=== PATIENT | male | born 1965 | race Caucasian/White ===

== ENCOUNTER → 2018-09-15 12:49 | Outpatient (CLI) | payer BC, SELFPAY ==
[2018-09-15 11:21] VITALS: BMI 34.4
--- NOTE | 2018-09-15 12:54 | RAD_ITS ---
STUDY: X-RAY - LEFT SHOULDER REASON FOR EXAM: Male, 53 years old. Chronic pain. TECHNIQUE: view(s) of the shoulder. COMPARISON: None. FINDINGS: Normal glenohumeral articulation. Normal acromioclavicular joint. Normal acromion. Normal humeral head and visualized proximal humerus. The soft tissue structures are unremarkable. Normal visualized pulmonary apex. RAD/Shoulder min 2 Views IMPRESSION: Normal x-ray examination of the shoulder. Electronically Signed: Gordon Pressley MD at 8:38 EST Tel , Service support ,
--- NOTE | 2018-09-15 12:54 | RAD_ITS ---
STUDY: X-RAY - LEFT WRIST REASON FOR EXAM: Male, 53 years old. Chronic pain. TECHNIQUE: 3 view(s) of the wrist were obtained. COMPARISON: None. FINDINGS: Normal visualized distal radius and ulna. Normal radiocarpal articulation. Normal distal radioulnar articulation. Normal carpal bones. There is a small tiny calcific density on the dorsal aspect of the wrist which could be due to remote injury to the triquetrum or may represent small soft tissue calcification. The significance of which is undetermined. Normal carpal articulations. Normal carpometacarpal articulation of the thumb. Normal second through fifth carpometacarpal articulations. Normal visualized metacarpal bones. The soft tissue structures are unremarkable. RAD/Wrist min 3 Views IMPRESSION: No demonstrated acute osseous changes as described above. Electronically Signed: Gordon Pressley MD at 8:44 EST Tel , Service support ,
== END ==
PROVIDERS: Referring Provider Orthopaedic Surgery; Visit Provider Orthopaedic Surgery
DX: M25.512 Pain in left shoulder (principal); M25.532 Pain in left wrist
CPT/HCPCS: 73030; 73110

== ENCOUNTER → 2018-11-07 09:42 | Outpatient (CLI) | payer BC, SELFPAY ==
[2018-09-15 11:21] VITALS: BMI 34.4
--- NOTE | 2018-11-07 09:53 | RAD_ITS ---
STUDY: X-RAY - PELVIS REASON FOR EXAM: Male, 53 years old. Chronic pain TECHNIQUE: One view of the pelvis was obtained. COMPARISON: None. FINDINGS: Degenerative change of the lower lumbosacral spine. The sacroiliac and hip joints are normal. No fracture. No calcific tendinitis or bursitis . Electronically Signed: Nabil Lua MD at 0:02 EDT Tel , Service support , RAD/Pelvis 1 or 2 Views
[2018-11-07 12:38] LABS: Erythrocyte Sedimentation Rate 10 mm/hr (0-20)
[2018-11-07 12:40] LABS: Absolute Lymphocyte Count 1.98 X10^3/ul (0.83-4.51); Absolute Neutrophil Count 3.3 X10^3/uL (2.0-7.7); Basophil# 0.04 X10^3/uL; Basophil% 0.6 % (0-1); Eosinophil# 0.27 X10^3/uL; Eosinophils% 4.3 % (0-5); Hematocrit 39.6 % (40-54); Hemoglobin 13.4 g/dl (13.0-16.5); Lymphocyte # 1.98 X10^3/ul (4.0); Lymphocyte % 31.8 % (19-41); Mean Corp Hgb Conc 33.8 g/gl (32-36); Mean Corpuscular Hgb 29.2 pg (27.0-32.0); Mean Corpuscular Volume 86.3 fL (80-94); Monocyte% 9.6 % (0-10); Neutrophil # 3.31 X10^3/uL (2.7-7.7); Neutrophil % 53.4 % (47-70); Platelet Count 234 K/mm3 (150-450); RBC Distribution Width CV 13.4 % (11.6-14.6); RBC Distribution Width SD 42.2 fl (35.1-43.9); Red Blood Count 4.59 M/mm3 (4.6-6.2); White Blood Count 6.2 K/mm3 (4.4-11.0)
[2018-11-07 12:41] LABS: POSITIVE COUNT NO; POSITIVE DIFFERENTIAL NO; POSITIVE MORPHOLOGY NO
[2018-11-07 13:15] LABS: ALB/GLOB Ratio 1.2 RATIO (0.9-2.4); AST(SGOT) 27 U/L (15-37); Alanine Aminotransfer ALT/SGPT 38 U/L (16-61); Albumin, Serum 4.2 g/dL (3.2-5.0); Alkaline Phosphatase 74 U/L (45-117); Anion Gap 6 (5-15); BUN 18 mg/dL (7-18); BUN/Creat Ratio 15.4 RATIO (10-20); Calcium,Total 8.9 mg/dL (8.5-10.1); Chloride 106 mmol/L (98-107); Creatinine, Serum 1.17 mg/dL (0.70-1.30); EST Glomerular Filtration Rate 69 mL/min (>60); Est Glom Filt Rate - Afr Amer 84 mL/min (>60); Globulin 3.6 g/dL (2.2-4.2); Glucose 91 mg/dL (74-106); Potassium 4.1 mmol/L (3.5-5.1); Protein, Total 7.8 g/dL (6.4-8.2); Rheumatoid Factor < 10.0 IU/mL (<15); Sodium Level 139 mmol/L (136-145)
[2018-11-11 13:13] LABS: ANTINUCLEAR ANTIBODIES DIRECT Negative (Negative)
[2018-11-12 13:27] LABS: CCP IgG Antibodies 5 units (0-19); HEPATITIS B SURFACE AG Negative (Negative); HLA B27 Negative (.); Hep B Surface Antibodies Non Reactive (.); Hep C Antibodies <0.1 s/co ratio (0.0-0.9)
== END ==
PROVIDERS: Family Provider Nurse Practitioner; PCP Nurse Practitioner; Referring Provider Internal Medicine Rheumatology; Visit Provider Internal Medicine Rheumatology
DX: M06.4 Inflammatory polyarthropathy (principal); L30.9 Dermatitis, unspecified
CPT/HCPCS: 36415; 72170; 80053; 81374; 85025; 85652; 86038; 86140; 86200; 86431; 86706; 86803; 87340

== ENCOUNTER → 2019-10-27 14:05 | Outpatient (CLI) | payer BC, SELFPAY ==
[2018-09-15 11:21] VITALS: BMI 34.4
--- NOTE | 2019-10-27 14:08 | RAD_ITS ---
STUDY: X-RAY - LUMBAR SPINE REASON FOR EXAM: Male, 54 years old. twisted spine last night, felt a pop and now has left LBP TECHNIQUE: 5 view(s) of the lumbar spine were obtained. COMPARISON: None FINDINGS: Normal lumbar lordosis. Mild scoliosis of the lumbar spine, convexity to the left. There is a normal alignment of the vertebrae. There is multilevel endplate spondylosis of the lumbar vertebrae. There is multi-level degenerative disc disease with multi-level disc space narrowing. There is no demonstrated fracture. There is no demonstrated spondylolysis of the pars interarticulares. The soft tissue structures are unremarkable. RAD/L/S Spine Min 4 Views IMPRESSION: Multilevel spondylosis/degenerative disease with no acute fracture, spondylolisthesis or pars defect. Electronically Signed: Lisset Johnston MD at 0:42 EDT , Service support ,
== END ==
PROVIDERS: PCP Nurse Practitioner; Referring Provider Nurse Practitioner; Visit Provider Nurse Practitioner
DX: M54.32 Sciatica, left side (principal)
CPT/HCPCS: 72110

== ENCOUNTER 2019-10-30 14:30 | Outpatient (RCR) | payer BC, SELFPAY ==
[2018-09-15 11:21] VITALS: BMI 34.4
--- NOTE | 2019-10-27 15:23 | HP.PTEVAL_ITS ---
Patient's Visit Information MARIELLA MANZANO is a 54 year old M referred to Physical Therapy by LIA Coates with a diagnosis of Back Pain. Date of Evaluation: 10/27/19 Physical Therapist: Susan Cooley DPT - Visit Plan Frequency: 3x /Week Duration: 4 Weeks Plan: Focus on centralization- core strength/stabilization- shift- modalities of US, e-stim - Subjective Subjective: Patient reports that 8:00 last night he started to have back pain- Last night he twisted around and bent forwards felt and heard a pop and went down on his knees. Pain is located along the left belt line- Pain radiates down below the knee- MD had x-rays and she gave him a Torodol injection. Descibes the back as sharp/shooting pains- electrical shock down the leg that comes and goes. Agg: moving wrong- sitting and putting weight on his hip. Best: leaning on the right hip- laying on his back with his knees bent. Heating pad last night and MD told him to ice. worst: 10/10 best: 6/10. Never had back pain before. 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 No N/T-no buckling of the knee- no loss or change in bowel or bladder. Sleep: belly sleeper- last night was on his back- uncomfortable. PMHx:pre-DM Meds: Metformin, Prevastatin, Prozac, adderol, Synthroid - has him starting Medrol Dose Pack - Objective Posture: FH, RS- leaning to the right- no weight on the left hip in sitting. Gait: antalgic- decreased stance on the left LE- shifted. HR/TR: able. SLS: Left: 5 sec Right: 30 sec. Sensation/Reflex: WNL. ROM: Lumbar flexion: hands to knees, extn/sb/rot: all WNL pain with SB to the right. Strength: core: fair, Hip: 4+/5, Ankle: 5/5, Knee: 5/5 bilaterally. Flex:HS moderate, Gastroc: moderate. Special Test: SLR: positive, Slump on left: positive, Dural Signs: positive. Palpation: tender along paraspinals on the left lumbar and into the gluts on the left - Goals Goal 1:: Patient will be I with HEP and progression Goal Time Frame: 4-6 Weeks Goal 2:: Patient will ambulate >300 feet with a normalized gait pattern Goal Time Frame: 4-6 Weeks Goal 3:: Patient will maintain proper sitting and standing posture without shifting Goal Time Frame: 4-6 Weeks - Rehabilitation Potential Physical Therapy Diagnosis: Patient presents with hypmobility- he has decreased painfree ROM, strength, flex and muscualar endurance leading to increased pain with ADL's Rehabilitation Potential: Good - Anticipated Interventions Patient/Client Instruction: Educate patient on: Benefits of Fitness Program Therapeutic Exercise to Include: Strength training, Endurance training, Balance training, Agility training, Body mechanics, Postural training, Flexibilty training, Gait and locomotor training, Neuromotor development, Passive ROM, Active ROM, Dynamic Lumbar Stabilization, Scapular Strength/Stabilization For the Purpose of:: To improve muscle performance and motor function TENS: Yes Cryotherapy (ice pack, ice massage): Yes Thermo therapy (hot pack): Yes Ultrasound (thermal/non thermal): Yes Thank you for the opportunity to evaluate your patient. For Medicare and Medicare HMO plans, please review the plan of care and approve it. It will need to be FAXED BACK to us at [phone] for Medicare purposes. For Medicare only, by signing this I certify the plan of care. Please let me know if there are questions or concerns regarding this plan of care. Physician Signature: Date:
--- NOTE | 2019-12-22 11:26 | HP.PT.NRP ---
MARIELLA MANZANO was seen in my office for initial evaluation on 10/27/19. The following Plan of Care was established for this patient: Initial Frequency: 3x /Week Initial Duration: 4 Weeks Patient/Client Instruction: Educate patient on: Benefits of Fitness Program Therapeutic Exercise to Include: Strength training, Endurance training, Balance training, Agility training, Body mechanics, Postural training, Flexibilty training, Gait and locomotor training, Neuromotor development, Passive ROM, Active ROM, Dynamic Lumbar Stabilization, Scapular Strength/Stabilization For the Purpose of:: To improve muscle performance and motor function TENS: Yes Cryotherapy (ice pack, ice massage): Yes Thermo therapy (hot pack): Yes Ultrasound (thermal/non thermal): Yes This patient was last seen in our office . Pertinent comments regarding their Physical therapy will appear below: Patient has not attended physical therapy in over 8 weeks- appropriate for d/c and return to MD as appropriate. At this point I will be discontinuing this patient from physical therapy. I would be happy to see this patient again in the future if found appropriate by the physician. Thank you! DEMARCUS McnamaraT
== END 2019-10-30 19:00 | disposition home or self-care (01) ==
LOC: PT 14:30
PROVIDERS: PCP Nurse Practitioner; Referring Provider Nurse Practitioner; Visit Provider Nurse Practitioner
DX: M54.40 Lumbago with sciatica, unspecified side (principal)
CPT/HCPCS: 97014; 97110; 97162; G0283

== ENCOUNTER → 2020-01-21 | Outpatient (CLI) | payer BC, SELFPAY ==
[2018-09-15 11:21] VITALS: BMI 34.4
[2020-01-21 17:42] LABS: RBC /Synovial Fluid 0.444 10^6/uL (0); Synovial Fld Mononuclear WBC % 40.2 %; Synovial Fld Polynuclear WBC # 2.199 10^3/uL; Synovial Fld Polynuclear WBC % 59.8 %
[2020-01-21 18:11] LABS: AUTO B FLUID DILUENT BKGD CT WBC <0.1 RBC <0.01 (W<.1,R<.01)
[2020-01-21 18:12] LABS: Appearance /Synovial Fluid Cloudy (CLEAR); Color / Synovial Fluid RED (Pale Yellow); Source / Synovial Fluid LEFT ELBOW
[2020-01-21 18:47] LABS: Neutrophil 74 % (0-25)
[2020-01-21 18:48] LABS: Body Fluid QC Type(s) BF4Q; Lymph 7 %; Monocyte /Synovial Fluid 17 %; Other Cell /Synovial Fluid 2 %
[2020-01-22 12:25] LABS: Pathologist Comment Reviewed
== END | disposition home or self-care (01) ==
PROVIDERS: PCP Nurse Practitioner; Referring Provider Physician Assistant; Visit Provider Physician Assistant
DX: M70.22 Olecranon bursitis, left elbow (principal)
CPT/HCPCS: 87015; 87070; 87075; 87077; 87101; 87116; 87186; 87205; 87206; 89050; 89051

== ENCOUNTER 2020-02-29 10:02 | Day surgery (SDC) | payer BC, SELFPAY ==
[2018-09-15 11:21] VITALS: BMI 34.4
--- NOTE | 2020-02-11 08:24 | EKG12_ITS ---
Test Reason : PREOP Blood Pressure : / mmHG Vent. Rate : 060 BPM Atrial Rate : 060 BPM P-R Int : 136 ms QRS Dur : 082 ms QT Int : 396 ms P-R-T Axes : 041 004 037 degrees QTc Int : 396 ms Normal sinus rhythm Normal ECG Confirmed by JOEY SIERRA, CALE ([id number]), department editor MARITO STALLWORTH ([id number]) on 02/11/2020 1:24:55 PM Referred By: Colin Byrne Confirmed By:CALE COOK MD
[2020-02-11 08:49] LABS: Mean Corp Hgb Conc 32.5 g/dL (32-36); Mean Corpuscular Hgb 29.7 pg (27.0-32.0); Mean Corpuscular Volume 91.5 fL (80-94); Mean Platelet Vol. 8.9 fl (6.2-12.0); Platelet Count 242 K/mm3 (150-450); RBC Distribution Width CV 12.8 % (11.6-14.6); RBC Distribution Width SD 42.1 fl (35.1-43.9); Red Blood Count 4.37 M/mm3 (4.6-6.2); White Blood Count 4.8 K/mm3 (4.4-11.0)
[2020-02-11 09:30] LABS: Anion Gap 4 (5-15); BUN 21 mg/dL (7-18); BUN/Creat Ratio 21.1 RATIO (10-20); Chloride 109 mmol/L (98-107); EST Glomerular Filtration Rate 83 mL/min (>60); Est Glom Filt Rate - Afr Amer 101 mL/min (>60); Glucose 101 mg/dL (74-106); Potassium 4.2 mmol/L (3.5-5.1); Sodium Level 141 mmol/L (136-145); Thyroid Stim Hormone (TSH) 1.33 uIU/mL (0.358-3.74)
[2020-02-11 11:28] LABS: Hemoglobin A1c 5.6 % (3.8-5.6)
[2020-02-29 10:26] LABS: Bedside Glucose 115 mg/dL (70-110)
[2020-02-29 10:29] VITALS: BP 137/76; PULSE 52; RESP 16; TEMP 36.6; O2SAT 98; BMI 32.1
[2020-02-29] MEDS: Lactated Ringers 1,000 ML 100 ML IV (10:40)
[2020-02-29] MEDS: Cefazolin 2 GM in 0.9% Normal Saline 100 ML IV (11:30)
[2020-02-29] MEDS: Bupiv/Epi 0.5% Mpf 30 ML Vial (11:57)
[2020-02-29] MEDS: Epinephrine (1 mg/ml) 1 MG/ML VIAL (12:07)
--- NOTE | 2020-02-29 13:03 | OP.PCM_ITS ---
Report of Operation Date of Procedure: 02/29/20 Pre-Operative Diagnosis: SAIS, AC arthropathy, RC tear, biceps tendinosus left Post-Operative Diagnosis: same Surgery/Procedure Performed:: ASD, Robert procedure, biceps tenotomy and RCR television antenna installer: Kurt Rivera Type of Anesthesia:: General/Regional Anesthesiologist: Myles Morejon - Admit VTE Documentation VTE Present on Admission: No VTE Mechan Device Prophylaxis: SCD's VTE Pharm Prophylaxis ordered?: No Reason prophylaxis not ordered:: Treatment Not Indicated
[2020-02-29 13:21] VITALS: BP 123/70; BP 137/76; PULSE 58; RESP 16; TEMP 35.9; O2SAT 94
[2020-02-29 13:30] VITALS: BP 119/64; BP 137/76; PULSE 59; RESP 16; O2SAT 93
[2020-02-29 13:45] VITALS: BP 133/93; BP 137/76; PULSE 65; RESP 16; O2SAT 96
[2020-02-29 13:58] VITALS: BP 116/61; BP 137/76; PULSE 67; RESP 16; TEMP 35.9; O2SAT 99
[2020-02-29 14:01] LABS: Bedside Glucose 126 mg/dL (70-110)
[2020-02-29 14:50] VITALS: BP 115/62; BP 137/76; PULSE 58; RESP 16; TEMP 36.1; O2SAT 95
== END 2020-02-29 15:01 | disposition home or self-care (01) ==
LOC: SDC 10:04 → AC 10:05
PROVIDERS: Anesthesiology; PCP Nurse Practitioner; Referring Provider Orthopaedic Surgery; Visit Provider Orthopaedic Surgery
PROC: (CPT 29827; principal; 2020-02-29 11:30)
DX: M75.42 Impingement syndrome of left shoulder (principal); M19.012 Primary osteoarthritis, left shoulder; M75.102 Unspecified rotator cuff tear or rupture of left shoulder, not specified as traumatic; M75.22 Bicipital tendinitis, left shoulder; E78.00 Pure hypercholesterolemia, unspecified; E11.9 Type 2 diabetes mellitus without complications; F41.9 Anxiety disorder, unspecified; E06.9 Thyroiditis, unspecified; Z79.84 Long term (current) use of oral hypoglycemic drugs; Z79.899 Other long term (current) drug therapy; Z11.59 Encounter for screening for other viral diseases
CPT/HCPCS: 01630; 29824; 29826; 29827; 36415; 80048; 82962; 83036; 84443; 85027; 87635; 93005; G2023; J7120; J2405; U0003

== ENCOUNTER 2020-10-03 19:55 | Emergency (ER) | payer BC, SELFPAY ==
[2020-10-03 19:56] VITALS: BP 148/92; PULSE 88; RESP 16; TEMP 36; O2SAT 96; BMI 31.0
--- NOTE | 2020-10-03 21:20 | RAD_ITS ---
HISTORY: PT STATES HE IS COVID POSITIVE. YESTERDAY MORNING HE COUGHED AND HAD BLOOD TINGED MUCOUS. HAS NOT HAD IT AGAIN. JUST ONE EPISODE EXAM: XR Chest 1 View: COMPARISON: None FINDINGS: # of images incl. paperwork: 1 Elevation of the right hemidiaphragm Lungs are clear. Heart is not enlarged. No acute osseous pathology perceived. Pulmonary vascularity is distinct. No effusions. RAD/Chest 1 View (Portable) IMPRESSION: Normal. at 2206 Reported and signed by: Nestor Steele MD Electronically Signed: Nestor Steele MD at 22:05 EST Tel , Service support ,
[2020-10-03 21:41] LABS: Basophil# 0.02 X10^3/uL; Basophil% 0.3 % (0-1); Eosinophil# 0.06 X10^3/uL; Eosinophils% 0.9 % (0-5); Hematocrit 42.6 % (40-54); Hemoglobin 13.9 g/dL (13.0-16.5); Lymphocyte % 24.8 % (19-41); Mean Corp Hgb Conc 32.6 g/dL (32-36); Mean Corpuscular Hgb 28.9 pg (27.0-32.0); Mean Corpuscular Volume 88.6 fL (80-94); Mean Platelet Vol. 8.8 fl (6.2-12.0); Monocyte# 0.69 X10^3/uL; Monocyte% 10.7 % (0-10); NRBC Flagged by Analyzer 0 % (0-5); Neutrophil # 4.04 X10^3/uL (2.7-7.7); Neutrophil % 62.8 % (47-70); Platelet Count 248 K/mm3 (150-450); RBC Distribution Width CV 12.6 % (11.6-14.6); RBC Distribution Width SD 41.1 fl (35.1-43.9); Red Blood Count 4.81 M/mm3 (4.6-6.2); White Blood Count 6.4 K/mm3 (4.4-11.0)
[2020-10-03 21:49] LABS: Prothrombin Time (Protime)PT. 12.2 SECONDS (11.7-14.9)
[2020-10-03 21:50] LABS: D-Dimer Quantitative (DVT/PE) 0.48 FEU/ug/m (0.27-0.49)
[2020-10-03 21:58] LABS: Anion Gap 5 (5-15); BUN 24 mg/dL (7-18); BUN/Creat Ratio 22.2 RATIO (10-20); Calcium,Total 9.3 mg/dL (8.5-10.1); Chloride 105 mmol/L (98-107); Creatinine, Serum 1.08 mg/dL (0.70-1.30); EST Glomerular Filtration Rate 76 mL/min (>60); Est Glom Filt Rate - Afr Amer 92 mL/min (>60); Estimated Creatinine Clearance 78.19 ml/min; Glucose 103 mg/dL (74-106); Potassium 4.9 mmol/L (3.5-5.1); Sodium Level 139 mmol/L (136-145)
--- NOTE | 2020-10-03 23:01 | ED.VIS.GEN ---
History of Present Illness Chief Complaint: Cough Informant: Patient Onset: Today Context: Sudden Onset Narrative: Patient evaluated for 1 episode of hemoptysis. Patient was diagnosed with Covid 1 week ago. He contracted it from his . Patient states he has had mild headache and myalgias but otherwise been feeling well. He denies any shortness of breath or difficulty breathing. Patient states he coughed up blood clot about the size of a half dollar yesterday. He spoke with his primary care provider, Kimberly Irby, who recommend he come to the emergency room to make sure he does not have a blood clot. Patient denies any chest pain, shortness of breath or difficulty breathing. He is not on any anticoagulants. No other complaints at this time. Past Medical History - Allergies and Home Meds Allergies/Adverse Reactions: Allergies No Known Allergies Allergy (Verified 02/29/20 10:27) Primary Care Physician: Dada Baeza DO [STAFF PHYSICIAN] - Past Medical History: - - Hypothyroid, diabetes mellitus, depression/anxiety Surgical History: noncontributory Lives: Spouse/ Significant Other Smoking Status: Former smoker Review of Systems General: Reports: Malaise. Denies: Chills, Fever, Sweats Eyes: Denies: Visual changes - bilaterally, Diplopia ENT: Denies: Rhinorrhea, Sore throat Cardiovascular: Denies: Chest pain, Palpitations Respiratory: Reports: Cough, - - Hemoptysis. Denies: Dyspnea, Dyspnea on exertion Gastrointestinal: Denies: Abdominal pain, Nausea, Vomiting, Diarrhea, Melena, Hematochezia Genitourinary: Denies: Dysuria, Hematuria, Frequency Musculoskeletal: Reports: Myalgias. Denies: Back pain, Extremity Pain Skin: Denies: Rash, Wounds Neurological: Denies: Headache, Weakness, Numbness Physical Exam Vital Signs/Narrative: Vital Signs Temp Pulse Resp BP Pulse Ox 10/03/20 19:56 96.8 F L 88 16 148/92 H 96 Inital Vital Signs reviewed: Yes General: Well nourished, Well developed, No Acute Distress Head: Normocephalic, Atraumatic Eyes: Perrl, EOMI. Negative for: Pale conjunctiva ENT: Moist mucous membranes, No rhinorrhea Neck: Supple, Nontender, No JVD Cardiovascular: Regular rate, Regular rhythm, No murmurs Respiratory: No distress, CTA bilaterally, Chest nontender. Negative for: Wheezing, Diminished Abdomen: Soft, Nontender, Nondistended, Normal bowel sounds Back: Nontender, Normal Inspection Extremities: Nontender, No edema Skin: Normal color, No rash. Negative for: Pallor Neurological: Alert, Oriented x3, Cranial nerves II-XII grossly intact, Normal Strength, Normal Sensation Psychological: Normal affect, Normal Mood Diagnostic/Tx/Re-eval Chest X-Ray - ED: 1 View, Read by ED Physician, Read by Radiologist, No Acute Disease Clinical Impression(s) from Imaging Studies Chest X-Ray 10/03/20 21:20 IMPRESSION: Normal. at 2206 Reported and signed by: Nestor Steele MD Electronically Signed: Nestor Steele MD at 22:05 EST Tel , Service support , Laboratory Data 10/03/20 10/03/20 10/03/20 21:15 21:15 21:15 WBC 6.4 RBC 4.81 Hgb 13.9 Hct 42.6 MCV 88.6 MCH 28.9 MCHC 32.6 RDW Std Deviation 41.1 RDW Coeff of Mounika 12.6 Plt Count 248 MPV 8.8 Immature Gran % (Auto) 0.500 Neut % (Auto) 62.8 Lymph % (Auto) 24.8 [place] % (Auto) 10.7 H Eos % (Auto) 0.9 Baso % (Auto) 0.3 Absolute Neuts (auto) 4.0 Absolute Lymphs (auto) 1.60 Nucleated RBC % 0 PT 12.2 INR 1.0 D-Dimer Quant (PE/DVT) 0.48 Sodium 139 Potassium 4.9 Chloride 105 Carbon Dioxide 29.0 Anion Gap 5 BUN 24 H Creatinine 1.08 Estim Creat Clear Calc 78.19 Est GFR (MDRD) Af Amer 92 Est GFR (MDRD) Non-Af 76 BUN/Creatinine Ratio 22.2 H Glucose 103 Calcium 9.3 Troponin I < 0.015 B-Natriuretic Peptide 10/03/20 21:15 WBC RBC Hgb Hct MCV MCH MCHC RDW Std Deviation RDW Coeff of Mounika Plt Count MPV Immature Gran % (Auto) Neut % (Auto) Lymph % (Auto) [place] % (Auto) Eos % (Auto) Baso % (Auto) Absolute Neuts (auto) Absolute Lymphs (auto) Nucleated RBC % PT INR D-Dimer Quant (PE/DVT) Sodium Potassium Chloride Carbon Dioxide Anion Gap BUN Creatinine Estim Creat Clear Calc Est GFR (MDRD) Af Amer Est GFR (MDRD) Non-Af BUN/Creatinine Ratio Glucose Calcium Troponin I B-Natriuretic Peptide 3.0 - Medical Decision Making Patient evaluated after an episode of hemoptysis yesterday. Patient was diagnosed with COVID-19 infection 6 days ago. He has had a relatively benign course so far. He does not complain of any shortness of breath or difficulty breathing. He is not on any anticoagulation. Patient is low risk factor for PE so D-dimer is obtained. This is negative and I do not think CT is indicated. Do not suspect PE. X-ray does not show any acute process. Patient does not have any coagulopathy on blood work. His hemoglobin is normal. Patient be discharged home to follow-up with his primary care provider. Patient is counseled on signs and symptoms requiring return to the emergency room. Patient verbalizes agreement and understand this plan. Patient discharged home in stable and improved condition. ED Disposition - Plan for ED Patient: Disposition: Home or Assisted Living Diagnosis: Hemoptysis Instructions: ED Hemoptysis Referrals: Dada Baeza DO [STAFF PHYSICIAN] -
[2020-10-03 23:11] VITALS: BP 140/78; PULSE 68; RESP 16; O2SAT 98
== END 2020-10-03 23:12 | disposition home or self-care (01) ==
PROVIDERS: Emergency Provider Emergency Medicine; PCP Nurse Practitioner
DX: U07.1 COVID-19 (principal); R04.2 Hemoptysis; E03.9 Hypothyroidism, unspecified; E11.9 Type 2 diabetes mellitus without complications; Z79.84 Long term (current) use of oral hypoglycemic drugs; Z79.899 Other long term (current) drug therapy; Z87.891 Personal history of nicotine dependence
CPT/HCPCS: 71045; 80048; 83880; 84484; 85025; 85379; 85610; 99283; A4216

== ENCOUNTER 2021-11-10 10:55 | Outpatient (CLI) | payer BC, SELFPAY ==
--- NOTE | 2021-11-10 11:02 | US_ITS ---
STUDY: THYROID ULTRASOUND REASON FOR EXAM: Male, 56 years old. ANTI TPO ANTIBODIES PRESENT TECHNIQUE: Ultrasound evaluation of the thyroid was performed with real-time and static evans-scale imaging. COMPARISON: None. FINDINGS: RIGHT LOBE: The right lobe of the thyroid gland is enlarged and measures 5.5 cm x 1.4 cm x 1.4 cm. There is a heterogeneous echotexture. Multiple tiny cystic changes are seen. LEFT LOBE: The left lobe of the thyroid gland is enlarged and measures 5 cm x 1.5 cm x 1.1 cm. There is a heterogeneous echotexture. Multiple tiny cystic changes are seen. ISTHMUS: The isthmus measures 4 mm. The regional lymph nodes are normal. US/Thyroid IMPRESSION: Enlarged thyroid gland with heterogeneous echotexture. Multiple tiny cystic changes are seen in both lobes. Electronically Signed: Harris Buitrago MD at 14:39 EDT ,
== END 2021-11-10 23:59 | disposition home or self-care (01) ==
PROVIDERS: PCP Nurse Practitioner; Referring Provider Nurse Practitioner; Visit Provider Nurse Practitioner
DX: R76.8 Other specified abnormal immunological findings in serum (principal)
CPT/HCPCS: 76536

== ENCOUNTER → 2022-04-26 | Outpatient (CLI) | payer BC, SELFPAY | END | disposition home or self-care (01) | PROVIDERS: PCP Nurse Practitioner Family; Referring Provider Nurse Practitioner Family; Visit Provider Nurse Practitioner Family | DX: R00.1 Bradycardia, unspecified (principal) | CPT/HCPCS: 93225; 93226 ==

== ENCOUNTER → 2022-05-18 | Outpatient (CLI) | payer BC, SELFPAY ==
--- NOTE | 2022-05-18 07:58 | CDU_ITS ---
Reason For Study: DIZZINESS Rt. Velocities/BP Lt. Velocities/BP Prox CCA 104.7/20.1 cm/sec. Prox CCA 110.7/21.2 cm/sec. Mid CCA 117.9/23.4 cm/sec. Mid CCA 103.4/19.4 cm/sec. Dist CCA 88.3/21.2 cm/sec. Dist CCA 99.7/21.2 cm/sec. Prox ICA 50.1/12.7 cm/sec. Prox ICA 66.8/15.7 cm/sec. Mid ICA 56.7/21.5 cm/sec. Mid ICA 70.5/24.8 cm/sec. Dist ICA 67.7/21.5 cm/sec. Dist ICA 63.4/20.7 cm/sec. Rt. ICA/CCA = 0.6. Lt. ICA/CCA = 0.7. Prox ECA 84.2/11.7 cm/sec. Prox ECA 72.3/6.6 cm/sec. Rt. Vert. 46.8/16.0 cm/sec. Lt. Vert. 43.1/13.2 cm/sec. Right Extracranial There is intimal thickening but no significant atherosclerotic plaque noted in the right common carotid artery. There is heterogeneous, irregular atherosclerotic plaque noted in the right internal carotid artery. There is homogeneous, irregular atherosclerotic plaque noted in the right external carotid artery. Antegrade flow is noted in the right vertebral artery. Left Extracranial There is intimal thickening but no significant atherosclerotic plaque noted in the left common carotid artery. There is heterogeneous, irregular atherosclerotic plaque noted in the left internal carotid artery. There is intimal thickening but no significant atherosclerotic plaque noted in the left external carotid artery. Antegrade flow is noted in the left vertebral artery. Procedure Carotid Duplex [id number]. This is a Carotid Duplex examination using B-mode, color flow and specral Doppler. The exam was diagnostic. Exam performed in department. VL/Carotid Duplex Ultrasound Interpretation Summary Mild (<50%) stenosis right extracranial internal carotid. Mild (<50%) stenosis left extracranial internal carotid. Flow within the vertebral arteries is antegrade bilaterally. Ordering Physician: Karlee Dominguez Referring Physician: Karlee Dominguez Performed By: Colin Magdaleno RVT
== END | disposition home or self-care (01) ==
PROVIDERS: PCP Nurse Practitioner Family; Referring Provider Nurse Practitioner Family; Visit Provider Nurse Practitioner Family
DX: I65.23 Occlusion and stenosis of bilateral carotid arteries (principal)
CPT/HCPCS: 93880

== ENCOUNTER → 2022-06-26 | Outpatient (CLI) | payer BC, SELFPAY ==
--- NOTE | 2022-06-26 12:36 | ECHOD_ITS ---
Reason For Study: Syncope Procedure This was a 2D Doppler, Color Flow transthoracic echocardiogram. Exam performed in department. Left Ventricle Normal LV size. Left ventricular systolic function is normal. The estimated ejection fraction is 60 %. No evidence for diastolic dysfunction. No regional wall motion abnormalities noted. Right Ventricle Normal RV size. Normal systolic function. Atria Normal left atrium. Normal right atrium. No doppler evidence for ASD. Mitral Valve There is no mitral annular calcification. Mild diffuse mitral valve thickening. Trivial mitral valve insufficiency. Tricuspid Valve Normal tricuspid valve. Trivial tricuspid valve insufficiency. Unable to estimate RV systolic pressure due to insufficient tricuspid regurgitant envelope. Aortic Valve Trisinus/trileaflet aortic valve. Mild diffuse aortic valve thickening. Moderate focal aortic valve calcification. Pulmonic Valve The pulmonic valve is not well visualized. Mild (1+) pulmonic valve insufficiency. Great Vessels Normal sized aortic root. Pericardium/Pleural No pericardial effusion. MMode/2D Measurements & Calculations LVIDd: 5.4 cm IVSd: 1.1 cm LVOT diam: 2.3 cm LVIDs: 3.2 cm LVPWd: 1.3 cm LVOT area: 4.0 cm2 RVDd: 3.1 cm FS: 40.2 % Ao root diam: 3.4 cm LAV(MOD-bp): 41.0 ml LA A4 area: 16.6 cm2 LA dimension: 3.8 cm LAV(MOD-bp) Indexed: 19.2 ml/m2 LAV(MOD-sp2): 35.9 ml LAV(MOD-sp4): 48.1 ml Time Measurements MV dec time: 0.22 sec Doppler Measurements & Calculations MV E max aly: 46.6 cm/sec Lat Peak E' Aly: 4.0 cm/sec Med Peak E' Aly: 5.6 cm/sec MV A max aly: 47.6 cm/sec E/E' lat: 11.5 E/E' med: 8.4 MV E/A: 0.98 MV V2 max: 61.2 cm/sec MV P1/2t max aly: 52.0 cm/sec Ao V2 max: 128.4 cm/sec MV max P.5 mmHg MV P1/2t: 61.9 msec Ao max P.6 mmHg MV V2 mean: 31.7 cm/sec MV dec slope: 246.0 cm/sec2 Ao V2 mean: 90.3 cm/sec MV mean P.47 mmHg MVA(P1/2t): 3.6 cm2 Ao mean P.7 mmHg MV V2 VTI: 17.9 cm Ao V2 VTI: 21.4 cm MVA(VTI): 4.1 cm2 KALLI(I,D): 3.4 cm2 KALLI(V,D): 2.7 cm2 LV V1 max: 85.9 cm/sec SV(LVOT): 73.3 ml PA V2 max: 125.4 cm/sec LV V1 max P.0 mmHg LV V1 mean P.6 mmHg LV V1 mean: 58.6 cm/sec LV V1 VTI: 18.4 cm ECHO/Echo Complete Interpretation Summary Left ventricular systolic function is normal. The estimated ejection fraction is 60 %. Mild diffuse mitral valve thickening. Trivial mitral valve insufficiency. Trivial tricuspid valve insufficiency. Mild diffuse aortic valve thickening. Moderate focal aortic valve calcification. Mild (1+) pulmonic valve insufficiency. Unable to estimate RV systolic pressure due to insufficient tricuspid regurgita nt envelope. No evidence for diastolic dysfunction. Ordering Physician: Karlee Dominguez Performed By: Ton Vera RCS
--- NOTE | 2022-06-26 17:52 | STRESSREP ---
Stress Test Report Exercise stress test. 57-year-old man with a history of syncope. Stress protocol: Rest EKG demonstrates sinus bradycardia with a rate of 49 bpm normal intervals are noted resting blood pressure is 132/78 mmHg. The patient exercised according to regular Kain protocol for total duration of 9 minutes and 30 seconds. Patient completed 30 seconds into stage IV of the Kain protocol. The maximum heart rate attained was 160 bpm which was 97% of maximum predicted heart rate the maximum workload was 11.7 metabolic equivalents. At rest there were no ST or T wave changes noted to suggest ischemia and at peak exercise upsloping ST changes were noted we did not meet the criteria for ischemia. No clinical angina was noted the test was terminated due to dyspnea and the target heart rate being achieved. No arrhythmias were noted. The rate-pressure product was 30,200. Conclusion: Exercise stress test with no EKG criteria for ischemia at a high workload. Excellent functional capacity.
== END | disposition home or self-care (01) ==
PROVIDERS: PCP Nurse Practitioner Family; Visit Provider Nurse Practitioner Family
DX: R55 Syncope and collapse (principal); R00.1 Bradycardia, unspecified
CPT/HCPCS: 93017; 93306

== ENCOUNTER → 2023-04-29 | Outpatient (CLI) | payer BC, SELFPAY ==
[2023-04-29 17:36] LABS: Absolute Lymphocyte Count 3.01 X10^3/uL (0.83-4.51); Absolute Neutrophil Count 4.1 X10^3/uL (2.0-7.7); Basophil# 0.08 X10^3/uL; Basophil% 0.9 % (0-1); Eosinophil# 0.37 X10^3/uL; Eosinophils% 4.4 % (0-5); Hemoglobin 14.3 g/dL (13.0-16.5); Lymphocyte # 3.01 X10^3/ul (0.83-4.51); Lymphocyte % 35.4 % (19-41); Mean Corp Hgb Conc 32.5 g/dL (32-36); Mean Corpuscular Hgb 29.3 pg (27.0-32.0); Mean Corpuscular Volume 90.2 fL (80-94); Mean Platelet Vol. 9.3 fl (6.2-12.0); Monocyte# 0.88 X10^3/uL; Monocyte% 10.4 % (0-10); NRBC Flagged by Analyzer 0 % (0-5); Neutrophil # 4.11 X10^3/uL (2.7-7.7); Neutrophil % 48.3 % (47-70); Platelet Count 252 K/mm3 (150-450); RBC Distribution Width CV 12.4 % (11.6-14.6); RBC Distribution Width SD 40.9 fl (35.1-43.9); Red Blood Count 4.88 M/mm3 (4.6-6.2); White Blood Count 8.5 K/mm3 (4.4-11.0)
[2023-04-29 17:52] LABS: Erythrocyte Sedimentation Rate 5 mm/hr (0-20)
[2023-04-29 18:16] LABS: AST(SGOT) 53 U/L (15-37); Alanine Aminotransfer ALT/SGPT 97 U/L (16-61); Alkaline Phosphatase 89 U/L (45-117); Anion Gap 5 (5-15); BUN 18 mg/dL (7-18); BUN/Creat Ratio 16.2 RATIO (10-20); CRP 5.87 mg/L (0.0-3.0); Calcium,Total 9.3 mg/dL (8.5-10.1); Chloride 108 mmol/L (98-107); Creatinine, Serum 1.11 mg/dL (0.70-1.30); EST Glomerular Filtration Rate 73 mL/min (>60); Est Glom Filt Rate - Afr Amer 88 mL/min (>60); Globulin 3.9 g/dL (2.2-4.2); Glucose 93 mg/dL (74-106); Potassium 4.8 mmol/L (3.5-5.1); Protein, Total 7.9 g/dL (6.4-8.2); Rheumatoid Factor < 10.0 IU/mL (<15); Sodium Level 143 mmol/L (136-145); Thyroid Stim Hormone (TSH) 0.49 uIU/mL (0.358-3.74); Vitamin B12 523 pg/mL (211-911)
== END | disposition home or self-care (01) ==
LOC: MTLAB 16:46
PROVIDERS: PCP Internal Medicine; Referring Provider Internal Medicine; Visit Provider Internal Medicine
DX: E55.9 Vitamin D deficiency, unspecified (principal); R53.83 Other fatigue
CPT/HCPCS: 36415; 80053; 82306; 82607; 84443; 85025; 85652; 86140; 86431

== ENCOUNTER → 2023-10-01 | Outpatient (CLI) | payer BC, SELFPAY ==
[2023-10-01 12:29] LABS: Vitamin B12 506 pg/mL (211-911); Vitamin D,25 Hydroxy 33.5 ng/mL
[2023-10-01 12:33] LABS: ALB/GLOB Ratio 1.2 RATIO (0.9-2.4); AST(SGOT) 39 U/L (15-37); Alanine Aminotransfer ALT/SGPT 65 U/L (16-61); Albumin, Serum 4.2 g/dL (3.2-5.0); Alkaline Phosphatase 81 U/L (45-117); Anion Gap 6 (5-15); BUN 20 mg/dL (7-18); BUN/Creat Ratio 16.4 RATIO (10-20); Calcium,Total 9.3 mg/dL (8.5-10.1); Chloride 108 mmol/L (98-107); Creatinine, Serum 1.22 mg/dL (0.70-1.30); EST Glomerular Filtration Rate 65 mL/min (>60); Est Glom Filt Rate - Afr Amer 79 mL/min (>60); Follicle Stimulating Hormone 10.7 mIU/mL; Globulin 3.5 g/dL (2.2-4.2); Glucose 110 mg/dL (74-106); PSA,Total- Diagnostic 0.41 ng/mL (0.0-4.0); Potassium 4.7 mmol/L (3.5-5.1); Prolactin 3.4 ng/mL; Protein, Total 7.7 g/dL (6.4-8.2); Rheumatoid Factor < 10.0 IU/mL (<15); Sodium Level 141 mmol/L (136-145); Thyroid Stim Hormone (TSH) 1.53 uIU/mL (0.358-3.74)
[2023-10-01 12:34] LABS: Erythrocyte Sedimentation Rate 9 mm/hr (0-20)
[2023-10-01 12:36] LABS: Hemoglobin A1c 5.8 % (3.8-5.6)
[2023-10-01 12:44] LABS: Hematocrit 41.4 % (40-54); Hemoglobin 13.5 g/dL (13.0-16.5); Mean Corp Hgb Conc 32.6 g/dL (32-36); Mean Corpuscular Hgb 29.1 pg (27.0-32.0); Mean Corpuscular Volume 89.2 fL (80-94); Mean Platelet Vol. 9.6 fl (6.2-12.0); Platelet Count 252 K/mm3 (150-450); RBC Distribution Width CV 12.8 % (11.6-14.6); RBC Distribution Width SD 41.7 fl (35.1-43.9); Red Blood Count 4.64 M/mm3 (4.6-6.2); White Blood Count 6.3 K/mm3 (4.4-11.0)
[2023-10-08 10:09] LABS: Insulin Like Growth Factor 90 ng/mL (68-247); Testosterone, % Free 2.51 % (1.50-4.20); Testosterone, Free 7.96 ng/dL (5.00-21.00); Testosterone, Total 317 ng/dL (264-916)
== END | disposition home or self-care (01) ==
LOC: MTLAB 09:52
PROVIDERS: PCP Internal Medicine; Referring Provider Internal Medicine Endocrinology, Diabetes & Metabolism; Visit Provider Internal Medicine Endocrinology, Diabetes & Metabolism
DX: E55.9 Vitamin D deficiency, unspecified (principal); E06.3 Autoimmune thyroiditis; R53.83 Other fatigue; R73.03 Prediabetes; R79.89 Other specified abnormal findings of blood chemistry
CPT/HCPCS: 36415; 80053; 82306; 82607; 83001; 83002; 83036; 84146; 84153; 84305; 84402; 84403; 84443; 85027; 85652; 86140; 86431

== ENCOUNTER → 2024-03-16 | Outpatient (CLI) | payer BC, SELFPAY ==
[2024-03-16 18:04] LABS: Troponin-I HS 9 pg/mL (3.0-78.0)
[2024-03-16 18:58] LABS: D-Dimer Quantitative (DVT/PE) 0.51 FEU/ug/m (0.27-0.49)
== END | disposition home or self-care (01) ==
LOC: MTLAB 16:40
PROVIDERS: PCP Internal Medicine; Referring Provider Internal Medicine; Visit Provider Internal Medicine
DX: R06.02 Shortness of breath (principal)
CPT/HCPCS: 36415; 84484; 85379

== ENCOUNTER → 2024-03-17 | Outpatient (CLI) | payer BC, SELFPAY ==
--- NOTE | 2024-03-17 09:57 | CT_ITS ---
STUDY: CTA CHEST REASON FOR EXAM: Male, 58 years old. Elevated D-dimer -- STAT. Shortness of breath and dizziness. RADIATION DOSAGE (If Supplied By Facility): CTDIvol = ( 13.85 ) mGy, DLP = ( 588.14 ) mGycm TECHNIQUE: The examination was performed with the intravenous administration of IV 100mL Isovue-370. Post-processing of the angiographic images was performed, with multiplanar reformation and 3D reconstruction. Individualized dose optimization techniques were used for this CT. COMPARISON: None. FINDINGS: Normal enhancement of the main pulmonary artery and right and left pulmonary arteries. Normal enhancement of the bilateral peripheral pulmonary arteries. There is no demonstrated pulmonary embolism. Normal thoracic aorta and visualized great vessels. There is no demonstrated aortic dissection. Normal heart and pericardium. Small mediastinal lymph nodes. There are calcified right hilar lymph nodes. Normal visualized trachea and bronchi. The lungs are well expanded. There is a calcified granuloma in the anterior aspect of the right lower lobe. There is a 4.9 mm noncalcified nodule in the peripheral lateral aspect of the right upper lobe as seen on axial image #190 and sagittal image #90. There is also evidence of a 2 mm noncalcified nodule in the peripheral lateral aspect of the right middle lobe as seen on axial image #154. Normal pleura. Normal chest wall structures. There are degenerative changes of thoracic spine. Small hiatal hernia. Diffuse fatty infiltration of the liver. CT/CTA Chest W/WO Contrast IMPRESSION: No evidence of bone embolism. 4.9 mm noncalcified nodule in the peripheral lateral aspect of the right upper lobe as seen on axial image #190. 2 mm noncalcified nodule in the peripheral lateral aspect of the right middle lobe. 12 month follow-up examination is recommended for further evaluation. Electronically Signed: Harris Buitrago MD at 10:29 EDT ,
== END | disposition home or self-care (01) ==
LOC: CT 09:54
PROVIDERS: PCP Internal Medicine; Referring Provider Internal Medicine; Visit Provider Internal Medicine
DX: R79.89 Other specified abnormal findings of blood chemistry (principal)
CPT/HCPCS: 71275; Q9967

== ENCOUNTER → 2024-04-06 | Outpatient (CLI) | payer BC, SELFPAY ==
--- NOTE | 2024-04-06 06:12 | ECHOD_ITS ---
Reason For Study: SHORTNESS OF BREATH Procedure This was a 2D Doppler, Color Flow transthoracic echocardiogram. Exam performed in department. Left Ventricle Normal LV size. Mild concentric left ventricular hypertrophy. The left ventricular ejection fraction is 65 %. No evidence for diastolic dysfunction. Right Ventricle Normal right ventricle. Atria The left atrium is moderately enlarged. Normal right atrium. Mitral Valve Trivial mitral valve insufficiency. Tricuspid Valve Trivial tricuspid valve insufficiency. Unable to estimate RV systolic pressure due to insufficient tricuspid regurgitant envelope. Aortic Valve Trisinus/trileaflet aortic valve. Mildly thickened noncoronary cusp of the aortic valve. No aortic valve stenosis or regurgitation. Pulmonic Valve The pulmonic valve is not well visualized. Great Vessels Normal sized aortic root. MMode/2D Measurements & Calculations LVIDd: 5.0 cm IVSd: 1.5 cm LVOT diam: 2.2 cm LVIDs: 3.2 cm LVPWd: 1.1 cm LVOT area: 3.9 cm2 RVDd: 3.8 cm FS: 35.8 % Ao root diam: 3.4 cm LAV(MOD-bp): 54.1 ml LVAd ap4: 26.3 cm2 LAV(MOD-bp) Indexed: 25.1 ml/m2 LVLd ap4: 7.8 cm LAV(MOD-sp2): 56.4 ml EDV(MOD-sp4): 73.9 ml LAV(MOD-sp4): 49.1 ml EDV(sp4-el): 75.2 ml LVAs ap4: 13.8 cm2 LVLs ap4: 6.2 cm ESV(MOD-sp4): 25.6 ml ESV(sp4-el): 26.3 ml EF(MOD-sp4): 65.4 % EF(sp4-el): 65.0 % SV(MOD-sp4): 48.3 ml SV(MOD-sp2): 40.2 ml LVAd ap2: 25.3 cm2 LVLd ap2: 7.8 cm EDV(MOD-sp2): 69.0 ml EDV(sp2-el): 70.2 ml LVAs ap2: 14.6 cm2 LVLs ap2: 6.2 cm ESV(MOD-sp2): 28.8 ml ESV(sp2-el): 29.3 ml EF(MOD-sp2): 58.2 % SV(sp4-el): 48.9 ml LA A4 area: 18.9 cm2 LA dimension(2D): 4.5 cm TAPSE: 1.9 cm RA A4 area: 8.3 cm2 Time Measurements MV dec time: 0.17 sec Doppler Measurements & Calculations MV E max aly: 67.4 cm/sec Lat Peak E' Aly: 7.8 cm/sec Med Peak E' Aly: 6.4 cm/sec MV A max aly: 58.5 cm/sec E/E' lat: 8.6 E/E' med: 10.5 MV E/A: 1.2 MV dec slope: 389.9 cm/sec2 Ao V2 max: 159.7 cm/sec LV V1 max: 104.3 cm/sec Ao max P.2 mmHg LV V1 max P.4 mmHg Ao V2 mean: 117.4 cm/sec LV V1 mean P.1 mmHg Ao mean P.0 mmHg LV V1 mean: 66.4 cm/sec Ao V2 VTI: 32.5 cm LV V1 VTI: 21.4 cm AV (velocity ratio): 0.66 KALLI(I,D): 2.6 cm2 KALLI(V,D): 2.6 cm2 SV(LVOT): 84.0 ml PA V2 max: 98.4 cm/sec PA max PG (full): 2.1 mmHg ECHO/Echo Complete Interpretation Summary Mild concentric left ventricular hypertrophy. The left ventricular ejection fraction is 65 %. The left atrium is moderately enlarged. Mildly thickened noncoronary cusp of the aortic valve. Ordering Physician: Nancy Benton Referring Physician: Nancy Benton Performed By: Eryn Montague RDCS and Student
--- NOTE | 2024-04-06 12:17 | STRESSREP_ITS ---
Stress Test Report Date: 04/06/2024 Procedure: Exercise tolerance test/imaging study Indications: Dyspnea on exertion Consent: Per the patient Procedure: The patient exercised on a Kain protocol for 9 minutes and 31 seconds achieving a peak heart rate of 144 bpm (88% predicted maximal heart rate) with a peak blood pressure 182/84 mmHg and a peak MET capacity of 11.7 METs. The baseline ECG demonstrated sinus rhythm. The peak exercise ECG demonstrated no ischemic changes. No significant cardiac dysrhythmias noted. The functional capacity was considered excellent. There was no complaint of chest discomfort during exercise or recovery. The examination was discontinued secondary to target heart rate being achieved. The patient was injected with 14.2 mCi of technetium 99m Cardiolite and subsequently rest SPECT Cardiolite nuclear imaging was obtained in the horizontal long, vertical long, and short axis views. Post-exercise, the patient was injected with 44.5 mCi of technetium 99m Cardiolite and subsequently stress SPECT Cardiolite nuclear imaging was obtained in the horizontal long, vertical long, and short axis views. A gated Cardiolite study at peak stress was obtained. Rest and stress SPECT Cardiolite nuclear imaging status post realignment, normalization, and attenuation correction, demonstrates the appearance of re lative uniform tracer uptake and myocardial perfusion appearing within normal limits. There is end systolic thickening and brightening. The gated Cardiolite study demonstrates myocardial thickening and inward wall motion. The reported LVEF is 60%. Impression: 1. Technically adequate (percent predicted maximal heart rate greater than 85%) exercise tolerance test 2. Peak exercise ECG with no diagnostic ischemic changes 3. There were no cardiac dysrhythmias pretest, during exercise, or recovery 4. Rest and stress SPECT Cardiolite nuclear imaging demonstrate relative uniform tracer uptake and myocardial perfusion appearing within normal limits. 5. The gated Cardiolite study reports an LVEF of 60%. This note was generated with [employer] software. It may contain incorrect words, spelling, and punctuation that were not noted in checking the note before signing.
== END | disposition home or self-care (01) ==
PROVIDERS: PCP Internal Medicine; Referring Provider Internal Medicine; Visit Provider Internal Medicine
DX: R06.02 Shortness of breath (principal); R53.83 Other fatigue
CPT/HCPCS: 78452; 93017; 93306; A9500; A4216

== ENCOUNTER → 2024-06-08 | Outpatient (CLI) | payer SELFPAY ==
--- NOTE | 2024-06-08 06:37 | CT_ITS ---
STUDY: CT CHEST WITHOUT CONTRAST REASON FOR EXAM: Male, 59 years old. Hypertensive left ventricular hypertrophy, without heart failure -- limited chest over read only RADIATION DOSAGE (If Supplied By Facility): CTDIvol = ( 12.19 ) mGy, DLP = ( 170.66 ) mGycm TECHNIQUE: Transaxial imaging was performed without the administration of intravenous contrast material. Individualized dose optimization techniques were used for this CT. COMPARISON: Comparison is made with prior examination March 17, 2024. FINDINGS: CHEST Stable 4.9 mm partially calcified nodule in the peripheral lateral aspect of the right upper lobe as seen on axial image #7. Stable 2 mm noncalcified nodule in the peripheral lateral aspect of the right middle lobe. There is no demonstrated pleural abnormality. There are calcifications of the coronary arteries. Calcified hilar and mediastinal lymph nodes. Normal unenhanced pulmonary arteries. Normal aorta arch and descending thoracic aorta. Normal osseous structures. Diffuse fatty infiltration of the liver. Small hiatal hernia. CT/Limited Chest CT Cardiac Only IMPRESSION: Coronary artery calcification. Electronically Signed: Harris Buitrago MD at 12:58 EDT ,
--- OUTSIDE RECORDS SUMMARY | 2024-06-08 06:46 | XMS RPT_ITS | CCD ---
Author Organization [facility] Care Team Providers Care Local City Driver Name Role Phone Kimberly Phelan Unavailable Jorge Stallworth Unavailable Akash Navarro Unavailable Mikey Mcgowan Unavailable Unavailable Gabrielle Rollins Unavailable Unavailable Slarb, Maribell Unavailable Unavailable Unavailable Unavailable Kimberly Phelan Unavailable Jorge Stallworth Unavailable Akash Navarro Unavailable Mikey Mcgowan Unavailable Unavailable Min Dumont Unavailable Cedric Mercado Unavailable Unavailable Slarb, Maribell Unavailable Unavailable Gabrielle Rollins Unavailable Unavailable Unavailable Unavailable Emily Santiago Unavailable Unavailable Elena Zavala Unavailable Kimberly Phelan Attending Unavailable Kimberly Phelan Referring Unavailable Kimberly Phelan Consulting Unavailable Min Dumont Unavailable Ashley Mckeon Unavailable Unavailable LUZMA Hernandez Unavailable Unavailable LUZMA Hernandez Unavailable Unavailable Gravius, Suha Unavailable Unavailable Cedric Mercado Unavailable Unavailable Index) 35.44 kg/m2 LUZMA Hernandez LPN [facility] Work Phone: 05-21-2014 08:31-0400 Body Temperature 97.6 [degF] LUZMA Hernandez LPN [facility] Work Phone: Comment on above: Method: Oral 05-21-2014 08:31-0400 Body weight 108.86 kg LUZMA Hernandez LPN [facility] Work Phone: 05-21-2014 08:31-0400 BP Diastolic 76 mm[Hg] LUZMA Hernandez GEOVANY [facility] Work Phone: Comment on above: Patient Position: Sitting; Cuff Location : Left Arm; Cuff Size: Large 05-21-2014 08:31-0400 BP Systolic 124 mm[Hg] LUZMA Hernandez GEOVANY [facility] Work Phone: Comment on above: Patient Position: Sitting; Cuff Location : Left Arm; Cuff Size: Large 05-21-2014 08:31-0400 BSA (Body Surface Area) 2.23 m2 LUZMA Hernandez GEOVANY [facility] Work Phone: 05-21-2014 08:31-0400 Height 175.26 cm LUZMA Hernandez GEOVANY [facility] Work Phone: 05-21-2014 08:31-0400 Pulse (Heart Rate) 64 /min LUZMA Hernandez GEOVANY [facility] Work Phone: Comment on above: Pattern: Regular 05-21-2014 08:31-0400 Respiratory Rate 20 /min LUZMA Hernandez GEOVANY [facility] Work Phone: Comment on above: Pattern: Unlabored 05-21-2014 08:31-0400 Weight 108.86 kg Kimberly Phelan [facility] Work Phone: 05-10-2014 10:04-0400 BMI (Body Mass Index) 34.57 kg/m2 Clara Adhikari RN [facility] Work Phone: 05-10-2014 10:04-0400 Body Temperature 97.4 [degF] Clara Adhikari RN [facility] Work Phone: Comment on above: Method: Oral 05-10-2014 10:04-0400 Body weight 106.2 kg Clara Adhikari RN [facility] Work Phone: 05-10-2014 10:04-0400 BP Diastolic 82 mm[Hg] Clara Adhikari RN [facility] Work Phone: Comment on above: Patient Position: Sitting; Cuff Location : Left Arm; Cuff Size: Large 05-10-2014 10:04-0400 BP Systolic 118 mm[Hg] Clara Adhikari RN [facility] Work Phone: Comment on above: Patient Position: Sitting; Cuff Location : Left Arm; Cuff Size: Large 05-10-2014 10:[id number] BSA (Body Surface Area) 2.21 m2 Clara Adhikari RN [facility] Work Phone: 05-10-2014 10:04-0400 Height 175.26 cm Clara Adhikari RN [facility] Work Phone: 05-10-2014 10:04-0400 Pulse (Heart Rate) 49 /min Clara Adhikari RN [facility] Work Phone: Comment on above: Pattern: Regular 05-10-2014 10:04-0400 Pulse Oximetry 98 % Kimberly Melchorromeo [facility] Work Phone: Comment on above: Room air 05-10-2014 10:04-0400 Respiratory Rate 18 /min Clara Adhikari RN [facility] Work Phone: Comment on above: Pattern: Unlabored 05-10-2014 10:04-0400 SaO2% (BldA) [Mass fraction] 98 % Clara Adhikari RN [facility] Work Phone: Comment on above: Room air 05-10-2014 10:04-0400 Weight 106.2 kg Kimberly Phelan [facility] Work Phone: 01-28-2014 13:07-0400 BMI (Body Mass Index) 35.15 kg/m2 Emily Santiago RN [facility] Work Phone: 01-28-2014 13:07-0400 Body Temperature 98.3 [degF] Emily Santiago RN [facility] Work Phone: Comment on above: Method: Temporal 01-28-2014 13:07-0400 Body weight 107.96 kg Emily Santiago RN [facility] Work Phone: 01-28-2014 13:07-0400 BP Diastolic 74 mm[Hg] Emily Santiago RN [facility] Work Phone: Comment on above: Patient Position: Sitting; Cuff Location : Left Arm; Cuff Size: Standard 01-28-2014 13:07-0400 BP Systolic 122 mm[Hg] Emily Santiago RN [facility] Work Phone: Comment on above: Patient Position: Sitting; Cuff Location : Left Arm; Cuff Size: Standard 01-28-2014 13:07-0400 BSA (Body Surface Area) 2.22 m2 Emily Santiago RN [facility] Work Phone: 01-28-2014 13:07-0400 Height 175.26 cm Emily Santiago RN [facility] Work Phone: 01-28-2014 13:07-0400 Pulse (Heart Rate) 64 /min Emily Santiago RN [facility] Work Phone: Comment on above: Pattern: Regular 01-28-2014 13:07-0400 Pulse Oximetry 97 % Kimberly Phelan [facility] Work Phone: Comment on above: Room air 01-28-2014 13:07-0400 Respiratory Rate 16 /min Emily Santiago RN [facility] Work Phone: Comment on above: Pattern: Unlabored 01-28-2014 13:07-0400 SaO2% (BldA) [Mass fraction] 97 % Emily Santiago RN [facility] Work Phone: Comment on above: Room air 01-28-2014 13:07-0400 Weight 107.96 kg Kimberly Melchorromeo [facility] Work Phone: 11-23-2013 11:03-0400 BMI (Body Mass Index) 35.44 kg/m2 LUZMA Hernandez LPN [facility] Work Phone: 11-23-2013 11:03-0400 Body Temperature 97.6 [degF] LUZMA Hernandez LPN [facility] Work Phone: Comment on above: Method: Oral 11-23-2013 11:03-0400 Body weight 108.86 kg LUZMA Hernandez LPN [facility] Work Phone: 11-23-2013 11:03-0400 BP Diastolic 80 mm[Hg] LUZMA Hernandez LPN [facility] Work Phone: Comment on above: Patient Position: Sitting; Cuff Location : Left Arm; Cuff Size: Large 11-23-2013 11:03-0400 BP Systolic 120 mm[Hg] LUZMA Hernandez GEOVANY [facility] Work Phone: Comment on above: Patient Position: Sitting; Cuff Location : Left Arm; Cuff Size: Large 11-23-2013 11:03-0400 BSA (Body Surface Area) 2.23 m2 LUZMA Hernandez LPN [facility] Work Phone: 11-23-2013 11:03-0400 Height 175.26 cm LUZMA Hernandez LPN [facility] Work Phone: 11-23-2013 11:03-0400 Pulse (Heart Rate) 60 /min LUZMAXIN Hernandez GEOVANY [facility] Work Phone: Comment on above: Pattern: Regular 11-23-2013 11:03-0400 Respiratory Rate 20 /min LUZMA David GEOVANY [facility] Work Phone: Comment on above: Pattern: Unlabored 11-23-2013 11:03-0400 Weight 108.86 kg Kimberly Phelan [facility] Work Phone: Encounters Encounter Date Encounter Type Care Provider Facility Start: 06-13-2023 End: 06-13-2023 Nancy Benton DO Work Phone: [facility] Start: 05-20-2023 End: 05-20-2023 Office outpatient visit 15 minutes Nancy Walkeron DO Work Phone: [facility] Start: 04-29-2023 Nancy Courtney n DO Work Phone: [facility] Start: 04-29-2023 End: 04-29-2023 Office outpatient visit 25 minutes Nancy Benton DO Work Phone: [facility] Start: 01-11-2023 End: 01-11-2023 ambulatory KIMBERLY CANDI MELCHORRomeo [facility] Start: 10-26-2022 End: 10-26-2022 Karlee Dominguez CNP Work Phone: [facility] Start: 06-13-2022 Karlee Dominguez CNP Work Phone: [facility] Start: 06-13-2022 End: 06-13-2022 Office outpatient visit 15 minutes Karlee Dominguez CNP Work Phone: [facility] Start: 05-07-2022 End: 05-07-2022 Karlee Dominguez [employer] Work Phone: [facility] Start: 05-04-2022 End: 05-04-2022 Karlee Dominguez [employer] Work Phone: [facility] Start: 04-24-2022 End: 04-24-2022 Karleedoretha Dominguez [employer] Work Phone: [facility] Start: 04-13-2022 End: 04-23-2022 Office outpatient visit 25 minutes Karlee Dominguez [employer] Work Phone: [facility] Start: 02-19-2022 Review Kimberly Melchora Work Phone: [facility] Start: 01-12-2022 End: 01-14-2022 Office outpatient visit 15 minutes Kimberly Melchora Work Phone: [facility] Start: 01-12-2022 Review Kimberly Melchora Work Phone: [facility] Start: 12-08-2021 End: 12-10-2021 Office outpatient visit 25 minutes Kimberly Melchora Work Phone: [facility] Start: 11-10-2021 End: 11-10-2021 Office outpatient visit 15 minutes Kimberly Melchora Work Phone: [facility] Start: 11-06-2021 End: 11-06-2021 Annotation/Addendum Kimberly Houesa Work Phone: [facility] Start: 11-06-2021 End: 11-06-2021 Karleedoretha Dominguez [employer] Work Phone: [facility] Start: 11-05-2021 End: 11-05-2021 Annotation/Addendum Kimberly Houesa Work Phone: [facility] Start: 11-05-2021 End: 11-05-2021 Karlee Dominguez [employer] Work Phone: [facility] Start: 11-03-2021 End: 11-03-2021 Office outpatient visit 25 minutes Kimberly Phelan Work Phone: [facility] Start: 09-12-2021 Review Kimberly Phelan [employer] Work Phone: [facility] Start: 09-12-2021 End: 09-12-2021 Annotation/Addendum Kimberly Phelan [employer] Work Phone: [facility] Start: 09-12-2021 End: 09-12-2021 Karlee Dominguez [employer] Work Phone: [facility] Start: 05-05-2021 End: 05-05-2021 Office outpatient visit 15 minutes Kimberly Phelan [employer] Work Phone: [facility] Start: 04-28-2021 End: 04-28-2021 Office outpatient visit 25 minutes Kimberly Phelan [employer] Work Phone: [facility] Start: 04-27-2021 End: 04-28-2021 Erroneous Entry Kimberly Phelan [employer] Work Phone: [facility] Start: 04-27-2021 End: 04-28-2021 Karlee Dominguez [employer] Work Phone: [facility] Start: 03-14-2021 End: 03-14-2021 Office outpatient visit 15 minutes Kimberly Phelan [employer] Work Phone: [facility] Start: 10-28-2020 End: 10-28-2020 Office outpatient visit 15 minutes Kimberly Phelan [facility] Start: 10-23-2020 End: 10-23-2020 Annotation/Addendum Kimberly Phelan [facility] Start: 10-23-2020 End: 10-23-2020 Karlee Dominguez [employer] Work Phone: [facility] Start: 10-21-2020 End: 10-21-2020 Office outpatient visit 15 minutes Kimberly Phelan [facility] Start: 10-21-2020 Review Kimberly Phelan [facility] Start: 04-29-2020 End: 04-29-2020 Office outpatient visit 25 minutes Kimberly Phelan [facility] Start: 04-20-2020 End: 04-20-2020 Office outpatient visit 25 minutes Kimberly Phelan [facility] Start: 04-04-2020 Review [facility]ly Maradiaga [facility] Start: 01-15-2020 End: 01-15-2020 Annotation/Addendum Kimberly Phelan [facility] Start: 01-15-2020 End: 01-15-2020 Karlee Dominguez CNP Work Phone: [facility] Start: 01-05-2020 End: 01-05-2020 Annotation/Addendum Kimberly Phelan [facility] Start: 01-05-2020 End: 01-05-2020 Karlee Dominguez CNP Work Phone: [facility] Start: 01-01-2020 End: 01-01-2020 Office outpatient visit 15 minutes Kimberly Phelan [facility] Start: 10-27-2019 End: 10-27-2019 Office outpatient visit 15 minutes Kimberly Phelan [facility] Start: 10-06-2019 End: 10-06-2019 Patient encounter procedure Kimberly Phelan [facility] Start: 10-06-2019 End: 10-06-2019 Karlee Dominguez CNP Work Phone: [facility] Start: 10-05-2019 End: 10-05-2019 Office outpatient visit 25 minutes Kimberly Phelan [facility] Start: 09-29-2019 End: 09-29-2019 Annotation/Addendum Kimberly Phelan [facility] Start: 09-29-2019 End: 09-29-2019 Karlee Dominguez CNP Work Phone: [facility] Start: 08-27-2019 End: 09-01-2019 Office outpatient visit 15 minutes Kimberly Melchora [facility] Start: 07-21-2019 End: 07-21-2019 Phone Encounter Kimberly Phelan [facility] Start: 07-21-2019 End: 07-21-2019 Karlee Dominguez CNP Work Phone: [facility] Start: 07-03-2019 End: 07-03-2019 Annotation/Addendum Kimberly Phelan [facility] Start: 07-03-2019 End: 07-03-2019 Karlee Dominguez [employer] Work Phone: [facility] Start: 07-03-2019 End: 07-03-2019 Office outpatient visit 40 minutes Kimberly Houtracyromeo [facility] Start: 06-17-2019 End: 06-17-2019 Annotation/Addendum Kimberly Zhane [facility] Start: 06-17-2019 End: 06-17-2019 Karlee Dominguez [employer] Work Phone: [facility] Start: 06-12-2019 End: 06-19-2019 Office outpatient visit 15 minutes Kimberly Phelan [facility] Start: 06-12-2019 Review Kimberly Maradiaga [facility] Start: 04-09-2019 End: 04-09-2019 Office outpatient visit 15 minutes Kimberly Phelan [facility] Start: 03-20-2019 End: 03-20-2019 Office outpatient visit 25 minutes Kimberly Phelan [facility] Start: 12-12-2018 Patient encounter procedure Kimberly Phelan [facility] Start: 12-12-2018 End: 12-12-2018 Office outpatient visit 25 minutes Kimberly Phelan [facility] Start: 11-21-2018 End: 11-21-2018 Office outpatient visit 5 minutes Kimberly Phelan [facility] Start: 09-05-2018 Review Kimberly Zhane [facility]ren [facility] Start: 09-05-2018 End: 09-05-2018 Office outpatient visit 25 minutes Kimberly Phelan [facility] Start: 06-02-2018 End: 06-02-2018 Office outpatient visit 25 minutes Kimberly Phelan [facility] Start: 05-30-2018 End: 05-30-2018 Annotation/Addendum Kimberly Jilla [facility] Start: 05-30-2018 End: 05-30-2018 Karlee Dominguez [employer] Work Phone: [facility] Start: 05-30-2018 End: 05-30-2018 Office outpatient visit 10 minutes Kimberly Phelan [facility] Start: 04-28-2018 End: 04-28-2018 Office outpatient visit 15 minutes Kimberly Phelan [facility] Start: 02-21-2018 End: 02-21-2018 Office outpatient visit 10 minutes Kimberly Ciesa [facility] Start: 02-04-2018 End: 02-04-2018 Annotation/Addendum Kimberly Phelan [facility] Start: 02-04-2018 End: 02-04-2018 Karlee Dominguez CNP Work Phone: [facility] Start: 01-28-2018 End: 01-28-2018 Annotation/Addendum Kimberly Phelan [facility] Start: 01-28-2018 End: 01-28-2018 Karlee Dominguez CNP Work Phone: [facility] Start: 01-27-2018 End: 01-27-2018 Office outpatient visit 25 minutes Kimberly Phelan [facility] Start: 10-25-2017 End: 10-25-2017 Periodic preventive med est patient 40-64yrs Kimberly Phelan [facility] Start: 09-15-2017 End: 09-15-2017 Annotation/Addendum Kimberly Phelan [facility] Start: 09-15-2017 End: 09-15-2017 Karlee Dominguez CNP Work Phone: [facility] Start: 09-13-2017 End: 09-13-2017 Office outpatient visit 25 minutes Kimberly Phelan [facility] Start: 08-16-2017 End: 08-16-2017 Office outpatient visit 10 minutes Kimberly Phelan [facility] Start: 07-26-2017 End: 07-26-2017 Annotation/Addendum Kimberly Phelan [facility] Start: 07-26-2017 End: 07-26-2017 Karlee Dominguez CNP Work Phone: [facility] Start: 07-26-2017 End: 07-26-2017 Periodic preventive med est patient 40-64yrs Kimberly Phelan [facility] Start: 05-17-2017 End: 05-17-2017 Lab Order Kimberly Phelan [facility] Start: 05-17-2017 End: 05-17-2017 Karlee Dominguez CNP Work Phone: [facility] Start: 05-10-2017 End: 05-10-2017 Office outpatient visit 25 minutes Kimberly Phelan [facility] Start: 03-08-2017 End: 03-08-2017 Annotation/Addendum Kimberly Phelan [facility] Start: 03-08-2017 End: 03-08-2017 Karlee Dominguez CNP Work Phone: [facility] Start: 01-18-2017 End: 01-18-2017 Periodic preventive med est patient 18-39 yrs Kimberly Ciesa [facility] Start: 12-04-2016 End: 12-04-2016 Phone Encounter Kimberly Ciesa [facility] Start: 12-04-2016 End: 12-04-2016 Karlee Dominguez CNP Work Phone: [facility] Start: 12-03-2016 End: 12-03-2016 Office outpatient visit 15 minutes Kimberly Ciesa [facility] Start: 11-09-2016 End: 11-09-2016 Office outpatient visit 25 minutes Kimberly Ciesa [facility] Start: 10-12-2016 End: 10-12-2016 Office outpatient visit 40 minutes Kimberly Ciesa [facility] Start: 10-01-2016 End: 10-01-2016 Office outpatient visit 25 minutes Kimberly Ciesa [facility] Start: 09-21-2016 End: 09-21-2016 Office outpatient visit 25 minutes Kimberly Ciesa [facility] Start: 02-06-2016 End: 02-06-2016 Office outpatient visit 25 minutes Kimberly Ciesa [facility] Start: 02-03-2016 End: 02-03-2016 Phone Encounter Kimberly Houesa [facility] Start: 02-03-2016 End: 02-03-2016 Karlee Dominguez CNP Work Phone: [facility] Start: 12-26-2015 End: 12-26-2015 Office outpatient new 10 minutes Kimberly Ciesa [facility] Start: 12-26-2015 End: 12-26-2015 Physical examination Karlee Dominguez CNP Work Phone: [facility] Start: 06-27-2015 End: 06-27-2015 Office outpatient visit 15 minutes Kimberly Ciesa [facility] Start: 05-09-2015 End: 05-09-2015 Office outpatient visit 15 minutes Kimberly Ciesa [facility] Start: 01-24-2015 End: 01-24-2015 Office outpatient visit 15 minutes Kmiberly Ciesa [facility] Start: 01-24-2015 End: 01-24-2015 Patient encounter status Karlee Dominguez CNP Work Phone: [facility] Start: 09-27-2014 End: 09-27-2014 Office outpatient visit 25 minutes Kimberly Phelan [facility] Start: 09-27-2014 End: 09-27-2014 Patient encounter status Karlee Dominguez CNP Work Phone: [facility] Start: 05-21-2014 End: 05-21-2014 Phone Encounter Kimberly Phelan [facility] Start: 05-21-2014 End: 05-21-2014 Karlee Dominguez CNP Work Phone: [facility] Start: 05-21-2014 End: 05-21-2014 Office outpatient visit 40 minutes Kimberly Phelan [facility] Start: 05-10-2014 End: 05-10-2014 Office outpatient visit 10 minutes Kimberly Phelan [facility] Start: 01-28-2014 End: 01-28-2014 Patient encounter Kimberly Phelan [facility] Start: 01-28-2014 End: 01-28-2014 Karlee Dominguez CNP Work Phone: [facility] Start: 11-23-2013 End: 11-23-2013 Patient encounter Kimberly Phelan [facility] Start: 11-23-2013 End: 11-23-2013 Patient encounter status Karlee Dominguez CNP Work Phone: [facility] Start: 11-23-2013 End: 11-23-2013 Karlee Dominguez [employer] Work Phone: [facility] Physical examination LUZMA Hernandez [facility]; [facility] Work Phone: Comment on above: rectal and psa 6-15 Physical examination Maribell Pratt [facility]; [facility] Work Phone: Comment on above: rectal and psa 6-15 Physical examination Asya Quevedo [facility] Work Phone: Comment on above: rectal and psa 6-15 Physical examination Dayanna Rodriguez [facility] [facility]; [facility] Work Phone: Comment on above: rectal and psa 6-15 Physical examination Cedric Glass [facility]; [facility] Work Phone: Comment on above: rectal and psa 6-15 Physical examination Kapankaj Childers CMA C [facility]; [facility] Work Phone: Physical examination Maribell Pratt [employer] [facility]; [facility] Work Phone: Physical examination LUZMA Hernandez [employer] [facility]; [facility] Work Phone: Physical examination LUZMA Hernandez [employer] [facility]; [facility] Work Phone: Procedures Date Procedure Procedure Detail Performing Clinician Start: 07-27-2022 End: 07-27-2022 Procedure Note: See Note; NOTES: [facility] [address] [place] [address] OFFICE VISIT Date of Service: 07/27/22 MR#: [id number] Acct: [id number] Name: CORNELIO MANZANO Rep #: [id number] : [id number] Provider: Wicho Barker Age/Sex: 57/M [place] [facility] [place]: Signed Intake Vital Signs 10/03/20 19:56 07/27/22 09:55 Height 5 ft 9 in 5 ft 9 in Weight: 231 lb 2 oz BMI 34.1 BP 151/92 H Blood Pressure Location Lt brachial Position Sitting Respiration 18 Pulse 60 Pulse Source Monitor Temp 97.2 F L Temp Source Temporal Pulse Oximetry (%) 95 Oxygen Delivery Method room air Intake Visit Reasons: Low Testosterone Chief Complaint: Low testosterone Core Checker Required: No Accompanied by: Is patient in pain?: Yes (arthritis ) Pain scale (1-10): 3 Allergies No Known Allergies Allergy (Verified 07/27/22 09:55) [facility] Medical History (Updated 07/27/22 @ 11:[address] 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 Regino Richey MD) H/O unilateral orchiectomy History of arthroscopy of left shoulder Hx of arthroscopy of right knee Family History (Updated 07/27/22 @ 10:00 by Nolvia Hurtado) Other Arthritis Cancer Diabetes Heart disease High cholesterol Myocardial infarction Social History (Updated 07/27/22 @ 09:59 by Nolvia Hurtado) Smoking Status: Former smoker alcohol intake: never substance use type: does not use frequency: daily HPI HPI Chief Complaint: Low testosterone Details: CORNELIO MANZANO, is a 57 M who presents to the office today for evaluation and management of low testosterone. The patient is accompanied by his . The patient reports that about 5 years ago he found to have a low testosterone level. I do not have those records. He states the etiology was not investigated. He was given BioT pellets. He last used the pellets about 2 years ago. He went without healthcare for about a year. He is newly established with Karlee Dominguez. Labs: Total T 347 (normal) and 325 Free T 4.9 (low) and 4.7 (low) Prolactin 8.1 TSH 5.01 (he had missed tablets and taking with diet Mountain Dew) LH 4.3 He states he has a single testes (I neglected to get the history on the why of this) He reports that about 6 months ago his energy took a nose dive. He works (80 hours per week) and sleeps, nothing else. He snores and sleeps fitully and can fall asleep while driving. He states he was diagnosed with sleep apnea years ago but didn't like wearing the mask. Libido is decreased along with interest in just about everything. He has difficulty reaching orgasm. He has hypothyroidism. He wasn't following all of the rules on how to take his medication. He has fatty liver and pre-diabetes. He is on metformin. Exam Const General: cooperative, healthy appearing, comfortable, no acute distress, well developed and well groomed Nutritional Appearance: obese Orientation: alert, awake and oriented x3 Other: exam limited due to my personal illness [facility] Head: normal to inspection Ears: hearing grossly normal bilaterally Nose: external nose normal Face and sinus: other (facial puffiness) Eyes General: appearance normal, both eyes and all related structures Neck Neck: normal visual inspection Resp Effort Inspection: normal respiratory effort, able to speak in complete sentences, symmetric chest movement, no audible wheezes and no cough Cardio Rate: bradycardic Rhythm: regular rhythm Musc Other: swollen knuckles, no erythema Neuro General: patient alert, patient awake, patient oriented x3 and CN's II-XI intact bilaterally Cranial Nerves: CN's II-XI intact bilaterally Cognition: normal cognition Speech: speech normal Gait: normal gait Psych Appearance: grossly normal and well kempt Mental Status: mental status grossly normal Mood: congruent mood Affect: normal affect Speech and Movement: speech and movement normal Attitude: cooperative Thought Process: normal Thought Content: normal Judgment: judgment good Coding Level of Care Code Off vis,new,level 5 Diagnoses Low testosterone in male R79.89 Sleep apnea G47.30 Fatty liver K76.0 Prediabetes R73.03 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 This could be from high SHBG related to liver disease. 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 Will check SHBG levels. I explained that he needs to improve all areas of his health and then he most likely will have resolution of his low T level. I especially encouraged him to be reevaluated for sleep apnea. I described the consequences of untreated sleep apnea. I will not consider giving him testosterone until this is addressed. I also reviewed the possible consequences of testosterone therapy including shrinking testes, blood clotting (stroke, NH, DVT, PE) and rapid growth of prostate cancer. (2) Sleep apnea: Status: Acute Plan: See above. He will consult with PCP regarding this issue. (3) Fatty liver: Status: Acute Plan: Improve diet. He is consuming more than 2 L of soda per day and regularly consumes fast food. (4) Prediabetes: Status: Acute Plan: Diabetes education provided. Nutritional counseling provided, avoid flour, sugar, and artificial sweeteners. I suggested reading Bright Line Eating by Hayde Thompson for information regarding food choices with low glycemic index and for weight loss. 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 Then wait 30-60 minutes before consuming any other food or beverage, especially coffee. Separate levothyroxine from vitamins by at least 4 hours. Stop taking any biotin supplement 4 days prior to having labs drawn. He will follow up with me after addressing the above issues. I have spent [] minutes today reviewing labs, records and history. Time includes coordinating care, interpretation of tests, discussion with patient's other health care providers via telephone. This also includes time I spent with the patient for exam, treatment plan and education as well as documenting clinical information. Orders: Orders Sex Hormone-binding Globulin Today R79.89 - Other specified abnormal findings of blood chemistry 07/27/22 1124 <Electronically signed by Regino Richey MD> Date Regino Richey MD Cosigner Signature: Date (if applicable) CC: LOCAL HAZMAT DRIVER-Phani Dominguez [facility] Work Phone: Start: 06-26-2022 End: 06-26-2022 Procedure Note: See Note; NOTES: [facility] Cardiovascular Services [address] [place] [address] MR#: [id number] Acct: [id number] Name: CORNELIO MANZANO Rep #: [id number] : 1965 57 From: Yung Raya MD Primary Care: LIA Newberry Status: REG CLI Referring Dr: Clara: Wicho Jeronimo Stress Test Report Exercise stress test. 57-year-old man with a history of syncope. Stress protocol: Rest EKG demonstrates sinus bradycardia with a rate of 49 bpm normal intervals are noted resting blood pressure is 132/78 mmHg. The patient exercised according to regular Kain protocol for total duration of 9 minutes and 30 seconds. Patient completed 30 seconds into stage IV of the Kain protocol. The maximum heart rate attained was 160 bpm which was 97% of maximum predicted heart rate the maximum workload was 11.7 metabolic equivalents. At rest there were no ST or T wave changes noted to suggest ischemia and at peak exercise upsloping ST changes were noted we did not meet the criteria for ischemia. No clinical angina was noted the test was terminated due to dyspnea and the target heart rate being achieved. No arrhythmias were noted. The rate-pressure product was 30,200. Conclusion: Exercise stress test with no EKG criteria for ischemia at a high workload. Excellent functional capacity. 06/26/221753 <Electronically signed by Yung Raya MD> Date Yung Raya MD CC: LOCAL HAZMAT DRIVER-C Karlee Dominguez Date Dictated: 06/26/221751 Date Transcribed: 06/26/221751 Paint Striping Machine Operator: CO Signed Karlee Dominguez CNP Work Phone: Start: 06-26-2022 End: 06-26-2022 Procedure Note: See Note; NOTES: [facility] Cardiovascular Services [address] [place] [address] Echo Complete 06/26/22 1300 MR#: [id number] Acct: [id number] Name: CORNELIO MANZANO Rep #: [id number] : 1965 57 From: Cristobal Christensen MD Attending Dr: LIA Newberry Status: REG CLI Ordering Dr: Karlee Dominguez Date: 06/26/22 Location: [facility] Sex: M C Admitted: Reason For Study: Syncope Procedure This was a 2D Doppler, Color Flow transthoracic echocardiogram. Exam performed in department. Left Ventricle Normal LV size. Left ventricular systolic function is normal. The estimated ejection fraction is 60 %. No evidence for diastolic dysfunction. No regional wall motion abnormalities noted. Right Ventricle Normal RV size. Normal systolic function. Atria Normal left atrium. Normal right atrium. No doppler evidence for ASD. Mitral Valve There is no mitral annular calcification. Mild diffuse mitral valve thickening. Trivial mitral valve insufficiency. Tricuspid Valve Normal tricuspid valve. Trivial tricuspid valve insufficiency. Unable to estimate RV systolic pressure due to insufficient tricuspid regurgitant envelope. Aortic Valve Trisinus/trileaflet aortic valve. Mild diffuse aortic valve thickening. Moderate focal aortic valve calcification. Pulmonic Valve The pulmonic valve is not well visualized. Mild (1+) pulmonic valve insufficiency. Great Vessels Normal sized aortic root. Pericardium/Pleural No pericardial effusion. MMode/2D Measurements Calculations LVIDd: 5.4 cm IVSd: 1.1 cm LVOT diam: 2.3 cm LVIDs: 3.2 cm LVPWd: 1.3 cm LVOT area: 4.0 cm2 RVDd: 3.1 cm FS: 40.2 % ___ Ao root diam: 3.4 cm LAV(MOD-bp): 41.0 ml LA A4 area: 16.6 cm2 LA dimension: 3.8 cm LAV(MOD-bp) Indexed: 19.2 ml/m2 LAV(MOD-sp2): 35.9 ml LAV(MOD-sp4): 48.1 ml Time Measurements MV dec time: 0.22 sec Doppler Measurements Calculations MV E max gisela: 46.6 cm/sec Lat Peak E' Gisela: 4.0 cm/sec Med Peak E' Gisela: 5.6 cm/sec MV A max gisela: 47.6 cm/sec E/E' lat: 11.5 E/E' med: 8.4 MV E/A: 0.98 ___ MV V2 max: 61.2 cm/sec MV P1/2t max gisela: 52.0 cm/sec Ao V2 max: 128.4 cm/sec MV max P.5 mmHg MV P1/2t: 61.9 msec Ao max P.6 mmHg MV V2 mean: 31.7 cm/sec MV dec slope: 246.0 cm/sec2 Ao V2 mean: 90.3 cm/sec MV mean P.47 mmHg MVA(P1/2t): 3.6 cm2 Ao mean P.7 mmHg MV V2 VTI: 17.9 cm Ao V2 VTI: 21.4 cm MVA(VTI): 4.1 cm2 KALLI(I,D): 3.4 cm2 KALLI(V,D): 2.7 cm2 ___ LV V1 max: 85.9 cm/sec SV(LVOT): 73.3 ml PA V2 max: 125.4 cm/sec LV V1 max P.0 mmHg LV V1 mean P.6 mmHg LV V1 mean: 58.6 cm/sec LV V1 VTI: 18.4 cm ECHO/Echo Complete Interpretation Summary Left ventricular systolic function is normal. The estimated ejection fraction is 60 %. Mild diffuse mitral valve thickening. Trivial mitral valve insufficiency. Trivial tricuspid valve insufficiency. Mild diffuse aortic valve thickening. Moderate focal aortic valve calcification. Mild (1+) pulmonic valve insufficiency. Unable to estimate RV systolic pressure due to insufficient tricuspid regurgitant envelope. No evidence for diastolic dysfunction. Ordering Physician: Karlee Dominguez Performed By: Ton Vera RCS 06/26/221445 Date Cristobal Christensen MD CC: LOCAL HAZMAT DRIVER-C Karlee Dominguez Date Dictated: 06/26/22 1300 Date Transcribed: 06/26/221445 Paint Striping Machine Operator: Signed Karlee Dominguez [facility] Work Phone: Start: 05-18-2022 End: 05-18-2022 Procedure Note: See Note; NOTES: [facility] Cardiovascular Services [address] [place] [address] Carotid Duplex Ultrasound 05/18/22 0802 MR#: [id number] Acct: [id number] Name: CORNELIO MANZANO Rep #: [id number] : 1965 57 From: Ezequiel Teran MD Attending Dr: Karlee Dominguez NP-C Status: REG CLI Ordering Dr: Karlee Dominguez LOCAL HAZMAT DRIVER-C Date: 05/18/22 Location: [facility] Sex: M C Admitted: Reason For Study: DIZZINESS Rt. Velocities/BP Lt. Velocities/BP Prox CCA 104.7/20.1 cm/sec. Prox CCA 110.7/21.2 cm/sec. Mid CCA 117.9/23.4 cm/sec. Mid CCA 103.4/19.4 cm/sec. Dist CCA 88.3/21.2 cm/sec. Dist CCA 99.7/21.2 cm/sec. Prox ICA 50.1/12.7 cm/sec. Prox ICA 66.8/15.7 cm/sec. Mid ICA 56.7/21.5 cm/sec. Mid ICA 70.5/24.8 cm/sec. Dist ICA 67.7/21.5 cm/sec. Dist ICA 63.4/20.7 cm/sec. Rt. ICA/CCA = 0.6. Lt. ICA/CCA = 0.7. Prox ECA 84.2/11.7 cm/sec. Prox ECA 72.3/6.6 cm/sec. Rt. Vert. 46.8/16.0 cm/sec. Lt. Vert. 43.1/13.2 cm/sec. Right Extracranial There is intimal thickening but no significant atherosclerotic plaque noted in the right common carotid artery. There is heterogeneous, irregular atherosclerotic plaque noted in the right internal carotid artery. There is homogeneous, irregular atherosclerotic plaque noted in the right external carotid artery. Antegrade flow is noted in the right vertebral artery. Left Extracranial There is intimal thickening but no significant atherosclerotic plaque noted in the left common carotid artery. There is heterogeneous, irregular atherosclerotic plaque noted in the left internal carotid artery. There is intimal thickening but no significant atherosclerotic plaque noted in the left external carotid artery. Antegrade flow is noted in the left vertebral artery. Procedure Carotid Duplex 83784. This is a Carotid Duplex examination using B-mode, color flow and specral Doppler. The exam was diagnostic. Exam performed in department. VL/Carotid Duplex Ultrasound Interpretation Summary Mild (<50%) stenosis right extracranial internal carotid. Mild (<50%) stenosis left extracranial internal carotid. Flow within the vertebral arteries is antegrade bilaterally. Ordering Physician: Karlee Dominguez Referring Physician: Karlee Dominguez Performed By: Colin Magdaleno, [facility] 05/18/22 1329 Date Ezequiel Teran MD CC: LOCAL HAZMAT DRIVER-C Karlee Dominguez Date Dictated: 05/18/22801 Date Transcribed: 05/18/221328 Paint Striping Machine Operator: Signed Karlee Dominguez [facility] Work Phone: Start: 11-10-2021 End: 11-10-2021 Thyroid Comments: See Note; NOTES: [facility] Imaging Services [address] [place] [address] Thyroid MR#: [id number] Acct: [id number] Name: CORNELIO MANZANO Tony Rep #: [id number] : 1965 M 56 From: Harris vargas MD PCP: LIA Coates Status: REG CLI Study: Thyroid Date of Exam: 11/10/21 Exam# [id number] Ordering Dr: Kimberly Phelan NP, NP-Phani STUDY: THYROID ULTRASOUND REASON FOR EXAM: Male, 56 years old. ANTI TPO ANTIBODIES PRESENT TECHNIQUE: Ultrasound evaluation of the thyroid was performed with real-time and static evans-scale imaging. COMPARISON: None. FINDINGS: RIGHT LOBE: The right lobe of the thyroid gland is enlarged and measures 5.5 cm x 1.4 cm x 1.4 cm. There is a heterogeneous echotexture. Multiple tiny cystic changes are seen. LEFT LOBE: The left lobe of the thyroid gland is enlarged and measures 5 cm x 1.5 cm x 1.1 cm. There is a heterogeneous echotexture. Multiple tiny cystic changes are seen. ISTHMUS: The isthmus measures 4 mm. The regional lymph nodes are normal. US/Thyroid IMPRESSION: Enlarged thyroid gland with heterogeneous echotexture. Multiple tiny cystic changes are seen in both lobes. Electronically Signed: Harris Buitrago MD at 14:39 EDT , CC: LIA Phelan Paint Striping Machine Operator: Signed Kimberly Phelan Work Phone: Start: 10-03-2020 End: 10-04-2020 Emergency Department Summary Comments: See Note; NOTES: [facility] Medical Records Department [address] [place] [address] Emergency Department Summary 10/03/20 MR#: [id number] Acct: [id number] Name: CORNELIO MANZANO Rep #: [id number] : 1965 55 From: Roxie Rios DO PCP: LIA Coates Status:DEP ER History of Present Illness Chief Complaint: Cough Informant: Patient Onset: Today Context: Sudden Onset Narrative: Patient evaluated for 1 episode of hemoptysis. Patient was diagnosed with Covid 1 week ago. He contracted it from his . Patient states he has had mild headache and myalgias but otherwise been feeling well. He denies any shortness of breath or difficulty breathing. Patient states he coughed up blood clot about the size of a half dollar yesterday. He spoke with his primary care provider, Kimberly Irby, who recommend he come to the emergency room to make sure he does not have a blood clot. Patient denies any chest pain, shortness of breath or difficulty breathing. He is not on any anticoagulants. No other complaints at this time. Past Medical History - Allergies and Home Meds Allergies/Adverse Reactions: Allergies No Known Allergies Allergy (Verified 02/29/20 10:27) Primary Care Physician: Dada Baeza DO [STAFF PHYSICIAN] - Past Medical History: - - Hypothyroid, diabetes mellitus, depression/anxiety Surgical History: noncontributory Lives: Spouse/ Significant Other Smoking Status: Former smoker Review of Systems General: Reports: Malaise. Denies: Chills, Fever, Sweats Eyes: Denies: Visual changes - bilaterally, Diplopia ENT: Denies: Rhinorrhea, Sore throat Cardiovascular: Denies: Chest pain, Palpitations Respiratory: Reports: Cough, - - Hemoptysis. Denies: Dyspnea, Dyspnea on exertion Gastrointestinal: Denies: Abdominal pain, Nausea, Vomiting, Diarrhea, Melena, Hematochezia Genitourinary: Denies: Dysuria, Hematuria, Frequency Musculoskeletal: Reports: Myalgias. Denies: Back pain, Extremity Pain Skin: Denies: Rash, Wounds Neurological: Denies: Headache, Weakness, Numbness Physical Exam Vital Signs/Narrative: Vital Signs Temp Pulse Resp BP Pulse Ox 10/03/20 19:56 96.8 F L 88 16 148/92 H 96 Inital Vital Signs reviewed: Yes General: Well nourished, Well developed, No Acute Distress Head: Normocephalic, Atraumatic Eyes: Perrl, EOMI. Negative for: Pale conjunctiva ENT: Moist mucous membranes, No rhinorrhea Neck: Supple, Nontender, No JVD Cardiovascular: Regular rate, Regular rhythm, No murmurs Respiratory: No distress, CTA bilaterally, Chest nontender. Negative for: Wheezing, Diminished Abdomen: Soft, Nontender, Nondistended, Normal bowel sounds Back: Nontender, Normal Inspection Extremities: Nontender, No edema Skin: Normal color, No rash. Negative for: Pallor Neurological: Alert, Oriented x3, Cranial nerves II-XII grossly intact, Normal Strength, Normal Sensation Psychological: Normal affect, Normal Mood Diagnostic/Tx/Re-eval Chest X-Ray - ED: 1 View, Read by ED Physician, Read by Radiologist, No Acute Disease Clinical Impression(s) from Imaging Studies Chest X-Ray 10/03/20 21:20 IMPRESSION: Normal. at 2206 Reported and signed by: Nestor Steele MD Electronically Signed: Nestor Steele MD at 22:05 EST Tel , Service support , Laboratory Data 10/03/20 10/03/20 10/03/20 21:15 21:15 21:15 WBC 6.4 RBC 4.81 Hgb 13.9 Hct 42.6 MCV 88.6 MCH 28.9 MCHC 32.6 RDW Std Deviation 41.1 RDW Coeff of Mounika 12.6 Plt Count 248 MPV 8.8 Immature Gran % (Auto) 0.500 Neut % (Auto) 62.8 Lymph % (Auto) 24.8 Nuckolls % (Auto) 10.7 H Eos % (Auto) 0.9 Baso % (Auto) 0.3 Absolute Neuts (auto) 4.0 Absolute Lymphs (auto) 1.60 Nucleated RBC % 0 PT 12.2 INR 1.0 D-Dimer Quant (PE/DVT) 0.48 Sodium 139 Potassium 4.9 Chloride 105 Carbon Dioxide 29.0 Anion Gap 5 BUN 24 H Creatinine 1.08 Estim Creat Clear Calc 78.19 Est GFR (MDRD) Af Amer 92 Est GFR (MDRD) Non-Af 76 BUN/Creatinine Ratio 22.2 H Glucose 103 Calcium 9.3 Troponin I < 0.015 B-Natriuretic Peptide 10/03/20 21:15 WBC RBC Hgb Hct MCV MCH MCHC RDW Std Deviation RDW Coeff of Mounika Plt Count MPV Immature Gran % (Auto) Neut % (Auto) Lymph % (Auto) Nuckolls % (Auto) Eos % (Auto) Baso % (Auto) Absolute Neuts (auto) Absolute Lymphs (auto) Nucleated RBC % PT INR D-Dimer Quant (PE/DVT) Sodium Potassium Chloride Carbon Dioxide Anion Gap BUN Creatinine Estim Creat Clear Calc Est GFR (MDRD) Af Amer Est GFR (MDRD) Non-Af BUN/Creatinine Ratio Glucose Calcium Troponin I B-Natriuretic Peptide 3.0 - Medical Decision Making Patient evaluated after an episode of hemoptysis yesterday. Patient was diagnosed with COVID-19 infection 6 days ago. He has had a relatively benign course so far. He does not complain of any shortness of breath or difficulty breathing. He is not on any anticoagulation. Patient is low risk factor for PE so D-dimer is obtained. This is negative and I do not think CT is indicated. Do not suspect PE. X-ray does not show any acute process. Patient does not have any coagulopathy on blood work. His hemoglobin is normal. Patient be discharged home to follow-up with his primary care provider. Patient is counseled on signs and symptoms requiring return to the emergency room. Patient verbalizes agreement and understand this plan. Patient discharged home in stable and improved condition. ED Disposition - Plan for ED Patient: Disposition: Home or Assisted Living Diagnosis: Hemoptysis Instructions: ED Hemoptysis Referrals: Dada Baeza DO [STAFF PHYSICIAN] - What to do if you have Problems For any increased pain, shortness of breath, bleeding, nausea or vomiting, chest pain, or any unexpected problems, contact your Primary Care Provider. Call [facility] ([phone]) or report to the closest Emergency Room. Call 911 if necessary. 10/04/20 0045 <Electronically signed by Roxie Rios DO> Date Roxie Rios DO Cosigner Signature (If Indicated): Date CC: LIA Harris Zhane Phelan Start: 10-03-2020 End: 10-03-2020 Chest 1 View (Portable) Comments: See Note; NOTES: [facility] Imaging Services [address] [place] [address] Chest 1 View (Portable) MR#: [id number] Acct: [id number] Name: CORNELIO MANZANO Rep #: [id number] : 1965 M 55 From: Nestor Steele MD PCP: ELSY CoatesC Status: REG ER Study: Chest 1 View (Portable) Date of Exam: 10/03/20 Exam# [id number] Ordering Dr: Roxie Rios DO HISTORY: PT STATES HE IS COVID POSITIVE. YESTERDAY MORNING HE COUGHED AND HAD BLOOD TINGED MUCOUS. HAS NOT HAD IT AGAIN. JUST ONE EPISODE EXAM: XR Chest 1 View: COMPARISON: None FINDINGS: # of images incl. paperwork: 1 Elevation of the right hemidiaphragm Lungs are clear. Heart is not enlarged. No acute osseous pathology perceived. Pulmonary vascularity is distinct. No effusions. RAD/Chest 1 View (Portable) IMPRESSION: Normal. at 2206 Reported and signed by: Nestor Steele MD Electronically Signed: Nestor Steele MD at 22:05 EST Tel , Service support , CC: LIA Phelan; Dr. Roxie Rios DO Paint Striping Machine Operator: Signed Kimberly Melchorromeo Start: 02-29-2020 End: 02-29-2020 Operative Report Comments: See Note; NOTES: [facility] Medical Records Department [address] [place] [address] Operative Report 02/29/20 1303 MR#: [id number] Acct: [id number] Name: CORNELIO MANZANO Rep #: [id number] : 1965 54 From: Colin Byrne DO PCP: LIA Coates Status[place] [facility] [place]: [place] [address]- Report of Operation Date of Procedure: 02/29/20 Pre-Operative Diagnosis: SAIS, AC arthropathy, RC tear, biceps tendinosus left Post-Operative Diagnosis: same Surgery/Procedure Performed:: ASD, Robert procedure, biceps tenotomy and RCR traffic control operator: Kurt Rivera Type of Anesthesia:: General/Regional Anesthesiologist: Myles Morejon - Admit VTE Documentation VTE Present on Admission: No VTE Mechan Device Prophylaxis: SCD's VTE Pharm Prophylaxis ordered?: No Reason prophylaxis not ordered:: Treatment Not Indicated 02/29/20 1306 <Electronically signed by Colin Byrne DO> Date Colin Byrne DO CC: LIA Phelan; Dr. Colin Byrne DO Signed Kimberly Phelan Start: 02-11-2020 End: 02-11-2020 12 Lead EKG Comments: See Note; NOTES: [facility] Cardiovascular Services [address] [place] [address] 12 Lead EKG 02/11/20 0836 MR#: [id number] Acct: [id number] Name: CORNELIO MANZANO Rep #: [id number] : 1965 54 From: Yung Raya MD Attending Dr: Dr. Colin Byrne, Status: UT E SDC Ordering Dr: Myles Morejon MD Date: 02/11/20 [place] [facility] Sex: M C Admitted: Test Reason : PREOP Blood Pressure : / mmHG Vent. Rate : 060 BPM Atrial Rate : 060 BPM P-R Int : 136 ms QRS Dur : 082 ms QT Int : 396 ms P-R-T Axes : 041 004 037 degrees QTc Int : 396 ms Normal sinus rhythm Normal ECG Confirmed by YUNG RAYA MD ([id number]), field map editor MARITO STALLWORTH ([id number]) on 02/11/2020 1:24:55 PM Referred By: Colin Byrne Confirmed By:YUNG RAYA MD 02/11/20 1324 Date Yung Raya MD CC: LIA Phelan; Dr. Myles Morejon MD; Dr. Colin Byrne, DO Signed Kimberly Phelan Start: 12-22-2019 End: 12-22-2019 PT/HP.PTDCNRP Comments: See Note; NOTES: [facility] Physical Therapy [facility] [address] [place] [address]. [address] [place] [address] / REHABILITATION SERVICES DISCHARGE SUMMARY MR#: [id number] Acct: [id number] Name: CORNELIO MANZANO Rep #: [id number] : 1965 54 From: Susan Cooley DPT Referring Dr.: LIA Phelan Status: REG RCR Insurance: [employer]ANCE CORNELIO MANZANO was seen in my office for initial evaluation on 10/27/19. The following Plan of Care was established for this patient: Initial Frequency: 3x /Week Initial Duration: 4 Weeks Patient/Client Instruction: Educate patient on: Benefits of Fitness Program Therapeutic Exercise to Include: Strength training, Endurance training, Balance training, Agility training, Body mechanics, Postural training, Flexibilty training, Gait and locomotor training, Neuromotor development, Passive ROM, Active ROM, Dynamic Lumbar Stabilization, Scapular Strength/Stabilization For the Purpose of:: To improve muscle performance and motor function TENS: Yes Cryotherapy (ice pack, ice massage): Yes Thermo therapy (hot pack): Yes Ultrasound (thermal/non thermal): Yes This patient was last seen in our office . Pertinent comments regarding their Physical therapy will appear below: Patient has not attended physical therapy in over 8 weeks- appropriate for d/c and return to MD as appropriate. At this point I will be discontinuing this patient from physical therapy. I would be happy to see this patient again in the future if found appropriate by the physician. Thank you! Susan oColey, DPT <Electronically signed by Susan Cooley DPT> 12/22/19 1126 CC: LIA Phelan ELR Signed Kimberly Phelan Start: 10-27-2019 End: 10-27-2019 Inital Evaluation (1) - PT Comments: See Note; NOTES: [facility] [address] [place] [address] / REHABILITATION SERVICES INITIAL EVALUATION MR#: [id number] Acct: [id number] Name: CORNELIO MANZANO Rep #: [id number] : 1965 54 From: Susan Cooley DPT Referring Dr.: LIA Phelan Status: REG RCR Insurance: [employer]URANCE Patient's Visit Information CORNELIO MANZANO is a 54 year old M referred to Physical Therapy by LIA Coates with a diagnosis of Back Pain. Date of Evaluation: 10/27/19 Physical Therapist: Susan Cooley DPT - Visit Plan Frequency: 3x /Week Duration: 4 Weeks Plan: Focus on centralization- core strength/stabilization- shift- modalities of US, e-stim - Subjective Subjective: Patient reports that 8:00 last night he started to have back pain- Last night he twisted around and bent forwards felt and heard a pop and went down on his knees. Pain is located along the left belt line- Pain radiates down below the knee- MD had x-rays and she gave him a Torodol injection. Descibes the back as sharp/shooting pains- electrical shock down the leg that comes and goes. Agg: moving wrong- sitting and putting weight on his hip. Best: leaning on the right hip- laying on his back with his knees bent. Heating pad last night and MD told him to ice. worst: 10/10 best: 6/10. Never had back pain before. 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 No N/T-no buckling of the knee- no loss or change in bowel or bladder. Sleep: belly sleeper- last night was on his back- uncomfortable. PMHx:pre-DM Meds: Metformin, Prevastatin, Prozac, adderol, Synthroid - has him starting Medrol Dose Pack - Objective Posture: FH, RS- leaning to the right- no weight on the left hip in sitting. Gait: antalgic- decreased stance on the left LE- shifted. HR/TR: able. SLS: Left: 5 sec Right: 30 sec. Sensation/Reflex: WNL. ROM: Lumbar flexion: hands to knees, extn/sb/rot: all WNL pain with SB to the right. Strength: core: fair, Hip: 4+/5, Ankle: 5/5, Knee: 5/5 bilaterally. Flex:HS moderate, Gastroc: moderate. Special Test: SLR: positive, Slump on left: positive, Dural Signs: positive. Palpation: tender along paraspinals on the left lumbar and into the gluts on the left - Goals Goal 1:: Patient will be I with HEP and progression Goal Time Frame: 4-6 Weeks Goal 2:: Patient will ambulate >300 feet with a normalized gait pattern Goal Time Frame: 4-6 Weeks Goal 3:: Patient will maintain proper sitting and standing posture without shifting Goal Time Frame: 4-6 Weeks - Rehabilitation Potential Physical Therapy Diagnosis: Patient presents with hypmobility- he has decreased painfree ROM, strength, flex and muscualar endurance leading to increased pain with ADL's Rehabilitation Potential: Good - Anticipated Interventions Patient/Client Instruction: Educate patient on: Benefits of Fitness Program Therapeutic Exercise to Include: Strength training, Endurance training, Balance training, Agility training, Body mechanics, Postural training, Flexibilty training, Gait and locomotor training, Neuromotor development, Passive ROM, Active ROM, Dynamic Lumbar Stabilization, Scapular Strength/Stabilization For the Purpose of:: To improve muscle performance and motor function TENS: Yes Cryotherapy (ice pack, ice massage): Yes Thermo therapy (hot pack): Yes Ultrasound (thermal/non thermal): Yes Thank you for the opportunity to evaluate your patient. For Medicare and Medicare HMO plans, please review the plan of care and approve it. It will need to be FAXED BACK to us at [phone] for Medicare purposes. For Medicare only, by signing this I certify the plan of care. Please let me know if there are questions or concerns regarding this plan of care. Physician Signature: Date: <Electronically signed by Susan Cooley DPT> 10/27/19 1523 CC: LIA Phelan ELR Signed Kimberly Phelan Start: 10-27-2019 End: 10-28-2019 L/S Spine Min 4 Views Comments: See Note; NOTES: [facility] Imaging Services [address] [place] [address] L/S Spine Min 4 Views MR#: [id number] Acct: [id number] Name: CORNELIO MANZANO Rep #: [id number] : 1965 M 54 From: Lisset Johnston MD PCP: LIA Coates Status: REG CLI Study: L/S Spine Min 4 Views Date of Exam: 10/27/19 Exam# [id number] Ordering Dr: Kimberly Phelan STUDY: X-RAY - LUMBAR SPINE REASON FOR EXAM: Male, 54 years old. twisted spine last night, felt a pop and now has left LBP TECHNIQUE: 5 view(s) of the lumbar spine were obtained. COMPARISON: None FINDINGS: Normal lumbar lordosis. Mild scoliosis of the lumbar spine, convexity to the left. There is a normal alignment of the vertebrae. There is multilevel endplate spondylosis of the lumbar vertebrae. There is multi-level degenerative disc disease with multi-level disc space narrowing. There is no demonstrated fracture. There is no demonstrated spondylolysis of the pars interarticulares. The soft tissue structures are unremarkable. RAD/L/S Spine Min 4 Views IMPRESSION: Multilevel spondylosis/degenerative disease with no acute fracture, spondylolisthesis or pars defect. Electronically Signed: Lisset Johnston MD at 0:42 EDT , Service support , CC: LIA Phelan Paint Striping Machine Operator: Signed Kimberly Phelan Work Phone: Start: 11-07-2018 End: 11-08-2018 Pelvis 1 or 2 Views Comments: See Note; NOTES: [facility] Imaging Services [address] [place] [address] Pelvis 1 or 2 Views MR#: [id number] Acct: [id number] Name: CORNELIO MANZANO Rep #: [id number] : 1965 M 53 From: Nabil Lua MD PCP: Kimberly Phelan NP Status: REG CLI Study: Pelvis 1 or 2 Views Date of Exam: 11/07/18 Exam# [id number] Ordering Dr: Gretel Blackmon MD STUDY: X-RAY - PELVIS REASON FOR EXAM: Male, 53 years old. Chronic pain TECHNIQUE: One view of the pelvis was obtained. COMPARISON: None. FINDINGS: Degenerative change of the lower lumbosacral spine. The sacroiliac and hip joints are normal. No fracture. No calcific tendinitis or bursitis . Electronically Signed: Nabil Lua MD at 0:02 EDT Tel , Service support , RAD/Pelvis 1 or 2 Views CC: Kimberly Phelan NP; Gretel Blackmon MD Paint Striping Machine Operator: Signed Kimberly Rollins Comment on above: x2 right knee Arthroscopic Cedric Mercado Comment on above: x2 right knee Arthroscopic Emily Santiago Comment on above: x2 right knee Arthroscopic Cedric Mercado Comment on above: x2 right knee Arthroscopic Emily Santiago Comment on above: x2 right knee Arthroscopic LUZMA Hernandez Comment on above: x2 right knee Arthroscopic Dayanna Rodriguez Comment on above: x2 right knee Arthroscopic Asya Quevedo Comment on above: x2 right knee Arthroscopic LUZMA Hernandez Comment on above: x2 right knee Arthroscopic Cedric Glass Comment on above: x2 right knee Arthroscopic LUZMA Hernandez Comment on above: x2 right knee Arthroscopic Maribell Slarb LP N Comment on above: x2 right knee Arthroscopic Dayanna Rodriguez DEPUTY BRAND INSPECTOR Comment on above: x2 right knee Arthroscopic Cedric Quan LP N Comment on above: x2 right knee Decompression of med usha nerve Jajapankaj Childers DEPUTY BRAND INSPECTOR Decompression of med usha nerve Maribell Slarb [employer] Decompression of med usha nerve LUZMA David [employer]PLOYMENT [employer]UCATIONAL [employer] Decompression of med usha nerve LUZMA David [employer]MENT [employer] Operative procedure on shoulder Maribell Slarb [employer]OYMENT [employer] Comment on above: Left, rotator cuff r epair 2020 Operative procedure on shoulder Dayanna Rodriguez DEPUTY BRAND INSPECTOR Comment on above: Left, rotator cuff r epair 2020 Operative procedure on shoulder Cedric Glass [employer]MENT [employer] Comment on above: Left, rotator cuff r epair 2020 Operative procedure on shoulder Hailya Liseth DEPUTY BRAND INSPECTOR Operative procedure on shoulder Maribell Slarb [employer]MENT [employer] Operative procedure on shoulder LUZMA David [employer]OYMENT [employer]UCATIONAL [employer] Operative procedure on shoulder LUZMA David [employer]OYMENT [employer]ATIONAL [employer] Hailya [place] DEPUTY BRAND INSPECTOR Maribell Slarb LP N LUZMA David [employer]MENT [employer]UCATIONAL [employer] LUZMA David [employer] Plan of Treatment Date Care Activity Detail Author Start: 05-20-2023 Procedure Education [facility] Work Phone: Start: 05-20-2023 Provider Instruction s for Treatment [facility]; [facility] Work Phone: Start: 04-29-2023 25 hydroxy includes fractions if performed [facility]; [facility] Work Phone: Start: 04-29-2023 Cyanocobalamin vitam in b-12 [facility]; [facility] Work Phone: Start: 04-29-2023 Assay of thyroid stimulating hormone tsh [facility]; [facility] Work Phone: Start: 04-29-2023 Sedimentation rate r bc non-automated [facility]; [facility] Work Phone: Start: 04-29-2023 Rheumatoid factor quantitative [facility]; [facility] Work Phone: Start: 04-29-2023 Comprehensive metabo lic panel [facility]; [facility] Work Phone: Start: 04-29-2023 C-reactive protein [facility]; [facility] Work Phone: Start: 04-29-2023 Blood count complete automated [facility]; [facility] Work Phone: Start: 04-29-2023 Procedure Education [facility]; [facility] Work Phone: Start: 04-29-2023 Provider Instruction s for Treatment [facility]; [facility] Work Phone: Start: 06-13-2022 Procedure Education [facility]; [facility] Work Phone: Start: 06-13-2022 Provider Instruction s for Treatment [facility]; [facility] Work Phone: Start: 06-13-2022 Cul bact xcpt urine blood/stool aerobic isol [facility]; [facility] Work Phone: Start: 04-24-2022 Assay of free thyroxine [facility]; [facility] Work Phone: Start: 04-24-2022 Assay of thyroid stimulating hormone tsh [facility]; [facility] Work Phone: Start: 04-23-2022 Lipid panel [facility]; [facility] Work Phone: Start: 04-23-2022 Blood count complete auto&auto difrntl wbc [facility]; [facility] Work Phone: Start: 04-13-2022 Procedure Education [facility]; [facility] Work Phone: Start: 04-13-2022 Provider Instruction s for Treatment [facility]; [facility] Work Phone: Start: 01-12-2022 Procedure Education [facility]; [facility] Work Phone: Start: 12-08-2021 Procedure Education [facility]; [facility] Work Phone: Start: 11-10-2021 Procedure Education [facility]; [facility] Work Phone: Start: 11-10-2021 Blood occult fecal h gb deter ia qual feces 1-3 [facility]; [facility] Work Phone: Start: 11-03-2021 Procedure Education [facility]; [facility] Work Phone: Start: 11-03-2021 Provider Instruction s for Treatment [facility]; [facility] Work Phone: Start: 07-17-2021 Blood count complete automated CBC & PLATELETS (AUTO) (84937) [facility]; [facility] Work Phone: Start: 07-17-2021 25 hydroxy includes fractions if performed [facility]; [facility] Work Phone: Start: 07-17-2021 Comprehensive metabo lic panel [facility]; [facility] Work Phone: Start: 07-17-2021 Assay of thyroid stimulating hormone tsh [facility]; [facility] Work Phone: Start: 05-05-2021 Procedure Education [facility]; [facility] Work Phone: Start: 05-05-2021 Provider Instruction s for Treatment [facility]; [facility] Work Phone: Start: 04-27-2021 Procedure Education [facility]; [facility] Work Phone: Start: 04-27-2021 Provider Instruction s for Treatment [facility]; [facility] Work Phone: Start: 03-14-2021 Procedure Education [facility]; [facility] Work Phone: Start: 03-14-2021 Provider Instruction s for Treatment [facility]; [facility] Work Phone: Start: 10-21-2020 Procedure Education [facility]; [facility] Work Phone: Start: 10-21-2020 Provider Instruction s for Treatment [facility]; [facility] Work Phone: Start: 10-21-2020 Assay of prostate specific antigen total PSA (PROSTATE SPECIFIC ANTIGEN) (V76.44) [facility]; [facility] Work Phone: Start: 10-21-2020 25 hydroxy includes fractions if performed CALCIFEDIOL (66430) [facility]; [facility] Work Phone: Start: 10-21-2020 TSH Qn TSH (THYROID STIMULATING HORMONE) (76522) [facility]; [facility] Work Phone: Start: 10-21-2020 Lipid panel LIPID PANEL (86780) [facility]; [facility] Work Phone: Start: 10-21-2020 HbA1c (Bld) [Mass fraction] HgA1C , Office (98572) [facility]; [facility] Work Phone: Start: 10-21-2020 Glucose [Mass/Vol] Blood Gluco se , Office (86611) [facility]; [facility] Work Phone: Start: 04-20-2020 Procedure Education [facility] Work Phone: Start: 04-20-2020 Provider Instruction s for Treatment [facility] Work Phone: Start: 04-20-2020 Lipid panel [facility] Work Phone: Comment on above: 04-21-20 Start: 03-14-2020 Lipid panel [facility] Work Phone: Start: 03-14-2020 25 hydroxy includes fractions if performed [facility] Work Phone: Start: 03-14-2020 Assay of thyroid stimulating hormone tsh [facility] Work Phone: Start: 03-14-2020 TSH Qn TSH (THYROID STIMULATING HORMONE) (70591) [facility] Work Phone: Start: 03-14-2020 Blood count complete automated [facility] Work Phone: Start: 01-01-2020 Procedure Education [facility] Work Phone: Start: 11-16-2019 Assay of thyroid stimulating hormone tsh [facility] Work Phone: Start: 11-16-2019 TSH Qn TSH (THYROID STIMULATING HORMONE) (49387) [facility] Work Phone: Start: 10-27-2019 Procedure Education [facility] Work Phone: Start: 10-05-2019 Procedure Education [facility] Work Phone: Start: 10-05-2019 Provider Instruction s for Treatment [facility] Work Phone: Start: 03-20-2019 Procedure Education [facility] Work Phone: Start: 03-20-2019 Provider Instruction s for Treatment [facility] Work Phone: Start: 03-20-2019 C-reactive protein h igh sensitivity C-REACT PROT HIGH SENS(hsCRP) (15851) [facility] Work Phone: Start: 03-20-2019 Blood count manual c ell count each CBC WITH MANUAL DIFF (55219) [facility] Work Phone: Start: 03-20-2019 Comprehensive metabo lic panel Metabolic Panel, Comprehensive (67147) [facility] Work Phone: Start: 03-20-2019 Alpha-fetoprotein serum ALPHA- FETOPROTEIN-SERU M (37970) [facility] Work Phone: Start: 03-20-2019 25 hydroxy includes fractions if performed CALCIFEDIOL (35764) [facility] Work Phone: Start: 03-20-2019 Lipid panel LIPID PANEL (40091) [facility] Work Phone: Start: 03-20-2019 TSH Qn TSH (THYROID STIMULATING HORMONE) (55801) [facility] Work Phone: Start: 03-12-2019 Thyrotropin Qn TSH (93116) [facility] Work Phone: Start: 03-12-2019 T4 free mass conc T4, FREE (TH YROXINE) (08155) [facility] Work Phone: Start: 03-12-2019 T3 free mass conc T3, FREE (TRIDOTHYRONINE) (22798) [facility] Work Phone: Start: 03-12-2019 Lipid panel Lipid Panel (73804) [facility] Work Phone: Start: 12-12-2018 Procedure Education [facility] Work Phone: Start: 12-12-2018 Provider Instruction s for Treatment [facility] Work Phone: Start: 12-12-2018 Hemoglobin A1c/Hemoglobin.total mass fraction (Bld) HgA1C , Office (01162) [facility] Work Phone: Comment on above: 5.5 Start: 12-12-2018 Hemoglobin glycosyla carlos eduardo a1c [facility] Work Phone: Comment on above: 5.5 Start: 12-12-2018 Comprehensive metabo lic panel Metabolic Panel, Comprehensive (72825) [facility] Work Phone: Start: 11-21-2018 Procedure Education [facility] Work Phone: Start: 10-13-2018 Thyrotropin Qn TSH (96669) [facility] Work Phone: Start: 10-13-2018 T4 free mass conc T4, FREE (TH YROXINE) (91018) [facility] Work Phone: Start: 10-13-2018 T3 free mass conc T3, FREE (TRIDOTHYRONINE) (88497) [facility] Work Phone: Start: 09-05-2018 Procedure Education [facility] Work Phone: Start: 09-05-2018 Provider Instruction s for Treatment [facility] Work Phone: Start: 08-25-2018 25 hydroxy includes fractions if performed CALCIFEDIOL (21611) [facility] Work Phone: Start: 08-25-2018 Protein mass conc PSA (PROSTAT E SPECIFIC ANTIGEN) (V76.44) [facility] Work Phone: Start: 08-25-2018 Alpha-fetoprotein serum ALPHA- FETOPROTEIN-SERU M (19099) [facility] Work Phone: Start: 08-25-2018 Comprehensive metabo lic panel Metabolic Panel, Comprehensive (78109) [facility] Work Phone: Start: 08-25-2018 T4 free mass conc T4, FREE (TH YROXINE) (41924) [facility] Work Phone: Start: 08-25-2018 T3 free mass conc T3, FREE (TRIDOTHYRONINE) (54505) [facility] Work Phone: Start: 08-25-2018 Thyrotropin Qn TSH (THYROID STIMULATING HORMONE) (27433) [facility] Work Phone: Start: 06-02-2018 Procedure Education [facility] Work Phone: Start: 06-02-2018 Provider Instruction s for Treatment [facility] Work Phone: Start: 05-30-2018 Drug screen class list a [facility] Work Phone: Start: 04-28-2018 Procedure Education [facility] Work Phone: Start: 04-28-2018 Provider Instruction s for Treatment [facility] Work Phone: Start: 02-21-2018 Assay of thyroid stimulating hormone tsh [facility] Work Phone: Start: 02-21-2018 Thyrotropin Qn TSH (THYROID STIMULATING HORMONE) (10963) [facility] Work Phone: Start: 01-27-2018 Procedure Education [facility] Work Phone: Start: 01-27-2018 Provider Instruction s for Treatment [facility] Work Phone: Start: 09-13-2017 Procedure Education [facility] Work Phone: Start: 09-13-2017 Provider Instruction s for Treatment [facility] Work Phone: Start: 08-16-2017 Procedure Education [facility] Work Phone: Start: 05-10-2017 Procedure Education [facility] Work Phone: Start: 05-10-2017 Provider Instruction s for Treatment [facility] Work Phone: Start: 12-03-2016 Procedure Education [facility] Work Phone: Start: 12-03-2016 Provider Instruction s for Treatment [facility] Work Phone: Start: 12-03-2016 Comprehensive metabo lic panel [facility] Work Phone: Start: 10-01-2016 Provider Instruction s for Treatment [facility] Work Phone: Start: 10-01-2016 Lipid panel [facility] Work Phone: Comment on above: around first of Apri l fasting Start: 09-21-2016 Procedure Education [facility] Work Phone: Start: 09-21-2016 Provider Instruction s for Treatment [facility] Work Phone: Start: 09-21-2016 Blood occult fecal h gb deter ia qual feces 1-3 [facility] Work Phone: Start: 02-06-2016 Urnls dip stick/tabl et reagent auto microscopy [facility] Work Phone: Start: 02-06-2016 Assay of thyroid stimulating hormone tsh [facility] Work Phone: Start: 02-06-2016 Thyrotropin Qn TSH (THYROID STIMULATING HORMONE) (80199) [facility] Work Phone: Start: 02-06-2016 Urine albumin quantitative [facility] Work Phone: Start: 02-06-2016 Comprehensive metabo lic panel [facility] Work Phone: Start: 02-06-2016 Blood count complete auto&auto difrntl wbc [facility] Work Phone: Start: 02-06-2016 Lipid panel [facility] Work Phone: Start: 02-06-2016 25 hydroxy includes fractions if performed [facility] Work Phone: Start: 02-06-2016 Provider Instruction s for Treatment [facility] Work Phone: Start: 12-26-2015 Procedure Education [facility] Work Phone: Start: 06-27-2015 Procedure Education [facility] Work Phone: Start: 06-27-2015 25 hydroxy includes fractions if performed [facility] Work Phone: Start: 06-27-2015 Comprehensive metabo lic panel [facility] Work Phone: Start: 06-27-2015 Lipid panel [facility] Work Phone: Start: 06-27-2015 Hemoglobin A1c/Hemoglobin.total mass fraction (Bld) Hemoglobin Glyclated (HGB A1C) (39021) [facility] Work Phone: Start: 06-27-2015 Hemoglobin glycosyla carlos eduardo a1c [facility] Work Phone: Start: 09-27-2014 Assay of prostate specific antigen total [facility] Work Phone: Start: 09-27-2014 Protein mass conc PSA (PROSTAT E SPECIFIC ANTIGEN) (V76.44) [facility] Work Phone: Start: 09-27-2014 Urnls dip stick/tabl et reagent auto microscopy [facility] Work Phone: Start: 09-27-2014 Comprehensive metabo lic panel [facility] Work Phone: Start: 09-27-2014 Lipid panel [facility] Work Phone: Start: 09-27-2014 Blood count manual c ell count each [facility] Work Phone: Start: 05-21-2014 Procedure Education [facility] Work Phone: Start: 05-10-2014 Procedure Education [facility] Work Phone: Start: 01-28-2014 Procedure Education [facility] Work Phone: [facility] Work Phone: [facility] Work Phone: [facility] Work Phone: [facility] Work Phone: [facility] Work Phone: [facility] Work Phone: [facility] Work Phone: [facility] Work Phone: [facility] Work Phone: [facility] Work Phone[facility] Work Phone[facility] Work Phone: [facility] Work Phone: [facility] Work Phone: [facility] Work Phone: [facility] Work Phone: [facility] Work Phone: Payers Date Payer Category Payer Unknown [id number] 1965 Unknown [id number] 1965 Unknown [id number] Unknown Social History Date Type Detail Facility Caffeine Use [facility] Work Phone: Comment on above: 3 cans soda qd self employed [employer] used snuff until 200 1 Exercise History: Exercises occasionally. [facility] Work Phone: Living Situation: [facility] Work [facility]: Comment on above: Exercise History: Exercise History: [facility] Work Phone: Living Situation: Living Situation: [facility] Work Phone: Comment on above: Clinical Notes 03-21-2021 Note Date & Type Note Facility 03-21-2021 Note HNO ID: [id number] Author: Josh Larkin MD Service: ? Author Type: Physician Type: Progress Notes Filed: 04/01/2021 12:21 PM Note Text: HISTORY AND PHYSICAL Cornelio Manzano 1965 REFERRING PHYSICIAN: Kimberly Phelan CNP CHIEF COMPLAINT: Consult (check lump inside anus) HPI: The patient is a 55 year old male with a complaint of painful lump in his perianal area. Happened about 2 weeks ago right after he had a bowel movement. Initially was sore but not so much now. Has not been draining there is no blood coming from it. He is still having normal bowel movements. He has never had any events like this in the past.. The patient is being seen by me today at the request of Dr. Phelan for my opinion and advice regarding External hemorrhoid, thrombosed (primary encounter diagnosis). 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 No current facility-administered medications for this visit. ALLERGIES: Patient has no known allergies. PERSONAL HISTORY: Social History Tobacco Use - Smoking status: Never Smoker - Smokeless tobacco: Former User Vaping Use - Vaping Use: Never used Substance Use Topics - Alcohol use: Never - Drug use: Never FAMILY HISTORY: No family history on file. REVIEW OF SYMPTOMS: The review of systems data was entered by the nurse and reviewed by me Nursing Notes: Michelle Hodges RN 03/21/2021 9:12 AM Signed REVIEW OF SYSTEMS: General: The patient NOTES fatigue, denies weight loss, denies weight gain, denies feeling hot, and denies feelings of cold. Eyes: The patient denies glaucoma, denies eye injury/surgery, wears glasses or contacts. Ear/Nose/Throat: The patient denies allergies, NOTES hayfever, denies ear infections, and denies bloody noses. Cardiovascular: The patient denies chest pain, denies heart disease, denies high blood pressure,denies cardiac stent, denies prior heart attack, denies irregular heart beat, NOTES high cholesterol, denies poor circulation, denies heart failure, other cardiac issues, denies claudication, denies cold feet, denies peripheral arterial stent. Respiratory: The patient denies tuberculosis, denies pneumonia, denies frequent cough, denies pulmonary embolism, denies shortness of breath, and denies coughing up blood. Gastrointestinal: The patient denies difficulty swallowing, denies acid reflux, denies ulcers, denies vomiting, denies jaundice/hepatitis, denies gallbladder problems, denies black or tarry stools, denies hemorrhoids, denies bleeding from rectum, denies diverticulitis, denies constipation, denies diarrhea, denies loss of stool control, and denies hernias. Kidney/Bladder: The patient denies kidney stones, denies urine infections, and denies bloody urine. Skin: The patient denies a history of skin cancer, denies bleeding/changing moles, and denies a history of skin rash. Neurologic: The patient denies a history of epilepsy/convulsions, denies headaches, denies head/spinal injuries, and denies stroke/TIA. Psychiatric: The patient denies psychiatric medications, denies depression, and denies voices, denies substance abuse. Endocrine: The patient denies NOTES disorders, NOTES diabetes, and NOTES hormonal problems. Hematologic: The patient denies a history of bruising, denies bleeding, and denies anemia, denies blood clots. Infections: The patient denies a history of measles and mumps, denies rheumatic fever, and denies sexually transmitted diseases. Musculoskeletal: The patient denies back pain/injury, denies back problems, denies sciatica, denies knee/foot trouble, denies arthritis, or denies gout. When was patient's last Mammogram screening? N/A Last Colonoscopy: Unknown Michelle Hodges RN PHYSICAL EXAMINATION: General: The patient is 55 year old male, well nourished, well hydrated in no acute distress. The patient is oriented to time, place, and person. VITALS: Blood pressure 116/72, pulse 60, temperature 36.6 ?C (97.8 ?F), height 175.3 cm (5' 9 ), weight 98.6 kg (217 lb 6.4 oz), SpO2 97 %. Rectal exam: (more content not included)... [facility] Instructions Name Patient Instructions Indication:Adult residual type attention deficit hyperactivity disorder (ADHD) Start:29-Oct-19 Instruction Type:Provider Instructions for Treatment How to Access Health Information Online using Patient Portal and 3rd [employer] Apps Indication:Adult residual type attention deficit hyperactivity disorder (ADHD) Start:29-Oct-19 Instruction Type:Patient Education Patient Instructions Indication:BMI 32.0-32.9,adult Start:22-Oct-19 Instruction Type:Provider Instructions for Treatment How to Access Health Information Online using Patient Portal and [employer] Apps Indication:Nonsmoker Start:22-Oct-19 Instruction Type:Patient Education How to access health information online Indication:Adult residual type attention deficit hyperactivity disorder (ADHD) Start:29-Apr-20 Instruction Type:Patient Education How to access health information online - Detail Indication:Adult residual type attention deficit hyperactivity disorder (ADHD) Start:29-Apr-20 Instruction Type:Patient Education Patient Instructions Indication:Adult residual type attention deficit hyperactivity disorder (ADHD) Start:29-Apr-20 Instruction Type:Provider Instructions for Treatment How to access health information online Indication:Nonsmoker Start: Instruction Type:Patient Education How to access health information online - Detail Indication:Nonsmoker Start: Instruction Type:Patient Education Patient Instructions Indication:Nonsmoker Start: Instruction Type:Provider Instructions for Treatment How to access health information online Indication:Adult residual type attention deficit hyperactivity disorder (ADHD) Start:01-Jan-20 Instruction Type:Patient Education How to access health information online - Detail Indication:Adult residual type attention deficit hyperactivity disorder (ADHD) Start:01-Jan-20 Instruction Type:Patient Education Patient Instructions Indication:Adult residual type attention deficit hyperactivity disorder (ADHD) Start:01-Jan-20 Instruction Type:Provider Instructions for Treatment How to access health information online Indication:Nonsmoker Start:27-Oct-19 Instruction Type:Patient Education How to access health information online - Detail Indication:Nonsmoker Start:27-Oct-19 Instruction Type:Patient Education Patient Instructions Indication:Nonsmoker Start:27-Oct-19 Instruction Type:Provider Instructions for Treatment How to access health information online Indication:Nonsmoker Start:05-Oct-19 Instruction Type:Patient Education How to access health information online - Detail Indication:Nonsmoker Start:05-Oct-19 Instruction Type:Patient Education Patient Instructions Indication:Encounter for screening for malignant neoplasm of prostate (Renamed from Screening for prostate cancer) Start:05-Oct-19 Instruction Type:Provider Instructions for Treatment How to access health information online Indication:Adult residual type attention deficit hyperactivity disorder (ADHD) Start:03-Jul-20 Instruction Type:Patient Education How to access health information online - Detail Indication:Adult residual type attention deficit hyperactivity disorder (ADHD) Start:03-Jul-20 Instruction Type:Patient Education Patient Instructions Indication:Adult residual type attention deficit hyperactivity disorder (ADHD) Start:03-Jul-20 Instruction Type:Provider Instructions for Treatment How to access health information online Indication:Adult residual type attention deficit hyperactivity disorder (ADHD) Start:09-Apr-20 Instruction Type:Patient Education How to access health information online - Detail Indication:Adult residual type attention deficit hyperactivity disorder (ADHD) Start:09-Apr-20 Instruction Type:Patient Education Patient Instructions Indication:Adult residual type attention deficit hyperactivity disorder (ADHD) Start:09-Apr-20 Instruction Type:Provider Instructions for Treatment How to access health information online Indication:Nonsmoker Start: Instruction Type:Patient Education How to access health information online - Detail Indication:Nonsmoker Start: Instruction Type:Patient Education Patient Instructions Indication:Elevated blood-pressure reading, without diagnosis of hypertension (Renamed from Elevated blood-pressure reading without diagnosis of hypertension) Start: Instruction Type:Provider Instructions for Treatment How to access health information online Indication:Nonsmoker Start: Instruction Type:Patient Education How to access health information online - Detail Indication:Nonsmoker Start: Instruction Type:Patient Education Patient Instructions Indication:BMI 34.0-34.9,adult Start: Instruction Type:Provider Instructions for Treatment How to access health information online Indication:Nonsmoker Start:22-Nov-19 Instruction Type:Patient Education How to access health information online - Detail Indication:Nonsmoker Start:22-Nov-19 Instruction Type:Patient Education Patient Instructions Indication:Nonsmoker Start:22-Nov-19 Instruction Type:Provider Instructions for Treatment How to access health information online Indication:Nonsmoker Start:05-Sep-19 Instruction Type:Patient Education How to access health information online - Detail Indication:Nonsmoker Start:05-Sep-19 Instruction Type:Patient Education Patient Instructions Indication:Nonsmoker Start:05-Sep-19 Instruction Type:Provider Instructions for Treatment How to access health information online Indication:Nonsmoker Start:02-Jun-20 Instruction Type:Patient Education How to access health information online - Detail Indication:Nonsmoker Start:02-Jun-20 Instruction Type:Patient Education Patient Instructions Indication:Encounter for screening for malignant neoplasm of prostate (Renamed from Screening for prostate cancer) Start:02-Jun-20 Instruction Type:Provider Instructions for Treatment How to access health information online Indication:Adult residual type attention deficit hyperactivity disorder (ADHD) Start:30-May-20 Instruction Type:Patient Education How to access health information online - Detail Indication:Adult residual type attention deficit hyperactivity disorder (ADHD) Start:30-May-20 Instruction Type:Patient Education Patient Instructions Indication:Adult residual type attention deficit hyperactivity disorder (ADHD) Start:30-May-20 Instruction Type:Provider Instructions for Treatment Patient Instructions Indication:Adult residual type attention deficit hyperactivity disorder (ADHD) Start:30-May-20 Instruction Type:Provider Instructions for Treatment How to access health information online Indication:Cracked lip Start:28-Apr-20 Instruction Type:Patient Education How to access health information online - Detail Indication:Cracked lip Start:28-Apr-20 Instruction Type:Patient Education Patient Instructions Indication:Cracked lip Start:28-Apr-20 Instruction Type:Provider Instructions for Treatment How to access health information online Indication:Adult residual type attention deficit hyperactivity disorder (ADHD) Start:22-Feb-20 Instruction Type:Patient Education How to access health information online - Detail Indication:Adult residual type attention deficit hyperactivity disorder (ADHD) Start:22-Feb-20 Instruction Type:Patient Education Patient Instructions Indication:Adult residual type attention deficit hyperactivity disorder (ADHD) Start:22-Feb-20 Instruction Type:Provider Instructions for Treatment How to access health information online Indication:Nonsmoker Start:28-Jan-20 Instruction Type:Patient Education How to access health information online - Detail Indication:Nonsmoker Start:28-Jan-20 Instruction Type:Patient Education Patient Instructions Indication:Nonsmoker Start:28-Jan-20 Instruction Type:Provider Instructions for Treatment How to access health information online Indication:Adult residual type attention deficit hyperactivity disorder (ADHD) Start:26-Oct-19 Instruction Type:Patient Education How to access health information online - Detail Indication:Adult residual type attention deficit hyperactivity disorder (ADHD) Start:26-Oct-19 Instruction Type:Patient Education Patient Instructions Indication:Adult residual type attention deficit hyperactivity disorder (ADHD) Start:26-Oct-19 Instruction Type:Provider Instructions for Treatment How to access health information online Indication:Abnormal glucose tolerance test (Renamed from Abnormal glucose tolerance test (GTT)) Start: Instruction Type:Patient Education How to access health information online - Detail Indication:Abnormal glucose tolerance test (Renamed from Abnormal glucose tolerance test (GTT)) Start: Instruction Type:Patient Education Patient Instructions Indication:BMI 34.0-34.9,adult Start: Instruction Type:Provider Instructions for Treatment How to access health information online Indication:Nonsmoker Start: Instruction Type:Patient Education How to access health information online - Detail Indication:Nonsmoker Start: Instruction Type:Patient Education Patient Instructions Indication:Nonsmoker Start: Instruction Type:Provider Instructions for Treatment How to access health information online Indication:Adult residual type attention deficit hyperactivity disorder (ADHD) Start:26-Jul-20 Instruction Type:Patient Education How to access health information online - Detail Indication:Adult residual type attention deficit hyperactivity disorder (ADHD) Start:26-Jul-20 Instruction Type:Patient Education Patient Instructions Indication:Adult residual type attention deficit hyperactivity disorder (ADHD) Start:26-Jul-20 Instruction Type:Provider Instructions for Treatment How to access health information online Indication:Abnormal glucose tolerance test (Renamed from Abnormal glucose tolerance test (GTT)) Start:10-May-20 Instruction Type:Patient Education How to access health information online - Detail Indication:Abnormal glucose tolerance test (Renamed from Abnormal glucose tolerance test (GTT)) Start:10-May-20 Instruction Type:Patient Education Patient Instructions Indication:Abnormal glucose tolerance test (Renamed from Abnormal glucose tolerance test (GTT)) Start:10-May-20 Instruction Type:Provider Instructions for Treatment Patient Instructions Indication:Skin picking habit Start: Instruction Type:Provider Instructions for Treatment How to access health information online Indication:Hyperlipidemia, unspecified Start:04-Dec-19 Instruction Type:Patient Education How to access health information online - Detail Indication:Hyperlipidemia, unspecified Start:04-Dec-19 Instruction Type:Patient Education Patient Instructions Indication:Hyperlipidemia, unspecified Start:04-Dec-19 Instruction Type:Provider Instructions for Treatment How to access health information online Indication:Adult residual type attention deficit hyperactivity disorder (ADHD) Start: Instruction Type:Patient Education How to access health information online - Detail Indication:Adult residual type attention deficit hyperactivity disorder (ADHD) Start: Instruction Type:Patient Education Patient Instructions Indication:Adult residual type attention deficit hyperactivity disorder (ADHD) Start: Instruction Type:Provider Instructions for Treatment Patient Instructions Indication:Vitamin D deficiency Start:01-Oct-19 Instruction Type:Provider Instructions for Treatment How to access health information online Indication:Nonsmoker Start:01-Oct-19 Instruction Type:Patient Education How to access health information online - Detail Indication:Nonsmoker Start:01-Oct-19 Instruction Type:Patient Education Patient Instructions Indication:Nonsmoker Start:01-Oct-19 Instruction Type:Provider Instructions for Treatment How to access health information online Indication:Abnormal glucose tolerance test (Renamed from Abnormal glucose tolerance test (GTT)) Start:21-Sep-19 Instruction Type:Patient Education How to access health information online - Detail Indication:Abnormal glucose tolerance test (Renamed from Abnormal glucose tolerance test (GTT)) Start:21-Sep-19 Instruction Type:Patient Education Patient Instructions Indication:Abnormal glucose tolerance test (Renamed from Abnormal glucose tolerance test (GTT)) Start:21-Sep-19 Instruction Type:Provider Instructions for Treatment Patient Instructions Indication:Abnormal glucose tolerance test (Renamed from Abnormal glucose tolerance test (GTT)) Start:21-Sep-19 Instruction Type:Provider Instructions for Treatment Patient Instructions Indication:Abnormal glucose tolerance test (Renamed from Abnormal glucose tolerance test (GTT)) Start:06-Feb-20 Instruction Type:Provider Instructions for Treatment How to access health information online Indication:Prediabetes Start:26-Dec-19 Instruction Type:Patient Education How to access health information online - Detail Indication:Prediabetes Start:26-Dec-19 Instruction Type:Patient Education Patient Instructions Indication:Prediabetes Start:26-Dec-19 Instruction Type:Provider Instructions for Treatment How to access health information online Indication:Anxiety Start:27-Jun-20 Instruction Type:Patient Education How to access health information online - Detail Indication:Anxiety Start:27-Jun-20 Instruction Type:Patient Education Patient Instructions Indication:Anxiety Start:27-Jun-20 Instruction Type:Provider Instructions for Treatment Patient Instructions Indication:Anxiety Start:09-May-20 Instruction Type:Provider Instructions for Treatment Patient Instructions Indication:Obesity, unspecified Start:21-May-20 Instruction Type:Provider Instructions for Treatment How to access health information online Indication:Obesity, unspecified Start:21-May-20 Instruction Type:Patient Education How to access health information online - Detail Indication:Obesity, unspecified Start:21-May-20 Instruction Type:Patient Education How to access health information online Indication:Laceration of left leg Start:10-May-20 Instruction Type:Patient Education How to access health information online - Detail Indication:Laceration of left leg Start:10-May-20 Instruction Type:Patient Education Patient Instructions Indication:Laceration of left leg Start:10-May-20 Instruction Type:Provider Instructions for Treatment Patient Instructions Indication:Hyperlipidemia, unspecified Start:29-Jan-20 Instruction Type:Provider Instructions for Treatment [facility] Work Phone: Instructions* Name Dates Details Patient Instructions Indication:Adult residual type attention deficit hyperactivity disorder (ADHD) Start:28-Oct-2020 Instruction Type:Provider Instructions for Treatment How to Access Health Informa tion Online using Patient Portal and 3rd [employer] Apps Indication:Adult residual type attention deficit hyperactivity disorder (ADHD) Start:28-Oct-2020 Instruction Type:Patient Education Patient Instructions Indication:BMI 32.0-32.9,adult Start:21-Oct-2020 Instruction Type:Provider Instructions for Treatment How to Access Health Informa tion Online using Patient Portal and [employer]rd [employer] Apps Indication:Nonsmoker Start:21-Oct-2020 Instruction Type:Patient Education How to access health informa tion online Indication:Adult residual type attention deficit hyperactivity disorder (ADHD) Start:29-Apr-2020 Instruction Type:Patient Education How to access health informa tion online - Detail Indication:Adult residual type attention deficit hyperactivity disorder (ADHD) Start:29-Apr-2020 Instruction Type:Patient Education Patient Instructions Indication:Adult residual type attention deficit hyperactivity disorder (ADHD) Start:29-Apr-2020 Instruction Type:Provider Instructions for Treatment How to access health informa tion online Indication:Nonsmoker Start:20-Apr-2020 Instruction Type:Patient Education How to access health informa tion online - Detail Indication:Nonsmoker Start:20-Apr-2020 Instruction Type:Patient Education Patient Instructions Indication:Nonsmoker Start:20-Apr-2020 Instruction Type:Provider Instructions for Treatment How to access health informa tion online Indication:Adult residual type attention deficit hyperactivity disorder (ADHD) Start:01-Jan-2020 Instruction Type:Patient Education How to access health informa tion online - Detail Indication:Adult residual type attention deficit hyperactivity disorder (ADHD) Start:01-Jan-2020 Instruction Type:Patient Education Patient Instructions Indication:Adult residual type attention deficit hyperactivity disorder (ADHD) Start:01-Jan-2020 Instruction Type:Provider Instructions for Treatment How to access health informa tion online Indication:Nonsmoker Start:27-Oct-2019 Instruction Type:Patient Education How to access health informa tion online - Detail Indication:Nonsmoker Start:27-Oct-2019 Instruction Type:Patient Education Patient Instructions Indication:Nonsmoker Start:27-Oct-2019 Instruction Type:Provider Instructions for Treatment How to access health informa tion online Indication:Nonsmoker Start:05-Oct-2019 Instruction Type:Patient Education How to access health informa tion online - Detail Indication:Nonsmoker Start:05-Oct-2019 Instruction Type:Patient Education Patient Instructions Indication:Encounter for screening for malignant neoplasm of prostate (Renamed from Screening for prostate cancer) Start:05-Oct-2019 Instruction Type:Provider Instructions for Treatment How to access health informa tion online Indication:Adult residual type attention deficit hyperactivity disorder (ADHD) Start:03-Jul-2019 Instruction Type:Patient Education How to access health informa tion online - Detail Indication:Adult residual type attention deficit hyperactivity disorder (ADHD) Start:03-Jul-2019 Instruction Type:Patient Education Patient Instructions Indication:Adult residual type attention deficit hyperactivity disorder (ADHD) Start:03-Jul-2019 Instruction Type:Provider Instructions for Treatment How to access health informa tion online Indication:Adult residual type attention deficit hyperactivity disorder (ADHD) Start:09-Apr-2019 Instruction Type:Patient Education How to access health informa tion online - Detail Indication:Adult residual type attention deficit hyperactivity disorder (ADHD) Start:09-Apr-2019 Instruction Type:Patient Education Patient Instructions Indication:Adult residual type attention deficit hyperactivity disorder (ADHD) Start:09-Apr-2019 Instruction Type:Provider Instructions for Treatment How to access health informa tion online Indication:Nonsmoker Start:20-Mar-2019 Instruction Type:Patient Education How to access health informa tion online - Detail Indication:Nonsmoker Start:20-Mar-2019 Instruction Type:Patient Education Patient Instructions Indication:Elevated blood-pressure reading, without diagnosis of hypertension (Renamed from Elevated blood-pressure reading without diagnosis of hypertension) Start:20-Mar-2019 Instruction Type:Provider Instructions for Treatment How to access health informa tion online Indication:Nonsmoker Start:12-Dec-2018 Instruction Type:Patient Education How to access health informa tion online - Detail Indication:Nonsmoker Start:12-Dec-2018 Instruction Type:Patient Education Patient Instructions Indication:BMI 34.0-34.9,adult Start:12-Dec-2018 Instruction Type:Provider Instructions for Treatment How to access health informa tion online Indication:Nonsmoker Start:21-Nov-2018 Instruction Type:Patient Education How to access health informa tion online - Detail Indication:Nonsmoker Start:21-Nov-2018 Instruction Type:Patient Education Patient Instructions Indication:Nonsmoker Start:21-Nov-2018 Instruction Type:Provider Instructions for Treatment How to access health informa tion online Indication:Nonsmoker Start:05-Sep-2018 Instruction Type:Patient Education How to access health informa tion online - Detail Indication:Nonsmoker Start:05-Sep-2018 Instruction Type:Patient Education Patient Instructions Indication:Nonsmoker Start:05-Sep-2018 Instruction Type:Provider Instructions for Treatment How to access health informa tion online Indication:Nonsmoker Start:02-Jun-2018 Instruction Type:Patient Education How to access health informa tion online - Detail Indication:Nonsmoker Start:02-Jun-2018 Instruction Type:Patient Education Patient Instructions Indication:Encounter for screening for malignant neoplasm of prostate (Renamed from Screening for prostate cancer) Start:02-Jun-2018 Instruction Type:Provider Instructions for Treatment How to access health informa tion online Indication:Adult residual type attention deficit hyperactivity disorder (ADHD) Start:30-May-2018 Instruction Type:Patient Education How to access health informa tion online - Detail Indication:Adult residual type attention deficit hyperactivity disorder (ADHD) Start:30-May-2018 Instruction Type:Patient Education Patient Instructions Indication:Adult residual type attention deficit hyperactivity disorder (ADHD) Start:30-May-2018 Instruction Type:Provider Instructions for Treatment Patient Instructions Indication:Adult residual type attention deficit hyperactivity disorder (ADHD) Start:30-May-2018 Instruction Type:Provider Instructions for Treatment How to access health informa tion online Indication:Cracked lip Start:28-Apr-2018 Instruction Type:Patient Education How to access health informa tion online - Detail Indication:Cracked lip Start:28-Apr-2018 Instruction Type:Patient Education Patient Instructions Indication:Cracked lip Start:28-Apr-2018 Instruction Type:Provider Instructions for Treatment How to access health informa tion online Indication:Adult residual type attention deficit hyperactivity disorder (ADHD) Start:21-Feb-2018 Instruction Type:Patient Education How to access health informa tion online - Detail Indication:Adult residual type attention deficit hyperactivity disorder (ADHD) Start:21-Feb-2018 Instruction Type:Patient Education Patient Instructions Indication:Adult residual type attention deficit hyperactivity disorder (ADHD) Start:21-Feb-2018 Instruction Type:Provider Instructions for Treatment How to access health informa tion online Indication:Nonsmoker Start:27-Jan-2018 Instruction Type:Patient Education How to access health informa tion online - Detail Indication:Nonsmoker Start:27-Jan-2018 Instruction Type:Patient Education Patient Instructions Indication:Nonsmoker Start:27-Jan-2018 Instruction Type:Provider Instructions for Treatment How to access health informa tion online Indication:Adult residual type attention deficit hyperactivity disorder (ADHD) Start:25-Oct-2017 Instruction Type:Patient Education How to access health informa tion online - Detail Indication:Adult residual type attention deficit hyperactivity disorder (ADHD) Start:25-Oct-2017 Instruction Type:Patient Education Patient Instructions Indication:Adult residual type attention deficit hyperactivity disorder (ADHD) Start:25-Oct-2017 Instruction Type:Provider Instructions for Treatment How to access health informa tion online Indication:Abnormal glucose tolerance test (Renamed from Abnormal glucose tolerance test (GTT)) Start:13-Sep-2017 Instruction Type:Patient Education How to access health informa tion online - Detail Indication:Abnormal glucose tolerance test (Renamed from Abnormal glucose tolerance test (GTT)) Start:13-Sep-2017 Instruction Type:Patient Education Patient Instructions Indication:BMI 34.0-34.9,adult Start:13-Sep-2017 Instruction Type:Provider Instructions for Treatment How to access health informa tion online Indication:Nonsmoker Start:16-Aug-2017 Instruction Type:Patient Education How to access health informa tion online - Detail Indication:Nonsmoker Start:16-Aug-2017 Instruction Type:Patient Education Patient Instructions Indication:Nonsmoker Start:16-Aug-2017 Instruction Type:Provider Instructions for Treatment How to access health informa tion online Indication:Adult residual type attention deficit hyperactivity disorder (ADHD) Start:26-Jul-2017 Instruction Type:Patient Education How to access health informa tion online - Detail Indication:Adult residual type attention deficit hyperactivity disorder (ADHD) Start:26-Jul-2017 Instruction Type:Patient Education Patient Instructions Indication:Adult residual type attention deficit hyperactivity disorder (ADHD) Start:26-Jul-2017 Instruction Type:Provider Instructions for Treatment How to access health informa tion online Indication:Abnormal glucose tolerance test (Renamed from Abnormal glucose tolerance test (GTT)) Start:10-May-2017 Instruction Type:Patient Education How to access health informa tion online - Detail Indication:Abnormal glucose tolerance test (Renamed from Abnormal glucose tolerance test (GTT)) Start:10-May-2017 Instruction Type:Patient Education Patient Instructions Indication:Abnormal glucose tolerance test (Renamed from Abnormal glucose tolerance test (GTT)) Start:10-May-2017 Instruction Type:Provider Instructions for Treatment Patient Instructions Indication:Skin picking habit Start:18-Jan-2017 Instruction Type:Provider Instructions for Treatment How to access health informa tion online Indication:Hyperlipidemia, unspecified Start:03-Dec-2016 Instruction Type:Patient Education How to access health informa tion online - Detail Indication:Hyperlipidemia, unspecified Start:03-Dec-2016 Instruction Type:Patient Education Patient Instructions Indication:Hyperlipidemia, unspecified Start:03-Dec-2016 Instruction Type:Provider Instructions for Treatment How to access health informa tion online Indication:Adult residual type attention deficit hyperactivity disorder (ADHD) Start:12-Oct-2016 Instruction Type:Patient Education How to access health informa tion online - Detail Indication:Adult residual type attention deficit hyperactivity disorder (ADHD) Start:12-Oct-2016 Instruction Type:Patient Education Patient Instructions Indication:Adult residual type attention deficit hyperactivity disorder (ADHD) Start:12-Oct-2016 Instruction Type:Provider Instructions for Treatment Patient Instructions Indication:Vitamin D deficiency Start:01-Oct-2016 Instruction Type:Provider Instructions for Treatment How to access health informa tion online Indication:Nonsmoker Start:01-Oct-2016 Instruction Type:Patient Education How to access health informa tion online - Detail Indication:Nonsmoker Start:01-Oct-2016 Instruction Type:Patient Education Patient Instructions Indication:Nonsmoker Start:01-Oct-2016 Instruction Type:Provider Instructions for Treatment How to access health informa tion online Indication:Abnormal glucose tolerance test (Renamed from Abnormal glucose tolerance test (GTT)) Start:21-Sep-2016 Instruction Type:Patient Education How to access health informa tion online - Detail Indication:Abnormal glucose tolerance test (Renamed from Abnormal glucose tolerance test (GTT)) Start:21-Sep-2016 Instruction Type:Patient Education Patient Instructions Indication:Abnormal glucose tolerance test (Renamed from Abnormal glucose tolerance test (GTT)) Start:21-Sep-2016 Instruction Type:Provider Instructions for Treatment Patient Instructions Indication:Abnormal glucose tolerance test (Renamed from Abnormal glucose tolerance test (GTT)) Start:21-Sep-2016 Instruction Type:Provider Instructions for Treatment Patient Instructions Indication:Abnormal glucose tolerance test (Renamed from Abnormal glucose tolerance test (GTT)) Start:06-Feb-2016 Instruction Type:Provider Instructions for Treatment How to access health informa tion online Indication:Prediabetes Start:26-Dec-2015 Instruction Type:Patient Education How to access health informa tion online - Detail Indication:Prediabetes Start:26-Dec-2015 Instruction Type:Patient Education Patient Instructions Indication:Prediabetes Start:26-Dec-2015 Instruction Type:Provider Instructions for Treatment How to access health informa tion online Indication:Anxiety Start:27-Jun-2015 Instruction Type:Patient Education How to access health informa tion online - Detail Indication:Anxiety Start:27-Jun-2015 Instruction Type:Patient Education Patient Instructions Indication:Anxiety Start:27-Jun-2015 Instruction Type:Provider Instructions for Treatment Patient Instructions Indication:Anxiety Start:09-May-2015 Instruction Type:Provider Instructions for Treatment Patient Instructions Indication:Obesity, unspecified Start:21-May-2014 Instruction Type:Provider Instructions for Treatment How to access health informa tion online Indication:Obesity, unspecified Start:21-May-2014 Instruction Type:Patient Education How to access health informa tion online - Detail Indication:Obesity, unspecified Start:21-May-2014 Instruction Type:Patient Education How to access health informa tion online Indication:Laceration of left leg Start:10-May-2014 Instruction Type:Patient Education How to access health informa tion online - Detail Indication:Laceration of left leg Start:10-May-2014 Instruction Type:Patient Education Patient Instructions Indication:Laceration of left leg Start:10-May-2014 Instruction Type:Provider Instructions for Treatment Patient Instructions Indication:Hyperlipidemia, unspecified Start:28-Jan-2014 Instruction Type:Provider Instructions for Treatment [facility]; [facility] Work Phone: Instructions* Name Dates Details Patient Instructions Indication:Nonsmoker Start:05-May-2021 Instruction Type:Provider Instructions for Treatment How to Access Health Informa tion Online using Patient Portal and [employer] Apps Indication:Nonsmoker Start:05-May-2021 Instruction Type:Patient Education How to Access Health Informa tion Online using Patient Portal and [employer] Apps Indication:Abnormal glucose tolerance test (Renamed from Abnormal glucose tolerance test (GTT)) Start:28-Apr-2021 Instruction Type:Patient Education Patient Instructions Indication:Abnormal glucose tolerance test (Renamed from Abnormal glucose tolerance test (GTT)) Start:28-Apr-2021 Instruction Type:Provider Instructions for Treatment Patient Instructions Indication:Adult residual type attention deficit hyperactivity disorder (ADHD) Start:28-Apr-2021 Instruction Type:Provider Instructions for Treatment How to Access Health Informa tion Online using Patient Portal and [employer] Apps Indication:Adult residual type attention deficit hyperactivity disorder (ADHD) Start:28-Apr-2021 Instruction Type:Patient Education Patient Instructions Indication:Nonsmoker Start:14-Mar-2021 Instruction Type:Provider Instructions for Treatment How to Access Health Informa tion Online using Patient Portal and [employer] Apps Indication:Nonsmoker Start:14-Mar-2021 Instruction Type:Patient Education Patient Instructions Indication:Adult residual type attention deficit hyperactivity disorder (ADHD) Start:28-Oct-2020 Instruction Type:Provider Instructions for Treatment How to Access Health Informa tion Online using Patient Portal and [employer] Apps Indication:Adult residual type attention deficit hyperactivity disorder (ADHD) Start:28-Oct-2020 Instruction Type:Patient Education Patient Instructions Indication:BMI 32.0-32.9,adult Start:21-Oct-2020 Instruction Type:Provider Instructions for Treatment How to Access Health Informa tion Online using Patient Portal and [employer] Apps Indication:Nonsmoker Start:21-Oct-2020 Instruction Type:Patient Education How to access health informa tion online Indication:Adult residual type attention deficit hyperactivity disorder (ADHD) Start:29-Apr-2020 Instruction Type:Patient Education How to access health informa tion online - Detail Indication:Adult residual type attention deficit hyperactivity disorder (ADHD) Start:29-Apr-2020 Instruction Type:Patient Education Patient Instructions Indication:Adult residual type attention deficit hyperactivity disorder (ADHD) Start:29-Apr-2020 Instruction Type:Provider Instructions for Treatment How to access health informa tion online Indication:Nonsmoker Start:20-Apr-2020 Instruction Type:Patient Education How to access health informa tion online - Detail Indication:Nonsmoker Start:20-Apr-2020 Instruction Type:Patient Education Patient Instructions Indication:Nonsmoker Start:20-Apr-2020 Instruction Type:Provider Instructions for Treatment How to access health informa tion online Indication:Adult residual type attention deficit hyperactivity disorder (ADHD) Start:01-Jan-2020 Instruction Type:Patient Education How to access health informa tion online - Detail Indication:Adult residual type attention deficit hyperactivity disorder (ADHD) Start:01-Jan-2020 Instruction Type:Patient Education Patient Instructions Indication:Adult residual type attention deficit hyperactivity disorder (ADHD) Start:01-Jan-2020 Instruction Type:Provider Instructions for Treatment How to access health informa tion online Indication:Nonsmoker Start:27-Oct-2019 Instruction Type:Patient Education How to access health informa tion online - Detail Indication:Nonsmoker Start:27-Oct-2019 Instruction Type:Patient Education Patient Instructions Indication:Nonsmoker Start:27-Oct-2019 Instruction Type:Provider Instructions for Treatment How to access health informa tion online Indication:Nonsmoker Start:05-Oct-2019 Instruction Type:Patient Education How to access health informa tion online - Detail Indication:Nonsmoker Start:05-Oct-2019 Instruction Type:Patient Education Patient Instructions Indication:Encounter for screening for malignant neoplasm of prostate (Renamed from Screening for prostate cancer) Start:05-Oct-2019 Instruction Type:Provider Instructions for Treatment How to access health informa tion online Indication:Adult residual type attention deficit hyperactivity disorder (ADHD) Start:03-Jul-2019 Instruction Type:Patient Education How to access health informa tion online - Detail Indication:Adult residual type attention deficit hyperactivity disorder (ADHD) Start:03-Jul-2019 Instruction Type:Patient Education Patient Instructions Indication:Adult residual type attention deficit hyperactivity disorder (ADHD) Start:03-Jul-2019 Instruction Type:Provider Instructions for Treatment How to access health informa tion online Indication:Adult residual type attention deficit hyperactivity disorder (ADHD) Start:09-Apr-2019 Instruction Type:Patient Education How to access health informa tion online - Detail Indication:Adult residual type attention deficit hyperactivity disorder (ADHD) Start:09-Apr-2019 Instruction Type:Patient Education Patient Instructions Indication:Adult residual type attention deficit hyperactivity disorder (ADHD) Start:09-Apr-2019 Instruction Type:Provider Instructions for Treatment How to access health informa tion online Indication:Nonsmoker Start:20-Mar-2019 Instruction Type:Patient Education How to access health informa tion online - Detail Indication:Nonsmoker Start:20-Mar-2019 Instruction Type:Patient Education Patient Instructions Indication:Elevated blood-pressure reading, without diagnosis of hypertension (Renamed from Elevated blood-pressure reading without diagnosis of hypertension) Start:20-Mar-2019 Instruction Type:Provider Instructions for Treatment How to access health informa tion online Indication:Nonsmoker Start:12-Dec-2018 Instruction Type:Patient Education How to access health informa tion online - Detail Indication:Nonsmoker Start:12-Dec-2018 Instruction Type:Patient Education Patient Instructions Indication:BMI 34.0-34.9,adult Start:12-Dec-2018 Instruction Type:Provider Instructions for Treatment How to access health informa tion online Indication:Nonsmoker Start:21-Nov-2018 Instruction Type:Patient Education How to access health informa tion online - Detail Indication:Nonsmoker Start:21-Nov-2018 Instruction Type:Patient Education Patient Instructions Indication:Nonsmoker Start:21-Nov-2018 Instruction Type:Provider Instructions for Treatment How to access health informa tion online Indication:Nonsmoker Start:05-Sep-2018 Instruction Type:Patient Education How to access health informa tion online - Detail Indication:Nonsmoker Start:05-Sep-2018 Instruction Type:Patient Education Patient Instructions Indication:Nonsmoker Start:05-Sep-2018 Instruction Type:Provider Instructions for Treatment How to access health informa tion online Indication:Nonsmoker Start:02-Jun-2018 Instruction Type:Patient Education How to access health informa tion online - Detail Indication:Nonsmoker Start:02-Jun-2018 Instruction Type:Patient Education Patient Instructions Indication:Encounter for screening for malignant neoplasm of prostate (Renamed from Screening for prostate cancer) Start:02-Jun-2018 Instruction Type:Provider Instructions for Treatment How to access health informa tion online Indication:Adult residual type attention deficit hyperactivity disorder (ADHD) Start:30-May-2018 Instruction Type:Patient Education How to access health informa tion online - Detail Indication:Adult residual type attention deficit hyperactivity disorder (ADHD) Start:30-May-2018 Instruction Type:Patient Education Patient Instructions Indication:Adult residual type attention deficit hyperactivity disorder (ADHD) Start:30-May-2018 Instruction Type:Provider Instructions for Treatment Patient Instructions Indication:Adult residual type attention deficit hyperactivity disorder (ADHD) Start:30-May-2018 Instruction Type:Provider Instructions for Treatment How to access health informa tion online Indication:Cracked lip Start:28-Apr-2018 Instruction Type:Patient Education How to access health informa tion online - Detail Indication:Cracked lip Start:28-Apr-2018 Instruction Type:Patient Education Patient Instructions Indication:Cracked lip Start:28-Apr-2018 Instruction Type:Provider Instructions for Treatment How to access health informa tion online Indication:Adult residual type attention deficit hyperactivity disorder (ADHD) Start:21-Feb-2018 Instruction Type:Patient Education How to access health informa tion online - Detail Indication:Adult residual type attention deficit hyperactivity disorder (ADHD) Start:21-Feb-2018 Instruction Type:Patient Education Patient Instructions Indication:Adult residual type attention deficit hyperactivity disorder (ADHD) Start:21-Feb-2018 Instruction Type:Provider Instructions for Treatment How to access health informa tion online Indication:Nonsmoker Start:27-Jan-2018 Instruction Type:Patient Education How to access health informa tion online - Detail Indication:Nonsmoker Start:27-Jan-2018 Instruction Type:Patient Education Patient Instructions Indication:Nonsmoker Start:27-Jan-2018 Instruction Type:Provider Instructions for Treatment How to access health informa tion online Indication:Adult residual type attention deficit hyperactivity disorder (ADHD) Start:25-Oct-2017 Instruction Type:Patient Education How to access health informa tion online - Detail Indication:Adult residual type attention deficit hyperactivity disorder (ADHD) Start:25-Oct-2017 Instruction Type:Patient Education Patient Instructions Indication:Adult residual type attention deficit hyperactivity disorder (ADHD) Start:25-Oct-2017 Instruction Type:Provider Instructions for Treatment How to access health informa tion online Indication:Abnormal glucose tolerance test (Renamed from Abnormal glucose tolerance test (GTT)) Start:13-Sep-2017 Instruction Type:Patient Education How to access health informa tion online - Detail Indication:Abnormal glucose tolerance test (Renamed from Abnormal glucose tolerance test (GTT)) Start:13-Sep-2017 Instruction Type:Patient Education Patient Instructions Indication:BMI 34.0-34.9,adult Start:13-Sep-2017 Instruction Type:Provider Instructions for Treatment How to access health informa tion online Indication:Nonsmoker Start:16-Aug-2017 Instruction Type:Patient Education How to access health informa tion online - Detail Indication:Nonsmoker Start:16-Aug-2017 Instruction Type:Patient Education Patient Instructions Indication:Nonsmoker Start:16-Aug-2017 Instruction Type:Provider Instructions for Treatment How to access health informa tion online Indication:Adult residual type attention deficit hyperactivity disorder (ADHD) Start:26-Jul-2017 Instruction Type:Patient Education How to access health informa tion online - Detail Indication:Adult residual type attention deficit hyperactivity disorder (ADHD) Start:26-Jul-2017 Instruction Type:Patient Education Patient Instructions Indication:Adult residual type attention deficit hyperactivity disorder (ADHD) Start:26-Jul-2017 Instruction Type:Provider Instructions for Treatment How to access health informa tion online Indication:Abnormal glucose tolerance test (Renamed from Abnormal glucose tolerance test (GTT)) Start:10-May-2017 Instruction Type:Patient Education How to access health informa tion online - Detail Indication:Abnormal glucose tolerance test (Renamed from Abnormal glucose tolerance test (GTT)) Start:10-May-2017 Instruction Type:Patient Education Patient Instructions Indication:Abnormal glucose tolerance test (Renamed from Abnormal glucose tolerance test (GTT)) Start:10-May-2017 Instruction Type:Provider Instructions for Treatment Patient Instructions Indication:Skin picking habit Start:18-Jan-2017 Instruction Type:Provider Instructions for Treatment How to access health informa tion online Indication:Hyperlipidemia, unspecified Start:03-Dec-2016 Instruction Type:Patient Education How to access health informa tion online - Detail Indication:Hyperlipidemia, unspecified Start:03-Dec-2016 Instruction Type:Patient Education Patient Instructions Indication:Hyperlipidemia, unspecified Start:03-Dec-2016 Instruction Type:Provider Instructions for Treatment How to access health informa tion online Indication:Adult residual type attention deficit hyperactivity disorder (ADHD) Start:12-Oct-2016 Instruction Type:Patient Education How to access health informa tion online - Detail Indication:Adult residual type attention deficit hyperactivity disorder (ADHD) Start:12-Oct-2016 Instruction Type:Patient Education Patient Instructions Indication:Adult residual type attention deficit hyperactivity disorder (ADHD) Start:12-Oct-2016 Instruction Type:Provider Instructions for Treatment Patient Instructions Indication:Vitamin D deficiency Start:01-Oct-2016 Instruction Type:Provider Instructions for Treatment How to access health informa tion online Indication:Nonsmoker Start:01-Oct-2016 Instruction Type:Patient Education How to access health informa tion online - Detail Indication:Nonsmoker Start:01-Oct-2016 Instruction Type:Patient Education Patient Instructions Indication:Nonsmoker Start:01-Oct-2016 Instruction Type:Provider Instructions for Treatment How to access health informa tion online Indication:Abnormal glucose tolerance test (Renamed from Abnormal glucose tolerance test (GTT)) Start:21-Sep-2016 Instruction Type:Patient Education How to access health informa tion online - Detail Indication:Abnormal glucose tolerance test (Renamed from Abnormal glucose tolerance test (GTT)) Start:21-Sep-2016 Instruction Type:Patient Education Patient Instructions Indication:Abnormal glucose tolerance test (Renamed from Abnormal glucose tolerance test (GTT)) Start:21-Sep-2016 Instruction Type:Provider Instructions for Treatment Patient Instructions Indication:Abnormal glucose tolerance test (Renamed from Abnormal glucose tolerance test (GTT)) Start:21-Sep-2016 Instruction Type:Provider Instructions for Treatment Patient Instructions Indication:Abnormal glucose tolerance test (Renamed from Abnormal glucose tolerance test (GTT)) Start:06-Feb-2016 Instruction Type:Provider Instructions for Treatment How to access health informa tion online Indication:Prediabetes Start:26-Dec-2015 Instruction Type:Patient Education How to access health informa tion online - Detail Indication:Prediabetes Start:26-Dec-2015 Instruction Type:Patient Education Patient Instructions Indication:Prediabetes Start:26-Dec-2015 Instruction Type:Provider Instructions for Treatment How to access health informa tion online Indication:Anxiety Start:27-Jun-2015 Instruction Type:Patient Education How to access health informa tion online - Detail Indication:Anxiety Start:27-Jun-2015 Instruction Type:Patient Education Patient Instructions Indication:Anxiety Start:27-Jun-2015 Instruction Type:Provider Instructions for Treatment Patient Instructions Indication:Anxiety Start:09-May-2015 Instruction Type:Provider Instructions for Treatment Patient Instructions Indication:Obesity, unspecified Start:21-May-2014 Instruction Type:Provider Instructions for Treatment How to access health informa tion online Indication:Obesity, unspecified Start:21-May-2014 Instruction Type:Patient Education How to access health informa tion online - Detail Indication:Obesity, unspecified Start:21-May-2014 Instruction Type:Patient Education How to access health informa tion online Indication:Laceration of left leg Start:10-May-2014 Instruction Type:Patient Education How to access health informa tion online - Detail Indication:Laceration of left leg Start:10-May-2014 Instruction Type:Patient Education Patient Instructions Indication:Laceration of left leg Start:10-May-2014 Instruction Type:Provider Instructions for Treatment Patient Instructions Indication:Hyperlipidemia, unspecified Start:28-Jan-2014 Instruction Type:Provider Instructions for Treatment [facility]; [facility] Work Phone: Instructions* Name Dates Details How to access health informa tion online Indication:Nonsmoker Start:20-Apr-2020 Instruction Type:Patient Education How to access health informa tion online - Detail Indication:Nonsmoker Start:20-Apr-2020 Instruction Type:Patient Education Patient Instructions Indication:Nonsmoker Start:20-Apr-2020 Instruction Type:Provider Instructions for Treatment How to access health informa tion online Indication:Adult residual type attention deficit hyperactivity disorder (ADHD) Start:01-Jan-2020 Instruction Type:Patient Education How to access health informa tion online - Detail Indication:Adult residual type attention deficit hyperactivity disorder (ADHD) Start:01-Jan-2020 Instruction Type:Patient Education Patient Instructions Indication:Adult residual type attention deficit hyperactivity disorder (ADHD) Start:01-Jan-2020 Instruction Type:Provider Instructions for Treatment How to access health informa tion online Indication:Nonsmoker Start:27-Oct-2019 Instruction Type:Patient Education How to access health informa tion online - Detail Indication:Nonsmoker Start:27-Oct-2019 Instruction Type:Patient Education Patient Instructions Indication:Nonsmoker Start:27-Oct-2019 Instruction Type:Provider Instructions for Treatment How to access health informa tion online Indication:Nonsmoker Start:05-Oct-2019 Instruction Type:Patient Education How to access health informa tion online - Detail Indication:Nonsmoker Start:05-Oct-2019 Instruction Type:Patient Education Patient Instructions Indication:Encounter for screening for malignant neoplasm of prostate (Renamed from Screening for prostate cancer) Start:05-Oct-2019 Instruction Type:Provider Instructions for Treatment How to access health informa tion online Indication:Adult residual type attention deficit hyperactivity disorder (ADHD) Start:03-Jul-2019 Instruction Type:Patient Education How to access health informa tion online - Detail Indication:Adult residual type attention deficit hyperactivity disorder (ADHD) Start:03-Jul-2019 Instruction Type:Patient Education Patient Instructions Indication:Adult residual type attention deficit hyperactivity disorder (ADHD) Start:03-Jul-2019 Instruction Type:Provider Instructions for Treatment How to access health informa tion online Indication:Adult residual type attention deficit hyperactivity disorder (ADHD) Start:09-Apr-2019 Instruction Type:Patient Education How to access health informa tion online - Detail Indication:Adult residual type attention deficit hyperactivity disorder (ADHD) Start:09-Apr-2019 Instruction Type:Patient Education Patient Instructions Indication:Adult residual type attention deficit hyperactivity disorder (ADHD) Start:09-Apr-2019 Instruction Type:Provider Instructions for Treatment How to access health informa tion online Indication:Nonsmoker Start:20-Mar-2019 Instruction Type:Patient Education How to access health informa tion online - Detail Indication:Nonsmoker Start:20-Mar-2019 Instruction Type:Patient Education Patient Instructions Indication:Elevated blood-pressure reading, without diagnosis of hypertension (Renamed from Elevated blood-pressure reading without diagnosis of hypertension) Start:20-Mar-2019 Instruction Type:Provider Instructions for Treatment How to access health informa tion online Indication:Nonsmoker Start:12-Dec-2018 Instruction Type:Patient Education How to access health informa tion online - Detail Indication:Nonsmoker Start:12-Dec-2018 Instruction Type:Patient Education Patient Instructions Indication:BMI 34.0-34.9,adult Start:12-Dec-2018 Instruction Type:Provider Instructions for Treatment How to access health informa tion online Indication:Nonsmoker Start:21-Nov-2018 Instruction Type:Patient Education How to access health informa tion online - Detail Indication:Nonsmoker Start:21-Nov-2018 Instruction Type:Patient Education Patient Instructions Indication:Nonsmoker Start:21-Nov-2018 Instruction Type:Provider Instructions for Treatment How to access health informa tion online Indication:Nonsmoker Start:05-Sep-2018 Instruction Type:Patient Education How to access health informa tion online - Detail Indication:Nonsmoker Start:05-Sep-2018 Instruction Type:Patient Education Patient Instructions Indication:Nonsmoker Start:05-Sep-2018 Instruction Type:Provider Instructions for Treatment How to access health informa tion online Indication:Nonsmoker Start:02-Jun-2018 Instruction Type:Patient Education How to access health informa tion online - Detail Indication:Nonsmoker Start:02-Jun-2018 Instruction Type:Patient Education Patient Instructions Indication:Encounter for screening for malignant neoplasm of prostate (Renamed from Screening for prostate cancer) Start:02-Jun-2018 Instruction Type:Provider Instructions for Treatment How to access health informa tion online Indication:Adult residual type attention deficit hyperactivity disorder (ADHD) Start:30-May-2018 Instruction Type:Patient Education How to access health informa tion online - Detail Indication:Adult residual type attention deficit hyperactivity disorder (ADHD) Start:30-May-2018 Instruction Type:Patient Education Patient Instructions Indication:Adult residual type attention deficit hyperactivity disorder (ADHD) Start:30-May-2018 Instruction Type:Provider Instructions for Treatment Patient Instructions Indication:Adult residual type attention deficit hyperactivity disorder (ADHD) Start:30-May-2018 Instruction Type:Provider Instructions for Treatment How to access health informa tion online Indication:Cracked lip Start:28-Apr-2018 Instruction Type:Patient Education How to access health informa tion online - Detail Indication:Cracked lip Start:28-Apr-2018 Instruction Type:Patient Education Patient Instructions Indication:Cracked lip Start:28-Apr-2018 Instruction Type:Provider Instructions for Treatment How to access health informa tion online Indication:Adult residual type attention deficit hyperactivity disorder (ADHD) Start:21-Feb-2018 Instruction Type:Patient Education How to access health informa tion online - Detail Indication:Adult residual type attention deficit hyperactivity disorder (ADHD) Start:21-Feb-2018 Instruction Type:Patient Education Patient Instructions Indication:Adult residual type attention deficit hyperactivity disorder (ADHD) Start:21-Feb-2018 Instruction Type:Provider Instructions for Treatment How to access health informa tion online Indication:Nonsmoker Start:27-Jan-2018 Instruction Type:Patient Education How to access health informa tion online - Detail Indication:Nonsmoker Start:27-Jan-2018 Instruction Type:Patient Education Patient Instructions Indication:Nonsmoker Start:27-Jan-2018 Instruction Type:Provider Instructions for Treatment How to access health informa tion online Indication:Adult residual type attention deficit hyperactivity disorder (ADHD) Start:25-Oct-2017 Instruction Type:Patient Education How to access health informa tion online - Detail Indication:Adult residual type attention deficit hyperactivity disorder (ADHD) Start:25-Oct-2017 Instruction Type:Patient Education Patient Instructions Indication:Adult residual type attention deficit hyperactivity disorder (ADHD) Start:25-Oct-2017 Instruction Type:Provider Instructions for Treatment How to access health informa tion online Indication:Abnormal glucose tolerance test (Renamed from Abnormal glucose tolerance test (GTT)) Start:13-Sep-2017 Instruction Type:Patient Education How to access health informa tion online - Detail Indication:Abnormal glucose tolerance test (Renamed from Abnormal glucose tolerance test (GTT)) Start:13-Sep-2017 Instruction Type:Patient Education Patient Instructions Indication:BMI 34.0-34.9,adult Start:13-Sep-2017 Instruction Type:Provider Instructions for Treatment How to access health informa tion online Indication:Nonsmoker Start:16-Aug-2017 Instruction Type:Patient Education How to access health informa tion online - Detail Indication:Nonsmoker Start:16-Aug-2017 Instruction Type:Patient Education Patient Instructions Indication:Nonsmoker Start:16-Aug-2017 Instruction Type:Provider Instructions for Treatment How to access health informa tion online Indication:Adult residual type attention deficit hyperactivity disorder (ADHD) Start:26-Jul-2017 Instruction Type:Patient Education How to access health informa tion online - Detail Indication:Adult residual type attention deficit hyperactivity disorder (ADHD) Start:26-Jul-2017 Instruction Type:Patient Education Patient Instructions Indication:Adult residual type attention deficit hyperactivity disorder (ADHD) Start:26-Jul-2017 Instruction Type:Provider Instructions for Treatment How to access health informa tion online Indication:Abnormal glucose tolerance test (Renamed from Abnormal glucose tolerance test (GTT)) Start:10-May-2017 Instruction Type:Patient Education How to access health informa tion online - Detail Indication:Abnormal glucose tolerance test (Renamed from Abnormal glucose tolerance test (GTT)) Start:10-May-2017 Instruction Type:Patient Education Patient Instructions Indication:Abnormal glucose tolerance test (Renamed from Abnormal glucose tolerance test (GTT)) Start:10-May-2017 Instruction Type:Provider Instructions for Treatment Patient Instructions Indication:Skin picking habit Start:18-Jan-2017 Instruction Type:Provider Instructions for Treatment How to access health informa tion online Indication:Hyperlipidemia, unspecified Start:03-Dec-2016 Instruction Type:Patient Education How to access health informa tion online - Detail Indication:Hyperlipidemia, unspecified Start:03-Dec-2016 Instruction Type:Patient Education Patient Instructions Indication:Hyperlipidemia, unspecified Start:03-Dec-2016 Instruction Type:Provider Instructions for Treatment How to access health informa tion online Indication:Adult residual type attention deficit hyperactivity disorder (ADHD) Start:12-Oct-2016 Instruction Type:Patient Education How to access health informa tion online - Detail Indication:Adult residual type attention deficit hyperactivity disorder (ADHD) Start:12-Oct-2016 Instruction Type:Patient Education Patient Instructions Indication:Adult residual type attention deficit hyperactivity disorder (ADHD) Start:12-Oct-2016 Instruction Type:Provider Instructions for Treatment Patient Instructions Indication:Vitamin D deficiency Start:01-Oct-2016 Instruction Type:Provider Instructions for Treatment How to access health informa tion online Indication:Nonsmoker Start:01-Oct-2016 Instruction Type:Patient Education How to access health informa tion online - Detail Indication:Nonsmoker Start:01-Oct-2016 Instruction Type:Patient Education Patient Instructions Indication:Nonsmoker Start:01-Oct-2016 Instruction Type:Provider Instructions for Treatment How to access health informa tion online Indication:Abnormal glucose tolerance test (Renamed from Abnormal glucose tolerance test (GTT)) Start:21-Sep-2016 Instruction Type:Patient Education How to access health informa tion online - Detail Indication:Abnormal glucose tolerance test (Renamed from Abnormal glucose tolerance test (GTT)) Start:21-Sep-2016 Instruction Type:Patient Education Patient Instructions Indication:Abnormal glucose tolerance test (Renamed from Abnormal glucose tolerance test (GTT)) Start:21-Sep-2016 Instruction Type:Provider Instructions for Treatment Patient Instructions Indication:Abnormal glucose tolerance test (Renamed from Abnormal glucose tolerance test (GTT)) Start:21-Sep-2016 Instruction Type:Provider Instructions for Treatment Patient Instructions Indication:Abnormal glucose tolerance test (Renamed from Abnormal glucose tolerance test (GTT)) Start:06-Feb-2016 Instruction Type:Provider Instructions for Treatment How to access health informa tion online Indication:Prediabetes Start:26-Dec-2015 Instruction Type:Patient Education How to access health informa tion online - Detail Indication:Prediabetes Start:26-Dec-2015 Instruction Type:Patient Education Patient Instructions Indication:Prediabetes Start:26-Dec-2015 Instruction Type:Provider Instructions for Treatment How to access health informa tion online Indication:Anxiety Start:27-Jun-2015 Instruction Type:Patient Education How to access health informa tion online - Detail Indication:Anxiety Start:27-Jun-2015 Instruction Type:Patient Education Patient Instructions Indication:Anxiety Start:27-Jun-2015 Instruction Type:Provider Instructions for Treatment Patient Instructions Indication:Anxiety Start:09-May-2015 Instruction Type:Provider Instructions for Treatment Patient Instructions Indication:Obesity, unspecified Start:21-May-2014 Instruction Type:Provider Instructions for Treatment How to access health informa tion online Indication:Obesity, unspecified Start:21-May-2014 Instruction Type:Patient Education How to access health informa tion online - Detail Indication:Obesity, unspecified Start:21-May-2014 Instruction Type:Patient Education How to access health informa tion online Indication:Laceration of left leg Start:10-May-2014 Instruction Type:Patient Education How to access health informa tion online - Detail Indication:Laceration of left leg Start:10-May-2014 Instruction Type:Patient Education Patient Instructions Indication:Laceration of left leg Start:10-May-2014 Instruction Type:Provider Instructions for Treatment Patient Instructions Indication:Hyperlipidemia, unspecified Start:28-Jan-2014 Instruction Type:Provider Instructions for Treatment [facility] Work Phone: Instructions* Name Dates Details Patient Instructions Indication:Nonsmoker Start:05-May-2021 Instruction Type:Provider Instructions for Treatment How to Access Health Informa tion Online using Patient Portal and [employer]rd [employer] Apps Indication:Nonsmoker Start:05-May-2021 Instruction Type:Patient Education How to Access Health Informa tion Online using Patient Portal and [employer] Apps Indication:Abnormal glucose tolerance test (Renamed from Abnormal glucose tolerance test (GTT)) Start:28-Apr-2021 Instruction Type:Patient Education Patient Instructions Indication:Abnormal glucose tolerance test (Renamed from Abnormal glucose tolerance test (GTT)) Start:28-Apr-2021 Instruction Type:Provider Instructions for Treatment Patient Instructions Indication:Adult residual type attention deficit hyperactivity disorder (ADHD) Start:28-Apr-2021 Instruction Type:Provider Instructions for Treatment How to Access Health Informa tion Online using Patient Portal and [employer] Apps Indication:Adult residual type attention deficit hyperactivity disorder (ADHD) Start:28-Apr-2021 Instruction Type:Patient Education Patient Instructions Indication:Nonsmoker Start:14-Mar-2021 Instruction Type:Provider Instructions for Treatment How to Access Health Informa tion Online using Patient Portal and [employer] Apps Indication:Nonsmoker Start:14-Mar-2021 Instruction Type:Patient Education Patient Instructions Indication:Adult residual type attention deficit hyperactivity disorder (ADHD) Start:28-Oct-2020 Instruction Type:Provider Instructions for Treatment How to Access Health Informa tion Online using Patient Portal and [employer] Apps Indication:Adult residual type attention deficit hyperactivity disorder (ADHD) Start:28-Oct-2020 Instruction Type:Patient Education Patient Instructions Indication:BMI 32.0-32.9,adult Start:21-Oct-2020 Instruction Type:Provider Instructions for Treatment How to Access Health Informa tion Online using Patient Portal and [employer] Apps Indication:Nonsmoker Start:21-Oct-2020 Instruction Type:Patient Education How to access health informa tion online Indication:Adult residual type attention deficit hyperactivity disorder (ADHD) Start:29-Apr-2020 Instruction Type:Patient Education How to access health informa tion online - Detail Indication:Adult residual type attention deficit hyperactivity disorder (ADHD) Start:29-Apr-2020 Instruction Type:Patient Education Patient Instructions Indication:Adult residual type attention deficit hyperactivity disorder (ADHD) Start:29-Apr-2020 Instruction Type:Provider Instructions for Treatment How to access health informa tion online Indication:Nonsmoker Start:20-Apr-2020 Instruction Type:Patient Education How to access health informa tion online - Detail Indication:Nonsmoker Start:20-Apr-2020 Instruction Type:Patient Education Patient Instructions Indication:Nonsmoker Start:20-Apr-2020 Instruction Type:Provider Instructions for Treatment How to access health informa tion online Indication:Adult residual type attention deficit hyperactivity disorder (ADHD) Start:01-Jan-2020 Instruction Type:Patient Education How to access health informa tion online - Detail Indication:Adult residual type attention deficit hyperactivity disorder (ADHD) Start:01-Jan-2020 Instruction Type:Patient Education Patient Instructions Indication:Adult residual type attention deficit hyperactivity disorder (ADHD) Start:01-Jan-2020 Instruction Type:Provider Instructions for Treatment How to access health informa tion online Indication:Nonsmoker Start:27-Oct-2019 Instruction Type:Patient Education How to access health informa tion online - Detail Indication:Nonsmoker Start:27-Oct-2019 Instruction Type:Patient Education Patient Instructions Indication:Nonsmoker Start:27-Oct-2019 Instruction Type:Provider Instructions for Treatment How to access health informa tion online Indication:Nonsmoker Start:05-Oct-2019 Instruction Type:Patient Education How to access health informa tion online - Detail Indication:Nonsmoker Start:05-Oct-2019 Instruction Type:Patient Education Patient Instructions Indication:Encounter for screening for malignant neoplasm of prostate (Renamed from Screening for prostate cancer) Start:05-Oct-2019 Instruction Type:Provider Instructions for Treatment How to access health informa tion online Indication:Adult residual type attention deficit hyperactivity disorder (ADHD) Start:03-Jul-2019 Instruction Type:Patient Education How to access health informa tion online - Detail Indication:Adult residual type attention deficit hyperactivity disorder (ADHD) Start:03-Jul-2019 Instruction Type:Patient Education Patient Instructions Indication:Adult residual type attention deficit hyperactivity disorder (ADHD) Start:03-Jul-2019 Instruction Type:Provider Instructions for Treatment How to access health informa tion online Indication:Adult residual type attention deficit hyperactivity disorder (ADHD) Start:09-Apr-2019 Instruction Type:Patient Education How to access health informa tion online - Detail Indication:Adult residual type attention deficit hyperactivity disorder (ADHD) Start:09-Apr-2019 Instruction Type:Patient Education Patient Instructions Indication:Adult residual type attention deficit hyperactivity disorder (ADHD) Start:09-Apr-2019 Instruction Type:Provider Instructions for Treatment How to access health informa tion online Indication:Nonsmoker Start:20-Mar-2019 Instruction Type:Patient Education How to access health informa tion online - Detail Indication:Nonsmoker Start:20-Mar-2019 Instruction Type:Patient Education Patient Instructions Indication:Elevated blood-pressure reading, without diagnosis of hypertension (Renamed from Elevated blood-pressure reading without diagnosis of hypertension) Start:20-Mar-2019 Instruction Type:Provider Instructions for Treatment How to access health informa tion online Indication:Nonsmoker Start:12-Dec-2018 Instruction Type:Patient Education How to access health informa tion online - Detail Indication:Nonsmoker Start:12-Dec-2018 Instruction Type:Patient Education Patient Instructions Indication:BMI 34.0-34.9,adult Start:12-Dec-2018 Instruction Type:Provider Instructions for Treatment How to access health informa tion online Indication:Nonsmoker Start:21-Nov-2018 Instruction Type:Patient Education How to access health informa tion online - Detail Indication:Nonsmoker Start:21-Nov-2018 Instruction Type:Patient Education Patient Instructions Indication:Nonsmoker Start:21-Nov-2018 Instruction Type:Provider Instructions for Treatment How to access health informa tion online Indication:Nonsmoker Start:05-Sep-2018 Instruction Type:Patient Education How to access health informa tion online - Detail Indication:Nonsmoker Start:05-Sep-2018 Instruction Type:Patient Education Patient Instructions Indication:Nonsmoker Start:05-Sep-2018 Instruction Type:Provider Instructions for Treatment How to access health informa tion online Indication:Nonsmoker Start:02-Jun-2018 Instruction Type:Patient Education How to access health informa tion online - Detail Indication:Nonsmoker Start:02-Jun-2018 Instruction Type:Patient Education Patient Instructions Indication:Encounter for screening for malignant neoplasm of prostate (Renamed from Screening for prostate cancer) Start:02-Jun-2018 Instruction Type:Provider Instructions for Treatment How to access health informa tion online Indication:Adult residual type attention deficit hyperactivity disorder (ADHD) Start:30-May-2018 Instruction Type:Patient Education How to access health informa tion online - Detail Indication:Adult residual type attention deficit hyperactivity disorder (ADHD) Start:30-May-2018 Instruction Type:Patient Education Patient Instructions Indication:Adult residual type attention deficit hyperactivity disorder (ADHD) Start:30-May-2018 Instruction Type:Provider Instructions for Treatment Patient Instructions Indication:Adult residual type attention deficit hyperactivity disorder (ADHD) Start:30-May-2018 Instruction Type:Provider Instructions for Treatment How to access health informa tion online Indication:Cracked lip Start:28-Apr-2018 Instruction Type:Patient Education How to access health informa tion online - Detail Indication:Cracked lip Start:28-Apr-2018 Instruction Type:Patient Education Patient Instructions Indication:Cracked lip Start:28-Apr-2018 Instruction Type:Provider Instructions for Treatment How to access health informa tion online Indication:Adult residual type attention deficit hyperactivity disorder (ADHD) Start:21-Feb-2018 Instruction Type:Patient Education How to access health informa tion online - Detail Indication:Adult residual type attention deficit hyperactivity disorder (ADHD) Start:21-Feb-2018 Instruction Type:Patient Education Patient Instructions Indication:Adult residual type attention deficit hyperactivity disorder (ADHD) Start:21-Feb-2018 Instruction Type:Provider Instructions for Treatment How to access health informa tion online Indication:Nonsmoker Start:27-Jan-2018 Instruction Type:Patient Education How to access health informa tion online - Detail Indication:Nonsmoker Start:27-Jan-2018 Instruction Type:Patient Education Patient Instructions Indication:Nonsmoker Start:27-Jan-2018 Instruction Type:Provider Instructions for Treatment How to access health informa tion online Indication:Adult residual type attention deficit hyperactivity disorder (ADHD) Start:25-Oct-2017 Instruction Type:Patient Education How to access health informa tion online - Detail Indication:Adult residual type attention deficit hyperactivity disorder (ADHD) Start:25-Oct-2017 Instruction Type:Patient Education Patient Instructions Indication:Adult residual type attention deficit hyperactivity disorder (ADHD) Start:25-Oct-2017 Instruction Type:Provider Instructions for Treatment How to access health informa tion online Indication:Abnormal glucose tolerance test (Renamed from Abnormal glucose tolerance test (GTT)) Start:13-Sep-2017 Instruction Type:Patient Education How to access health informa tion online - Detail Indication:Abnormal glucose tolerance test (Renamed from Abnormal glucose tolerance test (GTT)) Start:13-Sep-2017 Instruction Type:Patient Education Patient Instructions Indication:BMI 34.0-34.9,adult Start:13-Sep-2017 Instruction Type:Provider Instructions for Treatment How to access health informa tion online Indication:Nonsmoker Start:16-Aug-2017 Instruction Type:Patient Education How to access health informa tion online - Detail Indication:Nonsmoker Start:16-Aug-2017 Instruction Type:Patient Education Patient Instructions Indication:Nonsmoker Start:16-Aug-2017 Instruction Type:Provider Instructions for Treatment How to access health informa tion online Indication:Adult residual type attention deficit hyperactivity disorder (ADHD) Start:26-Jul-2017 Instruction Type:Patient Education How to access health informa tion online - Detail Indication:Adult residual type attention deficit hyperactivity disorder (ADHD) Start:26-Jul-2017 Instruction Type:Patient Education Patient Instructions Indication:Adult residual type attention deficit hyperactivity disorder (ADHD) Start:26-Jul-2017 Instruction Type:Provider Instructions for Treatment How to access health informa tion online Indication:Abnormal glucose tolerance test (Renamed from Abnormal glucose tolerance test (GTT)) Start:10-May-2017 Instruction Type:Patient Education How to access health informa tion online - Detail Indication:Abnormal glucose tolerance test (Renamed from Abnormal glucose tolerance test (GTT)) Start:10-May-2017 Instruction Type:Patient Education Patient Instructions Indication:Abnormal glucose tolerance test (Renamed from Abnormal glucose tolerance test (GTT)) Start:10-May-2017 Instruction Type:Provider Instructions for Treatment Patient Instructions Indication:Skin picking habit Start:18-Jan-2017 Instruction Type:Provider Instructions for Treatment How to access health informa tion online Indication:Hyperlipidemia, unspecified Start:03-Dec-2016 Instruction Type:Patient Education How to access health informa tion online - Detail Indication:Hyperlipidemia, unspecified Start:03-Dec-2016 Instruction Type:Patient Education Patient Instructions Indication:Hyperlipidemia, unspecified Start:03-Dec-2016 Instruction Type:Provider Instructions for Treatment How to access health informa tion online Indication:Adult residual type attention deficit hyperactivity disorder (ADHD) Start:12-Oct-2016 Instruction Type:Patient Education How to access health informa tion online - Detail Indication:Adult residual type attention deficit hyperactivity disorder (ADHD) Start:12-Oct-2016 Instruction Type:Patient Education Patient Instructions Indication:Adult residual type attention deficit hyperactivity disorder (ADHD) Start:12-Oct-2016 Instruction Type:Provider Instructions for Treatment Patient Instructions Indication:Vitamin D deficiency Start:01-Oct-2016 Instruction Type:Provider Instructions for Treatment How to access health informa tion online Indication:Nonsmoker Start:01-Oct-2016 Instruction Type:Patient Education How to access health informa tion online - Detail Indication:Nonsmoker Start:01-Oct-2016 Instruction Type:Patient Education Patient Instructions Indication:Nonsmoker Start:01-Oct-2016 Instruction Type:Provider Instructions for Treatment How to access health informa tion online Indication:Abnormal glucose tolerance test (Renamed from Abnormal glucose tolerance test (GTT)) Start:21-Sep-2016 Instruction Type:Patient Education How to access health informa tion online - Detail Indication:Abnormal glucose tolerance test (Renamed from Abnormal glucose tolerance test (GTT)) Start:21-Sep-2016 Instruction Type:Patient Education Patient Instructions Indication:Abnormal glucose tolerance test (Renamed from Abnormal glucose tolerance test (GTT)) Start:21-Sep-2016 Instruction Type:Provider Instructions for Treatment Patient Instructions Indication:Abnormal glucose tolerance test (Renamed from Abnormal glucose tolerance test (GTT)) Start:21-Sep-2016 Instruction Type:Provider Instructions for Treatment Patient Instructions Indication:Abnormal glucose tolerance test (Renamed from Abnormal glucose tolerance test (GTT)) Start:06-Feb-2016 Instruction Type:Provider Instructions for Treatment How to access health informa tion online Indication:Prediabetes Start:26-Dec-2015 Instruction Type:Patient Education How to access health informa tion online - Detail Indication:Prediabetes Start:26-Dec-2015 Instruction Type:Patient Education Patient Instructions Indication:Prediabetes Start:26-Dec-2015 Instruction Type:Provider Instructions for Treatment How to access health informa tion online Indication:Anxiety Start:27-Jun-2015 Instruction Type:Patient Education How to access health informa tion online - Detail Indication:Anxiety Start:27-Jun-2015 Instruction Type:Patient Education Patient Instructions Indication:Anxiety Start:27-Jun-2015 Instruction Type:Provider Instructions for Treatment Patient Instructions Indication:Anxiety Start:09-May-2015 Instruction Type:Provider Instructions for Treatment Patient Instructions Indication:Obesity, unspecified Start:21-May-2014 Instruction Type:Provider Instructions for Treatment How to access health informa tion online Indication:Obesity, unspecified Start:21-May-2014 Instruction Type:Patient Education How to access health informa tion online - Detail Indication:Obesity, unspecified Start:21-May-2014 Instruction Type:Patient Education How to access health informa tion online Indication:Laceration of left leg Start:10-May-2014 Instruction Type:Patient Education How to access health informa tion online - Detail Indication:Laceration of left leg Start:10-May-2014 Instruction Type:Patient Education Patient Instructions Indication:Laceration of left leg Start:10-May-2014 Instruction Type:Provider Instructions for Treatment Patient Instructions Indication:Hyperlipidemia, unspecified Start:28-Jan-2014 Instruction Type:Provider Instructions for Treatment [facility]; [facility] Work Phone: Instructions* Name Dates Details Patient Instructions Indication:Nonsmoker Start:05-May-2021 Instruction Type:Provider Instructions for Treatment How to Access Health Informa tion Online using Patient Portal and [employer] Apps Indication:Nonsmoker Start:05-May-2021 Instruction Type:Patient Education How to Access Health Informa tion Online using Patient Portal and [employer] Apps Indication:Abnormal glucose tolerance test (Renamed from Abnormal glucose tolerance test (GTT)) Start:28-Apr-2021 Instruction Type:Patient Education Patient Instructions Indication:Abnormal glucose tolerance test (Renamed from Abnormal glucose tolerance test (GTT)) Start:28-Apr-2021 Instruction Type:Provider Instructions for Treatment Patient Instructions Indication:Adult residual type attention deficit hyperactivity disorder (ADHD) Start:28-Apr-2021 Instruction Type:Provider Instructions for Treatment How to Access Health Informa tion Online using Patient Portal and [employer] Apps Indication:Adult residual type attention deficit hyperactivity disorder (ADHD) Start:28-Apr-2021 Instruction Type:Patient Education Patient Instructions Indication:Nonsmoker Start:14-Mar-2021 Instruction Type:Provider Instructions for Treatment How to Access Health Informa tion Online using Patient Portal and [employer] Apps Indication:Nonsmoker Start:14-Mar-2021 Instruction Type:Patient Education Patient Instructions Indication:Adult residual type attention deficit hyperactivity disorder (ADHD) Start:28-Oct-2020 Instruction Type:Provider Instructions for Treatment How to Access Health Informa tion Online using Patient Portal and [employer] Apps Indication:Adult residual type attention deficit hyperactivity disorder (ADHD) Start:28-Oct-2020 Instruction Type:Patient Education Patient Instructions Indication:BMI 32.0-32.9,adult Start:21-Oct-2020 Instruction Type:Provider Instructions for Treatment How to Access Health Informa tion Online using Patient Portal and [employer]rd [employer] Apps Indication:Nonsmoker Start:21-Oct-2020 Instruction Type:Patient Education How to access health informa tion online Indication:Adult residual type attention deficit hyperactivity disorder (ADHD) Start:29-Apr-2020 Instruction Type:Patient Education How to access health informa tion online - Detail Indication:Adult residual type attention deficit hyperactivity disorder (ADHD) Start:29-Apr-2020 Instruction Type:Patient Education Patient Instructions Indication:Adult residual type attention deficit hyperactivity disorder (ADHD) Start:29-Apr-2020 Instruction Type:Provider Instructions for Treatment How to access health informa tion online Indication:Nonsmoker Start:20-Apr-2020 Instruction Type:Patient Education How to access health informa tion online - Detail Indication:Nonsmoker Start:20-Apr-2020 Instruction Type:Patient Education Patient Instructions Indication:Nonsmoker Start:20-Apr-2020 Instruction Type:Provider Instructions for Treatment How to access health informa tion online Indication:Adult residual type attention deficit hyperactivity disorder (ADHD) Start:01-Jan-2020 Instruction Type:Patient Education How to access health informa tion online - Detail Indication:Adult residual type attention deficit hyperactivity disorder (ADHD) Start:01-Jan-2020 Instruction Type:Patient Education Patient Instructions Indication:Adult residual type attention deficit hyperactivity disorder (ADHD) Start:01-Jan-2020 Instruction Type:Provider Instructions for Treatment How to access health informa tion online Indication:Nonsmoker Start:27-Oct-2019 Instruction Type:Patient Education How to access health informa tion online - Detail Indication:Nonsmoker Start:27-Oct-2019 Instruction Type:Patient Education Patient Instructions Indication:Nonsmoker Start:27-Oct-2019 Instruction Type:Provider Instructions for Treatment How to access health informa tion online Indication:Nonsmoker Start:05-Oct-2019 Instruction Type:Patient Education How to access health informa tion online - Detail Indication:Nonsmoker Start:05-Oct-2019 Instruction Type:Patient Education Patient Instructions Indication:Encounter for screening for malignant neoplasm of prostate (Renamed from Screening for prostate cancer) Start:05-Oct-2019 Instruction Type:Provider Instructions for Treatment How to access health informa tion online Indication:Adult residual type attention deficit hyperactivity disorder (ADHD) Start:03-Jul-2019 Instruction Type:Patient Education How to access health informa tion online - Detail Indication:Adult residual type attention deficit hyperactivity disorder (ADHD) Start:03-Jul-2019 Instruction Type:Patient Education Patient Instructions Indication:Adult residual type attention deficit hyperactivity disorder (ADHD) Start:03-Jul-2019 Instruction Type:Provider Instructions for Treatment How to access health informa tion online Indication:Adult residual type attention deficit hyperactivity disorder (ADHD) Start:09-Apr-2019 Instruction Type:Patient Education How to access health informa tion online - Detail Indication:Adult residual type attention deficit hyperactivity disorder (ADHD) Start:09-Apr-2019 Instruction Type:Patient Education Patient Instructions Indication:Adult residual type attention deficit hyperactivity disorder (ADHD) Start:09-Apr-2019 Instruction Type:Provider Instructions for Treatment How to access health informa tion online Indication:Nonsmoker Start:20-Mar-2019 Instruction Type:Patient Education How to access health informa tion online - Detail Indication:Nonsmoker Start:20-Mar-2019 Instruction Type:Patient Education Patient Instructions Indication:Elevated blood-pressure reading, without diagnosis of hypertension (Renamed from Elevated blood-pressure reading without diagnosis of hypertension) Start:20-Mar-2019 Instruction Type:Provider Instructions for Treatment How to access health informa tion online Indication:Nonsmoker Start:12-Dec-2018 Instruction Type:Patient Education How to access health informa tion online - Detail Indication:Nonsmoker Start:12-Dec-2018 Instruction Type:Patient Education Patient Instructions Indication:BMI 34.0-34.9,adult Start:12-Dec-2018 Instruction Type:Provider Instructions for Treatment How to access health informa tion online Indication:Nonsmoker Start:21-Nov-2018 Instruction Type:Patient Education How to access health informa tion online - Detail Indication:Nonsmoker Start:21-Nov-2018 Instruction Type:Patient Education Patient Instructions Indication:Nonsmoker Start:21-Nov-2018 Instruction Type:Provider Instructions for Treatment How to access health informa tion online Indication:Nonsmoker Start:05-Sep-2018 Instruction Type:Patient Education How to access health informa tion online - Detail Indication:Nonsmoker Start:05-Sep-2018 Instruction Type:Patient Education Patient Instructions Indication:Nonsmoker Start:05-Sep-2018 Instruction Type:Provider Instructions for Treatment How to access health informa tion online Indication:Nonsmoker Start:02-Jun-2018 Instruction Type:Patient Education How to access health informa tion online - Detail Indication:Nonsmoker Start:02-Jun-2018 Instruction Type:Patient Education Patient Instructions Indication:Encounter for screening for malignant neoplasm of prostate (Renamed from Screening for prostate cancer) Start:02-Jun-2018 Instruction Type:Provider Instructions for Treatment How to access health informa tion online Indication:Adult residual type attention deficit hyperactivity disorder (ADHD) Start:30-May-2018 Instruction Type:Patient Education How to access health informa tion online - Detail Indication:Adult residual type attention deficit hyperactivity disorder (ADHD) Start:30-May-2018 Instruction Type:Patient Education Patient Instructions Indication:Adult residual type attention deficit hyperactivity disorder (ADHD) Start:30-May-2018 Instruction Type:Provider Instructions for Treatment Patient Instructions Indication:Adult residual type attention deficit hyperactivity disorder (ADHD) Start:30-May-2018 Instruction Type:Provider Instructions for Treatment How to access health informa tion online Indication:Cracked lip Start:28-Apr-2018 Instruction Type:Patient Education How to access health informa tion online - Detail Indication:Cracked lip Start:28-Apr-2018 Instruction Type:Patient Education Patient Instructions Indication:Cracked lip Start:28-Apr-2018 Instruction Type:Provider Instructions for Treatment How to access health informa tion online Indication:Adult residual type attention deficit hyperactivity disorder (ADHD) Start:21-Feb-2018 Instruction Type:Patient Education How to access health informa tion online - Detail Indication:Adult residual type attention deficit hyperactivity disorder (ADHD) Start:21-Feb-2018 Instruction Type:Patient Education Patient Instructions Indication:Adult residual type attention deficit hyperactivity disorder (ADHD) Start:21-Feb-2018 Instruction Type:Provider Instructions for Treatment How to access health informa tion online Indication:Nonsmoker Start:27-Jan-2018 Instruction Type:Patient Education How to access health informa tion online - Detail Indication:Nonsmoker Start:27-Jan-2018 Instruction Type:Patient Education Patient Instructions Indication:Nonsmoker Start:27-Jan-2018 Instruction Type:Provider Instructions for Treatment How to access health informa tion online Indication:Adult residual type attention deficit hyperactivity disorder (ADHD) Start:25-Oct-2017 Instruction Type:Patient Education How to access health informa tion online - Detail Indication:Adult residual type attention deficit hyperactivity disorder (ADHD) Start:25-Oct-2017 Instruction Type:Patient Education Patient Instructions Indication:Adult residual type attention deficit hyperactivity disorder (ADHD) Start:25-Oct-2017 Instruction Type:Provider Instructions for Treatment How to access health informa tion online Indication:Abnormal glucose tolerance test (Renamed from Abnormal glucose tolerance test (GTT)) Start:13-Sep-2017 Instruction Type:Patient Education How to access health informa tion online - Detail Indication:Abnormal glucose tolerance test (Renamed from Abnormal glucose tolerance test (GTT)) Start:13-Sep-2017 Instruction Type:Patient Education Patient Instructions Indication:BMI 34.0-34.9,adult Start:13-Sep-2017 Instruction Type:Provider Instructions for Treatment How to access health informa tion online Indication:Nonsmoker Start:16-Aug-2017 Instruction Type:Patient Education How to access health informa tion online - Detail Indication:Nonsmoker Start:16-Aug-2017 Instruction Type:Patient Education Patient Instructions Indication:Nonsmoker Start:16-Aug-2017 Instruction Type:Provider Instructions for Treatment How to access health informa tion online Indication:Adult residual type attention deficit hyperactivity disorder (ADHD) Start:26-Jul-2017 Instruction Type:Patient Education How to access health informa tion online - Detail Indication:Adult residual type attention deficit hyperactivity disorder (ADHD) Start:26-Jul-2017 Instruction Type:Patient Education Patient Instructions Indication:Adult residual type attention deficit hyperactivity disorder (ADHD) Start:26-Jul-2017 Instruction Type:Provider Instructions for Treatment How to access health informa tion online Indication:Abnormal glucose tolerance test (Renamed from Abnormal glucose tolerance test (GTT)) Start:10-May-2017 Instruction Type:Patient Education How to access health informa tion online - Detail Indication:Abnormal glucose tolerance test (Renamed from Abnormal glucose tolerance test (GTT)) Start:10-May-2017 Instruction Type:Patient Education Patient Instructions Indication:Abnormal glucose tolerance test (Renamed from Abnormal glucose tolerance test (GTT)) Start:10-May-2017 Instruction Type:Provider Instructions for Treatment Patient Instructions Indication:Skin picking habit Start:18-Jan-2017 Instruction Type:Provider Instructions for Treatment How to access health informa tion online Indication:Hyperlipidemia, unspecified Start:03-Dec-2016 Instruction Type:Patient Education How to access health informa tion online - Detail Indication:Hyperlipidemia, unspecified Start:03-Dec-2016 Instruction Type:Patient Education Patient Instructions Indication:Hyperlipidemia, unspecified Start:03-Dec-2016 Instruction Type:Provider Instructions for Treatment How to access health informa tion online Indication:Adult residual type attention deficit hyperactivity disorder (ADHD) Start:12-Oct-2016 Instruction Type:Patient Education How to access health informa tion online - Detail Indication:Adult residual type attention deficit hyperactivity disorder (ADHD) Start:12-Oct-2016 Instruction Type:Patient Education Patient Instructions Indication:Adult residual type attention deficit hyperactivity disorder (ADHD) Start:12-Oct-2016 Instruction Type:Provider Instructions for Treatment Patient Instructions Indication:Vitamin D deficiency Start:01-Oct-2016 Instruction Type:Provider Instructions for Treatment How to access health informa tion online Indication:Nonsmoker Start:01-Oct-2016 Instruction Type:Patient Education How to access health informa tion online - Detail Indication:Nonsmoker Start:01-Oct-2016 Instruction Type:Patient Education Patient Instructions Indication:Nonsmoker Start:01-Oct-2016 Instruction Type:Provider Instructions for Treatment How to access health informa tion online Indication:Abnormal glucose tolerance test (Renamed from Abnormal glucose tolerance test (GTT)) Start:21-Sep-2016 Instruction Type:Patient Education How to access health informa tion online - Detail Indication:Abnormal glucose tolerance test (Renamed from Abnormal glucose tolerance test (GTT)) Start:21-Sep-2016 Instruction Type:Patient Education Patient Instructions Indication:Abnormal glucose tolerance test (Renamed from Abnormal glucose tolerance test (GTT)) Start:21-Sep-2016 Instruction Type:Provider Instructions for Treatment Patient Instructions Indication:Abnormal glucose tolerance test (Renamed from Abnormal glucose tolerance test (GTT)) Start:21-Sep-2016 Instruction Type:Provider Instructions for Treatment Patient Instructions Indication:Abnormal glucose tolerance test (Renamed from Abnormal glucose tolerance test (GTT)) Start:06-Feb-2016 Instruction Type:Provider Instructions for Treatment How to access health informa tion online Indication:Prediabetes Start:26-Dec-2015 Instruction Type:Patient Education How to access health informa tion online - Detail Indication:Prediabetes Start:26-Dec-2015 Instruction Type:Patient Education Patient Instructions Indication:Prediabetes Start:26-Dec-2015 Instruction Type:Provider Instructions for Treatment How to access health informa tion online Indication:Anxiety Start:27-Jun-2015 Instruction Type:Patient Education How to access health informa tion online - Detail Indication:Anxiety Start:27-Jun-2015 Instruction Type:Patient Education Patient Instructions Indication:Anxiety Start:27-Jun-2015 Instruction Type:Provider Instructions for Treatment Patient Instructions Indication:Anxiety Start:09-May-2015 Instruction Type:Provider Instructions for Treatment Patient Instructions Indication:Obesity, unspecified Start:21-May-2014 Instruction Type:Provider Instructions for Treatment How to access health informa tion online Indication:Obesity, unspecified Start:21-May-2014 Instruction Type:Patient Education How to access health informa tion online - Detail Indication:Obesity, unspecified Start:21-May-2014 Instruction Type:Patient Education How to access health informa tion online Indication:Laceration of left leg Start:10-May-2014 Instruction Type:Patient Education How to access health informa tion online - Detail Indication:Laceration of left leg Start:10-May-2014 Instruction Type:Patient Education Patient Instructions Indication:Laceration of left leg Start:10-May-2014 Instruction Type:Provider Instructions for Treatment Patient Instructions Indication:Hyperlipidemia, unspecified Start:28-Jan-2014 Instruction Type:Provider Instructions for Treatment [facility] Work Phone: Instructions* Name Dates Details Patient Instructions Indication:Dysthymia Start:08-Dec-2021 Instruction Type:Provider Instructions for Treatment How to Access Health Informa tion Online using Patient Portal and 3rd [employer] Apps Indication:Dysthymia Start:08-Dec-2021 Instruction Type:Patient Education Patient Instructions Indication:BMI 33.0-33.9,adult Start:10-Nov-2021 Instruction Type:Provider Instructions for Treatment How to Access Health Informa tion Online using Patient Portal and 3rd [employer] Apps Indication:BMI 33.0-33.9,adult Start:10-Nov-2021 Instruction Type:Patient Education Patient Instructions Indication:Nonsmoker Start:03-Nov-2021 Instruction Type:Provider Instructions for Treatment How to Access Health Informa tion Online using Patient Portal and 3rd [employer] Apps Indication:Nonsmoker Start:03-Nov-2021 Instruction Type:Patient Education Patient Instructions Indication:Nonsmoker Start:05-May-2021 Instruction Type:Provider Instructions for Treatment How to Access Health Informa tion Online using Patient Portal and [employer]rd [employer] Apps Indication:Nonsmoker Start:05-May-2021 Instruction Type:Patient Education How to Access Health Informa tion Online using Patient Portal and [employer]rd [employer] Apps Indication:Abnormal glucose tolerance test (Renamed from Abnormal glucose tolerance test (GTT)) Start:28-Apr-2021 Instruction Type:Patient Education Patient Instructions Indication:Abnormal glucose tolerance test (Renamed from Abnormal glucose tolerance test (GTT)) Start:28-Apr-2021 Instruction Type:Provider Instructions for Treatment Patient Instructions Indication:Adult residual type attention deficit hyperactivity disorder (ADHD) Start:28-Apr-2021 Instruction Type:Provider Instructions for Treatment How to Access Health Informa tion Online using Patient Portal and [employer] Apps Indication:Adult residual type attention deficit hyperactivity disorder (ADHD) Start:28-Apr-2021 Instruction Type:Patient Education Patient Instructions Indication:Nonsmoker Start:14-Mar-2021 Instruction Type:Provider Instructions for Treatment How to Access Health Informa tion Online using Patient Portal and [employer] Apps Indication:Nonsmoker Start:14-Mar-2021 Instruction Type:Patient Education Patient Instructions Indication:Adult residual type attention deficit hyperactivity disorder (ADHD) Start:28-Oct-2020 Instruction Type:Provider Instructions for Treatment How to Access Health Informa tion Online using Patient Portal and [employer] Apps Indication:Adult residual type attention deficit hyperactivity disorder (ADHD) Start:28-Oct-2020 Instruction Type:Patient Education Patient Instructions Indication:BMI 32.0-32.9,adult Start:21-Oct-2020 Instruction Type:Provider Instructions for Treatment How to Access Health Informa tion Online using Patient Portal and [employer] Apps Indication:Nonsmoker Start:21-Oct-2020 Instruction Type:Patient Education How to access health informa tion online Indication:Adult residual type attention deficit hyperactivity disorder (ADHD) Start:29-Apr-2020 Instruction Type:Patient Education How to access health informa tion online - Detail Indication:Adult residual type attention deficit hyperactivity disorder (ADHD) Start:29-Apr-2020 Instruction Type:Patient Education Patient Instructions Indication:Adult residual type attention deficit hyperactivity disorder (ADHD) Start:29-Apr-2020 Instruction Type:Provider Instructions for Treatment How to access health informa tion online Indication:Nonsmoker Start:20-Apr-2020 Instruction Type:Patient Education How to access health informa tion online - Detail Indication:Nonsmoker Start:20-Apr-2020 Instruction Type:Patient Education Patient Instructions Indication:Nonsmoker Start:20-Apr-2020 Instruction Type:Provider Instructions for Treatment How to access health informa tion online Indication:Adult residual type attention deficit hyperactivity disorder (ADHD) Start:01-Jan-2020 Instruction Type:Patient Education How to access health informa tion online - Detail Indication:Adult residual type attention deficit hyperactivity disorder (ADHD) Start:01-Jan-2020 Instruction Type:Patient Education Patient Instructions Indication:Adult residual type attention deficit hyperactivity disorder (ADHD) Start:01-Jan-2020 Instruction Type:Provider Instructions for Treatment How to access health informa tion online Indication:Nonsmoker Start:27-Oct-2019 Instruction Type:Patient Education How to access health informa tion online - Detail Indication:Nonsmoker Start:27-Oct-2019 Instruction Type:Patient Education Patient Instructions Indication:Nonsmoker Start:27-Oct-2019 Instruction Type:Provider Instructions for Treatment How to access health informa tion online Indication:Nonsmoker Start:05-Oct-2019 Instruction Type:Patient Education How to access health informa tion online - Detail Indication:Nonsmoker Start:05-Oct-2019 Instruction Type:Patient Education Patient Instructions Indication:Encounter for screening for malignant neoplasm of prostate (Renamed from Screening for prostate cancer) Start:05-Oct-2019 Instruction Type:Provider Instructions for Treatment How to access health informa tion online Indication:Adult residual type attention deficit hyperactivity disorder (ADHD) Start:03-Jul-2019 Instruction Type:Patient Education How to access health informa tion online - Detail Indication:Adult residual type attention deficit hyperactivity disorder (ADHD) Start:03-Jul-2019 Instruction Type:Patient Education Patient Instructions Indication:Adult residual type attention deficit hyperactivity disorder (ADHD) Start:03-Jul-2019 Instruction Type:Provider Instructions for Treatment How to access health informa tion online Indication:Adult residual type attention deficit hyperactivity disorder (ADHD) Start:09-Apr-2019 Instruction Type:Patient Education How to access health informa tion online - Detail Indication:Adult residual type attention deficit hyperactivity disorder (ADHD) Start:09-Apr-2019 Instruction Type:Patient Education Patient Instructions Indication:Adult residual type attention deficit hyperactivity disorder (ADHD) Start:09-Apr-2019 Instruction Type:Provider Instructions for Treatment How to access health informa tion online Indication:Nonsmoker Start:20-Mar-2019 Instruction Type:Patient Education How to access health informa tion online - Detail Indication:Nonsmoker Start:20-Mar-2019 Instruction Type:Patient Education Patient Instructions Indication:Elevated blood-pressure reading, without diagnosis of hypertension (Renamed from Elevated blood-pressure reading without diagnosis of hypertension) Start:20-Mar-2019 Instruction Type:Provider Instructions for Treatment How to access health informa tion online Indication:Nonsmoker Start:12-Dec-2018 Instruction Type:Patient Education How to access health informa tion online - Detail Indication:Nonsmoker Start:12-Dec-2018 Instruction Type:Patient Education Patient Instructions Indication:BMI 34.0-34.9,adult Start:12-Dec-2018 Instruction Type:Provider Instructions for Treatment How to access health informa tion online Indication:Nonsmoker Start:21-Nov-2018 Instruction Type:Patient Education How to access health informa tion online - Detail Indication:Nonsmoker Start:21-Nov-2018 Instruction Type:Patient Education Patient Instructions Indication:Nonsmoker Start:21-Nov-2018 Instruction Type:Provider Instructions for Treatment How to access health informa tion online Indication:Nonsmoker Start:05-Sep-2018 Instruction Type:Patient Education How to access health informa tion online - Detail Indication:Nonsmoker Start:05-Sep-2018 Instruction Type:Patient Education Patient Instructions Indication:Nonsmoker Start:05-Sep-2018 Instruction Type:Provider Instructions for Treatment How to access health informa tion online Indication:Nonsmoker Start:02-Jun-2018 Instruction Type:Patient Education How to access health informa tion online - Detail Indication:Nonsmoker Start:02-Jun-2018 Instruction Type:Patient Education Patient Instructions Indication:Encounter for screening for malignant neoplasm of prostate (Renamed from Screening for prostate cancer) Start:02-Jun-2018 Instruction Type:Provider Instructions for Treatment How to access health informa tion online Indication:Adult residual type attention deficit hyperactivity disorder (ADHD) Start:30-May-2018 Instruction Type:Patient Education How to access health informa tion online - Detail Indication:Adult residual type attention deficit hyperactivity disorder (ADHD) Start:30-May-2018 Instruction Type:Patient Education Patient Instructions Indication:Adult residual type attention deficit hyperactivity disorder (ADHD) Start:30-May-2018 Instruction Type:Provider Instructions for Treatment Patient Instructions Indication:Adult residual type attention deficit hyperactivity disorder (ADHD) Start:30-May-2018 Instruction Type:Provider Instructions for Treatment How to access health informa tion online Indication:Cracked lip Start:28-Apr-2018 Instruction Type:Patient Education How to access health informa tion online - Detail Indication:Cracked lip Start:28-Apr-2018 Instruction Type:Patient Education Patient Instructions Indication:Cracked lip Start:28-Apr-2018 Instruction Type:Provider Instructions for Treatment How to access health informa tion online Indication:Adult residual type attention deficit hyperactivity disorder (ADHD) Start:21-Feb-2018 Instruction Type:Patient Education How to access health informa tion online - Detail Indication:Adult residual type attention deficit hyperactivity disorder (ADHD) Start:21-Feb-2018 Instruction Type:Patient Education Patient Instructions Indication:Adult residual type attention deficit hyperactivity disorder (ADHD) Start:21-Feb-2018 Instruction Type:Provider Instructions for Treatment How to access health informa tion online Indication:Nonsmoker Start:27-Jan-2018 Instruction Type:Patient Education How to access health informa tion online - Detail Indication:Nonsmoker Start:27-Jan-2018 Instruction Type:Patient Education Patient Instructions Indication:Nonsmoker Start:27-Jan-2018 Instruction Type:Provider Instructions for Treatment How to access health informa tion online Indication:Adult residual type attention deficit hyperactivity disorder (ADHD) Start:25-Oct-2017 Instruction Type:Patient Education How to access health informa tion online - Detail Indication:Adult residual type attention deficit hyperactivity disorder (ADHD) Start:25-Oct-2017 Instruction Type:Patient Education Patient Instructions Indication:Adult residual type attention deficit hyperactivity disorder (ADHD) Start:25-Oct-2017 Instruction Type:Provider Instructions for Treatment How to access health informa tion online Indication:Abnormal glucose tolerance test (Renamed from Abnormal glucose tolerance test (GTT)) Start:13-Sep-2017 Instruction Type:Patient Education How to access health informa tion online - Detail Indication:Abnormal glucose tolerance test (Renamed from Abnormal glucose tolerance test (GTT)) Start:13-Sep-2017 Instruction Type:Patient Education Patient Instructions Indication:BMI 34.0-34.9,adult Start:13-Sep-2017 Instruction Type:Provider Instructions for Treatment How to access health informa tion online Indication:Nonsmoker Start:16-Aug-2017 Instruction Type:Patient Education How to access health informa tion online - Detail Indication:Nonsmoker Start:16-Aug-2017 Instruction Type:Patient Education Patient Instructions Indication:Nonsmoker Start:16-Aug-2017 Instruction Type:Provider Instructions for Treatment How to access health informa tion online Indication:Adult residual type attention deficit hyperactivity disorder (ADHD) Start:26-Jul-2017 Instruction Type:Patient Education How to access health informa tion online - Detail Indication:Adult residual type attention deficit hyperactivity disorder (ADHD) Start:26-Jul-2017 Instruction Type:Patient Education Patient Instructions Indication:Adult residual type attention deficit hyperactivity disorder (ADHD) Start:26-Jul-2017 Instruction Type:Provider Instructions for Treatment How to access health informa tion online Indication:Abnormal glucose tolerance test (Renamed from Abnormal glucose tolerance test (GTT)) Start:10-May-2017 Instruction Type:Patient Education How to access health informa tion online - Detail Indication:Abnormal glucose tolerance test (Renamed from Abnormal glucose tolerance test (GTT)) Start:10-May-2017 Instruction Type:Patient Education Patient Instructions Indication:Abnormal glucose tolerance test (Renamed from Abnormal glucose tolerance test (GTT)) Start:10-May-2017 Instruction Type:Provider Instructions for Treatment Patient Instructions Indication:Skin picking habit Start:18-Jan-2017 Instruction Type:Provider Instructions for Treatment How to access health informa tion online Indication:Hyperlipidemia, unspecified Start:03-Dec-2016 Instruction Type:Patient Education How to access health informa tion online - Detail Indication:Hyperlipidemia, unspecified Start:03-Dec-2016 Instruction Type:Patient Education Patient Instructions Indication:Hyperlipidemia, unspecified Start:03-Dec-2016 Instruction Type:Provider Instructions for Treatment How to access health informa tion online Indication:Adult residual type attention deficit hyperactivity disorder (ADHD) Start:12-Oct-2016 Instruction Type:Patient Education How to access health informa tion online - Detail Indication:Adult residual type attention deficit hyperactivity disorder (ADHD) Start:12-Oct-2016 Instruction Type:Patient Education Patient Instructions Indication:Adult residual type attention deficit hyperactivity disorder (ADHD) Start:12-Oct-2016 Instruction Type:Provider Instructions for Treatment Patient Instructions Indication:Vitamin D deficiency Start:01-Oct-2016 Instruction Type:Provider Instructions for Treatment How to access health informa tion online Indication:Nonsmoker Start:01-Oct-2016 Instruction Type:Patient Education How to access health informa tion online - Detail Indication:Nonsmoker Start:01-Oct-2016 Instruction Type:Patient Education Patient Instructions Indication:Nonsmoker Start:01-Oct-2016 Instruction Type:Provider Instructions for Treatment How to access health informa tion online Indication:Abnormal glucose tolerance test (Renamed from Abnormal glucose tolerance test (GTT)) Start:21-Sep-2016 Instruction Type:Patient Education How to access health informa tion online - Detail Indication:Abnormal glucose tolerance test (Renamed from Abnormal glucose tolerance test (GTT)) Start:21-Sep-2016 Instruction Type:Patient Education Patient Instructions Indication:Abnormal glucose tolerance test (Renamed from Abnormal glucose tolerance test (GTT)) Start:21-Sep-2016 Instruction Type:Provider Instructions for Treatment Patient Instructions Indication:Abnormal glucose tolerance test (Renamed from Abnormal glucose tolerance test (GTT)) Start:21-Sep-2016 Instruction Type:Provider Instructions for Treatment Patient Instructions Indication:Abnormal glucose tolerance test (Renamed from Abnormal glucose tolerance test (GTT)) Start:06-Feb-2016 Instruction Type:Provider Instructions for Treatment How to access health informa tion online Indication:Prediabetes Start:26-Dec-2015 Instruction Type:Patient Education How to access health informa tion online - Detail Indication:Prediabetes Start:26-Dec-2015 Instruction Type:Patient Education Patient Instructions Indication:Prediabetes Start:26-Dec-2015 Instruction Type:Provider Instructions for Treatment How to access health informa tion online Indication:Anxiety Start:27-Jun-2015 Instruction Type:Patient Education How to access health informa tion online - Detail Indication:Anxiety Start:27-Jun-2015 Instruction Type:Patient Education Patient Instructions Indication:Anxiety Start:27-Jun-2015 Instruction Type:Provider Instructions for Treatment Patient Instructions Indication:Anxiety Start:09-May-2015 Instruction Type:Provider Instructions for Treatment Patient Instructions Indication:Obesity, unspecified Start:21-May-2014 Instruction Type:Provider Instructions for Treatment How to access health informa tion online Indication:Obesity, unspecified Start:21-May-2014 Instruction Type:Patient Education How to access health informa tion online - Detail Indication:Obesity, unspecified Start:21-May-2014 Instruction Type:Patient Education How to access health informa tion online Indication:Laceration of left leg Start:10-May-2014 Instruction Type:Patient Education How to access health informa tion online - Detail Indication:Laceration of left leg Start:10-May-2014 Instruction Type:Patient Education Patient Instructions Indication:Laceration of left leg Start:10-May-2014 Instruction Type:Provider Instructions for Treatment Patient Instructions Indication:Hyperlipidemia, unspecified Start:28-Jan-2014 Instruction Type:Provider Instructions for Treatment [facility]; [facility] Work Phone: Instructions* Name Dates Details Patient Instructions Indication:Dysthymia Start:12-Jan-2022 Instruction Type:Provider Instructions for Treatment How to Access Health Informa tion Online using Patient Portal and [employer]rd [employer] Apps Indication:Dysthymia Start:12-Jan-2022 Instruction Type:Patient Education Patient Instructions Indication:Dysthymia Start:08-Dec-2021 Instruction Type:Provider Instructions for Treatment How to Access Health Informa tion Online using Patient Portal and [employer]rd [employer] Apps Indication:Dysthymia Start:08-Dec-2021 Instruction Type:Patient Education Patient Instructions Indication:BMI 33.0-33.9,adult Start:10-Nov-2021 Instruction Type:Provider Instructions for Treatment How to Access Health Informa tion Online using Patient Portal and [employer]rd [employer] Apps Indication:BMI 33.0-33.9,adult Start:10-Nov-2021 Instruction Type:Patient Education Patient Instructions Indication:Nonsmoker Start:03-Nov-2021 Instruction Type:Provider Instructions for Treatment How to Access Health Informa tion Online using Patient Portal and [employer]rd [employer] Apps Indication:Nonsmoker Start:03-Nov-2021 Instruction Type:Patient Education Patient Instructions Indication:Nonsmoker Start:05-May-2021 Instruction Type:Provider Instructions for Treatment How to Access Health Informa tion Online using Patient Portal and [employer]rd [employer] Apps Indication:Nonsmoker Start:05-May-2021 Instruction Type:Patient Education How to Access Health Informa tion Online using Patient Portal and [employer]rd [employer] Apps Indication:Abnormal glucose tolerance test (Renamed from Abnormal glucose tolerance test (GTT)) Start:28-Apr-2021 Instruction Type:Patient Education Patient Instructions Indication:Abnormal glucose tolerance test (Renamed from Abnormal glucose tolerance test (GTT)) Start:28-Apr-2021 Instruction Type:Provider Instructions for Treatment Patient Instructions Indication:Adult residual type attention deficit hyperactivity disorder (ADHD) Start:28-Apr-2021 Instruction Type:Provider Instructions for Treatment How to Access Health Informa tion Online using Patient Portal and [employer]rd [employer] Apps Indication:Adult residual type attention deficit hyperactivity disorder (ADHD) Start:28-Apr-2021 Instruction Type:Patient Education Patient Instructions Indication:Nonsmoker Start:14-Mar-2021 Instruction Type:Provider Instructions for Treatment How to Access Health Informa tion Online using Patient Portal and [employer]rd [employer] Apps Indication:Nonsmoker Start:14-Mar-2021 Instruction Type:Patient Education Patient Instructions Indication:Adult residual type attention deficit hyperactivity disorder (ADHD) Start:28-Oct-2020 Instruction Type:Provider Instructions for Treatment How to Access Health Informa tion Online using Patient Portal and [employer]rd [employer] Apps Indication:Adult residual type attention deficit hyperactivity disorder (ADHD) Start:28-Oct-2020 Instruction Type:Patient Education Patient Instructions Indication:BMI 32.0-32.9,adult Start:21-Oct-2020 Instruction Type:Provider Instructions for Treatment How to Access Health Informa tion Online using Patient Portal and [employer]rd [employer] Apps Indication:Nonsmoker Start:21-Oct-2020 Instruction Type:Patient Education How to access health informa tion online Indication:Adult residual type attention deficit hyperactivity disorder (ADHD) Start:29-Apr-2020 Instruction Type:Patient Education How to access health informa tion online - Detail Indication:Adult residual type attention deficit hyperactivity disorder (ADHD) Start:29-Apr-2020 Instruction Type:Patient Education Patient Instructions Indication:Adult residual type attention deficit hyperactivity disorder (ADHD) Start:29-Apr-2020 Instruction Type:Provider Instructions for Treatment How to access health informa tion online Indication:Nonsmoker Start:20-Apr-2020 Instruction Type:Patient Education How to access health informa tion online - Detail Indication:Nonsmoker Start:20-Apr-2020 Instruction Type:Patient Education Patient Instructions Indication:Nonsmoker Start:20-Apr-2020 Instruction Type:Provider Instructions for Treatment How to access health informa tion online Indication:Adult residual type attention deficit hyperactivity disorder (ADHD) Start:01-Jan-2020 Instruction Type:Patient Education How to access health informa tion online - Detail Indication:Adult residual type attention deficit hyperactivity disorder (ADHD) Start:01-Jan-2020 Instruction Type:Patient Education Patient Instructions Indication:Adult residual type attention deficit hyperactivity disorder (ADHD) Start:01-Jan-2020 Instruction Type:Provider Instructions for Treatment How to access health informa tion online Indication:Nonsmoker Start:27-Oct-2019 Instruction Type:Patient Education How to access health informa tion online - Detail Indication:Nonsmoker Start:27-Oct-2019 Instruction Type:Patient Education Patient Instructions Indication:Nonsmoker Start:27-Oct-2019 Instruction Type:Provider Instructions for Treatment How to access health informa tion online Indication:Nonsmoker Start:05-Oct-2019 Instruction Type:Patient Education How to access health informa tion online - Detail Indication:Nonsmoker Start:05-Oct-2019 Instruction Type:Patient Education Patient Instructions Indication:Encounter for screening for malignant neoplasm of prostate (Renamed from Screening for prostate cancer) Start:05-Oct-2019 Instruction Type:Provider Instructions for Treatment How to access health informa tion online Indication:Adult residual type attention deficit hyperactivity disorder (ADHD) Start:03-Jul-2019 Instruction Type:Patient Education How to access health informa tion online - Detail Indication:Adult residual type attention deficit hyperactivity disorder (ADHD) Start:03-Jul-2019 Instruction Type:Patient Education Patient Instructions Indication:Adult residual type attention deficit hyperactivity disorder (ADHD) Start:03-Jul-2019 Instruction Type:Provider Instructions for Treatment How to access health informa tion online Indication:Adult residual type attention deficit hyperactivity disorder (ADHD) Start:09-Apr-2019 Instruction Type:Patient Education How to access health informa tion online - Detail Indication:Adult residual type attention deficit hyperactivity disorder (ADHD) Start:09-Apr-2019 Instruction Type:Patient Education Patient Instructions Indication:Adult residual type attention deficit hyperactivity disorder (ADHD) Start:09-Apr-2019 Instruction Type:Provider Instructions for Treatment How to access health informa tion online Indication:Nonsmoker Start:20-Mar-2019 Instruction Type:Patient Education How to access health informa tion online - Detail Indication:Nonsmoker Start:20-Mar-2019 Instruction Type:Patient Education Patient Instructions Indication:Elevated blood-pressure reading, without diagnosis of hypertension (Renamed from Elevated blood-pressure reading without diagnosis of hypertension) Start:20-Mar-2019 Instruction Type:Provider Instructions for Treatment How to access health informa tion online Indication:Nonsmoker Start:12-Dec-2018 Instruction Type:Patient Education How to access health informa tion online - Detail Indication:Nonsmoker Start:12-Dec-2018 Instruction Type:Patient Education Patient Instructions Indication:BMI 34.0-34.9,adult Start:12-Dec-2018 Instruction Type:Provider Instructions for Treatment How to access health informa tion online Indication:Nonsmoker Start:21-Nov-2018 Instruction Type:Patient Education How to access health informa tion online - Detail Indication:Nonsmoker Start:21-Nov-2018 Instruction Type:Patient Education Patient Instructions Indication:Nonsmoker Start:21-Nov-2018 Instruction Type:Provider Instructions for Treatment How to access health informa tion online Indication:Nonsmoker Start:05-Sep-2018 Instruction Type:Patient Education How to access health informa tion online - Detail Indication:Nonsmoker Start:05-Sep-2018 Instruction Type:Patient Education Patient Instructions Indication:Nonsmoker Start:05-Sep-2018 Instruction Type:Provider Instructions for Treatment How to access health informa tion online Indication:Nonsmoker Start:02-Jun-2018 Instruction Type:Patient Education How to access health informa tion online - Detail Indication:Nonsmoker Start:02-Jun-2018 Instruction Type:Patient Education Patient Instructions Indication:Encounter for screening for malignant neoplasm of prostate (Renamed from Screening for prostate cancer) Start:02-Jun-2018 Instruction Type:Provider Instructions for Treatment How to access health informa tion online Indication:Adult residual type attention deficit hyperactivity disorder (ADHD) Start:30-May-2018 Instruction Type:Patient Education How to access health informa tion online - Detail Indication:Adult residual type attention deficit hyperactivity disorder (ADHD) Start:30-May-2018 Instruction Type:Patient Education Patient Instructions Indication:Adult residual type attention deficit hyperactivity disorder (ADHD) Start:30-May-2018 Instruction Type:Provider Instructions for Treatment Patient Instructions Indication:Adult residual type attention deficit hyperactivity disorder (ADHD) Start:30-May-2018 Instruction Type:Provider Instructions for Treatment How to access health informa tion online Indication:Cracked lip Start:28-Apr-2018 Instruction Type:Patient Education How to access health informa tion online - Detail Indication:Cracked lip Start:28-Apr-2018 Instruction Type:Patient Education Patient Instructions Indication:Cracked lip Start:28-Apr-2018 Instruction Type:Provider Instructions for Treatment How to access health informa tion online Indication:Adult residual type attention deficit hyperactivity disorder (ADHD) Start:21-Feb-2018 Instruction Type:Patient Education How to access health informa tion online - Detail Indication:Adult residual type attention deficit hyperactivity disorder (ADHD) Start:21-Feb-2018 Instruction Type:Patient Education Patient Instructions Indication:Adult residual type attention deficit hyperactivity disorder (ADHD) Start:21-Feb-2018 Instruction Type:Provider Instructions for Treatment How to access health informa tion online Indication:Nonsmoker Start:27-Jan-2018 Instruction Type:Patient Education How to access health informa tion online - Detail Indication:Nonsmoker Start:27-Jan-2018 Instruction Type:Patient Education Patient Instructions Indication:Nonsmoker Start:27-Jan-2018 Instruction Type:Provider Instructions for Treatment How to access health informa tion online Indication:Adult residual type attention deficit hyperactivity disorder (ADHD) Start:25-Oct-2017 Instruction Type:Patient Education How to access health informa tion online - Detail Indication:Adult residual type attention deficit hyperactivity disorder (ADHD) Start:25-Oct-2017 Instruction Type:Patient Education Patient Instructions Indication:Adult residual type attention deficit hyperactivity disorder (ADHD) Start:25-Oct-2017 Instruction Type:Provider Instructions for Treatment How to access health informa tion online Indication:Abnormal glucose tolerance test (Renamed from Abnormal glucose tolerance test (GTT)) Start:13-Sep-2017 Instruction Type:Patient Education How to access health informa tion online - Detail Indication:Abnormal glucose tolerance test (Renamed from Abnormal glucose tolerance test (GTT)) Start:13-Sep-2017 Instruction Type:Patient Education Patient Instructions Indication:BMI 34.0-34.9,adult Start:13-Sep-2017 Instruction Type:Provider Instructions for Treatment How to access health informa tion online Indication:Nonsmoker Start:16-Aug-2017 Instruction Type:Patient Education How to access health informa tion online - Detail Indication:Nonsmoker Start:16-Aug-2017 Instruction Type:Patient Education Patient Instructions Indication:Nonsmoker Start:16-Aug-2017 Instruction Type:Provider Instructions for Treatment How to access health informa tion online Indication:Adult residual type attention deficit hyperactivity disorder (ADHD) Start:26-Jul-2017 Instruction Type:Patient Education How to access health informa tion online - Detail Indication:Adult residual type attention deficit hyperactivity disorder (ADHD) Start:26-Jul-2017 Instruction Type:Patient Education Patient Instructions Indication:Adult residual type attention deficit hyperactivity disorder (ADHD) Start:26-Jul-2017 Instruction Type:Provider Instructions for Treatment How to access health informa tion online Indication:Abnormal glucose tolerance test (Renamed from Abnormal glucose tolerance test (GTT)) Start:10-May-2017 Instruction Type:Patient Education How to access health informa tion online - Detail Indication:Abnormal glucose tolerance test (Renamed from Abnormal glucose tolerance test (GTT)) Start:10-May-2017 Instruction Type:Patient Education Patient Instructions Indication:Abnormal glucose tolerance test (Renamed from Abnormal glucose tolerance test (GTT)) Start:10-May-2017 Instruction Type:Provider Instructions for Treatment Patient Instructions Indication:Skin picking habit Start:18-Jan-2017 Instruction Type:Provider Instructions for Treatment How to access health informa tion online Indication:Hyperlipidemia, unspecified Start:03-Dec-2016 Instruction Type:Patient Education How to access health informa tion online - Detail Indication:Hyperlipidemia, unspecified Start:03-Dec-2016 Instruction Type:Patient Education Patient Instructions Indication:Hyperlipidemia, unspecified Start:03-Dec-2016 Instruction Type:Provider Instructions for Treatment How to access health informa tion online Indication:Adult residual type attention deficit hyperactivity disorder (ADHD) Start:12-Oct-2016 Instruction Type:Patient Education How to access health informa tion online - Detail Indication:Adult residual type attention deficit hyperactivity disorder (ADHD) Start:12-Oct-2016 Instruction Type:Patient Education Patient Instructions Indication:Adult residual type attention deficit hyperactivity disorder (ADHD) Start:12-Oct-2016 Instruction Type:Provider Instructions for Treatment Patient Instructions Indication:Vitamin D deficiency Start:01-Oct-2016 Instruction Type:Provider Instructions for Treatment How to access health informa tion online Indication:Nonsmoker Start:01-Oct-2016 Instruction Type:Patient Education How to access health informa tion online - Detail Indication:Nonsmoker Start:01-Oct-2016 Instruction Type:Patient Education Patient Instructions Indication:Nonsmoker Start:01-Oct-2016 Instruction Type:Provider Instructions for Treatment How to access health informa tion online Indication:Abnormal glucose tolerance test (Renamed from Abnormal glucose tolerance test (GTT)) Start:21-Sep-2016 Instruction Type:Patient Education How to access health informa tion online - Detail Indication:Abnormal glucose tolerance test (Renamed from Abnormal glucose tolerance test (GTT)) Start:21-Sep-2016 Instruction Type:Patient Education Patient Instructions Indication:Abnormal glucose tolerance test (Renamed from Abnormal glucose tolerance test (GTT)) Start:21-Sep-2016 Instruction Type:Provider Instructions for Treatment Patient Instructions Indication:Abnormal glucose tolerance test (Renamed from Abnormal glucose tolerance test (GTT)) Start:21-Sep-2016 Instruction Type:Provider Instructions for Treatment Patient Instructions Indication:Abnormal glucose tolerance test (Renamed from Abnormal glucose tolerance test (GTT)) Start:06-Feb-2016 Instruction Type:Provider Instructions for Treatment How to access health informa tion online Indication:Prediabetes Start:26-Dec-2015 Instruction Type:Patient Education How to access health informa tion online - Detail Indication:Prediabetes Start:26-Dec-2015 Instruction Type:Patient Education Patient Instructions Indication:Prediabetes Start:26-Dec-2015 Instruction Type:Provider Instructions for Treatment How to access health informa tion online Indication:Anxiety Start:27-Jun-2015 Instruction Type:Patient Education How to access health informa tion online - Detail Indication:Anxiety Start:27-Jun-2015 Instruction Type:Patient Education Patient Instructions Indication:Anxiety Start:27-Jun-2015 Instruction Type:Provider Instructions for Treatment Patient Instructions Indication:Anxiety Start:09-May-2015 Instruction Type:Provider Instructions for Treatment Patient Instructions Indication:Obesity, unspecified Start:21-May-2014 Instruction Type:Provider Instructions for Treatment How to access health informa tion online Indication:Obesity, unspecified Start:21-May-2014 Instruction Type:Patient Education How to access health informa tion online - Detail Indication:Obesity, unspecified Start:21-May-2014 Instruction Type:Patient Education How to access health informa tion online Indication:Laceration of left leg Start:10-May-2014 Instruction Type:Patient Education How to access health informa tion online - Detail Indication:Laceration of left leg Start:10-May-2014 Instruction Type:Patient Education Patient Instructions Indication:Laceration of left leg Start:10-May-2014 Instruction Type:Provider Instructions for Treatment Patient Instructions Indication:Hyperlipidemia, unspecified Start:28-Jan-2014 Instruction Type:Provider Instructions for Treatment [facility]; [facility] Work Phone: Instructions* Name Dates Details Patient Instructions Indication:Dysthymia Start:12-Jan-2022 Instruction Type:Provider Instructions for Treatment How to Access Health Informa tion Online using Patient Portal and [employer] Apps Indication:Dysthymia Start:12-Jan-2022 Instruction Type:Patient Education Patient Instructions Indication:Dysthymia Start:08-Dec-2021 Instruction Type:Provider Instructions for Treatment How to Access Health Informa tion Online using Patient Portal and [employer] Apps Indication:Dysthymia Start:08-Dec-2021 Instruction Type:Patient Education Patient Instructions Indication:BMI 33.0-33.9,adult Start:10-Nov-2021 Instruction Type:Provider Instructions for Treatment How to Access Health Informa tion Online using Patient Portal and [employer]rd [employer] Apps Indication:BMI 33.0-33.9,adult Start:10-Nov-2021 Instruction Type:Patient Education Patient Instructions Indication:Nonsmoker Start:03-Nov-2021 Instruction Type:Provider Instructions for Treatment How to Access Health Informa tion Online using Patient Portal and [employer]rd [employer] Apps Indication:Nonsmoker Start:03-Nov-2021 Instruction Type:Patient Education Patient Instructions Indication:Nonsmoker Start:05-May-2021 Instruction Type:Provider Instructions for Treatment How to Access Health Informa tion Online using Patient Portal and [employer]rd [employer] Apps Indication:Nonsmoker Start:05-May-2021 Instruction Type:Patient Education How to Access Health Informa tion Online using Patient Portal and [employer] Apps Indication:Abnormal glucose tolerance test (Renamed from Abnormal glucose tolerance test (GTT)) Start:28-Apr-2021 Instruction Type:Patient Education Patient Instructions Indication:Abnormal glucose tolerance test (Renamed from Abnormal glucose tolerance test (GTT)) Start:28-Apr-2021 Instruction Type:Provider Instructions for Treatment Patient Instructions Indication:Adult residual type attention deficit hyperactivity disorder (ADHD) Start:28-Apr-2021 Instruction Type:Provider Instructions for Treatment How to Access Health Informa tion Online using Patient Portal and [employer] Apps Indication:Adult residual type attention deficit hyperactivity disorder (ADHD) Start:28-Apr-2021 Instruction Type:Patient Education Patient Instructions Indication:Nonsmoker Start:14-Mar-2021 Instruction Type:Provider Instructions for Treatment How to Access Health Informa tion Online using Patient Portal and [employer] Apps Indication:Nonsmoker Start:14-Mar-2021 Instruction Type:Patient Education Patient Instructions Indication:Adult residual type attention deficit hyperactivity disorder (ADHD) Start:28-Oct-2020 Instruction Type:Provider Instructions for Treatment How to Access Health Informa tion Online using Patient Portal and [employer]rd [employer] Apps Indication:Adult residual type attention deficit hyperactivity disorder (ADHD) Start:28-Oct-2020 Instruction Type:Patient Education Patient Instructions Indication:BMI 32.0-32.9,adult Start:21-Oct-2020 Instruction Type:Provider Instructions for Treatment How to Access Health Informa tion Online using Patient Portal and [employer]rd [employer] Apps Indication:Nonsmoker Start:21-Oct-2020 Instruction Type:Patient Education How to access health informa tion online Indication:Adult residual type attention deficit hyperactivity disorder (ADHD) Start:29-Apr-2020 Instruction Type:Patient Education How to access health informa tion online - Detail Indication:Adult residual type attention deficit hyperactivity disorder (ADHD) Start:29-Apr-2020 Instruction Type:Patient Education Patient Instructions Indication:Adult residual type attention deficit hyperactivity disorder (ADHD) Start:29-Apr-2020 Instruction Type:Provider Instructions for Treatment How to access health informa tion online Indication:Nonsmoker Start:20-Apr-2020 Instruction Type:Patient Education How to access health informa tion online - Detail Indication:Nonsmoker Start:20-Apr-2020 Instruction Type:Patient Education Patient Instructions Indication:Nonsmoker Start:20-Apr-2020 Instruction Type:Provider Instructions for Treatment How to access health informa tion online Indication:Adult residual type attention deficit hyperactivity disorder (ADHD) Start:01-Jan-2020 Instruction Type:Patient Education How to access health informa tion online - Detail Indication:Adult residual type attention deficit hyperactivity disorder (ADHD) Start:01-Jan-2020 Instruction Type:Patient Education Patient Instructions Indication:Adult residual type attention deficit hyperactivity disorder (ADHD) Start:01-Jan-2020 Instruction Type:Provider Instructions for Treatment How to access health informa tion online Indication:Nonsmoker Start:27-Oct-2019 Instruction Type:Patient Education How to access health informa tion online - Detail Indication:Nonsmoker Start:27-Oct-2019 Instruction Type:Patient Education Patient Instructions Indication:Nonsmoker Start:27-Oct-2019 Instruction Type:Provider Instructions for Treatment How to access health informa tion online Indication:Nonsmoker Start:05-Oct-2019 Instruction Type:Patient Education How to access health informa tion online - Detail Indication:Nonsmoker Start:05-Oct-2019 Instruction Type:Patient Education Patient Instructions Indication:Encounter for screening for malignant neoplasm of prostate (Renamed from Screening for prostate cancer) Start:05-Oct-2019 Instruction Type:Provider Instructions for Treatment How to access health informa tion online Indication:Adult residual type attention deficit hyperactivity disorder (ADHD) Start:03-Jul-2019 Instruction Type:Patient Education How to access health informa tion online - Detail Indication:Adult residual type attention deficit hyperactivity disorder (ADHD) Start:03-Jul-2019 Instruction Type:Patient Education Patient Instructions Indication:Adult residual type attention deficit hyperactivity disorder (ADHD) Start:03-Jul-2019 Instruction Type:Provider Instructions for Treatment How to access health informa tion online Indication:Adult residual type attention deficit hyperactivity disorder (ADHD) Start:09-Apr-2019 Instruction Type:Patient Education How to access health informa tion online - Detail Indication:Adult residual type attention deficit hyperactivity disorder (ADHD) Start:09-Apr-2019 Instruction Type:Patient Education Patient Instructions Indication:Adult residual type attention deficit hyperactivity disorder (ADHD) Start:09-Apr-2019 Instruction Type:Provider Instructions for Treatment How to access health informa tion online Indication:Nonsmoker Start:20-Mar-2019 Instruction Type:Patient Education How to access health informa tion online - Detail Indication:Nonsmoker Start:20-Mar-2019 Instruction Type:Patient Education Patient Instructions Indication:Elevated blood-pressure reading, without diagnosis of hypertension (Renamed from Elevated blood-pressure reading without diagnosis of hypertension) Start:20-Mar-2019 Instruction Type:Provider Instructions for Treatment How to access health informa tion online Indication:Nonsmoker Start:12-Dec-2018 Instruction Type:Patient Education How to access health informa tion online - Detail Indication:Nonsmoker Start:12-Dec-2018 Instruction Type:Patient Education Patient Instructions Indication:BMI 34.0-34.9,adult Start:12-Dec-2018 Instruction Type:Provider Instructions for Treatment How to access health informa tion online Indication:Nonsmoker Start:21-Nov-2018 Instruction Type:Patient Education How to access health informa tion online - Detail Indication:Nonsmoker Start:21-Nov-2018 Instruction Type:Patient Education Patient Instructions Indication:Nonsmoker Start:21-Nov-2018 Instruction Type:Provider Instructions for Treatment How to access health informa tion online Indication:Nonsmoker Start:05-Sep-2018 Instruction Type:Patient Education How to access health informa tion online - Detail Indication:Nonsmoker Start:05-Sep-2018 Instruction Type:Patient Education Patient Instructions Indication:Nonsmoker Start:05-Sep-2018 Instruction Type:Provider Instructions for Treatment How to access health informa tion online Indication:Nonsmoker Start:02-Jun-2018 Instruction Type:Patient Education How to access health informa tion online - Detail Indication:Nonsmoker Start:02-Jun-2018 Instruction Type:Patient Education Patient Instructions Indication:Encounter for screening for malignant neoplasm of prostate (Renamed from Screening for prostate cancer) Start:02-Jun-2018 Instruction Type:Provider Instructions for Treatment How to access health informa tion online Indication:Adult residual type attention deficit hyperactivity disorder (ADHD) Start:30-May-2018 Instruction Type:Patient Education How to access health informa tion online - Detail Indication:Adult residual type attention deficit hyperactivity disorder (ADHD) Start:30-May-2018 Instruction Type:Patient Education Patient Instructions Indication:Adult residual type attention deficit hyperactivity disorder (ADHD) Start:30-May-2018 Instruction Type:Provider Instructions for Treatment Patient Instructions Indication:Adult residual type attention deficit hyperactivity disorder (ADHD) Start:30-May-2018 Instruction Type:Provider Instructions for Treatment How to access health informa tion online Indication:Cracked lip Start:28-Apr-2018 Instruction Type:Patient Education How to access health informa tion online - Detail Indication:Cracked lip Start:28-Apr-2018 Instruction Type:Patient Education Patient Instructions Indication:Cracked lip Start:28-Apr-2018 Instruction Type:Provider Instructions for Treatment How to access health informa tion online Indication:Adult residual type attention deficit hyperactivity disorder (ADHD) Start:21-Feb-2018 Instruction Type:Patient Education How to access health informa tion online - Detail Indication:Adult residual type attention deficit hyperactivity disorder (ADHD) Start:21-Feb-2018 Instruction Type:Patient Education Patient Instructions Indication:Adult residual type attention deficit hyperactivity disorder (ADHD) Start:21-Feb-2018 Instruction Type:Provider Instructions for Treatment How to access health informa tion online Indication:Nonsmoker Start:27-Jan-2018 Instruction Type:Patient Education How to access health informa tion online - Detail Indication:Nonsmoker Start:27-Jan-2018 Instruction Type:Patient Education Patient Instructions Indication:Nonsmoker Start:27-Jan-2018 Instruction Type:Provider Instructions for Treatment How to access health informa tion online Indication:Adult residual type attention deficit hyperactivity disorder (ADHD) Start:25-Oct-2017 Instruction Type:Patient Education How to access health informa tion online - Detail Indication:Adult residual type attention deficit hyperactivity disorder (ADHD) Start:25-Oct-2017 Instruction Type:Patient Education Patient Instructions Indication:Adult residual type attention deficit hyperactivity disorder (ADHD) Start:25-Oct-2017 Instruction Type:Provider Instructions for Treatment How to access health informa tion online Indication:Abnormal glucose tolerance test (Renamed from Abnormal glucose tolerance test (GTT)) Start:13-Sep-2017 Instruction Type:Patient Education How to access health informa tion online - Detail Indication:Abnormal glucose tolerance test (Renamed from Abnormal glucose tolerance test (GTT)) Start:13-Sep-2017 Instruction Type:Patient Education Patient Instructions Indication:BMI 34.0-34.9,adult Start:13-Sep-2017 Instruction Type:Provider Instructions for Treatment How to access health informa tion online Indication:Nonsmoker Start:16-Aug-2017 Instruction Type:Patient Education How to access health informa tion online - Detail Indication:Nonsmoker Start:16-Aug-2017 Instruction Type:Patient Education Patient Instructions Indication:Nonsmoker Start:16-Aug-2017 Instruction Type:Provider Instructions for Treatment How to access health informa tion online Indication:Adult residual type attention deficit hyperactivity disorder (ADHD) Start:26-Jul-2017 Instruction Type:Patient Education How to access health informa tion online - Detail Indication:Adult residual type attention deficit hyperactivity disorder (ADHD) Start:26-Jul-2017 Instruction Type:Patient Education Patient Instructions Indication:Adult residual type attention deficit hyperactivity disorder (ADHD) Start:26-Jul-2017 Instruction Type:Provider Instructions for Treatment How to access health informa tion online Indication:Abnormal glucose tolerance test (Renamed from Abnormal glucose tolerance test (GTT)) Start:10-May-2017 Instruction Type:Patient Education How to access health informa tion online - Detail Indication:Abnormal glucose tolerance test (Renamed from Abnormal glucose tolerance test (GTT)) Start:10-May-2017 Instruction Type:Patient Education Patient Instructions Indication:Abnormal glucose tolerance test (Renamed from Abnormal glucose tolerance test (GTT)) Start:10-May-2017 Instruction Type:Provider Instructions for Treatment Patient Instructions Indication:Skin picking habit Start:18-Jan-2017 Instruction Type:Provider Instructions for Treatment How to access health informa tion online Indication:Hyperlipidemia, unspecified Start:03-Dec-2016 Instruction Type:Patient Education How to access health informa tion online - Detail Indication:Hyperlipidemia, unspecified Start:03-Dec-2016 Instruction Type:Patient Education Patient Instructions Indication:Hyperlipidemia, unspecified Start:03-Dec-2016 Instruction Type:Provider Instructions for Treatment How to access health informa tion online Indication:Adult residual type attention deficit hyperactivity disorder (ADHD) Start:12-Oct-2016 Instruction Type:Patient Education How to access health informa tion online - Detail Indication:Adult residual type attention deficit hyperactivity disorder (ADHD) Start:12-Oct-2016 Instruction Type:Patient Education Patient Instructions Indication:Adult residual type attention deficit hyperactivity disorder (ADHD) Start:12-Oct-2016 Instruction Type:Provider Instructions for Treatment Patient Instructions Indication:Vitamin D deficiency Start:01-Oct-2016 Instruction Type:Provider Instructions for Treatment How to access health informa tion online Indication:Nonsmoker Start:01-Oct-2016 Instruction Type:Patient Education How to access health informa tion online - Detail Indication:Nonsmoker Start:01-Oct-2016 Instruction Type:Patient Education Patient Instructions Indication:Nonsmoker Start:01-Oct-2016 Instruction Type:Provider Instructions for Treatment How to access health informa tion online Indication:Abnormal glucose tolerance test (Renamed from Abnormal glucose tolerance test (GTT)) Start:21-Sep-2016 Instruction Type:Patient Education How to access health informa tion online - Detail Indication:Abnormal glucose tolerance test (Renamed from Abnormal glucose tolerance test (GTT)) Start:21-Sep-2016 Instruction Type:Patient Education Patient Instructions Indication:Abnormal glucose tolerance test (Renamed from Abnormal glucose tolerance test (GTT)) Start:21-Sep-2016 Instruction Type:Provider Instructions for Treatment Patient Instructions Indication:Abnormal glucose tolerance test (Renamed from Abnormal glucose tolerance test (GTT)) Start:21-Sep-2016 Instruction Type:Provider Instructions for Treatment Patient Instructions Indication:Abnormal glucose tolerance test (Renamed from Abnormal glucose tolerance test (GTT)) Start:06-Feb-2016 Instruction Type:Provider Instructions for Treatment How to access health informa tion online Indication:Prediabetes Start:26-Dec-2015 Instruction Type:Patient Education How to access health informa tion online - Detail Indication:Prediabetes Start:26-Dec-2015 Instruction Type:Patient Education Patient Instructions Indication:Prediabetes Start:26-Dec-2015 Instruction Type:Provider Instructions for Treatment How to access health informa tion online Indication:Anxiety Start:27-Jun-2015 Instruction Type:Patient Education How to access health informa tion online - Detail Indication:Anxiety Start:27-Jun-2015 Instruction Type:Patient Education Patient Instructions Indication:Anxiety Start:27-Jun-2015 Instruction Type:Provider Instructions for Treatment Patient Instructions Indication:Anxiety Start:09-May-2015 Instruction Type:Provider Instructions for Treatment Patient Instructions Indication:Obesity, unspecified Start:21-May-2014 Instruction Type:Provider Instructions for Treatment How to access health informa tion online Indication:Obesity, unspecified Start:21-May-2014 Instruction Type:Patient Education How to access health informa tion online - Detail Indication:Obesity, unspecified Start:21-May-2014 Instruction Type:Patient Education How to access health informa tion online Indication:Laceration of left leg Start:10-May-2014 Instruction Type:Patient Education How to access health informa tion online - Detail Indication:Laceration of left leg Start:10-May-2014 Instruction Type:Patient Education Patient Instructions Indication:Laceration of left leg Start:10-May-2014 Instruction Type:Provider Instructions for Treatment Patient Instructions Indication:Hyperlipidemia, unspecified Start:28-Jan-2014 Instruction Type:Provider Instructions for Treatment [facility]; [facility] Work Phone: Instructions* Name Dates Details Patient Instructions Indication:Dysthymia Start:12-Jan-2022 Instruction Type:Provider Instructions for Treatment How to Access Health Informa tion Online using Patient Portal and [employer]rd [employer] Apps Indication:Dysthymia Start:12-Jan-2022 Instruction Type:Patient Education Patient Instructions Indication:Dysthymia Start:08-Dec-2021 Instruction Type:Provider Instructions for Treatment How to Access Health Informa tion Online using Patient Portal and [employer]rd [employer] Apps Indication:Dysthymia Start:08-Dec-2021 Instruction Type:Patient Education Patient Instructions Indication:BMI 33.0-33.9,adult Start:10-Nov-2021 Instruction Type:Provider Instructions for Treatment How to Access Health Informa tion Online using Patient Portal and [employer]rd [employer] Apps Indication:BMI 33.0-33.9,adult Start:10-Nov-2021 Instruction Type:Patient Education Patient Instructions Indication:Nonsmoker Start:03-Nov-2021 Instruction Type:Provider Instructions for Treatment How to Access Health Informa tion Online using Patient Portal and [employer]rd [employer] Apps Indication:Nonsmoker Start:03-Nov-2021 Instruction Type:Patient Education Patient Instructions Indication:Nonsmoker Start:05-May-2021 Instruction Type:Provider Instructions for Treatment How to Access Health Informa tion Online using Patient Portal and [employer]rd [employer] Apps Indication:Nonsmoker Start:05-May-2021 Instruction Type:Patient Education How to Access Health Informa tion Online using Patient Portal and [employer]rd [employer] Apps Indication:Abnormal glucose tolerance test (Renamed from Abnormal glucose tolerance test (GTT)) Start:28-Apr-2021 Instruction Type:Patient Education Patient Instructions Indication:Abnormal glucose tolerance test (Renamed from Abnormal glucose tolerance test (GTT)) Start:28-Apr-2021 Instruction Type:Provider Instructions for Treatment Patient Instructions Indication:Adult residual type attention deficit hyperactivity disorder (ADHD) Start:28-Apr-2021 Instruction Type:Provider Instructions for Treatment How to Access Health Informa tion Online using Patient Portal and [employer]rd [employer] Apps Indication:Adult residual type attention deficit hyperactivity disorder (ADHD) Start:28-Apr-2021 Instruction Type:Patient Education Patient Instructions Indication:Nonsmoker Start:14-Mar-2021 Instruction Type:Provider Instructions for Treatment How to Access Health Informa tion Online using Patient Portal and [employer] Apps Indication:Nonsmoker Start:14-Mar-2021 Instruction Type:Patient Education Patient Instructions Indication:Adult residual type attention deficit hyperactivity disorder (ADHD) Start:28-Oct-2020 Instruction Type:Provider Instructions for Treatment How to Access Health Informa tion Online using Patient Portal and [employer] Apps Indication:Adult residual type attention deficit hyperactivity disorder (ADHD) Start:28-Oct-2020 Instruction Type:Patient Education Patient Instructions Indication:BMI 32.0-32.9,adult Start:21-Oct-2020 Instruction Type:Provider Instructions for Treatment How to Access Health Informa tion Online using Patient Portal and [employer]rd [employer] Apps Indication:Nonsmoker Start:21-Oct-2020 Instruction Type:Patient Education How to access health informa tion online Indication:Adult residual type attention deficit hyperactivity disorder (ADHD) Start:29-Apr-2020 Instruction Type:Patient Education How to access health informa tion online - Detail Indication:Adult residual type attention deficit hyperactivity disorder (ADHD) Start:29-Apr-2020 Instruction Type:Patient Education Patient Instructions Indication:Adult residual type attention deficit hyperactivity disorder (ADHD) Start:29-Apr-2020 Instruction Type:Provider Instructions for Treatment How to access health informa tion online Indication:Nonsmoker Start:20-Apr-2020 Instruction Type:Patient Education How to access health informa tion online - Detail Indication:Nonsmoker Start:20-Apr-2020 Instruction Type:Patient Education Patient Instructions Indication:Nonsmoker Start:20-Apr-2020 Instruction Type:Provider Instructions for Treatment How to access health informa tion online Indication:Adult residual type attention deficit hyperactivity disorder (ADHD) Start:01-Jan-2020 Instruction Type:Patient Education How to access health informa tion online - Detail Indication:Adult residual type attention deficit hyperactivity disorder (ADHD) Start:01-Jan-2020 Instruction Type:Patient Education Patient Instructions Indication:Adult residual type attention deficit hyperactivity disorder (ADHD) Start:01-Jan-2020 Instruction Type:Provider Instructions for Treatment How to access health informa tion online Indication:Nonsmoker Start:27-Oct-2019 Instruction Type:Patient Education How to access health informa tion online - Detail Indication:Nonsmoker Start:27-Oct-2019 Instruction Type:Patient Education Patient Instructions Indication:Nonsmoker Start:27-Oct-2019 Instruction Type:Provider Instructions for Treatment How to access health informa tion online Indication:Nonsmoker Start:05-Oct-2019 Instruction Type:Patient Education How to access health informa tion online - Detail Indication:Nonsmoker Start:05-Oct-2019 Instruction Type:Patient Education Patient Instructions Indication:Encounter for screening for malignant neoplasm of prostate (Renamed from Screening for prostate cancer) Start:05-Oct-2019 Instruction Type:Provider Instructions for Treatment How to access health informa tion online Indication:Adult residual type attention deficit hyperactivity disorder (ADHD) Start:03-Jul-2019 Instruction Type:Patient Education How to access health informa tion online - Detail Indication:Adult residual type attention deficit hyperactivity disorder (ADHD) Start:03-Jul-2019 Instruction Type:Patient Education Patient Instructions Indication:Adult residual type attention deficit hyperactivity disorder (ADHD) Start:03-Jul-2019 Instruction Type:Provider Instructions for Treatment How to access health informa tion online Indication:Adult residual type attention deficit hyperactivity disorder (ADHD) Start:09-Apr-2019 Instruction Type:Patient Education How to access health informa tion online - Detail Indication:Adult residual type attention deficit hyperactivity disorder (ADHD) Start:09-Apr-2019 Instruction Type:Patient Education Patient Instructions Indication:Adult residual type attention deficit hyperactivity disorder (ADHD) Start:09-Apr-2019 Instruction Type:Provider Instructions for Treatment How to access health informa tion online Indication:Nonsmoker Start:20-Mar-2019 Instruction Type:Patient Education How to access health informa tion online - Detail Indication:Nonsmoker Start:20-Mar-2019 Instruction Type:Patient Education Patient Instructions Indication:Elevated blood-pressure reading, without diagnosis of hypertension (Renamed from Elevated blood-pressure reading without diagnosis of hypertension) Start:20-Mar-2019 Instruction Type:Provider Instructions for Treatment How to access health informa tion online Indication:Nonsmoker Start:12-Dec-2018 Instruction Type:Patient Education How to access health informa tion online - Detail Indication:Nonsmoker Start:12-Dec-2018 Instruction Type:Patient Education Patient Instructions Indication:BMI 34.0-34.9,adult Start:12-Dec-2018 Instruction Type:Provider Instructions for Treatment How to access health informa tion online Indication:Nonsmoker Start:21-Nov-2018 Instruction Type:Patient Education How to access health informa tion online - Detail Indication:Nonsmoker Start:21-Nov-2018 Instruction Type:Patient Education Patient Instructions Indication:Nonsmoker Start:21-Nov-2018 Instruction Type:Provider Instructions for Treatment How to access health informa tion online Indication:Nonsmoker Start:05-Sep-2018 Instruction Type:Patient Education How to access health informa tion online - Detail Indication:Nonsmoker Start:05-Sep-2018 Instruction Type:Patient Education Patient Instructions Indication:Nonsmoker Start:05-Sep-2018 Instruction Type:Provider Instructions for Treatment How to access health informa tion online Indication:Nonsmoker Start:02-Jun-2018 Instruction Type:Patient Education How to access health informa tion online - Detail Indication:Nonsmoker Start:02-Jun-2018 Instruction Type:Patient Education Patient Instructions Indication:Encounter for screening for malignant neoplasm of prostate (Renamed from Screening for prostate cancer) Start:02-Jun-2018 Instruction Type:Provider Instructions for Treatment How to access health informa tion online Indication:Adult residual type attention deficit hyperactivity disorder (ADHD) Start:30-May-2018 Instruction Type:Patient Education How to access health informa tion online - Detail Indication:Adult residual type attention deficit hyperactivity disorder (ADHD) Start:30-May-2018 Instruction Type:Patient Education Patient Instructions Indication:Adult residual type attention deficit hyperactivity disorder (ADHD) Start:30-May-2018 Instruction Type:Provider Instructions for Treatment Patient Instructions Indication:Adult residual type attention deficit hyperactivity disorder (ADHD) Start:30-May-2018 Instruction Type:Provider Instructions for Treatment How to access health informa tion online Indication:Cracked lip Start:28-Apr-2018 Instruction Type:Patient Education How to access health informa tion online - Detail Indication:Cracked lip Start:28-Apr-2018 Instruction Type:Patient Education Patient Instructions Indication:Cracked lip Start:28-Apr-2018 Instruction Type:Provider Instructions for Treatment How to access health informa tion online Indication:Adult residual type attention deficit hyperactivity disorder (ADHD) Start:21-Feb-2018 Instruction Type:Patient Education How to access health informa tion online - Detail Indication:Adult residual type attention deficit hyperactivity disorder (ADHD) Start:21-Feb-2018 Instruction Type:Patient Education Patient Instructions Indication:Adult residual type attention deficit hyperactivity disorder (ADHD) Start:21-Feb-2018 Instruction Type:Provider Instructions for Treatment How to access health informa tion online Indication:Nonsmoker Start:27-Jan-2018 Instruction Type:Patient Education How to access health informa tion online - Detail Indication:Nonsmoker Start:27-Jan-2018 Instruction Type:Patient Education Patient Instructions Indication:Nonsmoker Start:27-Jan-2018 Instruction Type:Provider Instructions for Treatment How to access health informa tion online Indication:Adult residual type attention deficit hyperactivity disorder (ADHD) Start:25-Oct-2017 Instruction Type:Patient Education How to access health informa tion online - Detail Indication:Adult residual type attention deficit hyperactivity disorder (ADHD) Start:25-Oct-2017 Instruction Type:Patient Education Patient Instructions Indication:Adult residual type attention deficit hyperactivity disorder (ADHD) Start:25-Oct-2017 Instruction Type:Provider Instructions for Treatment How to access health informa tion online Indication:Abnormal glucose tolerance test (Renamed from Abnormal glucose tolerance test (GTT)) Start:13-Sep-2017 Instruction Type:Patient Education How to access health informa tion online - Detail Indication:Abnormal glucose tolerance test (Renamed from Abnormal glucose tolerance test (GTT)) Start:13-Sep-2017 Instruction Type:Patient Education Patient Instructions Indication:BMI 34.0-34.9,adult Start:13-Sep-2017 Instruction Type:Provider Instructions for Treatment How to access health informa tion online Indication:Nonsmoker Start:16-Aug-2017 Instruction Type:Patient Education How to access health informa tion online - Detail Indication:Nonsmoker Start:16-Aug-2017 Instruction Type:Patient Education Patient Instructions Indication:Nonsmoker Start:16-Aug-2017 Instruction Type:Provider Instructions for Treatment How to access health informa tion online Indication:Adult residual type attention deficit hyperactivity disorder (ADHD) Start:26-Jul-2017 Instruction Type:Patient Education How to access health informa tion online - Detail Indication:Adult residual type attention deficit hyperactivity disorder (ADHD) Start:26-Jul-2017 Instruction Type:Patient Education Patient Instructions Indication:Adult residual type attention deficit hyperactivity disorder (ADHD) Start:26-Jul-2017 Instruction Type:Provider Instructions for Treatment How to access health informa tion online Indication:Abnormal glucose tolerance test (Renamed from Abnormal glucose tolerance test (GTT)) Start:10-May-2017 Instruction Type:Patient Education How to access health informa tion online - Detail Indication:Abnormal glucose tolerance test (Renamed from Abnormal glucose tolerance test (GTT)) Start:10-May-2017 Instruction Type:Patient Education Patient Instructions Indication:Abnormal glucose tolerance test (Renamed from Abnormal glucose tolerance test (GTT)) Start:10-May-2017 Instruction Type:Provider Instructions for Treatment Patient Instructions Indication:Skin picking habit Start:18-Jan-2017 Instruction Type:Provider Instructions for Treatment How to access health informa tion online Indication:Hyperlipidemia, unspecified Start:03-Dec-2016 Instruction Type:Patient Education How to access health informa tion online - Detail Indication:Hyperlipidemia, unspecified Start:03-Dec-2016 Instruction Type:Patient Education Patient Instructions Indication:Hyperlipidemia, unspecified Start:03-Dec-2016 Instruction Type:Provider Instructions for Treatment How to access health informa tion online Indication:Adult residual type attention deficit hyperactivity disorder (ADHD) Start:12-Oct-2016 Instruction Type:Patient Education How to access health informa tion online - Detail Indication:Adult residual type attention deficit hyperactivity disorder (ADHD) Start:12-Oct-2016 Instruction Type:Patient Education Patient Instructions Indication:Adult residual type attention deficit hyperactivity disorder (ADHD) Start:12-Oct-2016 Instruction Type:Provider Instructions for Treatment Patient Instructions Indication:Vitamin D deficiency Start:01-Oct-2016 Instruction Type:Provider Instructions for Treatment How to access health informa tion online Indication:Nonsmoker Start:01-Oct-2016 Instruction Type:Patient Education How to access health informa tion online - Detail Indication:Nonsmoker Start:01-Oct-2016 Instruction Type:Patient Education Patient Instructions Indication:Nonsmoker Start:01-Oct-2016 Instruction Type:Provider Instructions for Treatment How to access health informa tion online Indication:Abnormal glucose tolerance test (Renamed from Abnormal glucose tolerance test (GTT)) Start:21-Sep-2016 Instruction Type:Patient Education How to access health informa tion online - Detail Indication:Abnormal glucose tolerance test (Renamed from Abnormal glucose tolerance test (GTT)) Start:21-Sep-2016 Instruction Type:Patient Education Patient Instructions Indication:Abnormal glucose tolerance test (Renamed from Abnormal glucose tolerance test (GTT)) Start:21-Sep-2016 Instruction Type:Provider Instructions for Treatment Patient Instructions Indication:Abnormal glucose tolerance test (Renamed from Abnormal glucose tolerance test (GTT)) Start:21-Sep-2016 Instruction Type:Provider Instructions for Treatment Patient Instructions Indication:Abnormal glucose tolerance test (Renamed from Abnormal glucose tolerance test (GTT)) Start:06-Feb-2016 Instruction Type:Provider Instructions for Treatment How to access health informa tion online Indication:Prediabetes Start:26-Dec-2015 Instruction Type:Patient Education How to access health informa tion online - Detail Indication:Prediabetes Start:26-Dec-2015 Instruction Type:Patient Education Patient Instructions Indication:Prediabetes Start:26-Dec-2015 Instruction Type:Provider Instructions for Treatment How to access health informa tion online Indication:Anxiety Start:27-Jun-2015 Instruction Type:Patient Education How to access health informa tion online - Detail Indication:Anxiety Start:27-Jun-2015 Instruction Type:Patient Education Patient Instructions Indication:Anxiety Start:27-Jun-2015 Instruction Type:Provider Instructions for Treatment Patient Instructions Indication:Anxiety Start:09-May-2015 Instruction Type:Provider Instructions for Treatment Patient Instructions Indication:Obesity, unspecified Start:21-May-2014 Instruction Type:Provider Instructions for Treatment How to access health informa tion online Indication:Obesity, unspecified Start:21-May-2014 Instruction Type:Patient Education How to access health informa tion online - Detail Indication:Obesity, unspecified Start:21-May-2014 Instruction Type:Patient Education How to access health informa tion online Indication:Laceration of left leg Start:10-May-2014 Instruction Type:Patient Education How to access health informa tion online - Detail Indication:Laceration of left leg Start:10-May-2014 Instruction Type:Patient Education Patient Instructions Indication:Laceration of left leg Start:10-May-2014 Instruction Type:Provider Instructions for Treatment Patient Instructions Indication:Hyperlipidemia, unspecified Start:28-Jan-2014 Instruction Type:Provider Instructions for Treatment [facility]; [facility] Work Phone: Instructions* Name Dates Details Patient Instructions Indication:BMI 33.0-33.9,adult Start:13-Apr-2022 Instruction Type:Provider Instructions for Treatment How to Access Health Informa tion Online using Patient Portal and [employer]rd [employer] Apps Indication:BMI 33.0-33.9,adult Start:13-Apr-2022 Instruction Type:Patient Education Patient Instructions Indication:Dysthymia Start:12-Jan-2022 Instruction Type:Provider Instructions for Treatment How to Access Health Informa tion Online using Patient Portal and [employer]rd [employer] Apps Indication:Dysthymia Start:12-Jan-2022 Instruction Type:Patient Education Patient Instructions Indication:Dysthymia Start:08-Dec-2021 Instruction Type:Provider Instructions for Treatment How to Access Health Informa tion Online using Patient Portal and [employer]rd [employer] Apps Indication:Dysthymia Start:08-Dec-2021 Instruction Type:Patient Education Patient Instructions Indication:BMI 33.0-33.9,adult Start:10-Nov-2021 Instruction Type:Provider Instructions for Treatment How to Access Health Informa tion Online using Patient Portal and [employer]rd [employer] Apps Indication:BMI 33.0-33.9,adult Start:10-Nov-2021 Instruction Type:Patient Education Patient Instructions Indication:Nonsmoker Start:03-Nov-2021 Instruction Type:Provider Instructions for Treatment How to Access Health Informa tion Online using Patient Portal and [employer] Apps Indication:Nonsmoker Start:03-Nov-2021 Instruction Type:Patient Education Patient Instructions Indication:Nonsmoker Start:05-May-2021 Instruction Type:Provider Instructions for Treatment How to Access Health Informa tion Online using Patient Portal and [employer] Apps Indication:Nonsmoker Start:05-May-2021 Instruction Type:Patient Education How to Access Health Informa tion Online using Patient Portal and [employer] Apps Indication:Abnormal glucose tolerance test (Renamed from Abnormal glucose tolerance test (GTT)) Start:28-Apr-2021 Instruction Type:Patient Education Patient Instructions Indication:Abnormal glucose tolerance test (Renamed from Abnormal glucose tolerance test (GTT)) Start:28-Apr-2021 Instruction Type:Provider Instructions for Treatment Patient Instructions Indication:Adult residual type attention deficit hyperactivity disorder (ADHD) Start:28-Apr-2021 Instruction Type:Provider Instructions for Treatment How to Access Health Informa tion Online using Patient Portal and [employer] Apps Indication:Adult residual type attention deficit hyperactivity disorder (ADHD) Start:28-Apr-2021 Instruction Type:Patient Education Patient Instructions Indication:Nonsmoker Start:14-Mar-2021 Instruction Type:Provider Instructions for Treatment How to Access Health Informa tion Online using Patient Portal and [employer]rd [employer] Apps Indication:Nonsmoker Start:14-Mar-2021 Instruction Type:Patient Education Patient Instructions Indication:Adult residual type attention deficit hyperactivity disorder (ADHD) Start:28-Oct-2020 Instruction Type:Provider Instructions for Treatment How to Access Health Informa tion Online using Patient Portal and [employer] Apps Indication:Adult residual type attention deficit hyperactivity disorder (ADHD) Start:28-Oct-2020 Instruction Type:Patient Education Patient Instructions Indication:BMI 32.0-32.9,adult Start:21-Oct-2020 Instruction Type:Provider Instructions for Treatment How to Access Health Informa tion Online using Patient Portal and [employer] Apps Indication:Nonsmoker Start:21-Oct-2020 Instruction Type:Patient Education How to access health informa tion online Indication:Adult residual type attention deficit hyperactivity disorder (ADHD) Start:29-Apr-2020 Instruction Type:Patient Education How to access health informa tion online - Detail Indication:Adult residual type attention deficit hyperactivity disorder (ADHD) Start:29-Apr-2020 Instruction Type:Patient Education Patient Instructions Indication:Adult residual type attention deficit hyperactivity disorder (ADHD) Start:29-Apr-2020 Instruction Type:Provider Instructions for Treatment How to access health informa tion online Indication:Nonsmoker Start:20-Apr-2020 Instruction Type:Patient Education How to access health informa tion online - Detail Indication:Nonsmoker Start:20-Apr-2020 Instruction Type:Patient Education Patient Instructions Indication:Nonsmoker Start:20-Apr-2020 Instruction Type:Provider Instructions for Treatment How to access health informa tion online Indication:Adult residual type attention deficit hyperactivity disorder (ADHD) Start:01-Jan-2020 Instruction Type:Patient Education How to access health informa tion online - Detail Indication:Adult residual type attention deficit hyperactivity disorder (ADHD) Start:01-Jan-2020 Instruction Type:Patient Education Patient Instructions Indication:Adult residual type attention deficit hyperactivity disorder (ADHD) Start:01-Jan-2020 Instruction Type:Provider Instructions for Treatment How to access health informa tion online Indication:Nonsmoker Start:27-Oct-2019 Instruction Type:Patient Education How to access health informa tion online - Detail Indication:Nonsmoker Start:27-Oct-2019 Instruction Type:Patient Education Patient Instructions Indication:Nonsmoker Start:27-Oct-2019 Instruction Type:Provider Instructions for Treatment How to access health informa tion online Indication:Nonsmoker Start:05-Oct-2019 Instruction Type:Patient Education How to access health informa tion online - Detail Indication:Nonsmoker Start:05-Oct-2019 Instruction Type:Patient Education Patient Instructions Indication:Encounter for screening for malignant neoplasm of prostate (Renamed from Screening for prostate cancer) Start:05-Oct-2019 Instruction Type:Provider Instructions for Treatment How to access health informa tion online Indication:Adult residual type attention deficit hyperactivity disorder (ADHD) Start:03-Jul-2019 Instruction Type:Patient Education How to access health informa tion online - Detail Indication:Adult residual type attention deficit hyperactivity disorder (ADHD) Start:03-Jul-2019 Instruction Type:Patient Education Patient Instructions Indication:Adult residual type attention deficit hyperactivity disorder (ADHD) Start:03-Jul-2019 Instruction Type:Provider Instructions for Treatment How to access health informa tion online Indication:Adult residual type attention deficit hyperactivity disorder (ADHD) Start:09-Apr-2019 Instruction Type:Patient Education How to access health informa tion online - Detail Indication:Adult residual type attention deficit hyperactivity disorder (ADHD) Start:09-Apr-2019 Instruction Type:Patient Education Patient Instructions Indication:Adult residual type attention deficit hyperactivity disorder (ADHD) Start:09-Apr-2019 Instruction Type:Provider Instructions for Treatment How to access health informa tion online Indication:Nonsmoker Start:20-Mar-2019 Instruction Type:Patient Education How to access health informa tion online - Detail Indication:Nonsmoker Start:20-Mar-2019 Instruction Type:Patient Education Patient Instructions Indication:Elevated blood-pressure reading, without diagnosis of hypertension (Renamed from Elevated blood-pressure reading without diagnosis of hypertension) Start:20-Mar-2019 Instruction Type:Provider Instructions for Treatment How to access health informa tion online Indication:Nonsmoker Start:12-Dec-2018 Instruction Type:Patient Education How to access health informa tion online - Detail Indication:Nonsmoker Start:12-Dec-2018 Instruction Type:Patient Education Patient Instructions Indication:BMI 34.0-34.9,adult Start:12-Dec-2018 Instruction Type:Provider Instructions for Treatment How to access health informa tion online Indication:Nonsmoker Start:21-Nov-2018 Instruction Type:Patient Education How to access health informa tion online - Detail Indication:Nonsmoker Start:21-Nov-2018 Instruction Type:Patient Education Patient Instructions Indication:Nonsmoker Start:21-Nov-2018 Instruction Type:Provider Instructions for Treatment How to access health informa tion online Indication:Nonsmoker Start:05-Sep-2018 Instruction Type:Patient Education How to access health informa tion online - Detail Indication:Nonsmoker Start:05-Sep-2018 Instruction Type:Patient Education Patient Instructions Indication:Nonsmoker Start:05-Sep-2018 Instruction Type:Provider Instructions for Treatment How to access health informa tion online Indication:Nonsmoker Start:02-Jun-2018 Instruction Type:Patient Education How to access health informa tion online - Detail Indication:Nonsmoker Start:02-Jun-2018 Instruction Type:Patient Education Patient Instructions Indication:Encounter for screening for malignant neoplasm of prostate (Renamed from Screening for prostate cancer) Start:02-Jun-2018 Instruction Type:Provider Instructions for Treatment How to access health informa tion online Indication:Adult residual type attention deficit hyperactivity disorder (ADHD) Start:30-May-2018 Instruction Type:Patient Education How to access health informa tion online - Detail Indication:Adult residual type attention deficit hyperactivity disorder (ADHD) Start:30-May-2018 Instruction Type:Patient Education Patient Instructions Indication:Adult residual type attention deficit hyperactivity disorder (ADHD) Start:30-May-2018 Instruction Type:Provider Instructions for Treatment Patient Instructions Indication:Adult residual type attention deficit hyperactivity disorder (ADHD) Start:30-May-2018 Instruction Type:Provider Instructions for Treatment How to access health informa tion online Indication:Cracked lip Start:28-Apr-2018 Instruction Type:Patient Education How to access health informa tion online - Detail Indication:Cracked lip Start:28-Apr-2018 Instruction Type:Patient Education Patient Instructions Indication:Cracked lip Start:28-Apr-2018 Instruction Type:Provider Instructions for Treatment How to access health informa tion online Indication:Adult residual type attention deficit hyperactivity disorder (ADHD) Start:21-Feb-2018 Instruction Type:Patient Education How to access health informa tion online - Detail Indication:Adult residual type attention deficit hyperactivity disorder (ADHD) Start:21-Feb-2018 Instruction Type:Patient Education Patient Instructions Indication:Adult residual type attention deficit hyperactivity disorder (ADHD) Start:21-Feb-2018 Instruction Type:Provider Instructions for Treatment How to access health informa tion online Indication:Nonsmoker Start:27-Jan-2018 Instruction Type:Patient Education How to access health informa tion online - Detail Indication:Nonsmoker Start:27-Jan-2018 Instruction Type:Patient Education Patient Instructions Indication:Nonsmoker Start:27-Jan-2018 Instruction Type:Provider Instructions for Treatment How to access health informa tion online Indication:Adult residual type attention deficit hyperactivity disorder (ADHD) Start:25-Oct-2017 Instruction Type:Patient Education How to access health informa tion online - Detail Indication:Adult residual type attention deficit hyperactivity disorder (ADHD) Start:25-Oct-2017 Instruction Type:Patient Education Patient Instructions Indication:Adult residual type attention deficit hyperactivity disorder (ADHD) Start:25-Oct-2017 Instruction Type:Provider Instructions for Treatment How to access health informa tion online Indication:Abnormal glucose tolerance test (Renamed from Abnormal glucose tolerance test (GTT)) Start:13-Sep-2017 Instruction Type:Patient Education How to access health informa tion online - Detail Indication:Abnormal glucose tolerance test (Renamed from Abnormal glucose tolerance test (GTT)) Start:13-Sep-2017 Instruction Type:Patient Education Patient Instructions Indication:BMI 34.0-34.9,adult Start:13-Sep-2017 Instruction Type:Provider Instructions for Treatment How to access health informa tion online Indication:Nonsmoker Start:16-Aug-2017 Instruction Type:Patient Education How to access health informa tion online - Detail Indication:Nonsmoker Start:16-Aug-2017 Instruction Type:Patient Education Patient Instructions Indication:Nonsmoker Start:16-Aug-2017 Instruction Type:Provider Instructions for Treatment How to access health informa tion online Indication:Adult residual type attention deficit hyperactivity disorder (ADHD) Start:26-Jul-2017 Instruction Type:Patient Education How to access health informa tion online - Detail Indication:Adult residual type attention deficit hyperactivity disorder (ADHD) Start:26-Jul-2017 Instruction Type:Patient Education Patient Instructions Indication:Adult residual type attention deficit hyperactivity disorder (ADHD) Start:26-Jul-2017 Instruction Type:Provider Instructions for Treatment How to access health informa tion online Indication:Abnormal glucose tolerance test (Renamed from Abnormal glucose tolerance test (GTT)) Start:10-May-2017 Instruction Type:Patient Education How to access health informa tion online - Detail Indication:Abnormal glucose tolerance test (Renamed from Abnormal glucose tolerance test (GTT)) Start:10-May-2017 Instruction Type:Patient Education Patient Instructions Indication:Abnormal glucose tolerance test (Renamed from Abnormal glucose tolerance test (GTT)) Start:10-May-2017 Instruction Type:Provider Instructions for Treatment Patient Instructions Indication:Skin picking habit Start:18-Jan-2017 Instruction Type:Provider Instructions for Treatment How to access health informa tion online Indication:Hyperlipidemia, unspecified Start:03-Dec-2016 Instruction Type:Patient Education How to access health informa tion online - Detail Indication:Hyperlipidemia, unspecified Start:03-Dec-2016 Instruction Type:Patient Education Patient Instructions Indication:Hyperlipidemia, unspecified Start:03-Dec-2016 Instruction Type:Provider Instructions for Treatment How to access health informa tion online Indication:Adult residual type attention deficit hyperactivity disorder (ADHD) Start:12-Oct-2016 Instruction Type:Patient Education How to access health informa tion online - Detail Indication:Adult residual type attention deficit hyperactivity disorder (ADHD) Start:12-Oct-2016 Instruction Type:Patient Education Patient Instructions Indication:Adult residual type attention deficit hyperactivity disorder (ADHD) Start:12-Oct-2016 Instruction Type:Provider Instructions for Treatment Patient Instructions Indication:Vitamin D deficiency Start:01-Oct-2016 Instruction Type:Provider Instructions for Treatment How to access health informa tion online Indication:Nonsmoker Start:01-Oct-2016 Instruction Type:Patient Education How to access health informa tion online - Detail Indication:Nonsmoker Start:01-Oct-2016 Instruction Type:Patient Education Patient Instructions Indication:Nonsmoker Start:01-Oct-2016 Instruction Type:Provider Instructions for Treatment How to access health informa tion online Indication:Abnormal glucose tolerance test (Renamed from Abnormal glucose tolerance test (GTT)) Start:21-Sep-2016 Instruction Type:Patient Education How to access health informa tion online - Detail Indication:Abnormal glucose tolerance test (Renamed from Abnormal glucose tolerance test (GTT)) Start:21-Sep-2016 Instruction Type:Patient Education Patient Instructions Indication:Abnormal glucose tolerance test (Renamed from Abnormal glucose tolerance test (GTT)) Start:21-Sep-2016 Instruction Type:Provider Instructions for Treatment Patient Instructions Indication:Abnormal glucose tolerance test (Renamed from Abnormal glucose tolerance test (GTT)) Start:21-Sep-2016 Instruction Type:Provider Instructions for Treatment Patient Instructions Indication:Abnormal glucose tolerance test (Renamed from Abnormal glucose tolerance test (GTT)) Start:06-Feb-2016 Instruction Type:Provider Instructions for Treatment How to access health informa tion online Indication:Prediabetes Start:26-Dec-2015 Instruction Type:Patient Education How to access health informa tion online - Detail Indication:Prediabetes Start:26-Dec-2015 Instruction Type:Patient Education Patient Instructions Indication:Prediabetes Start:26-Dec-2015 Instruction Type:Provider Instructions for Treatment How to access health informa tion online Indication:Anxiety Start:27-Jun-2015 Instruction Type:Patient Education How to access health informa tion online - Detail Indication:Anxiety Start:27-Jun-2015 Instruction Type:Patient Education Patient Instructions Indication:Anxiety Start:27-Jun-2015 Instruction Type:Provider Instructions for Treatment Patient Instructions Indication:Anxiety Start:09-May-2015 Instruction Type:Provider Instructions for Treatment Patient Instructions Indication:Obesity, unspecified Start:21-May-2014 Instruction Type:Provider Instructions for Treatment How to access health informa tion online Indication:Obesity, unspecified Start:21-May-2014 Instruction Type:Patient Education How to access health informa tion online - Detail Indication:Obesity, unspecified Start:21-May-2014 Instruction Type:Patient Education How to access health informa tion online Indication:Laceration of left leg Start:10-May-2014 Instruction Type:Patient Education How to access health informa tion online - Detail Indication:Laceration of left leg Start:10-May-2014 Instruction Type:Patient Education Patient Instructions Indication:Laceration of left leg Start:10-May-2014 Instruction Type:Provider Instructions for Treatment Patient Instructions Indication:Hyperlipidemia, unspecified Start:28-Jan-2014 Instruction Type:Provider Instructions for Treatment [facility]; [facility] Work Phone: Instructions* Name Dates Details Patient Instructions Indication:BMI 33.0-33.9,adult Start:13-Apr-2022 Instruction Type:Provider Instructions for Treatment How to Access Health Informa tion Online using Patient Portal and [employer]rd [employer] Apps Indication:BMI 33.0-33.9,adult Start:13-Apr-2022 Instruction Type:Patient Education Patient Instructions Indication:Dysthymia Start:12-Jan-2022 Instruction Type:Provider Instructions for Treatment How to Access Health Informa tion Online using Patient Portal and [employer]rd [employer] Apps Indication:Dysthymia Start:12-Jan-2022 Instruction Type:Patient Education Patient Instructions Indication:Dysthymia Start:08-Dec-2021 Instruction Type:Provider Instructions for Treatment How to Access Health Informa tion Online using Patient Portal and [employer]rd [employer] Apps Indication:Dysthymia Start:08-Dec-2021 Instruction Type:Patient Education Patient Instructions Indication:BMI 33.0-33.9,adult Start:10-Nov-2021 Instruction Type:Provider Instructions for Treatment How to Access Health Informa tion Online using Patient Portal and [employer]rd [employer] Apps Indication:BMI 33.0-33.9,adult Start:10-Nov-2021 Instruction Type:Patient Education Patient Instructions Indication:Nonsmoker Start:03-Nov-2021 Instruction Type:Provider Instructions for Treatment How to Access Health Informa tion Online using Patient Portal and [employer]rd [employer] Apps Indication:Nonsmoker Start:03-Nov-2021 Instruction Type:Patient Education Patient Instructions Indication:Nonsmoker Start:05-May-2021 Instruction Type:Provider Instructions for Treatment How to Access Health Informa tion Online using Patient Portal and [employer]rd [employer] Apps Indication:Nonsmoker Start:05-May-2021 Instruction Type:Patient Education How to Access Health Informa tion Online using Patient Portal and [employer]rd [employer] Apps Indication:Abnormal glucose tolerance test (Renamed from Abnormal glucose tolerance test (GTT)) Start:28-Apr-2021 Instruction Type:Patient Education Patient Instructions Indication:Abnormal glucose tolerance test (Renamed from Abnormal glucose tolerance test (GTT)) Start:28-Apr-2021 Instruction Type:Provider Instructions for Treatment Patient Instructions Indication:Adult residual type attention deficit hyperactivity disorder (ADHD) Start:28-Apr-2021 Instruction Type:Provider Instructions for Treatment How to Access Health Informa tion Online using Patient Portal and [employer]rd [employer] Apps Indication:Adult residual type attention deficit hyperactivity disorder (ADHD) Start:28-Apr-2021 Instruction Type:Patient Education Patient Instructions Indication:Nonsmoker Start:14-Mar-2021 Instruction Type:Provider Instructions for Treatment How to Access Health Informa tion Online using Patient Portal and [employer]rd [employer] Apps Indication:Nonsmoker Start:14-Mar-2021 Instruction Type:Patient Education Patient Instructions Indication:Adult residual type attention deficit hyperactivity disorder (ADHD) Start:28-Oct-2020 Instruction Type:Provider Instructions for Treatment How to Access Health Informa tion Online using Patient Portal and [employer]rd [employer] Apps Indication:Adult residual type attention deficit hyperactivity disorder (ADHD) Start:28-Oct-2020 Instruction Type:Patient Education Patient Instructions Indication:BMI 32.0-32.9,adult Start:21-Oct-2020 Instruction Type:Provider Instructions for Treatment How to Access Health Informa tion Online using Patient Portal and [employer]rd [employer] Apps Indication:Nonsmoker Start:21-Oct-2020 Instruction Type:Patient Education How to access health informa tion online Indication:Adult residual type attention deficit hyperactivity disorder (ADHD) Start:29-Apr-2020 Instruction Type:Patient Education How to access health informa tion online - Detail Indication:Adult residual type attention deficit hyperactivity disorder (ADHD) Start:29-Apr-2020 Instruction Type:Patient Education Patient Instructions Indication:Adult residual type attention deficit hyperactivity disorder (ADHD) Start:29-Apr-2020 Instruction Type:Provider Instructions for Treatment How to access health informa tion online Indication:Nonsmoker Start:20-Apr-2020 Instruction Type:Patient Education How to access health informa tion online - Detail Indication:Nonsmoker Start:20-Apr-2020 Instruction Type:Patient Education Patient Instructions Indication:Nonsmoker Start:20-Apr-2020 Instruction Type:Provider Instructions for Treatment How to access health informa tion online Indication:Adult residual type attention deficit hyperactivity disorder (ADHD) Start:01-Jan-2020 Instruction Type:Patient Education How to access health informa tion online - Detail Indication:Adult residual type attention deficit hyperactivity disorder (ADHD) Start:01-Jan-2020 Instruction Type:Patient Education Patient Instructions Indication:Adult residual type attention deficit hyperactivity disorder (ADHD) Start:01-Jan-2020 Instruction Type:Provider Instructions for Treatment How to access health informa tion online Indication:Nonsmoker Start:27-Oct-2019 Instruction Type:Patient Education How to access health informa tion online - Detail Indication:Nonsmoker Start:27-Oct-2019 Instruction Type:Patient Education Patient Instructions Indication:Nonsmoker Start:27-Oct-2019 Instruction Type:Provider Instructions for Treatment How to access health informa tion online Indication:Nonsmoker Start:05-Oct-2019 Instruction Type:Patient Education How to access health informa tion online - Detail Indication:Nonsmoker Start:05-Oct-2019 Instruction Type:Patient Education Patient Instructions Indication:Encounter for screening for malignant neoplasm of prostate (Renamed from Screening for prostate cancer) Start:05-Oct-2019 Instruction Type:Provider Instructions for Treatment How to access health informa tion online Indication:Adult residual type attention deficit hyperactivity disorder (ADHD) Start:03-Jul-2019 Instruction Type:Patient Education How to access health informa tion online - Detail Indication:Adult residual type attention deficit hyperactivity disorder (ADHD) Start:03-Jul-2019 Instruction Type:Patient Education Patient Instructions Indication:Adult residual type attention deficit hyperactivity disorder (ADHD) Start:03-Jul-2019 Instruction Type:Provider Instructions for Treatment How to access health informa tion online Indication:Adult residual type attention deficit hyperactivity disorder (ADHD) Start:09-Apr-2019 Instruction Type:Patient Education How to access health informa tion online - Detail Indication:Adult residual type attention deficit hyperactivity disorder (ADHD) Start:09-Apr-2019 Instruction Type:Patient Education Patient Instructions Indication:Adult residual type attention deficit hyperactivity disorder (ADHD) Start:09-Apr-2019 Instruction Type:Provider Instructions for Treatment How to access health informa tion online Indication:Nonsmoker Start:20-Mar-2019 Instruction Type:Patient Education How to access health informa tion online - Detail Indication:Nonsmoker Start:20-Mar-2019 Instruction Type:Patient Education Patient Instructions Indication:Elevated blood-pressure reading, without diagnosis of hypertension (Renamed from Elevated blood-pressure reading without diagnosis of hypertension) Start:20-Mar-2019 Instruction Type:Provider Instructions for Treatment How to access health informa tion online Indication:Nonsmoker Start:12-Dec-2018 Instruction Type:Patient Education How to access health informa tion online - Detail Indication:Nonsmoker Start:12-Dec-2018 Instruction Type:Patient Education Patient Instructions Indication:BMI 34.0-34.9,adult Start:12-Dec-2018 Instruction Type:Provider Instructions for Treatment How to access health informa tion online Indication:Nonsmoker Start:21-Nov-2018 Instruction Type:Patient Education How to access health informa tion online - Detail Indication:Nonsmoker Start:21-Nov-2018 Instruction Type:Patient Education Patient Instructions Indication:Nonsmoker Start:21-Nov-2018 Instruction Type:Provider Instructions for Treatment How to access health informa tion online Indication:Nonsmoker Start:05-Sep-2018 Instruction Type:Patient Education How to access health informa tion online - Detail Indication:Nonsmoker Start:05-Sep-2018 Instruction Type:Patient Education Patient Instructions Indication:Nonsmoker Start:05-Sep-2018 Instruction Type:Provider Instructions for Treatment How to access health informa tion online Indication:Nonsmoker Start:02-Jun-2018 Instruction Type:Patient Education How to access health informa tion online - Detail Indication:Nonsmoker Start:02-Jun-2018 Instruction Type:Patient Education Patient Instructions Indication:Encounter for screening for malignant neoplasm of prostate (Renamed from Screening for prostate cancer) Start:02-Jun-2018 Instruction Type:Provider Instructions for Treatment How to access health informa tion online Indication:Adult residual type attention deficit hyperactivity disorder (ADHD) Start:30-May-2018 Instruction Type:Patient Education How to access health informa tion online - Detail Indication:Adult residual type attention deficit hyperactivity disorder (ADHD) Start:30-May-2018 Instruction Type:Patient Education Patient Instructions Indication:Adult residual type attention deficit hyperactivity disorder (ADHD) Start:30-May-2018 Instruction Type:Provider Instructions for Treatment Patient Instructions Indication:Adult residual type attention deficit hyperactivity disorder (ADHD) Start:30-May-2018 Instruction Type:Provider Instructions for Treatment How to access health informa tion online Indication:Cracked lip Start:28-Apr-2018 Instruction Type:Patient Education How to access health informa tion online - Detail Indication:Cracked lip Start:28-Apr-2018 Instruction Type:Patient Education Patient Instructions Indication:Cracked lip Start:28-Apr-2018 Instruction Type:Provider Instructions for Treatment How to access health informa tion online Indication:Adult residual type attention deficit hyperactivity disorder (ADHD) Start:21-Feb-2018 Instruction Type:Patient Education How to access health informa tion online - Detail Indication:Adult residual type attention deficit hyperactivity disorder (ADHD) Start:21-Feb-2018 Instruction Type:Patient Education Patient Instructions Indication:Adult residual type attention deficit hyperactivity disorder (ADHD) Start:21-Feb-2018 Instruction Type:Provider Instructions for Treatment How to access health informa tion online Indication:Nonsmoker Start:27-Jan-2018 Instruction Type:Patient Education How to access health informa tion online - Detail Indication:Nonsmoker Start:27-Jan-2018 Instruction Type:Patient Education Patient Instructions Indication:Nonsmoker Start:27-Jan-2018 Instruction Type:Provider Instructions for Treatment How to access health informa tion online Indication:Adult residual type attention deficit hyperactivity disorder (ADHD) Start:25-Oct-2017 Instruction Type:Patient Education How to access health informa tion online - Detail Indication:Adult residual type attention deficit hyperactivity disorder (ADHD) Start:25-Oct-2017 Instruction Type:Patient Education Patient Instructions Indication:Adult residual type attention deficit hyperactivity disorder (ADHD) Start:25-Oct-2017 Instruction Type:Provider Instructions for Treatment How to access health informa tion online Indication:Abnormal glucose tolerance test (Renamed from Abnormal glucose tolerance test (GTT)) Start:13-Sep-2017 Instruction Type:Patient Education How to access health informa tion online - Detail Indication:Abnormal glucose tolerance test (Renamed from Abnormal glucose tolerance test (GTT)) Start:13-Sep-2017 Instruction Type:Patient Education Patient Instructions Indication:BMI 34.0-34.9,adult Start:13-Sep-2017 Instruction Type:Provider Instructions for Treatment How to access health informa tion online Indication:Nonsmoker Start:16-Aug-2017 Instruction Type:Patient Education How to access health informa tion online - Detail Indication:Nonsmoker Start:16-Aug-2017 Instruction Type:Patient Education Patient Instructions Indication:Nonsmoker Start:16-Aug-2017 Instruction Type:Provider Instructions for Treatment How to access health informa tion online Indication:Adult residual type attention deficit hyperactivity disorder (ADHD) Start:26-Jul-2017 Instruction Type:Patient Education How to access health informa tion online - Detail Indication:Adult residual type attention deficit hyperactivity disorder (ADHD) Start:26-Jul-2017 Instruction Type:Patient Education Patient Instructions Indication:Adult residual type attention deficit hyperactivity disorder (ADHD) Start:26-Jul-2017 Instruction Type:Provider Instructions for Treatment How to access health informa tion online Indication:Abnormal glucose tolerance test (Renamed from Abnormal glucose tolerance test (GTT)) Start:10-May-2017 Instruction Type:Patient Education How to access health informa tion online - Detail Indication:Abnormal glucose tolerance test (Renamed from Abnormal glucose tolerance test (GTT)) Start:10-May-2017 Instruction Type:Patient Education Patient Instructions Indication:Abnormal glucose tolerance test (Renamed from Abnormal glucose tolerance test (GTT)) Start:10-May-2017 Instruction Type:Provider Instructions for Treatment Patient Instructions Indication:Skin picking habit Start:18-Jan-2017 Instruction Type:Provider Instructions for Treatment How to access health informa tion online Indication:Hyperlipidemia, unspecified Start:03-Dec-2016 Instruction Type:Patient Education How to access health informa tion online - Detail Indication:Hyperlipidemia, unspecified Start:03-Dec-2016 Instruction Type:Patient Education Patient Instructions Indication:Hyperlipidemia, unspecified Start:03-Dec-2016 Instruction Type:Provider Instructions for Treatment How to access health informa tion online Indication:Adult residual type attention deficit hyperactivity disorder (ADHD) Start:12-Oct-2016 Instruction Type:Patient Education How to access health informa tion online - Detail Indication:Adult residual type attention deficit hyperactivity disorder (ADHD) Start:12-Oct-2016 Instruction Type:Patient Education Patient Instructions Indication:Adult residual type attention deficit hyperactivity disorder (ADHD) Start:12-Oct-2016 Instruction Type:Provider Instructions for Treatment Patient Instructions Indication:Vitamin D deficiency Start:01-Oct-2016 Instruction Type:Provider Instructions for Treatment How to access health informa tion online Indication:Nonsmoker Start:01-Oct-2016 Instruction Type:Patient Education How to access health informa tion online - Detail Indication:Nonsmoker Start:01-Oct-2016 Instruction Type:Patient Education Patient Instructions Indication:Nonsmoker Start:01-Oct-2016 Instruction Type:Provider Instructions for Treatment How to access health informa tion online Indication:Abnormal glucose tolerance test (Renamed from Abnormal glucose tolerance test (GTT)) Start:21-Sep-2016 Instruction Type:Patient Education How to access health informa tion online - Detail Indication:Abnormal glucose tolerance test (Renamed from Abnormal glucose tolerance test (GTT)) Start:21-Sep-2016 Instruction Type:Patient Education Patient Instructions Indication:Abnormal glucose tolerance test (Renamed from Abnormal glucose tolerance test (GTT)) Start:21-Sep-2016 Instruction Type:Provider Instructions for Treatment Patient Instructions Indication:Abnormal glucose tolerance test (Renamed from Abnormal glucose tolerance test (GTT)) Start:21-Sep-2016 Instruction Type:Provider Instructions for Treatment Patient Instructions Indication:Abnormal glucose tolerance test (Renamed from Abnormal glucose tolerance test (GTT)) Start:06-Feb-2016 Instruction Type:Provider Instructions for Treatment How to access health informa tion online Indication:Prediabetes Start:26-Dec-2015 Instruction Type:Patient Education How to access health informa tion online - Detail Indication:Prediabetes Start:26-Dec-2015 Instruction Type:Patient Education Patient Instructions Indication:Prediabetes Start:26-Dec-2015 Instruction Type:Provider Instructions for Treatment How to access health informa tion online Indication:Anxiety Start:27-Jun-2015 Instruction Type:Patient Education How to access health informa tion online - Detail Indication:Anxiety Start:27-Jun-2015 Instruction Type:Patient Education Patient Instructions Indication:Anxiety Start:27-Jun-2015 Instruction Type:Provider Instructions for Treatment Patient Instructions Indication:Anxiety Start:09-May-2015 Instruction Type:Provider Instructions for Treatment Patient Instructions Indication:Obesity, unspecified Start:21-May-2014 Instruction Type:Provider Instructions for Treatment How to access health informa tion online Indication:Obesity, unspecified Start:21-May-2014 Instruction Type:Patient Education How to access health informa tion online - Detail Indication:Obesity, unspecified Start:21-May-2014 Instruction Type:Patient Education How to access health informa tion online Indication:Laceration of left leg Start:10-May-2014 Instruction Type:Patient Education How to access health informa tion online - Detail Indication:Laceration of left leg Start:10-May-2014 Instruction Type:Patient Education Patient Instructions Indication:Laceration of left leg Start:10-May-2014 Instruction Type:Provider Instructions for Treatment Patient Instructions Indication:Hyperlipidemia, unspecified Start:28-Jan-2014 Instruction Type:Provider Instructions for Treatment [facility]; [facility] Work Phone: Instructions* Name Dates Details Patient Instructions Indication:BMI 33.0-33.9,adult Start:13-Apr-2022 Instruction Type:Provider Instructions for Treatment How to Access Health Informa tion Online using Patient Portal and [employer]rd [employer] Apps Indication:BMI 33.0-33.9,adult Start:13-Apr-2022 Instruction Type:Patient Education Patient Instructions Indication:Dysthymia Start:12-Jan-2022 Instruction Type:Provider Instructions for Treatment How to Access Health Informa tion Online using Patient Portal and [employer] Apps Indication:Dysthymia Start:12-Jan-2022 Instruction Type:Patient Education Patient Instructions Indication:Dysthymia Start:08-Dec-2021 Instruction Type:Provider Instructions for Treatment How to Access Health Informa tion Online using Patient Portal and [employer] Apps Indication:Dysthymia Start:08-Dec-2021 Instruction Type:Patient Education Patient Instructions Indication:BMI 33.0-33.9,adult Start:10-Nov-2021 Instruction Type:Provider Instructions for Treatment How to Access Health Informa tion Online using Patient Portal and [employer] Apps Indication:BMI 33.0-33.9,adult Start:10-Nov-2021 Instruction Type:Patient Education Patient Instructions Indication:Nonsmoker Start:03-Nov-2021 Instruction Type:Provider Instructions for Treatment How to Access Health Informa tion Online using Patient Portal and [employer] Apps Indication:Nonsmoker Start:03-Nov-2021 Instruction Type:Patient Education Patient Instructions Indication:Nonsmoker Start:05-May-2021 Instruction Type:Provider Instructions for Treatment How to Access Health Informa tion Online using Patient Portal and [employer] Apps Indication:Nonsmoker Start:05-May-2021 Instruction Type:Patient Education How to Access Health Informa tion Online using Patient Portal and [employer] Apps Indication:Abnormal glucose tolerance test (Renamed from Abnormal glucose tolerance test (GTT)) Start:28-Apr-2021 Instruction Type:Patient Education Patient Instructions Indication:Abnormal glucose tolerance test (Renamed from Abnormal glucose tolerance test (GTT)) Start:28-Apr-2021 Instruction Type:Provider Instructions for Treatment Patient Instructions Indication:Adult residual type attention deficit hyperactivity disorder (ADHD) Start:28-Apr-2021 Instruction Type:Provider Instructions for Treatment How to Access Health Informa tion Online using Patient Portal and [employer] Apps Indication:Adult residual type attention deficit hyperactivity disorder (ADHD) Start:28-Apr-2021 Instruction Type:Patient Education Patient Instructions Indication:Nonsmoker Start:14-Mar-2021 Instruction Type:Provider Instructions for Treatment How to Access Health Informa tion Online using Patient Portal and [employer]rd [employer] Apps Indication:Nonsmoker Start:14-Mar-2021 Instruction Type:Patient Education Patient Instructions Indication:Adult residual type attention deficit hyperactivity disorder (ADHD) Start:28-Oct-2020 Instruction Type:Provider Instructions for Treatment How to Access Health Informa tion Online using Patient Portal and [employer]rd [employer] Apps Indication:Adult residual type attention deficit hyperactivity disorder (ADHD) Start:28-Oct-2020 Instruction Type:Patient Education Patient Instructions Indication:BMI 32.0-32.9,adult Start:21-Oct-2020 Instruction Type:Provider Instructions for Treatment How to Access Health Informa tion Online using Patient Portal and [employer]rd [employer] Apps Indication:Nonsmoker Start:21-Oct-2020 Instruction Type:Patient Education How to access health informa tion online Indication:Adult residual type attention deficit hyperactivity disorder (ADHD) Start:29-Apr-2020 Instruction Type:Patient Education How to access health informa tion online - Detail Indication:Adult residual type attention deficit hyperactivity disorder (ADHD) Start:29-Apr-2020 Instruction Type:Patient Education Patient Instructions Indication:Adult residual type attention deficit hyperactivity disorder (ADHD) Start:29-Apr-2020 Instruction Type:Provider Instructions for Treatment How to access health informa tion online Indication:Nonsmoker Start:20-Apr-2020 Instruction Type:Patient Education How to access health informa tion online - Detail Indication:Nonsmoker Start:20-Apr-2020 Instruction Type:Patient Education Patient Instructions Indication:Nonsmoker Start:20-Apr-2020 Instruction Type:Provider Instructions for Treatment How to access health informa tion online Indication:Adult residual type attention deficit hyperactivity disorder (ADHD) Start:01-Jan-2020 Instruction Type:Patient Education How to access health informa tion online - Detail Indication:Adult residual type attention deficit hyperactivity disorder (ADHD) Start:01-Jan-2020 Instruction Type:Patient Education Patient Instructions Indication:Adult residual type attention deficit hyperactivity disorder (ADHD) Start:01-Jan-2020 Instruction Type:Provider Instructions for Treatment How to access health informa tion online Indication:Nonsmoker Start:27-Oct-2019 Instruction Type:Patient Education How to access health informa tion online - Detail Indication:Nonsmoker Start:27-Oct-2019 Instruction Type:Patient Education Patient Instructions Indication:Nonsmoker Start:27-Oct-2019 Instruction Type:Provider Instructions for Treatment How to access health informa tion online Indication:Nonsmoker Start:05-Oct-2019 Instruction Type:Patient Education How to access health informa tion online - Detail Indication:Nonsmoker Start:05-Oct-2019 Instruction Type:Patient Education Patient Instructions Indication:Encounter for screening for malignant neoplasm of prostate (Renamed from Screening for prostate cancer) Start:05-Oct-2019 Instruction Type:Provider Instructions for Treatment How to access health informa tion online Indication:Adult residual type attention deficit hyperactivity disorder (ADHD) Start:03-Jul-2019 Instruction Type:Patient Education How to access health informa tion online - Detail Indication:Adult residual type attention deficit hyperactivity disorder (ADHD) Start:03-Jul-2019 Instruction Type:Patient Education Patient Instructions Indication:Adult residual type attention deficit hyperactivity disorder (ADHD) Start:03-Jul-2019 Instruction Type:Provider Instructions for Treatment How to access health informa tion online Indication:Adult residual type attention deficit hyperactivity disorder (ADHD) Start:09-Apr-2019 Instruction Type:Patient Education How to access health informa tion online - Detail Indication:Adult residual type attention deficit hyperactivity disorder (ADHD) Start:09-Apr-2019 Instruction Type:Patient Education Patient Instructions Indication:Adult residual type attention deficit hyperactivity disorder (ADHD) Start:09-Apr-2019 Instruction Type:Provider Instructions for Treatment How to access health informa tion online Indication:Nonsmoker Start:20-Mar-2019 Instruction Type:Patient Education How to access health informa tion online - Detail Indication:Nonsmoker Start:20-Mar-2019 Instruction Type:Patient Education Patient Instructions Indication:Elevated blood-pressure reading, without diagnosis of hypertension (Renamed from Elevated blood-pressure reading without diagnosis of hypertension) Start:20-Mar-2019 Instruction Type:Provider Instructions for Treatment How to access health informa tion online Indication:Nonsmoker Start:12-Dec-2018 Instruction Type:Patient Education How to access health informa tion online - Detail Indication:Nonsmoker Start:12-Dec-2018 Instruction Type:Patient Education Patient Instructions Indication:BMI 34.0-34.9,adult Start:12-Dec-2018 Instruction Type:Provider Instructions for Treatment How to access health informa tion online Indication:Nonsmoker Start:21-Nov-2018 Instruction Type:Patient Education How to access health informa tion online - Detail Indication:Nonsmoker Start:21-Nov-2018 Instruction Type:Patient Education Patient Instructions Indication:Nonsmoker Start:21-Nov-2018 Instruction Type:Provider Instructions for Treatment How to access health informa tion online Indication:Nonsmoker Start:05-Sep-2018 Instruction Type:Patient Education How to access health informa tion online - Detail Indication:Nonsmoker Start:05-Sep-2018 Instruction Type:Patient Education Patient Instructions Indication:Nonsmoker Start:05-Sep-2018 Instruction Type:Provider Instructions for Treatment How to access health informa tion online Indication:Nonsmoker Start:02-Jun-2018 Instruction Type:Patient Education How to access health informa tion online - Detail Indication:Nonsmoker Start:02-Jun-2018 Instruction Type:Patient Education Patient Instructions Indication:Encounter for screening for malignant neoplasm of prostate (Renamed from Screening for prostate cancer) Start:02-Jun-2018 Instruction Type:Provider Instructions for Treatment How to access health informa tion online Indication:Adult residual type attention deficit hyperactivity disorder (ADHD) Start:30-May-2018 Instruction Type:Patient Education How to access health informa tion online - Detail Indication:Adult residual type attention deficit hyperactivity disorder (ADHD) Start:30-May-2018 Instruction Type:Patient Education Patient Instructions Indication:Adult residual type attention deficit hyperactivity disorder (ADHD) Start:30-May-2018 Instruction Type:Provider Instructions for Treatment Patient Instructions Indication:Adult residual type attention deficit hyperactivity disorder (ADHD) Start:30-May-2018 Instruction Type:Provider Instructions for Treatment How to access health informa tion online Indication:Cracked lip Start:28-Apr-2018 Instruction Type:Patient Education How to access health informa tion online - Detail Indication:Cracked lip Start:28-Apr-2018 Instruction Type:Patient Education Patient Instructions Indication:Cracked lip Start:28-Apr-2018 Instruction Type:Provider Instructions for Treatment How to access health informa tion online Indication:Adult residual type attention deficit hyperactivity disorder (ADHD) Start:21-Feb-2018 Instruction Type:Patient Education How to access health informa tion online - Detail Indication:Adult residual type attention deficit hyperactivity disorder (ADHD) Start:21-Feb-2018 Instruction Type:Patient Education Patient Instructions Indication:Adult residual type attention deficit hyperactivity disorder (ADHD) Start:21-Feb-2018 Instruction Type:Provider Instructions for Treatment How to access health informa tion online Indication:Nonsmoker Start:27-Jan-2018 Instruction Type:Patient Education How to access health informa tion online - Detail Indication:Nonsmoker Start:27-Jan-2018 Instruction Type:Patient Education Patient Instructions Indication:Nonsmoker Start:27-Jan-2018 Instruction Type:Provider Instructions for Treatment How to access health informa tion online Indication:Adult residual type attention deficit hyperactivity disorder (ADHD) Start:25-Oct-2017 Instruction Type:Patient Education How to access health informa tion online - Detail Indication:Adult residual type attention deficit hyperactivity disorder (ADHD) Start:25-Oct-2017 Instruction Type:Patient Education Patient Instructions Indication:Adult residual type attention deficit hyperactivity disorder (ADHD) Start:25-Oct-2017 Instruction Type:Provider Instructions for Treatment How to access health informa tion online Indication:Abnormal glucose tolerance test (Renamed from Abnormal glucose tolerance test (GTT)) Start:13-Sep-2017 Instruction Type:Patient Education How to access health informa tion online - Detail Indication:Abnormal glucose tolerance test (Renamed from Abnormal glucose tolerance test (GTT)) Start:13-Sep-2017 Instruction Type:Patient Education Patient Instructions Indication:BMI 34.0-34.9,adult Start:13-Sep-2017 Instruction Type:Provider Instructions for Treatment How to access health informa tion online Indication:Nonsmoker Start:16-Aug-2017 Instruction Type:Patient Education How to access health informa tion online - Detail Indication:Nonsmoker Start:16-Aug-2017 Instruction Type:Patient Education Patient Instructions Indication:Nonsmoker Start:16-Aug-2017 Instruction Type:Provider Instructions for Treatment How to access health informa tion online Indication:Adult residual type attention deficit hyperactivity disorder (ADHD) Start:26-Jul-2017 Instruction Type:Patient Education How to access health informa tion online - Detail Indication:Adult residual type attention deficit hyperactivity disorder (ADHD) Start:26-Jul-2017 Instruction Type:Patient Education Patient Instructions Indication:Adult residual type attention deficit hyperactivity disorder (ADHD) Start:26-Jul-2017 Instruction Type:Provider Instructions for Treatment How to access health informa tion online Indication:Abnormal glucose tolerance test (Renamed from Abnormal glucose tolerance test (GTT)) Start:10-May-2017 Instruction Type:Patient Education How to access health informa tion online - Detail Indication:Abnormal glucose tolerance test (Renamed from Abnormal glucose tolerance test (GTT)) Start:10-May-2017 Instruction Type:Patient Education Patient Instructions Indication:Abnormal glucose tolerance test (Renamed from Abnormal glucose tolerance test (GTT)) Start:10-May-2017 Instruction Type:Provider Instructions for Treatment Patient Instructions Indication:Skin picking habit Start:18-Jan-2017 Instruction Type:Provider Instructions for Treatment How to access health informa tion online Indication:Hyperlipidemia, unspecified Start:03-Dec-2016 Instruction Type:Patient Education How to access health informa tion online - Detail Indication:Hyperlipidemia, unspecified Start:03-Dec-2016 Instruction Type:Patient Education Patient Instructions Indication:Hyperlipidemia, unspecified Start:03-Dec-2016 Instruction Type:Provider Instructions for Treatment How to access health informa tion online Indication:Adult residual type attention deficit hyperactivity disorder (ADHD) Start:12-Oct-2016 Instruction Type:Patient Education How to access health informa tion online - Detail Indication:Adult residual type attention deficit hyperactivity disorder (ADHD) Start:12-Oct-2016 Instruction Type:Patient Education Patient Instructions Indication:Adult residual type attention deficit hyperactivity disorder (ADHD) Start:12-Oct-2016 Instruction Type:Provider Instructions for Treatment Patient Instructions Indication:Vitamin D deficiency Start:01-Oct-2016 Instruction Type:Provider Instructions for Treatment How to access health informa tion online Indication:Nonsmoker Start:01-Oct-2016 Instruction Type:Patient Education How to access health informa tion online - Detail Indication:Nonsmoker Start:01-Oct-2016 Instruction Type:Patient Education Patient Instructions Indication:Nonsmoker Start:01-Oct-2016 Instruction Type:Provider Instructions for Treatment How to access health informa tion online Indication:Abnormal glucose tolerance test (Renamed from Abnormal glucose tolerance test (GTT)) Start:21-Sep-2016 Instruction Type:Patient Education How to access health informa tion online - Detail Indication:Abnormal glucose tolerance test (Renamed from Abnormal glucose tolerance test (GTT)) Start:21-Sep-2016 Instruction Type:Patient Education Patient Instructions Indication:Abnormal glucose tolerance test (Renamed from Abnormal glucose tolerance test (GTT)) Start:21-Sep-2016 Instruction Type:Provider Instructions for Treatment Patient Instructions Indication:Abnormal glucose tolerance test (Renamed from Abnormal glucose tolerance test (GTT)) Start:21-Sep-2016 Instruction Type:Provider Instructions for Treatment Patient Instructions Indication:Abnormal glucose tolerance test (Renamed from Abnormal glucose tolerance test (GTT)) Start:06-Feb-2016 Instruction Type:Provider Instructions for Treatment How to access health informa tion online Indication:Prediabetes Start:26-Dec-2015 Instruction Type:Patient Education How to access health informa tion online - Detail Indication:Prediabetes Start:26-Dec-2015 Instruction Type:Patient Education Patient Instructions Indication:Prediabetes Start:26-Dec-2015 Instruction Type:Provider Instructions for Treatment How to access health informa tion online Indication:Anxiety Start:27-Jun-2015 Instruction Type:Patient Education How to access health informa tion online - Detail Indication:Anxiety Start:27-Jun-2015 Instruction Type:Patient Education Patient Instructions Indication:Anxiety Start:27-Jun-2015 Instruction Type:Provider Instructions for Treatment Patient Instructions Indication:Anxiety Start:09-May-2015 Instruction Type:Provider Instructions for Treatment Patient Instructions Indication:Obesity, unspecified Start:21-May-2014 Instruction Type:Provider Instructions for Treatment How to access health informa tion online Indication:Obesity, unspecified Start:21-May-2014 Instruction Type:Patient Education How to access health informa tion online - Detail Indication:Obesity, unspecified Start:21-May-2014 Instruction Type:Patient Education How to access health informa tion online Indication:Laceration of left leg Start:10-May-2014 Instruction Type:Patient Education How to access health informa tion online - Detail Indication:Laceration of left leg Start:10-May-2014 Instruction Type:Patient Education Patient Instructions Indication:Laceration of left leg Start:10-May-2014 Instruction Type:Provider Instructions for Treatment Patient Instructions Indication:Hyperlipidemia, unspecified Start:28-Jan-2014 Instruction Type:Provider Instructions for Treatment [facility]; [facility] Work Phone: Instructions* Name Dates Details Patient Instructions Indication:Nonsmoker Start:13-Jun-2022 Instruction Type:Provider Instructions for Treatment How to Access Health Informa tion Online using Patient Portal and [employer]rd [employer] Apps Indication:Nonsmoker Start:13-Jun-2022 Instruction Type:Patient Education Patient Instructions Indication:BMI 33.0-33.9,adult Start:13-Apr-2022 Instruction Type:Provider Instructions for Treatment How to Access Health Informa tion Online using Patient Portal and [employer]rd [employer] Apps Indication:BMI 33.0-33.9,adult Start:13-Apr-2022 Instruction Type:Patient Education Patient Instructions Indication:Dysthymia Start:12-Jan-2022 Instruction Type:Provider Instructions for Treatment How to Access Health Informa tion Online using Patient Portal and [employer]rd [employer] Apps Indication:Dysthymia Start:12-Jan-2022 Instruction Type:Patient Education Patient Instructions Indication:Dysthymia Start:08-Dec-2021 Instruction Type:Provider Instructions for Treatment How to Access Health Informa tion Online using Patient Portal and [employer] Apps Indication:Dysthymia Start:08-Dec-2021 Instruction Type:Patient Education Patient Instructions Indication:BMI 33.0-33.9,adult Start:10-Nov-2021 Instruction Type:Provider Instructions for Treatment How to Access Health Informa tion Online using Patient Portal and [employer]rd [employer] Apps Indication:BMI 33.0-33.9,adult Start:10-Nov-2021 Instruction Type:Patient Education Patient Instructions Indication:Nonsmoker Start:03-Nov-2021 Instruction Type:Provider Instructions for Treatment How to Access Health Informa tion Online using Patient Portal and [employer] Apps Indication:Nonsmoker Start:03-Nov-2021 Instruction Type:Patient Education Patient Instructions Indication:Nonsmoker Start:05-May-2021 Instruction Type:Provider Instructions for Treatment How to Access Health Informa tion Online using Patient Portal and [employer] Apps Indication:Nonsmoker Start:05-May-2021 Instruction Type:Patient Education How to Access Health Informa tion Online using Patient Portal and [employer] Apps Indication:Abnormal glucose tolerance test (Renamed from Abnormal glucose tolerance test (GTT)) Start:28-Apr-2021 Instruction Type:Patient Education Patient Instructions Indication:Abnormal glucose tolerance test (Renamed from Abnormal glucose tolerance test (GTT)) Start:28-Apr-2021 Instruction Type:Provider Instructions for Treatment Patient Instructions Indication:Adult residual type attention deficit hyperactivity disorder (ADHD) Start:28-Apr-2021 Instruction Type:Provider Instructions for Treatment How to Access Health Informa tion Online using Patient Portal and [employer] Apps Indication:Adult residual type attention deficit hyperactivity disorder (ADHD) Start:28-Apr-2021 Instruction Type:Patient Education Patient Instructions Indication:Nonsmoker Start:14-Mar-2021 Instruction Type:Provider Instructions for Treatment How to Access Health Informa tion Online using Patient Portal and [employer] Apps Indication:Nonsmoker Start:14-Mar-2021 Instruction Type:Patient Education Patient Instructions Indication:Adult residual type attention deficit hyperactivity disorder (ADHD) Start:28-Oct-2020 Instruction Type:Provider Instructions for Treatment How to Access Health Informa tion Online using Patient Portal and [employer] Apps Indication:Adult residual type attention deficit hyperactivity disorder (ADHD) Start:28-Oct-2020 Instruction Type:Patient Education Patient Instructions Indication:BMI 32.0-32.9,adult Start:21-Oct-2020 Instruction Type:Provider Instructions for Treatment How to Access Health Informa tion Online using Patient Portal and [employer] Apps Indication:Nonsmoker Start:21-Oct-2020 Instruction Type:Patient Education How to access health informa tion online Indication:Adult residual type attention deficit hyperactivity disorder (ADHD) Start:29-Apr-2020 Instruction Type:Patient Education How to access health informa tion online - Detail Indication:Adult residual type attention deficit hyperactivity disorder (ADHD) Start:29-Apr-2020 Instruction Type:Patient Education Patient Instructions Indication:Adult residual type attention deficit hyperactivity disorder (ADHD) Start:29-Apr-2020 Instruction Type:Provider Instructions for Treatment How to access health informa tion online Indication:Nonsmoker Start:20-Apr-2020 Instruction Type:Patient Education How to access health informa tion online - Detail Indication:Nonsmoker Start:20-Apr-2020 Instruction Type:Patient Education Patient Instructions Indication:Nonsmoker Start:20-Apr-2020 Instruction Type:Provider Instructions for Treatment How to access health informa tion online Indication:Adult residual type attention deficit hyperactivity disorder (ADHD) Start:01-Jan-2020 Instruction Type:Patient Education How to access health informa tion online - Detail Indication:Adult residual type attention deficit hyperactivity disorder (ADHD) Start:01-Jan-2020 Instruction Type:Patient Education Patient Instructions Indication:Adult residual type attention deficit hyperactivity disorder (ADHD) Start:01-Jan-2020 Instruction Type:Provider Instructions for Treatment How to access health informa tion online Indication:Nonsmoker Start:27-Oct-2019 Instruction Type:Patient Education How to access health informa tion online - Detail Indication:Nonsmoker Start:27-Oct-2019 Instruction Type:Patient Education Patient Instructions Indication:Nonsmoker Start:27-Oct-2019 Instruction Type:Provider Instructions for Treatment How to access health informa tion online Indication:Nonsmoker Start:05-Oct-2019 Instruction Type:Patient Education How to access health informa tion online - Detail Indication:Nonsmoker Start:05-Oct-2019 Instruction Type:Patient Education Patient Instructions Indication:Encounter for screening for malignant neoplasm of prostate (Renamed from Screening for prostate cancer) Start:05-Oct-2019 Instruction Type:Provider Instructions for Treatment How to access health informa tion online Indication:Adult residual type attention deficit hyperactivity disorder (ADHD) Start:03-Jul-2019 Instruction Type:Patient Education How to access health informa tion online - Detail Indication:Adult residual type attention deficit hyperactivity disorder (ADHD) Start:03-Jul-2019 Instruction Type:Patient Education Patient Instructions Indication:Adult residual type attention deficit hyperactivity disorder (ADHD) Start:03-Jul-2019 Instruction Type:Provider Instructions for Treatment How to access health informa tion online Indication:Adult residual type attention deficit hyperactivity disorder (ADHD) Start:09-Apr-2019 Instruction Type:Patient Education How to access health informa tion online - Detail Indication:Adult residual type attention deficit hyperactivity disorder (ADHD) Start:09-Apr-2019 Instruction Type:Patient Education Patient Instructions Indication:Adult residual type attention deficit hyperactivity disorder (ADHD) Start:09-Apr-2019 Instruction Type:Provider Instructions for Treatment How to access health informa tion online Indication:Nonsmoker Start:20-Mar-2019 Instruction Type:Patient Education How to access health informa tion online - Detail Indication:Nonsmoker Start:20-Mar-2019 Instruction Type:Patient Education Patient Instructions Indication:Elevated blood-pressure reading, without diagnosis of hypertension (Renamed from Elevated blood-pressure reading without diagnosis of hypertension) Start:20-Mar-2019 Instruction Type:Provider Instructions for Treatment How to access health informa tion online Indication:Nonsmoker Start:12-Dec-2018 Instruction Type:Patient Education How to access health informa tion online - Detail Indication:Nonsmoker Start:12-Dec-2018 Instruction Type:Patient Education Patient Instructions Indication:BMI 34.0-34.9,adult Start:12-Dec-2018 Instruction Type:Provider Instructions for Treatment How to access health informa tion online Indication:Nonsmoker Start:21-Nov-2018 Instruction Type:Patient Education How to access health informa tion online - Detail Indication:Nonsmoker Start:21-Nov-2018 Instruction Type:Patient Education Patient Instructions Indication:Nonsmoker Start:21-Nov-2018 Instruction Type:Provider Instructions for Treatment How to access health informa tion online Indication:Nonsmoker Start:05-Sep-2018 Instruction Type:Patient Education How to access health informa tion online - Detail Indication:Nonsmoker Start:05-Sep-2018 Instruction Type:Patient Education Patient Instructions Indication:Nonsmoker Start:05-Sep-2018 Instruction Type:Provider Instructions for Treatment How to access health informa tion online Indication:Nonsmoker Start:02-Jun-2018 Instruction Type:Patient Education How to access health informa tion online - Detail Indication:Nonsmoker Start:02-Jun-2018 Instruction Type:Patient Education Patient Instructions Indication:Encounter for screening for malignant neoplasm of prostate (Renamed from Screening for prostate cancer) Start:02-Jun-2018 Instruction Type:Provider Instructions for Treatment How to access health informa tion online Indication:Adult residual type attention deficit hyperactivity disorder (ADHD) Start:30-May-2018 Instruction Type:Patient Education How to access health informa tion online - Detail Indication:Adult residual type attention deficit hyperactivity disorder (ADHD) Start:30-May-2018 Instruction Type:Patient Education Patient Instructions Indication:Adult residual type attention deficit hyperactivity disorder (ADHD) Start:30-May-2018 Instruction Type:Provider Instructions for Treatment Patient Instructions Indication:Adult residual type attention deficit hyperactivity disorder (ADHD) Start:30-May-2018 Instruction Type:Provider Instructions for Treatment How to access health informa tion online Indication:Cracked lip Start:28-Apr-2018 Instruction Type:Patient Education How to access health informa tion online - Detail Indication:Cracked lip Start:28-Apr-2018 Instruction Type:Patient Education Patient Instructions Indication:Cracked lip Start:28-Apr-2018 Instruction Type:Provider Instructions for Treatment How to access health informa tion online Indication:Adult residual type attention deficit hyperactivity disorder (ADHD) Start:21-Feb-2018 Instruction Type:Patient Education How to access health informa tion online - Detail Indication:Adult residual type attention deficit hyperactivity disorder (ADHD) Start:21-Feb-2018 Instruction Type:Patient Education Patient Instructions Indication:Adult residual type attention deficit hyperactivity disorder (ADHD) Start:21-Feb-2018 Instruction Type:Provider Instructions for Treatment How to access health informa tion online Indication:Nonsmoker Start:27-Jan-2018 Instruction Type:Patient Education How to access health informa tion online - Detail Indication:Nonsmoker Start:27-Jan-2018 Instruction Type:Patient Education Patient Instructions Indication:Nonsmoker Start:27-Jan-2018 Instruction Type:Provider Instructions for Treatment How to access health informa tion online Indication:Adult residual type attention deficit hyperactivity disorder (ADHD) Start:25-Oct-2017 Instruction Type:Patient Education How to access health informa tion online - Detail Indication:Adult residual type attention deficit hyperactivity disorder (ADHD) Start:25-Oct-2017 Instruction Type:Patient Education Patient Instructions Indication:Adult residual type attention deficit hyperactivity disorder (ADHD) Start:25-Oct-2017 Instruction Type:Provider Instructions for Treatment How to access health informa tion online Indication:Abnormal glucose tolerance test (Renamed from Abnormal glucose tolerance test (GTT)) Start:13-Sep-2017 Instruction Type:Patient Education How to access health informa tion online - Detail Indication:Abnormal glucose tolerance test (Renamed from Abnormal glucose tolerance test (GTT)) Start:13-Sep-2017 Instruction Type:Patient Education Patient Instructions Indication:BMI 34.0-34.9,adult Start:13-Sep-2017 Instruction Type:Provider Instructions for Treatment How to access health informa tion online Indication:Nonsmoker Start:16-Aug-2017 Instruction Type:Patient Education How to access health informa tion online - Detail Indication:Nonsmoker Start:16-Aug-2017 Instruction Type:Patient Education Patient Instructions Indication:Nonsmoker Start:16-Aug-2017 Instruction Type:Provider Instructions for Treatment How to access health informa tion online Indication:Adult residual type attention deficit hyperactivity disorder (ADHD) Start:26-Jul-2017 Instruction Type:Patient Education How to access health informa tion online - Detail Indication:Adult residual type attention deficit hyperactivity disorder (ADHD) Start:26-Jul-2017 Instruction Type:Patient Education Patient Instructions Indication:Adult residual type attention deficit hyperactivity disorder (ADHD) Start:26-Jul-2017 Instruction Type:Provider Instructions for Treatment How to access health informa tion online Indication:Abnormal glucose tolerance test (Renamed from Abnormal glucose tolerance test (GTT)) Start:10-May-2017 Instruction Type:Patient Education How to access health informa tion online - Detail Indication:Abnormal glucose tolerance test (Renamed from Abnormal glucose tolerance test (GTT)) Start:10-May-2017 Instruction Type:Patient Education Patient Instructions Indication:Abnormal glucose tolerance test (Renamed from Abnormal glucose tolerance test (GTT)) Start:10-May-2017 Instruction Type:Provider Instructions for Treatment Patient Instructions Indication:Skin picking habit Start:18-Jan-2017 Instruction Type:Provider Instructions for Treatment How to access health informa tion online Indication:Hyperlipidemia, unspecified Start:03-Dec-2016 Instruction Type:Patient Education How to access health informa tion online - Detail Indication:Hyperlipidemia, unspecified Start:03-Dec-2016 Instruction Type:Patient Education Patient Instructions Indication:Hyperlipidemia, unspecified Start:03-Dec-2016 Instruction Type:Provider Instructions for Treatment How to access health informa tion online Indication:Adult residual type attention deficit hyperactivity disorder (ADHD) Start:12-Oct-2016 Instruction Type:Patient Education How to access health informa tion online - Detail Indication:Adult residual type attention deficit hyperactivity disorder (ADHD) Start:12-Oct-2016 Instruction Type:Patient Education Patient Instructions Indication:Adult residual type attention deficit hyperactivity disorder (ADHD) Start:12-Oct-2016 Instruction Type:Provider Instructions for Treatment Patient Instructions Indication:Vitamin D deficiency Start:01-Oct-2016 Instruction Type:Provider Instructions for Treatment How to access health informa tion online Indication:Nonsmoker Start:01-Oct-2016 Instruction Type:Patient Education How to access health informa tion online - Detail Indication:Nonsmoker Start:01-Oct-2016 Instruction Type:Patient Education Patient Instructions Indication:Nonsmoker Start:01-Oct-2016 Instruction Type:Provider Instructions for Treatment How to access health informa tion online Indication:Abnormal glucose tolerance test (Renamed from Abnormal glucose tolerance test (GTT)) Start:21-Sep-2016 Instruction Type:Patient Education How to access health informa tion online - Detail Indication:Abnormal glucose tolerance test (Renamed from Abnormal glucose tolerance test (GTT)) Start:21-Sep-2016 Instruction Type:Patient Education Patient Instructions Indication:Abnormal glucose tolerance test (Renamed from Abnormal glucose tolerance test (GTT)) Start:21-Sep-2016 Instruction Type:Provider Instructions for Treatment Patient Instructions Indication:Abnormal glucose tolerance test (Renamed from Abnormal glucose tolerance test (GTT)) Start:21-Sep-2016 Instruction Type:Provider Instructions for Treatment Patient Instructions Indication:Abnormal glucose tolerance test (Renamed from Abnormal glucose tolerance test (GTT)) Start:06-Feb-2016 Instruction Type:Provider Instructions for Treatment How to access health informa tion online Indication:Prediabetes Start:26-Dec-2015 Instruction Type:Patient Education How to access health informa tion online - Detail Indication:Prediabetes Start:26-Dec-2015 Instruction Type:Patient Education Patient Instructions Indication:Prediabetes Start:26-Dec-2015 Instruction Type:Provider Instructions for Treatment How to access health informa tion online Indication:Anxiety Start:27-Jun-2015 Instruction Type:Patient Education How to access health informa tion online - Detail Indication:Anxiety Start:27-Jun-2015 Instruction Type:Patient Education Patient Instructions Indication:Anxiety Start:27-Jun-2015 Instruction Type:Provider Instructions for Treatment Patient Instructions Indication:Anxiety Start:09-May-2015 Instruction Type:Provider Instructions for Treatment Patient Instructions Indication:Obesity, unspecified Start:21-May-2014 Instruction Type:Provider Instructions for Treatment How to access health informa tion online Indication:Obesity, unspecified Start:21-May-2014 Instruction Type:Patient Education How to access health informa tion online - Detail Indication:Obesity, unspecified Start:21-May-2014 Instruction Type:Patient Education How to access health informa tion online Indication:Laceration of left leg Start:10-May-2014 Instruction Type:Patient Education How to access health informa tion online - Detail Indication:Laceration of left leg Start:10-May-2014 Instruction Type:Patient Education Patient Instructions Indication:Laceration of left leg Start:10-May-2014 Instruction Type:Provider Instructions for Treatment Patient Instructions Indication:Hyperlipidemia, unspecified Start:28-Jan-2014 Instruction Type:Provider Instructions for Treatment [facility]; [facility] Work Phone: Instructions* Name Dates Details Patient Instructions Indication:Nonsmoker Start:13-Jun-2022 Instruction Type:Provider Instructions for Treatment How to Access Health Informa tion Online using Patient Portal and [employer]rd [employer] Apps Indication:Nonsmoker Start:13-Jun-2022 Instruction Type:Patient Education Patient Instructions Indication:BMI 33.0-33.9,adult Start:13-Apr-2022 Instruction Type:Provider Instructions for Treatment How to Access Health Informa tion Online using Patient Portal and [employer]rd [employer] Apps Indication:BMI 33.0-33.9,adult Start:13-Apr-2022 Instruction Type:Patient Education Patient Instructions Indication:Dysthymia Start:12-Jan-2022 Instruction Type:Provider Instructions for Treatment How to Access Health Informa tion Online using Patient Portal and [employer]rd [employer] Apps Indication:Dysthymia Start:12-Jan-2022 Instruction Type:Patient Education Patient Instructions Indication:Dysthymia Start:08-Dec-2021 Instruction Type:Provider Instructions for Treatment How to Access Health Informa tion Online using Patient Portal and [employer]rd [employer] Apps Indication:Dysthymia Start:08-Dec-2021 Instruction Type:Patient Education Patient Instructions Indication:BMI 33.0-33.9,adult Start:10-Nov-2021 Instruction Type:Provider Instructions for Treatment How to Access Health Informa tion Online using Patient Portal and [employer]rd [employer] Apps Indication:BMI 33.0-33.9,adult Start:10-Nov-2021 Instruction Type:Patient Education Patient Instructions Indication:Nonsmoker Start:03-Nov-2021 Instruction Type:Provider Instructions for Treatment How to Access Health Informa tion Online using Patient Portal and [employer] Apps Indication:Nonsmoker Start:03-Nov-2021 Instruction Type:Patient Education Patient Instructions Indication:Nonsmoker Start:05-May-2021 Instruction Type:Provider Instructions for Treatment How to Access Health Informa tion Online using Patient Portal and [employer] Apps Indication:Nonsmoker Start:05-May-2021 Instruction Type:Patient Education How to Access Health Informa tion Online using Patient Portal and [employer] Apps Indication:Abnormal glucose tolerance test (Renamed from Abnormal glucose tolerance test (GTT)) Start:28-Apr-2021 Instruction Type:Patient Education Patient Instructions Indication:Abnormal glucose tolerance test (Renamed from Abnormal glucose tolerance test (GTT)) Start:28-Apr-2021 Instruction Type:Provider Instructions for Treatment Patient Instructions Indication:Adult residual type attention deficit hyperactivity disorder (ADHD) Start:28-Apr-2021 Instruction Type:Provider Instructions for Treatment How to Access Health Informa tion Online using Patient Portal and [employer] Apps Indication:Adult residual type attention deficit hyperactivity disorder (ADHD) Start:28-Apr-2021 Instruction Type:Patient Education Patient Instructions Indication:Nonsmoker Start:14-Mar-2021 Instruction Type:Provider Instructions for Treatment How to Access Health Informa tion Online using Patient Portal and [employer] Apps Indication:Nonsmoker Start:14-Mar-2021 Instruction Type:Patient Education Patient Instructions Indication:Adult residual type attention deficit hyperactivity disorder (ADHD) Start:28-Oct-2020 Instruction Type:Provider Instructions for Treatment How to Access Health Informa tion Online using Patient Portal and [employer] Apps Indication:Adult residual type attention deficit hyperactivity disorder (ADHD) Start:28-Oct-2020 Instruction Type:Patient Education Patient Instructions Indication:BMI 32.0-32.9,adult Start:21-Oct-2020 Instruction Type:Provider Instructions for Treatment How to Access Health Informa tion Online using Patient Portal and [employer] Apps Indication:Nonsmoker Start:21-Oct-2020 Instruction Type:Patient Education How to access health informa tion online Indication:Adult residual type attention deficit hyperactivity disorder (ADHD) Start:29-Apr-2020 Instruction Type:Patient Education How to access health informa tion online - Detail Indication:Adult residual type attention deficit hyperactivity disorder (ADHD) Start:29-Apr-2020 Instruction Type:Patient Education Patient Instructions Indication:Adult residual type attention deficit hyperactivity disorder (ADHD) Start:29-Apr-2020 Instruction Type:Provider Instructions for Treatment How to access health informa tion online Indication:Nonsmoker Start:20-Apr-2020 Instruction Type:Patient Education How to access health informa tion online - Detail Indication:Nonsmoker Start:20-Apr-2020 Instruction Type:Patient Education Patient Instructions Indication:Nonsmoker Start:20-Apr-2020 Instruction Type:Provider Instructions for Treatment How to access health informa tion online Indication:Adult residual type attention deficit hyperactivity disorder (ADHD) Start:01-Jan-2020 Instruction Type:Patient Education How to access health informa tion online - Detail Indication:Adult residual type attention deficit hyperactivity disorder (ADHD) Start:01-Jan-2020 Instruction Type:Patient Education Patient Instructions Indication:Adult residual type attention deficit hyperactivity disorder (ADHD) Start:01-Jan-2020 Instruction Type:Provider Instructions for Treatment How to access health informa tion online Indication:Nonsmoker Start:27-Oct-2019 Instruction Type:Patient Education How to access health informa tion online - Detail Indication:Nonsmoker Start:27-Oct-2019 Instruction Type:Patient Education Patient Instructions Indication:Nonsmoker Start:27-Oct-2019 Instruction Type:Provider Instructions for Treatment How to access health informa tion online Indication:Nonsmoker Start:05-Oct-2019 Instruction Type:Patient Education How to access health informa tion online - Detail Indication:Nonsmoker Start:05-Oct-2019 Instruction Type:Patient Education Patient Instructions Indication:Encounter for screening for malignant neoplasm of prostate (Renamed from Screening for prostate cancer) Start:05-Oct-2019 Instruction Type:Provider Instructions for Treatment How to access health informa tion online Indication:Adult residual type attention deficit hyperactivity disorder (ADHD) Start:03-Jul-2019 Instruction Type:Patient Education How to access health informa tion online - Detail Indication:Adult residual type attention deficit hyperactivity disorder (ADHD) Start:03-Jul-2019 Instruction Type:Patient Education Patient Instructions Indication:Adult residual type attention deficit hyperactivity disorder (ADHD) Start:03-Jul-2019 Instruction Type:Provider Instructions for Treatment How to access health informa tion online Indication:Adult residual type attention deficit hyperactivity disorder (ADHD) Start:09-Apr-2019 Instruction Type:Patient Education How to access health informa tion online - Detail Indication:Adult residual type attention deficit hyperactivity disorder (ADHD) Start:09-Apr-2019 Instruction Type:Patient Education Patient Instructions Indication:Adult residual type attention deficit hyperactivity disorder (ADHD) Start:09-Apr-2019 Instruction Type:Provider Instructions for Treatment How to access health informa tion online Indication:Nonsmoker Start:20-Mar-2019 Instruction Type:Patient Education How to access health informa tion online - Detail Indication:Nonsmoker Start:20-Mar-2019 Instruction Type:Patient Education Patient Instructions Indication:Elevated blood-pressure reading, without diagnosis of hypertension (Renamed from Elevated blood-pressure reading without diagnosis of hypertension) Start:20-Mar-2019 Instruction Type:Provider Instructions for Treatment How to access health informa tion online Indication:Nonsmoker Start:12-Dec-2018 Instruction Type:Patient Education How to access health informa tion online - Detail Indication:Nonsmoker Start:12-Dec-2018 Instruction Type:Patient Education Patient Instructions Indication:BMI 34.0-34.9,adult Start:12-Dec-2018 Instruction Type:Provider Instructions for Treatment How to access health informa tion online Indication:Nonsmoker Start:21-Nov-2018 Instruction Type:Patient Education How to access health informa tion online - Detail Indication:Nonsmoker Start:21-Nov-2018 Instruction Type:Patient Education Patient Instructions Indication:Nonsmoker Start:21-Nov-2018 Instruction Type:Provider Instructions for Treatment How to access health informa tion online Indication:Nonsmoker Start:05-Sep-2018 Instruction Type:Patient Education How to access health informa tion online - Detail Indication:Nonsmoker Start:05-Sep-2018 Instruction Type:Patient Education Patient Instructions Indication:Nonsmoker Start:05-Sep-2018 Instruction Type:Provider Instructions for Treatment How to access health informa tion online Indication:Nonsmoker Start:02-Jun-2018 Instruction Type:Patient Education How to access health informa tion online - Detail Indication:Nonsmoker Start:02-Jun-2018 Instruction Type:Patient Education Patient Instructions Indication:Encounter for screening for malignant neoplasm of prostate (Renamed from Screening for prostate cancer) Start:02-Jun-2018 Instruction Type:Provider Instructions for Treatment How to access health informa tion online Indication:Adult residual type attention deficit hyperactivity disorder (ADHD) Start:30-May-2018 Instruction Type:Patient Education How to access health informa tion online - Detail Indication:Adult residual type attention deficit hyperactivity disorder (ADHD) Start:30-May-2018 Instruction Type:Patient Education Patient Instructions Indication:Adult residual type attention deficit hyperactivity disorder (ADHD) Start:30-May-2018 Instruction Type:Provider Instructions for Treatment Patient Instructions Indication:Adult residual type attention deficit hyperactivity disorder (ADHD) Start:30-May-2018 Instruction Type:Provider Instructions for Treatment How to access health informa tion online Indication:Cracked lip Start:28-Apr-2018 Instruction Type:Patient Education How to access health informa tion online - Detail Indication:Cracked lip Start:28-Apr-2018 Instruction Type:Patient Education Patient Instructions Indication:Cracked lip Start:28-Apr-2018 Instruction Type:Provider Instructions for Treatment How to access health informa tion online Indication:Adult residual type attention deficit hyperactivity disorder (ADHD) Start:21-Feb-2018 Instruction Type:Patient Education How to access health informa tion online - Detail Indication:Adult residual type attention deficit hyperactivity disorder (ADHD) Start:21-Feb-2018 Instruction Type:Patient Education Patient Instructions Indication:Adult residual type attention deficit hyperactivity disorder (ADHD) Start:21-Feb-2018 Instruction Type:Provider Instructions for Treatment How to access health informa tion online Indication:Nonsmoker Start:27-Jan-2018 Instruction Type:Patient Education How to access health informa tion online - Detail Indication:Nonsmoker Start:27-Jan-2018 Instruction Type:Patient Education Patient Instructions Indication:Nonsmoker Start:27-Jan-2018 Instruction Type:Provider Instructions for Treatment How to access health informa tion online Indication:Adult residual type attention deficit hyperactivity disorder (ADHD) Start:25-Oct-2017 Instruction Type:Patient Education How to access health informa tion online - Detail Indication:Adult residual type attention deficit hyperactivity disorder (ADHD) Start:25-Oct-2017 Instruction Type:Patient Education Patient Instructions Indication:Adult residual type attention deficit hyperactivity disorder (ADHD) Start:25-Oct-2017 Instruction Type:Provider Instructions for Treatment How to access health informa tion online Indication:Abnormal glucose tolerance test (Renamed from Abnormal glucose tolerance test (GTT)) Start:13-Sep-2017 Instruction Type:Patient Education How to access health informa tion online - Detail Indication:Abnormal glucose tolerance test (Renamed from Abnormal glucose tolerance test (GTT)) Start:13-Sep-2017 Instruction Type:Patient Education Patient Instructions Indication:BMI 34.0-34.9,adult Start:13-Sep-2017 Instruction Type:Provider Instructions for Treatment How to access health informa tion online Indication:Nonsmoker Start:16-Aug-2017 Instruction Type:Patient Education How to access health informa tion online - Detail Indication:Nonsmoker Start:16-Aug-2017 Instruction Type:Patient Education Patient Instructions Indication:Nonsmoker Start:16-Aug-2017 Instruction Type:Provider Instructions for Treatment How to access health informa tion online Indication:Adult residual type attention deficit hyperactivity disorder (ADHD) Start:26-Jul-2017 Instruction Type:Patient Education How to access health informa tion online - Detail Indication:Adult residual type attention deficit hyperactivity disorder (ADHD) Start:26-Jul-2017 Instruction Type:Patient Education Patient Instructions Indication:Adult residual type attention deficit hyperactivity disorder (ADHD) Start:26-Jul-2017 Instruction Type:Provider Instructions for Treatment How to access health informa tion online Indication:Abnormal glucose tolerance test (Renamed from Abnormal glucose tolerance test (GTT)) Start:10-May-2017 Instruction Type:Patient Education How to access health informa tion online - Detail Indication:Abnormal glucose tolerance test (Renamed from Abnormal glucose tolerance test (GTT)) Start:10-May-2017 Instruction Type:Patient Education Patient Instructions Indication:Abnormal glucose tolerance test (Renamed from Abnormal glucose tolerance test (GTT)) Start:10-May-2017 Instruction Type:Provider Instructions for Treatment Patient Instructions Indication:Skin picking habit Start:18-Jan-2017 Instruction Type:Provider Instructions for Treatment How to access health informa tion online Indication:Hyperlipidemia, unspecified Start:03-Dec-2016 Instruction Type:Patient Education How to access health informa tion online - Detail Indication:Hyperlipidemia, unspecified Start:03-Dec-2016 Instruction Type:Patient Education Patient Instructions Indication:Hyperlipidemia, unspecified Start:03-Dec-2016 Instruction Type:Provider Instructions for Treatment How to access health informa tion online Indication:Adult residual type attention deficit hyperactivity disorder (ADHD) Start:12-Oct-2016 Instruction Type:Patient Education How to access health informa tion online - Detail Indication:Adult residual type attention deficit hyperactivity disorder (ADHD) Start:12-Oct-2016 Instruction Type:Patient Education Patient Instructions Indication:Adult residual type attention deficit hyperactivity disorder (ADHD) Start:12-Oct-2016 Instruction Type:Provider Instructions for Treatment Patient Instructions Indication:Vitamin D deficiency Start:01-Oct-2016 Instruction Type:Provider Instructions for Treatment How to access health informa tion online Indication:Nonsmoker Start:01-Oct-2016 Instruction Type:Patient Education How to access health informa tion online - Detail Indication:Nonsmoker Start:01-Oct-2016 Instruction Type:Patient Education Patient Instructions Indication:Nonsmoker Start:01-Oct-2016 Instruction Type:Provider Instructions for Treatment How to access health informa tion online Indication:Abnormal glucose tolerance test (Renamed from Abnormal glucose tolerance test (GTT)) Start:21-Sep-2016 Instruction Type:Patient Education How to access health informa tion online - Detail Indication:Abnormal glucose tolerance test (Renamed from Abnormal glucose tolerance test (GTT)) Start:21-Sep-2016 Instruction Type:Patient Education Patient Instructions Indication:Abnormal glucose tolerance test (Renamed from Abnormal glucose tolerance test (GTT)) Start:21-Sep-2016 Instruction Type:Provider Instructions for Treatment Patient Instructions Indication:Abnormal glucose tolerance test (Renamed from Abnormal glucose tolerance test (GTT)) Start:21-Sep-2016 Instruction Type:Provider Instructions for Treatment Patient Instructions Indication:Abnormal glucose tolerance test (Renamed from Abnormal glucose tolerance test (GTT)) Start:06-Feb-2016 Instruction Type:Provider Instructions for Treatment How to access health informa tion online Indication:Prediabetes Start:26-Dec-2015 Instruction Type:Patient Education How to access health informa tion online - Detail Indication:Prediabetes Start:26-Dec-2015 Instruction Type:Patient Education Patient Instructions Indication:Prediabetes Start:26-Dec-2015 Instruction Type:Provider Instructions for Treatment How to access health informa tion online Indication:Anxiety Start:27-Jun-2015 Instruction Type:Patient Education How to access health informa tion online - Detail Indication:Anxiety Start:27-Jun-2015 Instruction Type:Patient Education Patient Instructions Indication:Anxiety Start:27-Jun-2015 Instruction Type:Provider Instructions for Treatment Patient Instructions Indication:Anxiety Start:09-May-2015 Instruction Type:Provider Instructions for Treatment Patient Instructions Indication:Obesity, unspecified Start:21-May-2014 Instruction Type:Provider Instructions for Treatment How to access health informa tion online Indication:Obesity, unspecified Start:21-May-2014 Instruction Type:Patient Education How to access health informa tion online - Detail Indication:Obesity, unspecified Start:21-May-2014 Instruction Type:Patient Education How to access health informa tion online Indication:Laceration of left leg Start:10-May-2014 Instruction Type:Patient Education How to access health informa tion online - Detail Indication:Laceration of left leg Start:10-May-2014 Instruction Type:Patient Education Patient Instructions Indication:Laceration of left leg Start:10-May-2014 Instruction Type:Provider Instructions for Treatment Patient Instructions Indication:Hyperlipidemia, unspecified Start:28-Jan-2014 Instruction Type:Provider Instructions for Treatment [facility]; [facility] Work Phone: Instructions* Name Dates Details Patient Instructions Indication:Nonsmoker Start:13-Jun-2022 Instruction Type:Provider Instructions for Treatment How to Access Health Informa tion Online using Patient Portal and [employer]rd [employer] Apps Indication:Nonsmoker Start:13-Jun-2022 Instruction Type:Patient Education Patient Instructions Indication:BMI 33.0-33.9,adult Start:13-Apr-2022 Instruction Type:Provider Instructions for Treatment How to Access Health Informa tion Online using Patient Portal and [employer]rd [employer] Apps Indication:BMI 33.0-33.9,adult Start:13-Apr-2022 Instruction Type:Patient Education Patient Instructions Indication:Dysthymia Start:12-Jan-2022 Instruction Type:Provider Instructions for Treatment How to Access Health Informa tion Online using Patient Portal and [employer]rd [employer] Apps Indication:Dysthymia Start:12-Jan-2022 Instruction Type:Patient Education Patient Instructions Indication:Dysthymia Start:08-Dec-2021 Instruction Type:Provider Instructions for Treatment How to Access Health Informa tion Online using Patient Portal and [employer] Apps Indication:Dysthymia Start:08-Dec-2021 Instruction Type:Patient Education Patient Instructions Indication:BMI 33.0-33.9,adult Start:10-Nov-2021 Instruction Type:Provider Instructions for Treatment How to Access Health Informa tion Online using Patient Portal and [employer] Apps Indication:BMI 33.0-33.9,adult Start:10-Nov-2021 Instruction Type:Patient Education Patient Instructions Indication:Nonsmoker Start:03-Nov-2021 Instruction Type:Provider Instructions for Treatment How to Access Health Informa tion Online using Patient Portal and [employer] Apps Indication:Nonsmoker Start:03-Nov-2021 Instruction Type:Patient Education Patient Instructions Indication:Nonsmoker Start:05-May-2021 Instruction Type:Provider Instructions for Treatment How to Access Health Informa tion Online using Patient Portal and [employer] Apps Indication:Nonsmoker Start:05-May-2021 Instruction Type:Patient Education How to Access Health Informa tion Online using Patient Portal and [employer] Apps Indication:Abnormal glucose tolerance test (Renamed from Abnormal glucose tolerance test (GTT)) Start:28-Apr-2021 Instruction Type:Patient Education Patient Instructions Indication:Abnormal glucose tolerance test (Renamed from Abnormal glucose tolerance test (GTT)) Start:28-Apr-2021 Instruction Type:Provider Instructions for Treatment Patient Instructions Indication:Adult residual type attention deficit hyperactivity disorder (ADHD) Start:28-Apr-2021 Instruction Type:Provider Instructions for Treatment How to Access Health Informa tion Online using Patient Portal and [employer] Apps Indication:Adult residual type attention deficit hyperactivity disorder (ADHD) Start:28-Apr-2021 Instruction Type:Patient Education Patient Instructions Indication:Nonsmoker Start:14-Mar-2021 Instruction Type:Provider Instructions for Treatment How to Access Health Informa tion Online using Patient Portal and [employer] Apps Indication:Nonsmoker Start:14-Mar-2021 Instruction Type:Patient Education Patient Instructions Indication:Adult residual type attention deficit hyperactivity disorder (ADHD) Start:28-Oct-2020 Instruction Type:Provider Instructions for Treatment How to Access Health Informa tion Online using Patient Portal and [employer]rd [employer] Apps Indication:Adult residual type attention deficit hyperactivity disorder (ADHD) Start:28-Oct-2020 Instruction Type:Patient Education Patient Instructions Indication:BMI 32.0-32.9,adult Start:21-Oct-2020 Instruction Type:Provider Instructions for Treatment How to Access Health Informa tion Online using Patient Portal and [employer]rd [employer] Apps Indication:Nonsmoker Start:21-Oct-2020 Instruction Type:Patient Education How to access health informa tion online Indication:Adult residual type attention deficit hyperactivity disorder (ADHD) Start:29-Apr-2020 Instruction Type:Patient Education How to access health informa tion online - Detail Indication:Adult residual type attention deficit hyperactivity disorder (ADHD) Start:29-Apr-2020 Instruction Type:Patient Education Patient Instructions Indication:Adult residual type attention deficit hyperactivity disorder (ADHD) Start:29-Apr-2020 Instruction Type:Provider Instructions for Treatment How to access health informa tion online Indication:Nonsmoker Start:20-Apr-2020 Instruction Type:Patient Education How to access health informa tion online - Detail Indication:Nonsmoker Start:20-Apr-2020 Instruction Type:Patient Education Patient Instructions Indication:Nonsmoker Start:20-Apr-2020 Instruction Type:Provider Instructions for Treatment How to access health informa tion online Indication:Adult residual type attention deficit hyperactivity disorder (ADHD) Start:01-Jan-2020 Instruction Type:Patient Education How to access health informa tion online - Detail Indication:Adult residual type attention deficit hyperactivity disorder (ADHD) Start:01-Jan-2020 Instruction Type:Patient Education Patient Instructions Indication:Adult residual type attention deficit hyperactivity disorder (ADHD) Start:01-Jan-2020 Instruction Type:Provider Instructions for Treatment How to access health informa tion online Indication:Nonsmoker Start:27-Oct-2019 Instruction Type:Patient Education How to access health informa tion online - Detail Indication:Nonsmoker Start:27-Oct-2019 Instruction Type:Patient Education Patient Instructions Indication:Nonsmoker Start:27-Oct-2019 Instruction Type:Provider Instructions for Treatment How to access health informa tion online Indication:Nonsmoker Start:05-Oct-2019 Instruction Type:Patient Education How to access health informa tion online - Detail Indication:Nonsmoker Start:05-Oct-2019 Instruction Type:Patient Education Patient Instructions Indication:Encounter for screening for malignant neoplasm of prostate (Renamed from Screening for prostate cancer) Start:05-Oct-2019 Instruction Type:Provider Instructions for Treatment How to access health informa tion online Indication:Adult residual type attention deficit hyperactivity disorder (ADHD) Start:03-Jul-2019 Instruction Type:Patient Education How to access health informa tion online - Detail Indication:Adult residual type attention deficit hyperactivity disorder (ADHD) Start:03-Jul-2019 Instruction Type:Patient Education Patient Instructions Indication:Adult residual type attention deficit hyperactivity disorder (ADHD) Start:03-Jul-2019 Instruction Type:Provider Instructions for Treatment How to access health informa tion online Indication:Adult residual type attention deficit hyperactivity disorder (ADHD) Start:09-Apr-2019 Instruction Type:Patient Education How to access health informa tion online - Detail Indication:Adult residual type attention deficit hyperactivity disorder (ADHD) Start:09-Apr-2019 Instruction Type:Patient Education Patient Instructions Indication:Adult residual type attention deficit hyperactivity disorder (ADHD) Start:09-Apr-2019 Instruction Type:Provider Instructions for Treatment How to access health informa tion online Indication:Nonsmoker Start:20-Mar-2019 Instruction Type:Patient Education How to access health informa tion online - Detail Indication:Nonsmoker Start:20-Mar-2019 Instruction Type:Patient Education Patient Instructions Indication:Elevated blood-pressure reading, without diagnosis of hypertension (Renamed from Elevated blood-pressure reading without diagnosis of hypertension) Start:20-Mar-2019 Instruction Type:Provider Instructions for Treatment How to access health informa tion online Indication:Nonsmoker Start:12-Dec-2018 Instruction Type:Patient Education How to access health informa tion online - Detail Indication:Nonsmoker Start:12-Dec-2018 Instruction Type:Patient Education Patient Instructions Indication:BMI 34.0-34.9,adult Start:12-Dec-2018 Instruction Type:Provider Instructions for Treatment How to access health informa tion online Indication:Nonsmoker Start:21-Nov-2018 Instruction Type:Patient Education How to access health informa tion online - Detail Indication:Nonsmoker Start:21-Nov-2018 Instruction Type:Patient Education Patient Instructions Indication:Nonsmoker Start:21-Nov-2018 Instruction Type:Provider Instructions for Treatment How to access health informa tion online Indication:Nonsmoker Start:05-Sep-2018 Instruction Type:Patient Education How to access health informa tion online - Detail Indication:Nonsmoker Start:05-Sep-2018 Instruction Type:Patient Education Patient Instructions Indication:Nonsmoker Start:05-Sep-2018 Instruction Type:Provider Instructions for Treatment How to access health informa tion online Indication:Nonsmoker Start:02-Jun-2018 Instruction Type:Patient Education How to access health informa tion online - Detail Indication:Nonsmoker Start:02-Jun-2018 Instruction Type:Patient Education Patient Instructions Indication:Encounter for screening for malignant neoplasm of prostate (Renamed from Screening for prostate cancer) Start:02-Jun-2018 Instruction Type:Provider Instructions for Treatment How to access health informa tion online Indication:Adult residual type attention deficit hyperactivity disorder (ADHD) Start:30-May-2018 Instruction Type:Patient Education How to access health informa tion online - Detail Indication:Adult residual type attention deficit hyperactivity disorder (ADHD) Start:30-May-2018 Instruction Type:Patient Education Patient Instructions Indication:Adult residual type attention deficit hyperactivity disorder (ADHD) Start:30-May-2018 Instruction Type:Provider Instructions for Treatment Patient Instructions Indication:Adult residual type attention deficit hyperactivity disorder (ADHD) Start:30-May-2018 Instruction Type:Provider Instructions for Treatment How to access health informa tion online Indication:Cracked lip Start:28-Apr-2018 Instruction Type:Patient Education How to access health informa tion online - Detail Indication:Cracked lip Start:28-Apr-2018 Instruction Type:Patient Education Patient Instructions Indication:Cracked lip Start:28-Apr-2018 Instruction Type:Provider Instructions for Treatment How to access health informa tion online Indication:Adult residual type attention deficit hyperactivity disorder (ADHD) Start:21-Feb-2018 Instruction Type:Patient Education How to access health informa tion online - Detail Indication:Adult residual type attention deficit hyperactivity disorder (ADHD) Start:21-Feb-2018 Instruction Type:Patient Education Patient Instructions Indication:Adult residual type attention deficit hyperactivity disorder (ADHD) Start:21-Feb-2018 Instruction Type:Provider Instructions for Treatment How to access health informa tion online Indication:Nonsmoker Start:27-Jan-2018 Instruction Type:Patient Education How to access health informa tion online - Detail Indication:Nonsmoker Start:27-Jan-2018 Instruction Type:Patient Education Patient Instructions Indication:Nonsmoker Start:27-Jan-2018 Instruction Type:Provider Instructions for Treatment How to access health informa tion online Indication:Adult residual type attention deficit hyperactivity disorder (ADHD) Start:25-Oct-2017 Instruction Type:Patient Education How to access health informa tion online - Detail Indication:Adult residual type attention deficit hyperactivity disorder (ADHD) Start:25-Oct-2017 Instruction Type:Patient Education Patient Instructions Indication:Adult residual type attention deficit hyperactivity disorder (ADHD) Start:25-Oct-2017 Instruction Type:Provider Instructions for Treatment How to access health informa tion online Indication:Abnormal glucose tolerance test (Renamed from Abnormal glucose tolerance test (GTT)) Start:13-Sep-2017 Instruction Type:Patient Education How to access health informa tion online - Detail Indication:Abnormal glucose tolerance test (Renamed from Abnormal glucose tolerance test (GTT)) Start:13-Sep-2017 Instruction Type:Patient Education Patient Instructions Indication:BMI 34.0-34.9,adult Start:13-Sep-2017 Instruction Type:Provider Instructions for Treatment How to access health informa tion online Indication:Nonsmoker Start:16-Aug-2017 Instruction Type:Patient Education How to access health informa tion online - Detail Indication:Nonsmoker Start:16-Aug-2017 Instruction Type:Patient Education Patient Instructions Indication:Nonsmoker Start:16-Aug-2017 Instruction Type:Provider Instructions for Treatment How to access health informa tion online Indication:Adult residual type attention deficit hyperactivity disorder (ADHD) Start:26-Jul-2017 Instruction Type:Patient Education How to access health informa tion online - Detail Indication:Adult residual type attention deficit hyperactivity disorder (ADHD) Start:26-Jul-2017 Instruction Type:Patient Education Patient Instructions Indication:Adult residual type attention deficit hyperactivity disorder (ADHD) Start:26-Jul-2017 Instruction Type:Provider Instructions for Treatment How to access health informa tion online Indication:Abnormal glucose tolerance test (Renamed from Abnormal glucose tolerance test (GTT)) Start:10-May-2017 Instruction Type:Patient Education How to access health informa tion online - Detail Indication:Abnormal glucose tolerance test (Renamed from Abnormal glucose tolerance test (GTT)) Start:10-May-2017 Instruction Type:Patient Education Patient Instructions Indication:Abnormal glucose tolerance test (Renamed from Abnormal glucose tolerance test (GTT)) Start:10-May-2017 Instruction Type:Provider Instructions for Treatment Patient Instructions Indication:Skin picking habit Start:18-Jan-2017 Instruction Type:Provider Instructions for Treatment How to access health informa tion online Indication:Hyperlipidemia, unspecified Start:03-Dec-2016 Instruction Type:Patient Education How to access health informa tion online - Detail Indication:Hyperlipidemia, unspecified Start:03-Dec-2016 Instruction Type:Patient Education Patient Instructions Indication:Hyperlipidemia, unspecified Start:03-Dec-2016 Instruction Type:Provider Instructions for Treatment How to access health informa tion online Indication:Adult residual type attention deficit hyperactivity disorder (ADHD) Start:12-Oct-2016 Instruction Type:Patient Education How to access health informa tion online - Detail Indication:Adult residual type attention deficit hyperactivity disorder (ADHD) Start:12-Oct-2016 Instruction Type:Patient Education Patient Instructions Indication:Adult residual type attention deficit hyperactivity disorder (ADHD) Start:12-Oct-2016 Instruction Type:Provider Instructions for Treatment Patient Instructions Indication:Vitamin D deficiency Start:01-Oct-2016 Instruction Type:Provider Instructions for Treatment How to access health informa tion online Indication:Nonsmoker Start:01-Oct-2016 Instruction Type:Patient Education How to access health informa tion online - Detail Indication:Nonsmoker Start:01-Oct-2016 Instruction Type:Patient Education Patient Instructions Indication:Nonsmoker Start:01-Oct-2016 Instruction Type:Provider Instructions for Treatment How to access health informa tion online Indication:Abnormal glucose tolerance test (Renamed from Abnormal glucose tolerance test (GTT)) Start:21-Sep-2016 Instruction Type:Patient Education How to access health informa tion online - Detail Indication:Abnormal glucose tolerance test (Renamed from Abnormal glucose tolerance test (GTT)) Start:21-Sep-2016 Instruction Type:Patient Education Patient Instructions Indication:Abnormal glucose tolerance test (Renamed from Abnormal glucose tolerance test (GTT)) Start:21-Sep-2016 Instruction Type:Provider Instructions for Treatment Patient Instructions Indication:Abnormal glucose tolerance test (Renamed from Abnormal glucose tolerance test (GTT)) Start:21-Sep-2016 Instruction Type:Provider Instructions for Treatment Patient Instructions Indication:Abnormal glucose tolerance test (Renamed from Abnormal glucose tolerance test (GTT)) Start:06-Feb-2016 Instruction Type:Provider Instructions for Treatment How to access health informa tion online Indication:Prediabetes Start:26-Dec-2015 Instruction Type:Patient Education How to access health informa tion online - Detail Indication:Prediabetes Start:26-Dec-2015 Instruction Type:Patient Education Patient Instructions Indication:Prediabetes Start:26-Dec-2015 Instruction Type:Provider Instructions for Treatment How to access health informa tion online Indication:Anxiety Start:27-Jun-2015 Instruction Type:Patient Education How to access health informa tion online - Detail Indication:Anxiety Start:27-Jun-2015 Instruction Type:Patient Education Patient Instructions Indication:Anxiety Start:27-Jun-2015 Instruction Type:Provider Instructions for Treatment Patient Instructions Indication:Anxiety Start:09-May-2015 Instruction Type:Provider Instructions for Treatment Patient Instructions Indication:Obesity, unspecified Start:21-May-2014 Instruction Type:Provider Instructions for Treatment How to access health informa tion online Indication:Obesity, unspecified Start:21-May-2014 Instruction Type:Patient Education How to access health informa tion online - Detail Indication:Obesity, unspecified Start:21-May-2014 Instruction Type:Patient Education How to access health informa tion online Indication:Laceration of left leg Start:10-May-2014 Instruction Type:Patient Education How to access health informa tion online - Detail Indication:Laceration of left leg Start:10-May-2014 Instruction Type:Patient Education Patient Instructions Indication:Laceration of left leg Start:10-May-2014 Instruction Type:Provider Instructions for Treatment Patient Instructions Indication:Hyperlipidemia, unspecified Start:28-Jan-2014 Instruction Type:Provider Instructions for Treatment [facility]; [facility] Work Phone: Instructions* Name Dates Details Patient Instructions Indication:Nonsmoker Start:13-Jun-2022 Instruction Type:Provider Instructions for Treatment How to Access Health Informa tion Online using Patient Portal and [employer]rd [employer] Apps Indication:Nonsmoker Start:13-Jun-2022 Instruction Type:Patient Education Patient Instructions Indication:BMI 33.0-33.9,adult Start:13-Apr-2022 Instruction Type:Provider Instructions for Treatment How to Access Health Informa tion Online using Patient Portal and [employer]rd [employer] Apps Indication:BMI 33.0-33.9,adult Start:13-Apr-2022 Instruction Type:Patient Education Patient Instructions Indication:Dysthymia Start:12-Jan-2022 Instruction Type:Provider Instructions for Treatment How to Access Health Informa tion Online using Patient Portal and [employer]rd [employer] Apps Indication:Dysthymia Start:12-Jan-2022 Instruction Type:Patient Education Patient Instructions Indication:Dysthymia Start:08-Dec-2021 Instruction Type:Provider Instructions for Treatment How to Access Health Informa tion Online using Patient Portal and [employer]rd [employer] Apps Indication:Dysthymia Start:08-Dec-2021 Instruction Type:Patient Education Patient Instructions Indication:BMI 33.0-33.9,adult Start:10-Nov-2021 Instruction Type:Provider Instructions for Treatment How to Access Health Informa tion Online using Patient Portal and [employer]rd [employer] Apps Indication:BMI 33.0-33.9,adult Start:10-Nov-2021 Instruction Type:Patient Education Patient Instructions Indication:Nonsmoker Start:03-Nov-2021 Instruction Type:Provider Instructions for Treatment How to Access Health Informa tion Online using Patient Portal and [employer]rd [employer] Apps Indication:Nonsmoker Start:03-Nov-2021 Instruction Type:Patient Education Patient Instructions Indication:Nonsmoker Start:05-May-2021 Instruction Type:Provider Instructions for Treatment How to Access Health Informa tion Online using Patient Portal and [employer] Apps Indication:Nonsmoker Start:05-May-2021 Instruction Type:Patient Education How to Access Health Informa tion Online using Patient Portal and [employer] Apps Indication:Abnormal glucose tolerance test (Renamed from Abnormal glucose tolerance test (GTT)) Start:28-Apr-2021 Instruction Type:Patient Education Patient Instructions Indication:Abnormal glucose tolerance test (Renamed from Abnormal glucose tolerance test (GTT)) Start:28-Apr-2021 Instruction Type:Provider Instructions for Treatment Patient Instructions Indication:Adult residual type attention deficit hyperactivity disorder (ADHD) Start:28-Apr-2021 Instruction Type:Provider Instructions for Treatment How to Access Health Informa tion Online using Patient Portal and [employer] Apps Indication:Adult residual type attention deficit hyperactivity disorder (ADHD) Start:28-Apr-2021 Instruction Type:Patient Education Patient Instructions Indication:Nonsmoker Start:14-Mar-2021 Instruction Type:Provider Instructions for Treatment How to Access Health Informa tion Online using Patient Portal and [employer]rd [employer] Apps Indication:Nonsmoker Start:14-Mar-2021 Instruction Type:Patient Education Patient Instructions Indication:Adult residual type attention deficit hyperactivity disorder (ADHD) Start:28-Oct-2020 Instruction Type:Provider Instructions for Treatment How to Access Health Informa tion Online using Patient Portal and [employer] Apps Indication:Adult residual type attention deficit hyperactivity disorder (ADHD) Start:28-Oct-2020 Instruction Type:Patient Education Patient Instructions Indication:BMI 32.0-32.9,adult Start:21-Oct-2020 Instruction Type:Provider Instructions for Treatment How to Access Health Informa tion Online using Patient Portal and [employer]rd [employer] Apps Indication:Nonsmoker Start:21-Oct-2020 Instruction Type:Patient Education How to access health informa tion online Indication:Adult residual type attention deficit hyperactivity disorder (ADHD) Start:29-Apr-2020 Instruction Type:Patient Education How to access health informa tion online - Detail Indication:Adult residual type attention deficit hyperactivity disorder (ADHD) Start:29-Apr-2020 Instruction Type:Patient Education Patient Instructions Indication:Adult residual type attention deficit hyperactivity disorder (ADHD) Start:29-Apr-2020 Instruction Type:Provider Instructions for Treatment How to access health informa tion online Indication:Nonsmoker Start:20-Apr-2020 Instruction Type:Patient Education How to access health informa tion online - Detail Indication:Nonsmoker Start:20-Apr-2020 Instruction Type:Patient Education Patient Instructions Indication:Nonsmoker Start:20-Apr-2020 Instruction Type:Provider Instructions for Treatment How to access health informa tion online Indication:Adult residual type attention deficit hyperactivity disorder (ADHD) Start:01-Jan-2020 Instruction Type:Patient Education How to access health informa tion online - Detail Indication:Adult residual type attention deficit hyperactivity disorder (ADHD) Start:01-Jan-2020 Instruction Type:Patient Education Patient Instructions Indication:Adult residual type attention deficit hyperactivity disorder (ADHD) Start:01-Jan-2020 Instruction Type:Provider Instructions for Treatment How to access health informa tion online Indication:Nonsmoker Start:27-Oct-2019 Instruction Type:Patient Education How to access health informa tion online - Detail Indication:Nonsmoker Start:27-Oct-2019 Instruction Type:Patient Education Patient Instructions Indication:Nonsmoker Start:27-Oct-2019 Instruction Type:Provider Instructions for Treatment How to access health informa tion online Indication:Nonsmoker Start:05-Oct-2019 Instruction Type:Patient Education How to access health informa tion online - Detail Indication:Nonsmoker Start:05-Oct-2019 Instruction Type:Patient Education Patient Instructions Indication:Encounter for screening for malignant neoplasm of prostate (Renamed from Screening for prostate cancer) Start:05-Oct-2019 Instruction Type:Provider Instructions for Treatment How to access health informa tion online Indication:Adult residual type attention deficit hyperactivity disorder (ADHD) Start:03-Jul-2019 Instruction Type:Patient Education How to access health informa tion online - Detail Indication:Adult residual type attention deficit hyperactivity disorder (ADHD) Start:03-Jul-2019 Instruction Type:Patient Education Patient Instructions Indication:Adult residual type attention deficit hyperactivity disorder (ADHD) Start:03-Jul-2019 Instruction Type:Provider Instructions for Treatment How to access health informa tion online Indication:Adult residual type attention deficit hyperactivity disorder (ADHD) Start:09-Apr-2019 Instruction Type:Patient Education How to access health informa tion online - Detail Indication:Adult residual type attention deficit hyperactivity disorder (ADHD) Start:09-Apr-2019 Instruction Type:Patient Education Patient Instructions Indication:Adult residual type attention deficit hyperactivity disorder (ADHD) Start:09-Apr-2019 Instruction Type:Provider Instructions for Treatment How to access health informa tion online Indication:Nonsmoker Start:20-Mar-2019 Instruction Type:Patient Education How to access health informa tion online - Detail Indication:Nonsmoker Start:20-Mar-2019 Instruction Type:Patient Education Patient Instructions Indication:Elevated blood-pressure reading, without diagnosis of hypertension (Renamed from Elevated blood-pressure reading without diagnosis of hypertension) Start:20-Mar-2019 Instruction Type:Provider Instructions for Treatment How to access health informa tion online Indication:Nonsmoker Start:12-Dec-2018 Instruction Type:Patient Education How to access health informa tion online - Detail Indication:Nonsmoker Start:12-Dec-2018 Instruction Type:Patient Education Patient Instructions Indication:BMI 34.0-34.9,adult Start:12-Dec-2018 Instruction Type:Provider Instructions for Treatment How to access health informa tion online Indication:Nonsmoker Start:21-Nov-2018 Instruction Type:Patient Education How to access health informa tion online - Detail Indication:Nonsmoker Start:21-Nov-2018 Instruction Type:Patient Education Patient Instructions Indication:Nonsmoker Start:21-Nov-2018 Instruction Type:Provider Instructions for Treatment How to access health informa tion online Indication:Nonsmoker Start:05-Sep-2018 Instruction Type:Patient Education How to access health informa tion online - Detail Indication:Nonsmoker Start:05-Sep-2018 Instruction Type:Patient Education Patient Instructions Indication:Nonsmoker Start:05-Sep-2018 Instruction Type:Provider Instructions for Treatment How to access health informa tion online Indication:Nonsmoker Start:02-Jun-2018 Instruction Type:Patient Education How to access health informa tion online - Detail Indication:Nonsmoker Start:02-Jun-2018 Instruction Type:Patient Education Patient Instructions Indication:Encounter for screening for malignant neoplasm of prostate (Renamed from Screening for prostate cancer) Start:02-Jun-2018 Instruction Type:Provider Instructions for Treatment How to access health informa tion online Indication:Adult residual type attention deficit hyperactivity disorder (ADHD) Start:30-May-2018 Instruction Type:Patient Education How to access health informa tion online - Detail Indication:Adult residual type attention deficit hyperactivity disorder (ADHD) Start:30-May-2018 Instruction Type:Patient Education Patient Instructions Indication:Adult residual type attention deficit hyperactivity disorder (ADHD) Start:30-May-2018 Instruction Type:Provider Instructions for Treatment Patient Instructions Indication:Adult residual type attention deficit hyperactivity disorder (ADHD) Start:30-May-2018 Instruction Type:Provider Instructions for Treatment How to access health informa tion online Indication:Cracked lip Start:28-Apr-2018 Instruction Type:Patient Education How to access health informa tion online - Detail Indication:Cracked lip Start:28-Apr-2018 Instruction Type:Patient Education Patient Instructions Indication:Cracked lip Start:28-Apr-2018 Instruction Type:Provider Instructions for Treatment How to access health informa tion online Indication:Adult residual type attention deficit hyperactivity disorder (ADHD) Start:21-Feb-2018 Instruction Type:Patient Education How to access health informa tion online - Detail Indication:Adult residual type attention deficit hyperactivity disorder (ADHD) Start:21-Feb-2018 Instruction Type:Patient Education Patient Instructions Indication:Adult residual type attention deficit hyperactivity disorder (ADHD) Start:21-Feb-2018 Instruction Type:Provider Instructions for Treatment How to access health informa tion online Indication:Nonsmoker Start:27-Jan-2018 Instruction Type:Patient Education How to access health informa tion online - Detail Indication:Nonsmoker Start:27-Jan-2018 Instruction Type:Patient Education Patient Instructions Indication:Nonsmoker Start:27-Jan-2018 Instruction Type:Provider Instructions for Treatment How to access health informa tion online Indication:Adult residual type attention deficit hyperactivity disorder (ADHD) Start:25-Oct-2017 Instruction Type:Patient Education How to access health informa tion online - Detail Indication:Adult residual type attention deficit hyperactivity disorder (ADHD) Start:25-Oct-2017 Instruction Type:Patient Education Patient Instructions Indication:Adult residual type attention deficit hyperactivity disorder (ADHD) Start:25-Oct-2017 Instruction Type:Provider Instructions for Treatment How to access health informa tion online Indication:Abnormal glucose tolerance test (Renamed from Abnormal glucose tolerance test (GTT)) Start:13-Sep-2017 Instruction Type:Patient Education How to access health informa tion online - Detail Indication:Abnormal glucose tolerance test (Renamed from Abnormal glucose tolerance test (GTT)) Start:13-Sep-2017 Instruction Type:Patient Education Patient Instructions Indication:BMI 34.0-34.9,adult Start:13-Sep-2017 Instruction Type:Provider Instructions for Treatment How to access health informa tion online Indication:Nonsmoker Start:16-Aug-2017 Instruction Type:Patient Education How to access health informa tion online - Detail Indication:Nonsmoker Start:16-Aug-2017 Instruction Type:Patient Education Patient Instructions Indication:Nonsmoker Start:16-Aug-2017 Instruction Type:Provider Instructions for Treatment How to access health informa tion online Indication:Adult residual type attention deficit hyperactivity disorder (ADHD) Start:26-Jul-2017 Instruction Type:Patient Education How to access health informa tion online - Detail Indication:Adult residual type attention deficit hyperactivity disorder (ADHD) Start:26-Jul-2017 Instruction Type:Patient Education Patient Instructions Indication:Adult residual type attention deficit hyperactivity disorder (ADHD) Start:26-Jul-2017 Instruction Type:Provider Instructions for Treatment How to access health informa tion online Indication:Abnormal glucose tolerance test (Renamed from Abnormal glucose tolerance test (GTT)) Start:10-May-2017 Instruction Type:Patient Education How to access health informa tion online - Detail Indication:Abnormal glucose tolerance test (Renamed from Abnormal glucose tolerance test (GTT)) Start:10-May-2017 Instruction Type:Patient Education Patient Instructions Indication:Abnormal glucose tolerance test (Renamed from Abnormal glucose tolerance test (GTT)) Start:10-May-2017 Instruction Type:Provider Instructions for Treatment Patient Instructions Indication:Skin picking habit Start:18-Jan-2017 Instruction Type:Provider Instructions for Treatment How to access health informa tion online Indication:Hyperlipidemia, unspecified Start:03-Dec-2016 Instruction Type:Patient Education How to access health informa tion online - Detail Indication:Hyperlipidemia, unspecified Start:03-Dec-2016 Instruction Type:Patient Education Patient Instructions Indication:Hyperlipidemia, unspecified Start:03-Dec-2016 Instruction Type:Provider Instructions for Treatment How to access health informa tion online Indication:Adult residual type attention deficit hyperactivity disorder (ADHD) Start:12-Oct-2016 Instruction Type:Patient Education How to access health informa tion online - Detail Indication:Adult residual type attention deficit hyperactivity disorder (ADHD) Start:12-Oct-2016 Instruction Type:Patient Education Patient Instructions Indication:Adult residual type attention deficit hyperactivity disorder (ADHD) Start:12-Oct-2016 Instruction Type:Provider Instructions for Treatment Patient Instructions Indication:Vitamin D deficiency Start:01-Oct-2016 Instruction Type:Provider Instructions for Treatment How to access health informa tion online Indication:Nonsmoker Start:01-Oct-2016 Instruction Type:Patient Education How to access health informa tion online - Detail Indication:Nonsmoker Start:01-Oct-2016 Instruction Type:Patient Education Patient Instructions Indication:Nonsmoker Start:01-Oct-2016 Instruction Type:Provider Instructions for Treatment How to access health informa tion online Indication:Abnormal glucose tolerance test (Renamed from Abnormal glucose tolerance test (GTT)) Start:21-Sep-2016 Instruction Type:Patient Education How to access health informa tion online - Detail Indication:Abnormal glucose tolerance test (Renamed from Abnormal glucose tolerance test (GTT)) Start:21-Sep-2016 Instruction Type:Patient Education Patient Instructions Indication:Abnormal glucose tolerance test (Renamed from Abnormal glucose tolerance test (GTT)) Start:21-Sep-2016 Instruction Type:Provider Instructions for Treatment Patient Instructions Indication:Abnormal glucose tolerance test (Renamed from Abnormal glucose tolerance test (GTT)) Start:21-Sep-2016 Instruction Type:Provider Instructions for Treatment Patient Instructions Indication:Abnormal glucose tolerance test (Renamed from Abnormal glucose tolerance test (GTT)) Start:06-Feb-2016 Instruction Type:Provider Instructions for Treatment How to access health informa tion online Indication:Prediabetes Start:26-Dec-2015 Instruction Type:Patient Education How to access health informa tion online - Detail Indication:Prediabetes Start:26-Dec-2015 Instruction Type:Patient Education Patient Instructions Indication:Prediabetes Start:26-Dec-2015 Instruction Type:Provider Instructions for Treatment How to access health informa tion online Indication:Anxiety Start:27-Jun-2015 Instruction Type:Patient Education How to access health informa tion online - Detail Indication:Anxiety Start:27-Jun-2015 Instruction Type:Patient Education Patient Instructions Indication:Anxiety Start:27-Jun-2015 Instruction Type:Provider Instructions for Treatment Patient Instructions Indication:Anxiety Start:09-May-2015 Instruction Type:Provider Instructions for Treatment Patient Instructions Indication:Obesity, unspecified Start:21-May-2014 Instruction Type:Provider Instructions for Treatment How to access health informa tion online Indication:Obesity, unspecified Start:21-May-2014 Instruction Type:Patient Education How to access health informa tion online - Detail Indication:Obesity, unspecified Start:21-May-2014 Instruction Type:Patient Education How to access health informa tion online Indication:Laceration of left leg Start:10-May-2014 Instruction Type:Patient Education How to access health informa tion online - Detail Indication:Laceration of left leg Start:10-May-2014 Instruction Type:Patient Education Patient Instructions Indication:Laceration of left leg Start:10-May-2014 Instruction Type:Provider Instructions for Treatment Patient Instructions Indication:Hyperlipidemia, unspecified Start:28-Jan-2014 Instruction Type:Provider Instructions for Treatment [facility]; [facility] Work Phone: Instructions* Name Dates Details Patient Instructions Indication:Nonsmoker Start:13-Jun-2022 Instruction Type:Provider Instructions for Treatment How to Access Health Informa tion Online using Patient Portal and [employer]rd [employer] Apps Indication:Nonsmoker Start:13-Jun-2022 Instruction Type:Patient Education Patient Instructions Indication:BMI 33.0-33.9,adult Start:13-Apr-2022 Instruction Type:Provider Instructions for Treatment How to Access Health Informa tion Online using Patient Portal and [employer]rd [employer] Apps Indication:BMI 33.0-33.9,adult Start:13-Apr-2022 Instruction Type:Patient Education Patient Instructions Indication:Dysthymia Start:12-Jan-2022 Instruction Type:Provider Instructions for Treatment How to Access Health Informa tion Online using Patient Portal and [employer]rd [employer] Apps Indication:Dysthymia Start:12-Jan-2022 Instruction Type:Patient Education Patient Instructions Indication:Dysthymia Start:08-Dec-2021 Instruction Type:Provider Instructions for Treatment How to Access Health Informa tion Online using Patient Portal and [employer]rd [employer] Apps Indication:Dysthymia Start:08-Dec-2021 Instruction Type:Patient Education Patient Instructions Indication:BMI 33.0-33.9,adult Start:10-Nov-2021 Instruction Type:Provider Instructions for Treatment How to Access Health Informa tion Online using Patient Portal and [employer]rd [employer] Apps Indication:BMI 33.0-33.9,adult Start:10-Nov-2021 Instruction Type:Patient Education Patient Instructions Indication:Nonsmoker Start:03-Nov-2021 Instruction Type:Provider Instructions for Treatment How to Access Health Informa tion Online using Patient Portal and [employer]rd [employer] Apps Indication:Nonsmoker Start:03-Nov-2021 Instruction Type:Patient Education Patient Instructions Indication:Nonsmoker Start:05-May-2021 Instruction Type:Provider Instructions for Treatment How to Access Health Informa tion Online using Patient Portal and [employer]rd [employer] Apps Indication:Nonsmoker Start:05-May-2021 Instruction Type:Patient Education How to Access Health Informa tion Online using Patient Portal and [employer]rd [employer] Apps Indication:Abnormal glucose tolerance test (Renamed from Abnormal glucose tolerance test (GTT)) Start:28-Apr-2021 Instruction Type:Patient Education Patient Instructions Indication:Abnormal glucose tolerance test (Renamed from Abnormal glucose tolerance test (GTT)) Start:28-Apr-2021 Instruction Type:Provider Instructions for Treatment Patient Instructions Indication:Adult residual type attention deficit hyperactivity disorder (ADHD) Start:28-Apr-2021 Instruction Type:Provider Instructions for Treatment How to Access Health Informa tion Online using Patient Portal and [employer]rd [employer] Apps Indication:Adult residual type attention deficit hyperactivity disorder (ADHD) Start:28-Apr-2021 Instruction Type:Patient Education Patient Instructions Indication:Nonsmoker Start:14-Mar-2021 Instruction Type:Provider Instructions for Treatment How to Access Health Informa tion Online using Patient Portal and [employer]rd [employer] Apps Indication:Nonsmoker Start:14-Mar-2021 Instruction Type:Patient Education Patient Instructions Indication:Adult residual type attention deficit hyperactivity disorder (ADHD) Start:28-Oct-2020 Instruction Type:Provider Instructions for Treatment How to Access Health Informa tion Online using Patient Portal and [employer]rd [employer] Apps Indication:Adult residual type attention deficit hyperactivity disorder (ADHD) Start:28-Oct-2020 Instruction Type:Patient Education Patient Instructions Indication:BMI 32.0-32.9,adult Start:21-Oct-2020 Instruction Type:Provider Instructions for Treatment How to Access Health Informa tion Online using Patient Portal and [employer]rd [employer] Apps Indication:Nonsmoker Start:21-Oct-2020 Instruction Type:Patient Education How to access health informa tion online Indication:Adult residual type attention deficit hyperactivity disorder (ADHD) Start:29-Apr-2020 Instruction Type:Patient Education How to access health informa tion online - Detail Indication:Adult residual type attention deficit hyperactivity disorder (ADHD) Start:29-Apr-2020 Instruction Type:Patient Education Patient Instructions Indication:Adult residual type attention deficit hyperactivity disorder (ADHD) Start:29-Apr-2020 Instruction Type:Provider Instructions for Treatment How to access health informa tion online Indication:Nonsmoker Start:20-Apr-2020 Instruction Type:Patient Education How to access health informa tion online - Detail Indication:Nonsmoker Start:20-Apr-2020 Instruction Type:Patient Education Patient Instructions Indication:Nonsmoker Start:20-Apr-2020 Instruction Type:Provider Instructions for Treatment How to access health informa tion online Indication:Adult residual type attention deficit hyperactivity disorder (ADHD) Start:01-Jan-2020 Instruction Type:Patient Education How to access health informa tion online - Detail Indication:Adult residual type attention deficit hyperactivity disorder (ADHD) Start:01-Jan-2020 Instruction Type:Patient Education Patient Instructions Indication:Adult residual type attention deficit hyperactivity disorder (ADHD) Start:01-Jan-2020 Instruction Type:Provider Instructions for Treatment How to access health informa tion online Indication:Nonsmoker Start:27-Oct-2019 Instruction Type:Patient Education How to access health informa tion online - Detail Indication:Nonsmoker Start:27-Oct-2019 Instruction Type:Patient Education Patient Instructions Indication:Nonsmoker Start:27-Oct-2019 Instruction Type:Provider Instructions for Treatment How to access health informa tion online Indication:Nonsmoker Start:05-Oct-2019 Instruction Type:Patient Education How to access health informa tion online - Detail Indication:Nonsmoker Start:05-Oct-2019 Instruction Type:Patient Education Patient Instructions Indication:Encounter for screening for malignant neoplasm of prostate (Renamed from Screening for prostate cancer) Start:05-Oct-2019 Instruction Type:Provider Instructions for Treatment How to access health informa tion online Indication:Adult residual type attention deficit hyperactivity disorder (ADHD) Start:03-Jul-2019 Instruction Type:Patient Education How to access health informa tion online - Detail Indication:Adult residual type attention deficit hyperactivity disorder (ADHD) Start:03-Jul-2019 Instruction Type:Patient Education Patient Instructions Indication:Adult residual type attention deficit hyperactivity disorder (ADHD) Start:03-Jul-2019 Instruction Type:Provider Instructions for Treatment How to access health informa tion online Indication:Adult residual type attention deficit hyperactivity disorder (ADHD) Start:09-Apr-2019 Instruction Type:Patient Education How to access health informa tion online - Detail Indication:Adult residual type attention deficit hyperactivity disorder (ADHD) Start:09-Apr-2019 Instruction Type:Patient Education Patient Instructions Indication:Adult residual type attention deficit hyperactivity disorder (ADHD) Start:09-Apr-2019 Instruction Type:Provider Instructions for Treatment How to access health informa tion online Indication:Nonsmoker Start:20-Mar-2019 Instruction Type:Patient Education How to access health informa tion online - Detail Indication:Nonsmoker Start:20-Mar-2019 Instruction Type:Patient Education Patient Instructions Indication:Elevated blood-pressure reading, without diagnosis of hypertension (Renamed from Elevated blood-pressure reading without diagnosis of hypertension) Start:20-Mar-2019 Instruction Type:Provider Instructions for Treatment How to access health informa tion online Indication:Nonsmoker Start:12-Dec-2018 Instruction Type:Patient Education How to access health informa tion online - Detail Indication:Nonsmoker Start:12-Dec-2018 Instruction Type:Patient Education Patient Instructions Indication:BMI 34.0-34.9,adult Start:12-Dec-2018 Instruction Type:Provider Instructions for Treatment How to access health informa tion online Indication:Nonsmoker Start:21-Nov-2018 Instruction Type:Patient Education How to access health informa tion online - Detail Indication:Nonsmoker Start:21-Nov-2018 Instruction Type:Patient Education Patient Instructions Indication:Nonsmoker Start:21-Nov-2018 Instruction Type:Provider Instructions for Treatment How to access health informa tion online Indication:Nonsmoker Start:05-Sep-2018 Instruction Type:Patient Education How to access health informa tion online - Detail Indication:Nonsmoker Start:05-Sep-2018 Instruction Type:Patient Education Patient Instructions Indication:Nonsmoker Start:05-Sep-2018 Instruction Type:Provider Instructions for Treatment How to access health informa tion online Indication:Nonsmoker Start:02-Jun-2018 Instruction Type:Patient Education How to access health informa tion online - Detail Indication:Nonsmoker Start:02-Jun-2018 Instruction Type:Patient Education Patient Instructions Indication:Encounter for screening for malignant neoplasm of prostate (Renamed from Screening for prostate cancer) Start:02-Jun-2018 Instruction Type:Provider Instructions for Treatment How to access health informa tion online Indication:Adult residual type attention deficit hyperactivity disorder (ADHD) Start:30-May-2018 Instruction Type:Patient Education How to access health informa tion online - Detail Indication:Adult residual type attention deficit hyperactivity disorder (ADHD) Start:30-May-2018 Instruction Type:Patient Education Patient Instructions Indication:Adult residual type attention deficit hyperactivity disorder (ADHD) Start:30-May-2018 Instruction Type:Provider Instructions for Treatment Patient Instructions Indication:Adult residual type attention deficit hyperactivity disorder (ADHD) Start:30-May-2018 Instruction Type:Provider Instructions for Treatment How to access health informa tion online Indication:Cracked lip Start:28-Apr-2018 Instruction Type:Patient Education How to access health informa tion online - Detail Indication:Cracked lip Start:28-Apr-2018 Instruction Type:Patient Education Patient Instructions Indication:Cracked lip Start:28-Apr-2018 Instruction Type:Provider Instructions for Treatment How to access health informa tion online Indication:Adult residual type attention deficit hyperactivity disorder (ADHD) Start:21-Feb-2018 Instruction Type:Patient Education How to access health informa tion online - Detail Indication:Adult residual type attention deficit hyperactivity disorder (ADHD) Start:21-Feb-2018 Instruction Type:Patient Education Patient Instructions Indication:Adult residual type attention deficit hyperactivity disorder (ADHD) Start:21-Feb-2018 Instruction Type:Provider Instructions for Treatment How to access health informa tion online Indication:Nonsmoker Start:27-Jan-2018 Instruction Type:Patient Education How to access health informa tion online - Detail Indication:Nonsmoker Start:27-Jan-2018 Instruction Type:Patient Education Patient Instructions Indication:Nonsmoker Start:27-Jan-2018 Instruction Type:Provider Instructions for Treatment How to access health informa tion online Indication:Adult residual type attention deficit hyperactivity disorder (ADHD) Start:25-Oct-2017 Instruction Type:Patient Education How to access health informa tion online - Detail Indication:Adult residual type attention deficit hyperactivity disorder (ADHD) Start:25-Oct-2017 Instruction Type:Patient Education Patient Instructions Indication:Adult residual type attention deficit hyperactivity disorder (ADHD) Start:25-Oct-2017 Instruction Type:Provider Instructions for Treatment How to access health informa tion online Indication:Abnormal glucose tolerance test (Renamed from Abnormal glucose tolerance test (GTT)) Start:13-Sep-2017 Instruction Type:Patient Education How to access health informa tion online - Detail Indication:Abnormal glucose tolerance test (Renamed from Abnormal glucose tolerance test (GTT)) Start:13-Sep-2017 Instruction Type:Patient Education Patient Instructions Indication:BMI 34.0-34.9,adult Start:13-Sep-2017 Instruction Type:Provider Instructions for Treatment How to access health informa tion online Indication:Nonsmoker Start:16-Aug-2017 Instruction Type:Patient Education How to access health informa tion online - Detail Indication:Nonsmoker Start:16-Aug-2017 Instruction Type:Patient Education Patient Instructions Indication:Nonsmoker Start:16-Aug-2017 Instruction Type:Provider Instructions for Treatment How to access health informa tion online Indication:Adult residual type attention deficit hyperactivity disorder (ADHD) Start:26-Jul-2017 Instruction Type:Patient Education How to access health informa tion online - Detail Indication:Adult residual type attention deficit hyperactivity disorder (ADHD) Start:26-Jul-2017 Instruction Type:Patient Education Patient Instructions Indication:Adult residual type attention deficit hyperactivity disorder (ADHD) Start:26-Jul-2017 Instruction Type:Provider Instructions for Treatment How to access health informa tion online Indication:Abnormal glucose tolerance test (Renamed from Abnormal glucose tolerance test (GTT)) Start:10-May-2017 Instruction Type:Patient Education How to access health informa tion online - Detail Indication:Abnormal glucose tolerance test (Renamed from Abnormal glucose tolerance test (GTT)) Start:10-May-2017 Instruction Type:Patient Education Patient Instructions Indication:Abnormal glucose tolerance test (Renamed from Abnormal glucose tolerance test (GTT)) Start:10-May-2017 Instruction Type:Provider Instructions for Treatment Patient Instructions Indication:Skin picking habit Start:18-Jan-2017 Instruction Type:Provider Instructions for Treatment How to access health informa tion online Indication:Hyperlipidemia, unspecified Start:03-Dec-2016 Instruction Type:Patient Education How to access health informa tion online - Detail Indication:Hyperlipidemia, unspecified Start:03-Dec-2016 Instruction Type:Patient Education Patient Instructions Indication:Hyperlipidemia, unspecified Start:03-Dec-2016 Instruction Type:Provider Instructions for Treatment How to access health informa tion online Indication:Adult residual type attention deficit hyperactivity disorder (ADHD) Start:12-Oct-2016 Instruction Type:Patient Education How to access health informa tion online - Detail Indication:Adult residual type attention deficit hyperactivity disorder (ADHD) Start:12-Oct-2016 Instruction Type:Patient Education Patient Instructions Indication:Adult residual type attention deficit hyperactivity disorder (ADHD) Start:12-Oct-2016 Instruction Type:Provider Instructions for Treatment Patient Instructions Indication:Vitamin D deficiency Start:01-Oct-2016 Instruction Type:Provider Instructions for Treatment How to access health informa tion online Indication:Nonsmoker Start:01-Oct-2016 Instruction Type:Patient Education How to access health informa tion online - Detail Indication:Nonsmoker Start:01-Oct-2016 Instruction Type:Patient Education Patient Instructions Indication:Nonsmoker Start:01-Oct-2016 Instruction Type:Provider Instructions for Treatment How to access health informa tion online Indication:Abnormal glucose tolerance test (Renamed from Abnormal glucose tolerance test (GTT)) Start:21-Sep-2016 Instruction Type:Patient Education How to access health informa tion online - Detail Indication:Abnormal glucose tolerance test (Renamed from Abnormal glucose tolerance test (GTT)) Start:21-Sep-2016 Instruction Type:Patient Education Patient Instructions Indication:Abnormal glucose tolerance test (Renamed from Abnormal glucose tolerance test (GTT)) Start:21-Sep-2016 Instruction Type:Provider Instructions for Treatment Patient Instructions Indication:Abnormal glucose tolerance test (Renamed from Abnormal glucose tolerance test (GTT)) Start:21-Sep-2016 Instruction Type:Provider Instructions for Treatment Patient Instructions Indication:Abnormal glucose tolerance test (Renamed from Abnormal glucose tolerance test (GTT)) Start:06-Feb-2016 Instruction Type:Provider Instructions for Treatment How to access health informa tion online Indication:Prediabetes Start:26-Dec-2015 Instruction Type:Patient Education How to access health informa tion online - Detail Indication:Prediabetes Start:26-Dec-2015 Instruction Type:Patient Education Patient Instructions Indication:Prediabetes Start:26-Dec-2015 Instruction Type:Provider Instructions for Treatment How to access health informa tion online Indication:Anxiety Start:27-Jun-2015 Instruction Type:Patient Education How to access health informa tion online - Detail Indication:Anxiety Start:27-Jun-2015 Instruction Type:Patient Education Patient Instructions Indication:Anxiety Start:27-Jun-2015 Instruction Type:Provider Instructions for Treatment Patient Instructions Indication:Anxiety Start:09-May-2015 Instruction Type:Provider Instructions for Treatment Patient Instructions Indication:Obesity, unspecified Start:21-May-2014 Instruction Type:Provider Instructions for Treatment How to access health informa tion online Indication:Obesity, unspecified Start:21-May-2014 Instruction Type:Patient Education How to access health informa tion online - Detail Indication:Obesity, unspecified Start:21-May-2014 Instruction Type:Patient Education How to access health informa tion online Indication:Laceration of left leg Start:10-May-2014 Instruction Type:Patient Education How to access health informa tion online - Detail Indication:Laceration of left leg Start:10-May-2014 Instruction Type:Patient Education Patient Instructions Indication:Laceration of left leg Start:10-May-2014 Instruction Type:Provider Instructions for Treatment Patient Instructions Indication:Hyperlipidemia, unspecified Start:28-Jan-2014 Instruction Type:Provider Instructions for Treatment [facility]; [facility] Work Phone: Instructions* Name Dates Details Patient Instructions Indication:Fatigue Start:29-Apr-2023 Instruction Type:Provider Instructions for Treatment How to Access Health Informa tion Online using Patient Portal and [employer]rd [employer] Apps Indication:Fatigue Start:29-Apr-2023 Instruction Type:Patient Education Patient Instructions Indication:Nonsmoker Start:13-Jun-2022 Instruction Type:Provider Instructions for Treatment How to Access Health Informa tion Online using Patient Portal and [employer]rd [employer] Apps Indication:Nonsmoker Start:13-Jun-2022 Instruction Type:Patient Education Patient Instructions Indication:BMI 33.0-33.9,adult Start:13-Apr-2022 Instruction Type:Provider Instructions for Treatment How to Access Health Informa tion Online using Patient Portal and [employer]rd [employer] Apps Indication:BMI 33.0-33.9,adult Start:13-Apr-2022 Instruction Type:Patient Education Patient Instructions Indication:Dysthymia Start:12-Jan-2022 Instruction Type:Provider Instructions for Treatment How to Access Health Informa tion Online using Patient Portal and [employer]rd [employer] Apps Indication:Dysthymia Start:12-Jan-2022 Instruction Type:Patient Education Patient Instructions Indication:Dysthymia Start:08-Dec-2021 Instruction Type:Provider Instructions for Treatment How to Access Health Informa tion Online using Patient Portal and [employer] Apps Indication:Dysthymia Start:08-Dec-2021 Instruction Type:Patient Education Patient Instructions Indication:BMI 33.0-33.9,adult Start:10-Nov-2021 Instruction Type:Provider Instructions for Treatment How to Access Health Informa tion Online using Patient Portal and [employer] Apps Indication:BMI 33.0-33.9,adult Start:10-Nov-2021 Instruction Type:Patient Education Patient Instructions Indication:Nonsmoker Start:03-Nov-2021 Instruction Type:Provider Instructions for Treatment How to Access Health Informa tion Online using Patient Portal and [employer] Apps Indication:Nonsmoker Start:03-Nov-2021 Instruction Type:Patient Education Patient Instructions Indication:Nonsmoker Start:05-May-2021 Instruction Type:Provider Instructions for Treatment How to Access Health Informa tion Online using Patient Portal and [employer] Apps Indication:Nonsmoker Start:05-May-2021 Instruction Type:Patient Education How to Access Health Informa tion Online using Patient Portal and [employer] Apps Indication:Abnormal glucose tolerance test (Renamed from Abnormal glucose tolerance test (GTT)) Start:28-Apr-2021 Instruction Type:Patient Education Patient Instructions Indication:Abnormal glucose tolerance test (Renamed from Abnormal glucose tolerance test (GTT)) Start:28-Apr-2021 Instruction Type:Provider Instructions for Treatment Patient Instructions Indication:Adult residual type attention deficit hyperactivity disorder (ADHD) Start:28-Apr-2021 Instruction Type:Provider Instructions for Treatment How to Access Health Informa tion Online using Patient Portal and [employer] Apps Indication:Adult residual type attention deficit hyperactivity disorder (ADHD) Start:28-Apr-2021 Instruction Type:Patient Education Patient Instructions Indication:Nonsmoker Start:14-Mar-2021 Instruction Type:Provider Instructions for Treatment How to Access Health Informa tion Online using Patient Portal and [employer] Apps Indication:Nonsmoker Start:14-Mar-2021 Instruction Type:Patient Education Patient Instructions Indication:Adult residual type attention deficit hyperactivity disorder (ADHD) Start:28-Oct-2020 Instruction Type:Provider Instructions for Treatment How to Access Health Informa tion Online using Patient Portal and [employer]rd [employer] Apps Indication:Adult residual type attention deficit hyperactivity disorder (ADHD) Start:28-Oct-2020 Instruction Type:Patient Education Patient Instructions Indication:BMI 32.0-32.9,adult Start:21-Oct-2020 Instruction Type:Provider Instructions for Treatment How to Access Health Informa tion Online using Patient Portal and [employer]rd [employer] Apps Indication:Nonsmoker Start:21-Oct-2020 Instruction Type:Patient Education How to access health informa tion online Indication:Adult residual type attention deficit hyperactivity disorder (ADHD) Start:29-Apr-2020 Instruction Type:Patient Education How to access health informa tion online - Detail Indication:Adult residual type attention deficit hyperactivity disorder (ADHD) Start:29-Apr-2020 Instruction Type:Patient Education Patient Instructions Indication:Adult residual type attention deficit hyperactivity disorder (ADHD) Start:29-Apr-2020 Instruction Type:Provider Instructions for Treatment How to access health informa tion online Indication:Nonsmoker Start:20-Apr-2020 Instruction Type:Patient Education How to access health informa tion online - Detail Indication:Nonsmoker Start:20-Apr-2020 Instruction Type:Patient Education Patient Instructions Indication:Nonsmoker Start:20-Apr-2020 Instruction Type:Provider Instructions for Treatment How to access health informa tion online Indication:Adult residual type attention deficit hyperactivity disorder (ADHD) Start:01-Jan-2020 Instruction Type:Patient Education How to access health informa tion online - Detail Indication:Adult residual type attention deficit hyperactivity disorder (ADHD) Start:01-Jan-2020 Instruction Type:Patient Education Patient Instructions Indication:Adult residual type attention deficit hyperactivity disorder (ADHD) Start:01-Jan-2020 Instruction Type:Provider Instructions for Treatment How to access health informa tion online Indication:Nonsmoker Start:27-Oct-2019 Instruction Type:Patient Education How to access health informa tion online - Detail Indication:Nonsmoker Start:27-Oct-2019 Instruction Type:Patient Education Patient Instructions Indication:Nonsmoker Start:27-Oct-2019 Instruction Type:Provider Instructions for Treatment How to access health informa tion online Indication:Nonsmoker Start:05-Oct-2019 Instruction Type:Patient Education How to access health informa tion online - Detail Indication:Nonsmoker Start:05-Oct-2019 Instruction Type:Patient Education Patient Instructions Indication:Encounter for screening for malignant neoplasm of prostate (Renamed from Screening for prostate cancer) Start:05-Oct-2019 Instruction Type:Provider Instructions for Treatment How to access health informa tion online Indication:Adult residual type attention deficit hyperactivity disorder (ADHD) Start:03-Jul-2019 Instruction Type:Patient Education How to access health informa tion online - Detail Indication:Adult residual type attention deficit hyperactivity disorder (ADHD) Start:03-Jul-2019 Instruction Type:Patient Education Patient Instructions Indication:Adult residual type attention deficit hyperactivity disorder (ADHD) Start:03-Jul-2019 Instruction Type:Provider Instructions for Treatment How to access health informa tion online Indication:Adult residual type attention deficit hyperactivity disorder (ADHD) Start:09-Apr-2019 Instruction Type:Patient Education How to access health informa tion online - Detail Indication:Adult residual type attention deficit hyperactivity disorder (ADHD) Start:09-Apr-2019 Instruction Type:Patient Education Patient Instructions Indication:Adult residual type attention deficit hyperactivity disorder (ADHD) Start:09-Apr-2019 Instruction Type:Provider Instructions for Treatment How to access health informa tion online Indication:Nonsmoker Start:20-Mar-2019 Instruction Type:Patient Education How to access health informa tion online - Detail Indication:Nonsmoker Start:20-Mar-2019 Instruction Type:Patient Education Patient Instructions Indication:Elevated blood-pressure reading, without diagnosis of hypertension (Renamed from Elevated blood-pressure reading without diagnosis of hypertension) Start:20-Mar-2019 Instruction Type:Provider Instructions for Treatment How to access health informa tion online Indication:Nonsmoker Start:12-Dec-2018 Instruction Type:Patient Education How to access health informa tion online - Detail Indication:Nonsmoker Start:12-Dec-2018 Instruction Type:Patient Education Patient Instructions Indication:BMI 34.0-34.9,adult Start:12-Dec-2018 Instruction Type:Provider Instructions for Treatment How to access health informa tion online Indication:Nonsmoker Start:21-Nov-2018 Instruction Type:Patient Education How to access health informa tion online - Detail Indication:Nonsmoker Start:21-Nov-2018 Instruction Type:Patient Education Patient Instructions Indication:Nonsmoker Start:21-Nov-2018 Instruction Type:Provider Instructions for Treatment How to access health informa tion online Indication:Nonsmoker Start:05-Sep-2018 Instruction Type:Patient Education How to access health informa tion online - Detail Indication:Nonsmoker Start:05-Sep-2018 Instruction Type:Patient Education Patient Instructions Indication:Nonsmoker Start:05-Sep-2018 Instruction Type:Provider Instructions for Treatment How to access health informa tion online Indication:Nonsmoker Start:02-Jun-2018 Instruction Type:Patient Education How to access health informa tion online - Detail Indication:Nonsmoker Start:02-Jun-2018 Instruction Type:Patient Education Patient Instructions Indication:Encounter for screening for malignant neoplasm of prostate (Renamed from Screening for prostate cancer) Start:02-Jun-2018 Instruction Type:Provider Instructions for Treatment How to access health informa tion online Indication:Adult residual type attention deficit hyperactivity disorder (ADHD) Start:30-May-2018 Instruction Type:Patient Education How to access health informa tion online - Detail Indication:Adult residual type attention deficit hyperactivity disorder (ADHD) Start:30-May-2018 Instruction Type:Patient Education Patient Instructions Indication:Adult residual type attention deficit hyperactivity disorder (ADHD) Start:30-May-2018 Instruction Type:Provider Instructions for Treatment Patient Instructions Indication:Adult residual type attention deficit hyperactivity disorder (ADHD) Start:30-May-2018 Instruction Type:Provider Instructions for Treatment How to access health informa tion online Indication:Cracked lip Start:28-Apr-2018 Instruction Type:Patient Education How to access health informa tion online - Detail Indication:Cracked lip Start:28-Apr-2018 Instruction Type:Patient Education Patient Instructions Indication:Cracked lip Start:28-Apr-2018 Instruction Type:Provider Instructions for Treatment How to access health informa tion online Indication:Adult residual type attention deficit hyperactivity disorder (ADHD) Start:21-Feb-2018 Instruction Type:Patient Education How to access health informa tion online - Detail Indication:Adult residual type attention deficit hyperactivity disorder (ADHD) Start:21-Feb-2018 Instruction Type:Patient Education Patient Instructions Indication:Adult residual type attention deficit hyperactivity disorder (ADHD) Start:21-Feb-2018 Instruction Type:Provider Instructions for Treatment How to access health informa tion online Indication:Nonsmoker Start:27-Jan-2018 Instruction Type:Patient Education How to access health informa tion online - Detail Indication:Nonsmoker Start:27-Jan-2018 Instruction Type:Patient Education Patient Instructions Indication:Nonsmoker Start:27-Jan-2018 Instruction Type:Provider Instructions for Treatment How to access health informa tion online Indication:Adult residual type attention deficit hyperactivity disorder (ADHD) Start:25-Oct-2017 Instruction Type:Patient Education How to access health informa tion online - Detail Indication:Adult residual type attention deficit hyperactivity disorder (ADHD) Start:25-Oct-2017 Instruction Type:Patient Education Patient Instructions Indication:Adult residual type attention deficit hyperactivity disorder (ADHD) Start:25-Oct-2017 Instruction Type:Provider Instructions for Treatment How to access health informa tion online Indication:Abnormal glucose tolerance test (Renamed from Abnormal glucose tolerance test (GTT)) Start:13-Sep-2017 Instruction Type:Patient Education How to access health informa tion online - Detail Indication:Abnormal glucose tolerance test (Renamed from Abnormal glucose tolerance test (GTT)) Start:13-Sep-2017 Instruction Type:Patient Education Patient Instructions Indication:BMI 34.0-34.9,adult Start:13-Sep-2017 Instruction Type:Provider Instructions for Treatment How to access health informa tion online Indication:Nonsmoker Start:16-Aug-2017 Instruction Type:Patient Education How to access health informa tion online - Detail Indication:Nonsmoker Start:16-Aug-2017 Instruction Type:Patient Education Patient Instructions Indication:Nonsmoker Start:16-Aug-2017 Instruction Type:Provider Instructions for Treatment How to access health informa tion online Indication:Adult residual type attention deficit hyperactivity disorder (ADHD) Start:26-Jul-2017 Instruction Type:Patient Education How to access health informa tion online - Detail Indication:Adult residual type attention deficit hyperactivity disorder (ADHD) Start:26-Jul-2017 Instruction Type:Patient Education Patient Instructions Indication:Adult residual type attention deficit hyperactivity disorder (ADHD) Start:26-Jul-2017 Instruction Type:Provider Instructions for Treatment How to access health informa tion online Indication:Abnormal glucose tolerance test (Renamed from Abnormal glucose tolerance test (GTT)) Start:10-May-2017 Instruction Type:Patient Education How to access health informa tion online - Detail Indication:Abnormal glucose tolerance test (Renamed from Abnormal glucose tolerance test (GTT)) Start:10-May-2017 Instruction Type:Patient Education Patient Instructions Indication:Abnormal glucose tolerance test (Renamed from Abnormal glucose tolerance test (GTT)) Start:10-May-2017 Instruction Type:Provider Instructions for Treatment Patient Instructions Indication:Skin picking habit Start:18-Jan-2017 Instruction Type:Provider Instructions for Treatment How to access health informa tion online Indication:Hyperlipidemia, unspecified Start:03-Dec-2016 Instruction Type:Patient Education How to access health informa tion online - Detail Indication:Hyperlipidemia, unspecified Start:03-Dec-2016 Instruction Type:Patient Education Patient Instructions Indication:Hyperlipidemia, unspecified Start:03-Dec-2016 Instruction Type:Provider Instructions for Treatment How to access health informa tion online Indication:Adult residual type attention deficit hyperactivity disorder (ADHD) Start:12-Oct-2016 Instruction Type:Patient Education How to access health informa tion online - Detail Indication:Adult residual type attention deficit hyperactivity disorder (ADHD) Start:12-Oct-2016 Instruction Type:Patient Education Patient Instructions Indication:Adult residual type attention deficit hyperactivity disorder (ADHD) Start:12-Oct-2016 Instruction Type:Provider Instructions for Treatment Patient Instructions Indication:Vitamin D deficiency Start:01-Oct-2016 Instruction Type:Provider Instructions for Treatment How to access health informa tion online Indication:Nonsmoker Start:01-Oct-2016 Instruction Type:Patient Education How to access health informa tion online - Detail Indication:Nonsmoker Start:01-Oct-2016 Instruction Type:Patient Education Patient Instructions Indication:Nonsmoker Start:01-Oct-2016 Instruction Type:Provider Instructions for Treatment How to access health informa tion online Indication:Abnormal glucose tolerance test (Renamed from Abnormal glucose tolerance test (GTT)) Start:21-Sep-2016 Instruction Type:Patient Education How to access health informa tion online - Detail Indication:Abnormal glucose tolerance test (Renamed from Abnormal glucose tolerance test (GTT)) Start:21-Sep-2016 Instruction Type:Patient Education Patient Instructions Indication:Abnormal glucose tolerance test (Renamed from Abnormal glucose tolerance test (GTT)) Start:21-Sep-2016 Instruction Type:Provider Instructions for Treatment Patient Instructions Indication:Abnormal glucose tolerance test (Renamed from Abnormal glucose tolerance test (GTT)) Start:21-Sep-2016 Instruction Type:Provider Instructions for Treatment Patient Instructions Indication:Abnormal glucose tolerance test (Renamed from Abnormal glucose tolerance test (GTT)) Start:06-Feb-2016 Instruction Type:Provider Instructions for Treatment How to access health informa tion online Indication:Prediabetes Start:26-Dec-2015 Instruction Type:Patient Education How to access health informa tion online - Detail Indication:Prediabetes Start:26-Dec-2015 Instruction Type:Patient Education Patient Instructions Indication:Prediabetes Start:26-Dec-2015 Instruction Type:Provider Instructions for Treatment How to access health informa tion online Indication:Anxiety Start:27-Jun-2015 Instruction Type:Patient Education How to access health informa tion online - Detail Indication:Anxiety Start:27-Jun-2015 Instruction Type:Patient Education Patient Instructions Indication:Anxiety Start:27-Jun-2015 Instruction Type:Provider Instructions for Treatment Patient Instructions Indication:Anxiety Start:09-May-2015 Instruction Type:Provider Instructions for Treatment Patient Instructions Indication:Obesity, unspecified Start:21-May-2014 Instruction Type:Provider Instructions for Treatment How to access health informa tion online Indication:Obesity, unspecified Start:21-May-2014 Instruction Type:Patient Education How to access health informa tion online - Detail Indication:Obesity, unspecified Start:21-May-2014 Instruction Type:Patient Education How to access health informa tion online Indication:Laceration of left leg Start:10-May-2014 Instruction Type:Patient Education How to access health informa tion online - Detail Indication:Laceration of left leg Start:10-May-2014 Instruction Type:Patient Education Patient Instructions Indication:Laceration of left leg Start:10-May-2014 Instruction Type:Provider Instructions for Treatment Patient Instructions Indication:Hyperlipidemia, unspecified Start:28-Jan-2014 Instruction Type:Provider Instructions for Treatment [facility]; [facility] Work Phone: Instructions* Name Dates Details Patient Instructions Indication:Fatigue Start:29-Apr-2023 Instruction Type:Provider Instructions for Treatment How to Access Health Informa tion Online using Patient Portal and [employer]rd [employer] Apps Indication:Fatigue Start:29-Apr-2023 Instruction Type:Patient Education Patient Instructions Indication:Nonsmoker Start:13-Jun-2022 Instruction Type:Provider Instructions for Treatment How to Access Health Informa tion Online using Patient Portal and [employer]rd [employer] Apps Indication:Nonsmoker Start:13-Jun-2022 Instruction Type:Patient Education Patient Instructions Indication:BMI 33.0-33.9,adult Start:13-Apr-2022 Instruction Type:Provider Instructions for Treatment How to Access Health Informa tion Online using Patient Portal and [employer]rd [employer] Apps Indication:BMI 33.0-33.9,adult Start:13-Apr-2022 Instruction Type:Patient Education Patient Instructions Indication:Dysthymia Start:12-Jan-2022 Instruction Type:Provider Instructions for Treatment How to Access Health Informa tion Online using Patient Portal and [employer]rd [employer] Apps Indication:Dysthymia Start:12-Jan-2022 Instruction Type:Patient Education Patient Instructions Indication:Dysthymia Start:08-Dec-2021 Instruction Type:Provider Instructions for Treatment How to Access Health Informa tion Online using Patient Portal and [employer]rd [employer] Apps Indication:Dysthymia Start:08-Dec-2021 Instruction Type:Patient Education Patient Instructions Indication:BMI 33.0-33.9,adult Start:10-Nov-2021 Instruction Type:Provider Instructions for Treatment How to Access Health Informa tion Online using Patient Portal and [employer]rd [employer] Apps Indication:BMI 33.0-33.9,adult Start:10-Nov-2021 Instruction Type:Patient Education Patient Instructions Indication:Nonsmoker Start:03-Nov-2021 Instruction Type:Provider Instructions for Treatment How to Access Health Informa tion Online using Patient Portal and [employer]rd [employer] Apps Indication:Nonsmoker Start:03-Nov-2021 Instruction Type:Patient Education Patient Instructions Indication:Nonsmoker Start:05-May-2021 Instruction Type:Provider Instructions for Treatment How to Access Health Informa tion Online using Patient Portal and [employer]rd [employer] Apps Indication:Nonsmoker Start:05-May-2021 Instruction Type:Patient Education How to Access Health Informa tion Online using Patient Portal and [employer] Apps Indication:Abnormal glucose tolerance test (Renamed from Abnormal glucose tolerance test (GTT)) Start:28-Apr-2021 Instruction Type:Patient Education Patient Instructions Indication:Abnormal glucose tolerance test (Renamed from Abnormal glucose tolerance test (GTT)) Start:28-Apr-2021 Instruction Type:Provider Instructions for Treatment Patient Instructions Indication:Adult residual type attention deficit hyperactivity disorder (ADHD) Start:28-Apr-2021 Instruction Type:Provider Instructions for Treatment How to Access Health Informa tion Online using Patient Portal and [employer]rd [employer] Apps Indication:Adult residual type attention deficit hyperactivity disorder (ADHD) Start:28-Apr-2021 Instruction Type:Patient Education Patient Instructions Indication:Nonsmoker Start:14-Mar-2021 Instruction Type:Provider Instructions for Treatment How to Access Health Informa tion Online using Patient Portal and [employer]rd [employer] Apps Indication:Nonsmoker Start:14-Mar-2021 Instruction Type:Patient Education Patient Instructions Indication:Adult residual type attention deficit hyperactivity disorder (ADHD) Start:28-Oct-2020 Instruction Type:Provider Instructions for Treatment How to Access Health Informa tion Online using Patient Portal and [employer]rd [employer] Apps Indication:Adult residual type attention deficit hyperactivity disorder (ADHD) Start:28-Oct-2020 Instruction Type:Patient Education Patient Instructions Indication:BMI 32.0-32.9,adult Start:21-Oct-2020 Instruction Type:Provider Instructions for Treatment How to Access Health Informa tion Online using Patient Portal and [employer]rd [employer] Apps Indication:Nonsmoker Start:21-Oct-2020 Instruction Type:Patient Education How to access health informa tion online Indication:Adult residual type attention deficit hyperactivity disorder (ADHD) Start:29-Apr-2020 Instruction Type:Patient Education How to access health informa tion online - Detail Indication:Adult residual type attention deficit hyperactivity disorder (ADHD) Start:29-Apr-2020 Instruction Type:Patient Education Patient Instructions Indication:Adult residual type attention deficit hyperactivity disorder (ADHD) Start:29-Apr-2020 Instruction Type:Provider Instructions for Treatment How to access health informa tion online Indication:Nonsmoker Start:20-Apr-2020 Instruction Type:Patient Education How to access health informa tion online - Detail Indication:Nonsmoker Start:20-Apr-2020 Instruction Type:Patient Education Patient Instructions Indication:Nonsmoker Start:20-Apr-2020 Instruction Type:Provider Instructions for Treatment How to access health informa tion online Indication:Adult residual type attention deficit hyperactivity disorder (ADHD) Start:01-Jan-2020 Instruction Type:Patient Education How to access health informa tion online - Detail Indication:Adult residual type attention deficit hyperactivity disorder (ADHD) Start:01-Jan-2020 Instruction Type:Patient Education Patient Instructions Indication:Adult residual type attention deficit hyperactivity disorder (ADHD) Start:01-Jan-2020 Instruction Type:Provider Instructions for Treatment How to access health informa tion online Indication:Nonsmoker Start:27-Oct-2019 Instruction Type:Patient Education How to access health informa tion online - Detail Indication:Nonsmoker Start:27-Oct-2019 Instruction Type:Patient Education Patient Instructions Indication:Nonsmoker Start:27-Oct-2019 Instruction Type:Provider Instructions for Treatment How to access health informa tion online Indication:Nonsmoker Start:05-Oct-2019 Instruction Type:Patient Education How to access health informa tion online - Detail Indication:Nonsmoker Start:05-Oct-2019 Instruction Type:Patient Education Patient Instructions Indication:Encounter for screening for malignant neoplasm of prostate (Renamed from Screening for prostate cancer) Start:05-Oct-2019 Instruction Type:Provider Instructions for Treatment How to access health informa tion online Indication:Adult residual type attention deficit hyperactivity disorder (ADHD) Start:03-Jul-2019 Instruction Type:Patient Education How to access health informa tion online - Detail Indication:Adult residual type attention deficit hyperactivity disorder (ADHD) Start:03-Jul-2019 Instruction Type:Patient Education Patient Instructions Indication:Adult residual type attention deficit hyperactivity disorder (ADHD) Start:03-Jul-2019 Instruction Type:Provider Instructions for Treatment How to access health informa tion online Indication:Adult residual type attention deficit hyperactivity disorder (ADHD) Start:09-Apr-2019 Instruction Type:Patient Education How to access health informa tion online - Detail Indication:Adult residual type attention deficit hyperactivity disorder (ADHD) Start:09-Apr-2019 Instruction Type:Patient Education Patient Instructions Indication:Adult residual type attention deficit hyperactivity disorder (ADHD) Start:09-Apr-2019 Instruction Type:Provider Instructions for Treatment How to access health informa tion online Indication:Nonsmoker Start:20-Mar-2019 Instruction Type:Patient Education How to access health informa tion online - Detail Indication:Nonsmoker Start:20-Mar-2019 Instruction Type:Patient Education Patient Instructions Indication:Elevated blood-pressure reading, without diagnosis of hypertension (Renamed from Elevated blood-pressure reading without diagnosis of hypertension) Start:20-Mar-2019 Instruction Type:Provider Instructions for Treatment How to access health informa tion online Indication:Nonsmoker Start:12-Dec-2018 Instruction Type:Patient Education How to access health informa tion online - Detail Indication:Nonsmoker Start:12-Dec-2018 Instruction Type:Patient Education Patient Instructions Indication:BMI 34.0-34.9,adult Start:12-Dec-2018 Instruction Type:Provider Instructions for Treatment How to access health informa tion online Indication:Nonsmoker Start:21-Nov-2018 Instruction Type:Patient Education How to access health informa tion online - Detail Indication:Nonsmoker Start:21-Nov-2018 Instruction Type:Patient Education Patient Instructions Indication:Nonsmoker Start:21-Nov-2018 Instruction Type:Provider Instructions for Treatment How to access health informa tion online Indication:Nonsmoker Start:05-Sep-2018 Instruction Type:Patient Education How to access health informa tion online - Detail Indication:Nonsmoker Start:05-Sep-2018 Instruction Type:Patient Education Patient Instructions Indication:Nonsmoker Start:05-Sep-2018 Instruction Type:Provider Instructions for Treatment How to access health informa tion online Indication:Nonsmoker Start:02-Jun-2018 Instruction Type:Patient Education How to access health informa tion online - Detail Indication:Nonsmoker Start:02-Jun-2018 Instruction Type:Patient Education Patient Instructions Indication:Encounter for screening for malignant neoplasm of prostate (Renamed from Screening for prostate cancer) Start:02-Jun-2018 Instruction Type:Provider Instructions for Treatment How to access health informa tion online Indication:Adult residual type attention deficit hyperactivity disorder (ADHD) Start:30-May-2018 Instruction Type:Patient Education How to access health informa tion online - Detail Indication:Adult residual type attention deficit hyperactivity disorder (ADHD) Start:30-May-2018 Instruction Type:Patient Education Patient Instructions Indication:Adult residual type attention deficit hyperactivity disorder (ADHD) Start:30-May-2018 Instruction Type:Provider Instructions for Treatment Patient Instructions Indication:Adult residual type attention deficit hyperactivity disorder (ADHD) Start:30-May-2018 Instruction Type:Provider Instructions for Treatment How to access health informa tion online Indication:Cracked lip Start:28-Apr-2018 Instruction Type:Patient Education How to access health informa tion online - Detail Indication:Cracked lip Start:28-Apr-2018 Instruction Type:Patient Education Patient Instructions Indication:Cracked lip Start:28-Apr-2018 Instruction Type:Provider Instructions for Treatment How to access health informa tion online Indication:Adult residual type attention deficit hyperactivity disorder (ADHD) Start:21-Feb-2018 Instruction Type:Patient Education How to access health informa tion online - Detail Indication:Adult residual type attention deficit hyperactivity disorder (ADHD) Start:21-Feb-2018 Instruction Type:Patient Education Patient Instructions Indication:Adult residual type attention deficit hyperactivity disorder (ADHD) Start:21-Feb-2018 Instruction Type:Provider Instructions for Treatment How to access health informa tion online Indication:Nonsmoker Start:27-Jan-2018 Instruction Type:Patient Education How to access health informa tion online - Detail Indication:Nonsmoker Start:27-Jan-2018 Instruction Type:Patient Education Patient Instructions Indication:Nonsmoker Start:27-Jan-2018 Instruction Type:Provider Instructions for Treatment How to access health informa tion online Indication:Adult residual type attention deficit hyperactivity disorder (ADHD) Start:25-Oct-2017 Instruction Type:Patient Education How to access health informa tion online - Detail Indication:Adult residual type attention deficit hyperactivity disorder (ADHD) Start:25-Oct-2017 Instruction Type:Patient Education Patient Instructions Indication:Adult residual type attention deficit hyperactivity disorder (ADHD) Start:25-Oct-2017 Instruction Type:Provider Instructions for Treatment How to access health informa tion online Indication:Abnormal glucose tolerance test (Renamed from Abnormal glucose tolerance test (GTT)) Start:13-Sep-2017 Instruction Type:Patient Education How to access health informa tion online - Detail Indication:Abnormal glucose tolerance test (Renamed from Abnormal glucose tolerance test (GTT)) Start:13-Sep-2017 Instruction Type:Patient Education Patient Instructions Indication:BMI 34.0-34.9,adult Start:13-Sep-2017 Instruction Type:Provider Instructions for Treatment How to access health informa tion online Indication:Nonsmoker Start:16-Aug-2017 Instruction Type:Patient Education How to access health informa tion online - Detail Indication:Nonsmoker Start:16-Aug-2017 Instruction Type:Patient Education Patient Instructions Indication:Nonsmoker Start:16-Aug-2017 Instruction Type:Provider Instructions for Treatment How to access health informa tion online Indication:Adult residual type attention deficit hyperactivity disorder (ADHD) Start:26-Jul-2017 Instruction Type:Patient Education How to access health informa tion online - Detail Indication:Adult residual type attention deficit hyperactivity disorder (ADHD) Start:26-Jul-2017 Instruction Type:Patient Education Patient Instructions Indication:Adult residual type attention deficit hyperactivity disorder (ADHD) Start:26-Jul-2017 Instruction Type:Provider Instructions for Treatment How to access health informa tion online Indication:Abnormal glucose tolerance test (Renamed from Abnormal glucose tolerance test (GTT)) Start:10-May-2017 Instruction Type:Patient Education How to access health informa tion online - Detail Indication:Abnormal glucose tolerance test (Renamed from Abnormal glucose tolerance test (GTT)) Start:10-May-2017 Instruction Type:Patient Education Patient Instructions Indication:Abnormal glucose tolerance test (Renamed from Abnormal glucose tolerance test (GTT)) Start:10-May-2017 Instruction Type:Provider Instructions for Treatment Patient Instructions Indication:Skin picking habit Start:18-Jan-2017 Instruction Type:Provider Instructions for Treatment How to access health informa tion online Indication:Hyperlipidemia, unspecified Start:03-Dec-2016 Instruction Type:Patient Education How to access health informa tion online - Detail Indication:Hyperlipidemia, unspecified Start:03-Dec-2016 Instruction Type:Patient Education Patient Instructions Indication:Hyperlipidemia, unspecified Start:03-Dec-2016 Instruction Type:Provider Instructions for Treatment How to access health informa tion online Indication:Adult residual type attention deficit hyperactivity disorder (ADHD) Start:12-Oct-2016 Instruction Type:Patient Education How to access health informa tion online - Detail Indication:Adult residual type attention deficit hyperactivity disorder (ADHD) Start:12-Oct-2016 Instruction Type:Patient Education Patient Instructions Indication:Adult residual type attention deficit hyperactivity disorder (ADHD) Start:12-Oct-2016 Instruction Type:Provider Instructions for Treatment Patient Instructions Indication:Vitamin D deficiency Start:01-Oct-2016 Instruction Type:Provider Instructions for Treatment How to access health informa tion online Indication:Nonsmoker Start:01-Oct-2016 Instruction Type:Patient Education How to access health informa tion online - Detail Indication:Nonsmoker Start:01-Oct-2016 Instruction Type:Patient Education Patient Instructions Indication:Nonsmoker Start:01-Oct-2016 Instruction Type:Provider Instructions for Treatment How to access health informa tion online Indication:Abnormal glucose tolerance test (Renamed from Abnormal glucose tolerance test (GTT)) Start:21-Sep-2016 Instruction Type:Patient Education How to access health informa tion online - Detail Indication:Abnormal glucose tolerance test (Renamed from Abnormal glucose tolerance test (GTT)) Start:21-Sep-2016 Instruction Type:Patient Education Patient Instructions Indication:Abnormal glucose tolerance test (Renamed from Abnormal glucose tolerance test (GTT)) Start:21-Sep-2016 Instruction Type:Provider Instructions for Treatment Patient Instructions Indication:Abnormal glucose tolerance test (Renamed from Abnormal glucose tolerance test (GTT)) Start:21-Sep-2016 Instruction Type:Provider Instructions for Treatment Patient Instructions Indication:Abnormal glucose tolerance test (Renamed from Abnormal glucose tolerance test (GTT)) Start:06-Feb-2016 Instruction Type:Provider Instructions for Treatment How to access health informa tion online Indication:Prediabetes Start:26-Dec-2015 Instruction Type:Patient Education How to access health informa tion online - Detail Indication:Prediabetes Start:26-Dec-2015 Instruction Type:Patient Education Patient Instructions Indication:Prediabetes Start:26-Dec-2015 Instruction Type:Provider Instructions for Treatment How to access health informa tion online Indication:Anxiety Start:27-Jun-2015 Instruction Type:Patient Education How to access health informa tion online - Detail Indication:Anxiety Start:27-Jun-2015 Instruction Type:Patient Education Patient Instructions Indication:Anxiety Start:27-Jun-2015 Instruction Type:Provider Instructions for Treatment Patient Instructions Indication:Anxiety Start:09-May-2015 Instruction Type:Provider Instructions for Treatment Patient Instructions Indication:Obesity, unspecified Start:21-May-2014 Instruction Type:Provider Instructions for Treatment How to access health informa tion online Indication:Obesity, unspecified Start:21-May-2014 Instruction Type:Patient Education How to access health informa tion online - Detail Indication:Obesity, unspecified Start:21-May-2014 Instruction Type:Patient Education How to access health informa tion online Indication:Laceration of left leg Start:10-May-2014 Instruction Type:Patient Education How to access health informa tion online - Detail Indication:Laceration of left leg Start:10-May-2014 Instruction Type:Patient Education Patient Instructions Indication:Laceration of left leg Start:10-May-2014 Instruction Type:Provider Instructions for Treatment Patient Instructions Indication:Hyperlipidemia, unspecified Start:28-Jan-2014 Instruction Type:Provider Instructions for Treatment [facility]; [facility] Work Phone: Instructions* Name Dates Details Patient Instructions Indication:Fatigue Start:29-Apr-2023 Instruction Type:Provider Instructions for Treatment How to Access Health Informa tion Online using Patient Portal and [employer]rd [employer] Apps Indication:Fatigue Start:29-Apr-2023 Instruction Type:Patient Education Patient Instructions Indication:Nonsmoker Start:13-Jun-2022 Instruction Type:Provider Instructions for Treatment How to Access Health Informa tion Online using Patient Portal and [employer]rd [employer] Apps Indication:Nonsmoker Start:13-Jun-2022 Instruction Type:Patient Education Patient Instructions Indication:BMI 33.0-33.9,adult Start:13-Apr-2022 Instruction Type:Provider Instructions for Treatment How to Access Health Informa tion Online using Patient Portal and 3rd [employer] Apps Indication:BMI 33.0-33.9,adult Start:13-Apr-2022 Instruction Type:Patient Education Patient Instructions Indication:Dysthymia Start:12-Jan-2022 Instruction Type:Provider Instructions for Treatment How to Access Health Informa tion Online using Patient Portal and [employer] Apps Indication:Dysthymia Start:12-Jan-2022 Instruction Type:Patient Education Patient Instructions Indication:Dysthymia Start:08-Dec-2021 Instruction Type:Provider Instructions for Treatment How to Access Health Informa tion Online using Patient Portal and [employer] Apps Indication:Dysthymia Start:08-Dec-2021 Instruction Type:Patient Education Patient Instructions Indication:BMI 33.0-33.9,adult Start:10-Nov-2021 Instruction Type:Provider Instructions for Treatment How to Access Health Informa tion Online using Patient Portal and [employer] Apps Indication:BMI 33.0-33.9,adult Start:10-Nov-2021 Instruction Type:Patient Education Patient Instructions Indication:Nonsmoker Start:03-Nov-2021 Instruction Type:Provider Instructions for Treatment How to Access Health Informa tion Online using Patient Portal and [employer] Apps Indication:Nonsmoker Start:03-Nov-2021 Instruction Type:Patient Education Patient Instructions Indication:Nonsmoker Start:05-May-2021 Instruction Type:Provider Instructions for Treatment How to Access Health Informa tion Online using Patient Portal and [employer] Apps Indication:Nonsmoker Start:05-May-2021 Instruction Type:Patient Education How to Access Health Informa tion Online using Patient Portal and [employer] Apps Indication:Abnormal glucose tolerance test (Renamed from Abnormal glucose tolerance test (GTT)) Start:28-Apr-2021 Instruction Type:Patient Education Patient Instructions Indication:Abnormal glucose tolerance test (Renamed from Abnormal glucose tolerance test (GTT)) Start:28-Apr-2021 Instruction Type:Provider Instructions for Treatment Patient Instructions Indication:Adult residual type attention deficit hyperactivity disorder (ADHD) Start:28-Apr-2021 Instruction Type:Provider Instructions for Treatment How to Access Health Informa tion Online using Patient Portal and [employer] Apps Indication:Adult residual type attention deficit hyperactivity disorder (ADHD) Start:28-Apr-2021 Instruction Type:Patient Education Patient Instructions Indication:Nonsmoker Start:14-Mar-2021 Instruction Type:Provider Instructions for Treatment How to Access Health Informa tion Online using Patient Portal and [employer]rd [employer] Apps Indication:Nonsmoker Start:14-Mar-2021 Instruction Type:Patient Education Patient Instructions Indication:Adult residual type attention deficit hyperactivity disorder (ADHD) Start:28-Oct-2020 Instruction Type:Provider Instructions for Treatment How to Access Health Informa tion Online using Patient Portal and [employer] Apps Indication:Adult residual type attention deficit hyperactivity disorder (ADHD) Start:28-Oct-2020 Instruction Type:Patient Education Patient Instructions Indication:BMI 32.0-32.9,adult Start:21-Oct-2020 Instruction Type:Provider Instructions for Treatment How to Access Health Informa tion Online using Patient Portal and [employer] Apps Indication:Nonsmoker Start:21-Oct-2020 Instruction Type:Patient Education How to access health informa tion online Indication:Adult residual type attention deficit hyperactivity disorder (ADHD) Start:29-Apr-2020 Instruction Type:Patient Education How to access health informa tion online - Detail Indication:Adult residual type attention deficit hyperactivity disorder (ADHD) Start:29-Apr-2020 Instruction Type:Patient Education Patient Instructions Indication:Adult residual type attention deficit hyperactivity disorder (ADHD) Start:29-Apr-2020 Instruction Type:Provider Instructions for Treatment How to access health informa tion online Indication:Nonsmoker Start:20-Apr-2020 Instruction Type:Patient Education How to access health informa tion online - Detail Indication:Nonsmoker Start:20-Apr-2020 Instruction Type:Patient Education Patient Instructions Indication:Nonsmoker Start:20-Apr-2020 Instruction Type:Provider Instructions for Treatment How to access health informa tion online Indication:Adult residual type attention deficit hyperactivity disorder (ADHD) Start:01-Jan-2020 Instruction Type:Patient Education How to access health informa tion online - Detail Indication:Adult residual type attention deficit hyperactivity disorder (ADHD) Start:01-Jan-2020 Instruction Type:Patient Education Patient Instructions Indication:Adult residual type attention deficit hyperactivity disorder (ADHD) Start:01-Jan-2020 Instruction Type:Provider Instructions for Treatment How to access health informa tion online Indication:Nonsmoker Start:27-Oct-2019 Instruction Type:Patient Education How to access health informa tion online - Detail Indication:Nonsmoker Start:27-Oct-2019 Instruction Type:Patient Education Patient Instructions Indication:Nonsmoker Start:27-Oct-2019 Instruction Type:Provider Instructions for Treatment How to access health informa tion online Indication:Nonsmoker Start:05-Oct-2019 Instruction Type:Patient Education How to access health informa tion online - Detail Indication:Nonsmoker Start:05-Oct-2019 Instruction Type:Patient Education Patient Instructions Indication:Encounter for screening for malignant neoplasm of prostate (Renamed from Screening for prostate cancer) Start:05-Oct-2019 Instruction Type:Provider Instructions for Treatment How to access health informa tion online Indication:Adult residual type attention deficit hyperactivity disorder (ADHD) Start:03-Jul-2019 Instruction Type:Patient Education How to access health informa tion online - Detail Indication:Adult residual type attention deficit hyperactivity disorder (ADHD) Start:03-Jul-2019 Instruction Type:Patient Education Patient Instructions Indication:Adult residual type attention deficit hyperactivity disorder (ADHD) Start:03-Jul-2019 Instruction Type:Provider Instructions for Treatment How to access health informa tion online Indication:Adult residual type attention deficit hyperactivity disorder (ADHD) Start:09-Apr-2019 Instruction Type:Patient Education How to access health informa tion online - Detail Indication:Adult residual type attention deficit hyperactivity disorder (ADHD) Start:09-Apr-2019 Instruction Type:Patient Education Patient Instructions Indication:Adult residual type attention deficit hyperactivity disorder (ADHD) Start:09-Apr-2019 Instruction Type:Provider Instructions for Treatment How to access health informa tion online Indication:Nonsmoker Start:20-Mar-2019 Instruction Type:Patient Education How to access health informa tion online - Detail Indication:Nonsmoker Start:20-Mar-2019 Instruction Type:Patient Education Patient Instructions Indication:Elevated blood-pressure reading, without diagnosis of hypertension (Renamed from Elevated blood-pressure reading without diagnosis of hypertension) Start:20-Mar-2019 Instruction Type:Provider Instructions for Treatment How to access health informa tion online Indication:Nonsmoker Start:12-Dec-2018 Instruction Type:Patient Education How to access health informa tion online - Detail Indication:Nonsmoker Start:12-Dec-2018 Instruction Type:Patient Education Patient Instructions Indication:BMI 34.0-34.9,adult Start:12-Dec-2018 Instruction Type:Provider Instructions for Treatment How to access health informa tion online Indication:Nonsmoker Start:21-Nov-2018 Instruction Type:Patient Education How to access health informa tion online - Detail Indication:Nonsmoker Start:21-Nov-2018 Instruction Type:Patient Education Patient Instructions Indication:Nonsmoker Start:21-Nov-2018 Instruction Type:Provider Instructions for Treatment How to access health informa tion online Indication:Nonsmoker Start:05-Sep-2018 Instruction Type:Patient Education How to access health informa tion online - Detail Indication:Nonsmoker Start:05-Sep-2018 Instruction Type:Patient Education Patient Instructions Indication:Nonsmoker Start:05-Sep-2018 Instruction Type:Provider Instructions for Treatment How to access health informa tion online Indication:Nonsmoker Start:02-Jun-2018 Instruction Type:Patient Education How to access health informa tion online - Detail Indication:Nonsmoker Start:02-Jun-2018 Instruction Type:Patient Education Patient Instructions Indication:Encounter for screening for malignant neoplasm of prostate (Renamed from Screening for prostate cancer) Start:02-Jun-2018 Instruction Type:Provider Instructions for Treatment How to access health informa tion online Indication:Adult residual type attention deficit hyperactivity disorder (ADHD) Start:30-May-2018 Instruction Type:Patient Education How to access health informa tion online - Detail Indication:Adult residual type attention deficit hyperactivity disorder (ADHD) Start:30-May-2018 Instruction Type:Patient Education Patient Instructions Indication:Adult residual type attention deficit hyperactivity disorder (ADHD) Start:30-May-2018 Instruction Type:Provider Instructions for Treatment Patient Instructions Indication:Adult residual type attention deficit hyperactivity disorder (ADHD) Start:30-May-2018 Instruction Type:Provider Instructions for Treatment How to access health informa tion online Indication:Cracked lip Start:28-Apr-2018 Instruction Type:Patient Education How to access health informa tion online - Detail Indication:Cracked lip Start:28-Apr-2018 Instruction Type:Patient Education Patient Instructions Indication:Cracked lip Start:28-Apr-2018 Instruction Type:Provider Instructions for Treatment How to access health informa tion online Indication:Adult residual type attention deficit hyperactivity disorder (ADHD) Start:21-Feb-2018 Instruction Type:Patient Education How to access health informa tion online - Detail Indication:Adult residual type attention deficit hyperactivity disorder (ADHD) Start:21-Feb-2018 Instruction Type:Patient Education Patient Instructions Indication:Adult residual type attention deficit hyperactivity disorder (ADHD) Start:21-Feb-2018 Instruction Type:Provider Instructions for Treatment How to access health informa tion online Indication:Nonsmoker Start:27-Jan-2018 Instruction Type:Patient Education How to access health informa tion online - Detail Indication:Nonsmoker Start:27-Jan-2018 Instruction Type:Patient Education Patient Instructions Indication:Nonsmoker Start:27-Jan-2018 Instruction Type:Provider Instructions for Treatment How to access health informa tion online Indication:Adult residual type attention deficit hyperactivity disorder (ADHD) Start:25-Oct-2017 Instruction Type:Patient Education How to access health informa tion online - Detail Indication:Adult residual type attention deficit hyperactivity disorder (ADHD) Start:25-Oct-2017 Instruction Type:Patient Education Patient Instructions Indication:Adult residual type attention deficit hyperactivity disorder (ADHD) Start:25-Oct-2017 Instruction Type:Provider Instructions for Treatment How to access health informa tion online Indication:Abnormal glucose tolerance test (Renamed from Abnormal glucose tolerance test (GTT)) Start:13-Sep-2017 Instruction Type:Patient Education How to access health informa tion online - Detail Indication:Abnormal glucose tolerance test (Renamed from Abnormal glucose tolerance test (GTT)) Start:13-Sep-2017 Instruction Type:Patient Education Patient Instructions Indication:BMI 34.0-34.9,adult Start:13-Sep-2017 Instruction Type:Provider Instructions for Treatment How to access health informa tion online Indication:Nonsmoker Start:16-Aug-2017 Instruction Type:Patient Education How to access health informa tion online - Detail Indication:Nonsmoker Start:16-Aug-2017 Instruction Type:Patient Education Patient Instructions Indication:Nonsmoker Start:16-Aug-2017 Instruction Type:Provider Instructions for Treatment How to access health informa tion online Indication:Adult residual type attention deficit hyperactivity disorder (ADHD) Start:26-Jul-2017 Instruction Type:Patient Education How to access health informa tion online - Detail Indication:Adult residual type attention deficit hyperactivity disorder (ADHD) Start:26-Jul-2017 Instruction Type:Patient Education Patient Instructions Indication:Adult residual type attention deficit hyperactivity disorder (ADHD) Start:26-Jul-2017 Instruction Type:Provider Instructions for Treatment How to access health informa tion online Indication:Abnormal glucose tolerance test (Renamed from Abnormal glucose tolerance test (GTT)) Start:10-May-2017 Instruction Type:Patient Education How to access health informa tion online - Detail Indication:Abnormal glucose tolerance test (Renamed from Abnormal glucose tolerance test (GTT)) Start:10-May-2017 Instruction Type:Patient Education Patient Instructions Indication:Abnormal glucose tolerance test (Renamed from Abnormal glucose tolerance test (GTT)) Start:10-May-2017 Instruction Type:Provider Instructions for Treatment Patient Instructions Indication:Skin picking habit Start:18-Jan-2017 Instruction Type:Provider Instructions for Treatment How to access health informa tion online Indication:Hyperlipidemia, unspecified Start:03-Dec-2016 Instruction Type:Patient Education How to access health informa tion online - Detail Indication:Hyperlipidemia, unspecified Start:03-Dec-2016 Instruction Type:Patient Education Patient Instructions Indication:Hyperlipidemia, unspecified Start:03-Dec-2016 Instruction Type:Provider Instructions for Treatment How to access health informa tion online Indication:Adult residual type attention deficit hyperactivity disorder (ADHD) Start:12-Oct-2016 Instruction Type:Patient Education How to access health informa tion online - Detail Indication:Adult residual type attention deficit hyperactivity disorder (ADHD) Start:12-Oct-2016 Instruction Type:Patient Education Patient Instructions Indication:Adult residual type attention deficit hyperactivity disorder (ADHD) Start:12-Oct-2016 Instruction Type:Provider Instructions for Treatment Patient Instructions Indication:Vitamin D deficiency Start:01-Oct-2016 Instruction Type:Provider Instructions for Treatment How to access health informa tion online Indication:Nonsmoker Start:01-Oct-2016 Instruction Type:Patient Education How to access health informa tion online - Detail Indication:Nonsmoker Start:01-Oct-2016 Instruction Type:Patient Education Patient Instructions Indication:Nonsmoker Start:01-Oct-2016 Instruction Type:Provider Instructions for Treatment How to access health informa tion online Indication:Abnormal glucose tolerance test (Renamed from Abnormal glucose tolerance test (GTT)) Start:21-Sep-2016 Instruction Type:Patient Education How to access health informa tion online - Detail Indication:Abnormal glucose tolerance test (Renamed from Abnormal glucose tolerance test (GTT)) Start:21-Sep-2016 Instruction Type:Patient Education Patient Instructions Indication:Abnormal glucose tolerance test (Renamed from Abnormal glucose tolerance test (GTT)) Start:21-Sep-2016 Instruction Type:Provider Instructions for Treatment Patient Instructions Indication:Abnormal glucose tolerance test (Renamed from Abnormal glucose tolerance test (GTT)) Start:21-Sep-2016 Instruction Type:Provider Instructions for Treatment Patient Instructions Indication:Abnormal glucose tolerance test (Renamed from Abnormal glucose tolerance test (GTT)) Start:06-Feb-2016 Instruction Type:Provider Instructions for Treatment How to access health informa tion online Indication:Prediabetes Start:26-Dec-2015 Instruction Type:Patient Education How to access health informa tion online - Detail Indication:Prediabetes Start:26-Dec-2015 Instruction Type:Patient Education Patient Instructions Indication:Prediabetes Start:26-Dec-2015 Instruction Type:Provider Instructions for Treatment How to access health informa tion online Indication:Anxiety Start:27-Jun-2015 Instruction Type:Patient Education How to access health informa tion online - Detail Indication:Anxiety Start:27-Jun-2015 Instruction Type:Patient Education Patient Instructions Indication:Anxiety Start:27-Jun-2015 Instruction Type:Provider Instructions for Treatment Patient Instructions Indication:Anxiety Start:09-May-2015 Instruction Type:Provider Instructions for Treatment Patient Instructions Indication:Obesity, unspecified Start:21-May-2014 Instruction Type:Provider Instructions for Treatment How to access health informa tion online Indication:Obesity, unspecified Start:21-May-2014 Instruction Type:Patient Education How to access health informa tion online - Detail Indication:Obesity, unspecified Start:21-May-2014 Instruction Type:Patient Education How to access health informa tion online Indication:Laceration of left leg Start:10-May-2014 Instruction Type:Patient Education How to access health informa tion online - Detail Indication:Laceration of left leg Start:10-May-2014 Instruction Type:Patient Education Patient Instructions Indication:Laceration of left leg Start:10-May-2014 Instruction Type:Provider Instructions for Treatment Patient Instructions Indication:Hyperlipidemia, unspecified Start:28-Jan-2014 Instruction Type:Provider Instructions for Treatment [facility]; [facility] Work Phone: Instructions* Name Dates Details Patient Instructions Indication:Fatty liver Start:20-May-2023 Instruction Type:Provider Instructions for Treatment How to Access Health Informa tion Online using Patient Portal and [employer]rd [employer] Apps Indication:Fatty liver Start:20-May-2023 Instruction Type:Patient Education Patient Instructions Indication:Fatigue Start:29-Apr-2023 Instruction Type:Provider Instructions for Treatment How to Access Health Informa tion Online using Patient Portal and [employer]rd [employer] Apps Indication:Fatigue Start:29-Apr-2023 Instruction Type:Patient Education Patient Instructions Indication:Nonsmoker Start:13-Jun-2022 Instruction Type:Provider Instructions for Treatment How to Access Health Informa tion Online using Patient Portal and [employer]rd [employer] Apps Indication:Nonsmoker Start:13-Jun-2022 Instruction Type:Patient Education Patient Instructions Indication:BMI 33.0-33.9,adult Start:13-Apr-2022 Instruction Type:Provider Instructions for Treatment How to Access Health Informa tion Online using Patient Portal and [employer]rd [employer] Apps Indication:BMI 33.0-33.9,adult Start:13-Apr-2022 Instruction Type:Patient Education Patient Instructions Indication:Dysthymia Start:12-Jan-2022 Instruction Type:Provider Instructions for Treatment How to Access Health Informa tion Online using Patient Portal and [employer]rd [employer] Apps Indication:Dysthymia Start:12-Jan-2022 Instruction Type:Patient Education Patient Instructions Indication:Dysthymia Start:08-Dec-2021 Instruction Type:Provider Instructions for Treatment How to Access Health Informa tion Online using Patient Portal and [employer]rd [employer] Apps Indication:Dysthymia Start:08-Dec-2021 Instruction Type:Patient Education Patient Instructions Indication:BMI 33.0-33.9,adult Start:10-Nov-2021 Instruction Type:Provider Instructions for Treatment How to Access Health Informa tion Online using Patient Portal and [employer]rd [employer] Apps Indication:BMI 33.0-33.9,adult Start:10-Nov-2021 Instruction Type:Patient Education Patient Instructions Indication:Nonsmoker Start:03-Nov-2021 Instruction Type:Provider Instructions for Treatment How to Access Health Informa tion Online using Patient Portal and [employer]rd [employer] Apps Indication:Nonsmoker Start:03-Nov-2021 Instruction Type:Patient Education Patient Instructions Indication:Nonsmoker Start:05-May-2021 Instruction Type:Provider Instructions for Treatment How to Access Health Informa tion Online using Patient Portal and [employer]rd [employer] Apps Indication:Nonsmoker Start:05-May-2021 Instruction Type:Patient Education How to Access Health Informa tion Online using Patient Portal and [employer]rd [employer] Apps Indication:Abnormal glucose tolerance test (Renamed from Abnormal glucose tolerance test (GTT)) Start:28-Apr-2021 Instruction Type:Patient Education Patient Instructions Indication:Abnormal glucose tolerance test (Renamed from Abnormal glucose tolerance test (GTT)) Start:28-Apr-2021 Instruction Type:Provider Instructions for Treatment Patient Instructions Indication:Adult residual type attention deficit hyperactivity disorder (ADHD) Start:28-Apr-2021 Instruction Type:Provider Instructions for Treatment How to Access Health Informa tion Online using Patient Portal and [employer]rd [employer] Apps Indication:Adult residual type attention deficit hyperactivity disorder (ADHD) Start:28-Apr-2021 Instruction Type:Patient Education Patient Instructions Indication:Nonsmoker Start:14-Mar-2021 Instruction Type:Provider Instructions for Treatment How to Access Health Informa tion Online using Patient Portal and [employer]rd [employer] Apps Indication:Nonsmoker Start:14-Mar-2021 Instruction Type:Patient Education Patient Instructions Indication:Adult residual type attention deficit hyperactivity disorder (ADHD) Start:28-Oct-2020 Instruction Type:Provider Instructions for Treatment How to Access Health Informa tion Online using Patient Portal and [employer]rd [employer] Apps Indication:Adult residual type attention deficit hyperactivity disorder (ADHD) Start:28-Oct-2020 Instruction Type:Patient Education Patient Instructions Indication:BMI 32.0-32.9,adult Start:21-Oct-2020 Instruction Type:Provider Instructions for Treatment How to Access Health Informa tion Online using Patient Portal and [employer]rd [employer] Apps Indication:Nonsmoker Start:21-Oct-2020 Instruction Type:Patient Education How to access health informa tion online Indication:Adult residual type attention deficit hyperactivity disorder (ADHD) Start:29-Apr-2020 Instruction Type:Patient Education How to access health informa tion online - Detail Indication:Adult residual type attention deficit hyperactivity disorder (ADHD) Start:29-Apr-2020 Instruction Type:Patient Education Patient Instructions Indication:Adult residual type attention deficit hyperactivity disorder (ADHD) Start:29-Apr-2020 Instruction Type:Provider Instructions for Treatment How to access health informa tion online Indication:Nonsmoker Start:20-Apr-2020 Instruction Type:Patient Education How to access health informa tion online - Detail Indication:Nonsmoker Start:20-Apr-2020 Instruction Type:Patient Education Patient Instructions Indication:Nonsmoker Start:20-Apr-2020 Instruction Type:Provider Instructions for Treatment How to access health informa tion online Indication:Adult residual type attention deficit hyperactivity disorder (ADHD) Start:01-Jan-2020 Instruction Type:Patient Education How to access health informa tion online - Detail Indication:Adult residual type attention deficit hyperactivity disorder (ADHD) Start:01-Jan-2020 Instruction Type:Patient Education Patient Instructions Indication:Adult residual type attention deficit hyperactivity disorder (ADHD) Start:01-Jan-2020 Instruction Type:Provider Instructions for Treatment How to access health informa tion online Indication:Nonsmoker Start:27-Oct-2019 Instruction Type:Patient Education How to access health informa tion online - Detail Indication:Nonsmoker Start:27-Oct-2019 Instruction Type:Patient Education Patient Instructions Indication:Nonsmoker Start:27-Oct-2019 Instruction Type:Provider Instructions for Treatment How to access health informa tion online Indication:Nonsmoker Start:05-Oct-2019 Instruction Type:Patient Education How to access health informa tion online - Detail Indication:Nonsmoker Start:05-Oct-2019 Instruction Type:Patient Education Patient Instructions Indication:Encounter for screening for malignant neoplasm of prostate (Renamed from Screening for prostate cancer) Start:05-Oct-2019 Instruction Type:Provider Instructions for Treatment How to access health informa tion online Indication:Adult residual type attention deficit hyperactivity disorder (ADHD) Start:03-Jul-2019 Instruction Type:Patient Education How to access health informa tion online - Detail Indication:Adult residual type attention deficit hyperactivity disorder (ADHD) Start:03-Jul-2019 Instruction Type:Patient Education Patient Instructions Indication:Adult residual type attention deficit hyperactivity disorder (ADHD) Start:03-Jul-2019 Instruction Type:Provider Instructions for Treatment How to access health informa tion online Indication:Adult residual type attention deficit hyperactivity disorder (ADHD) Start:09-Apr-2019 Instruction Type:Patient Education How to access health informa tion online - Detail Indication:Adult residual type attention deficit hyperactivity disorder (ADHD) Start:09-Apr-2019 Instruction Type:Patient Education Patient Instructions Indication:Adult residual type attention deficit hyperactivity disorder (ADHD) Start:09-Apr-2019 Instruction Type:Provider Instructions for Treatment How to access health informa tion online Indication:Nonsmoker Start:20-Mar-2019 Instruction Type:Patient Education How to access health informa tion online - Detail Indication:Nonsmoker Start:20-Mar-2019 Instruction Type:Patient Education Patient Instructions Indication:Elevated blood-pressure reading, without diagnosis of hypertension (Renamed from Elevated blood-pressure reading without diagnosis of hypertension) Start:20-Mar-2019 Instruction Type:Provider Instructions for Treatment How to access health informa tion online Indication:Nonsmoker Start:12-Dec-2018 Instruction Type:Patient Education How to access health informa tion online - Detail Indication:Nonsmoker Start:12-Dec-2018 Instruction Type:Patient Education Patient Instructions Indication:BMI 34.0-34.9,adult Start:12-Dec-2018 Instruction Type:Provider Instructions for Treatment How to access health informa tion online Indication:Nonsmoker Start:21-Nov-2018 Instruction Type:Patient Education How to access health informa tion online - Detail Indication:Nonsmoker Start:21-Nov-2018 Instruction Type:Patient Education Patient Instructions Indication:Nonsmoker Start:21-Nov-2018 Instruction Type:Provider Instructions for Treatment How to access health informa tion online Indication:Nonsmoker Start:05-Sep-2018 Instruction Type:Patient Education How to access health informa tion online - Detail Indication:Nonsmoker Start:05-Sep-2018 Instruction Type:Patient Education Patient Instructions Indication:Nonsmoker Start:05-Sep-2018 Instruction Type:Provider Instructions for Treatment How to access health informa tion online Indication:Nonsmoker Start:02-Jun-2018 Instruction Type:Patient Education How to access health informa tion online - Detail Indication:Nonsmoker Start:02-Jun-2018 Instruction Type:Patient Education Patient Instructions Indication:Encounter for screening for malignant neoplasm of prostate (Renamed from Screening for prostate cancer) Start:02-Jun-2018 Instruction Type:Provider Instructions for Treatment How to access health informa tion online Indication:Adult residual type attention deficit hyperactivity disorder (ADHD) Start:30-May-2018 Instruction Type:Patient Education How to access health informa tion online - Detail Indication:Adult residual type attention deficit hyperactivity disorder (ADHD) Start:30-May-2018 Instruction Type:Patient Education Patient Instructions Indication:Adult residual type attention deficit hyperactivity disorder (ADHD) Start:30-May-2018 Instruction Type:Provider Instructions for Treatment Patient Instructions Indication:Adult residual type attention deficit hyperactivity disorder (ADHD) Start:30-May-2018 Instruction Type:Provider Instructions for Treatment How to access health informa tion online Indication:Cracked lip Start:28-Apr-2018 Instruction Type:Patient Education How to access health informa tion online - Detail Indication:Cracked lip Start:28-Apr-2018 Instruction Type:Patient Education Patient Instructions Indication:Cracked lip Start:28-Apr-2018 Instruction Type:Provider Instructions for Treatment How to access health informa tion online Indication:Adult residual type attention deficit hyperactivity disorder (ADHD) Start:21-Feb-2018 Instruction Type:Patient Education How to access health informa tion online - Detail Indication:Adult residual type attention deficit hyperactivity disorder (ADHD) Start:21-Feb-2018 Instruction Type:Patient Education Patient Instructions Indication:Adult residual type attention deficit hyperactivity disorder (ADHD) Start:21-Feb-2018 Instruction Type:Provider Instructions for Treatment How to access health informa tion online Indication:Nonsmoker Start:27-Jan-2018 Instruction Type:Patient Education How to access health informa tion online - Detail Indication:Nonsmoker Start:27-Jan-2018 Instruction Type:Patient Education Patient Instructions Indication:Nonsmoker Start:27-Jan-2018 Instruction Type:Provider Instructions for Treatment How to access health informa tion online Indication:Adult residual type attention deficit hyperactivity disorder (ADHD) Start:25-Oct-2017 Instruction Type:Patient Education How to access health informa tion online - Detail Indication:Adult residual type attention deficit hyperactivity disorder (ADHD) Start:25-Oct-2017 Instruction Type:Patient Education Patient Instructions Indication:Adult residual type attention deficit hyperactivity disorder (ADHD) Start:25-Oct-2017 Instruction Type:Provider Instructions for Treatment How to access health informa tion online Indication:Abnormal glucose tolerance test (Renamed from Abnormal glucose tolerance test (GTT)) Start:13-Sep-2017 Instruction Type:Patient Education How to access health informa tion online - Detail Indication:Abnormal glucose tolerance test (Renamed from Abnormal glucose tolerance test (GTT)) Start:13-Sep-2017 Instruction Type:Patient Education Patient Instructions Indication:BMI 34.0-34.9,adult Start:13-Sep-2017 Instruction Type:Provider Instructions for Treatment How to access health informa tion online Indication:Nonsmoker Start:16-Aug-2017 Instruction Type:Patient Education How to access health informa tion online - Detail Indication:Nonsmoker Start:16-Aug-2017 Instruction Type:Patient Education Patient Instructions Indication:Nonsmoker Start:16-Aug-2017 Instruction Type:Provider Instructions for Treatment How to access health informa tion online Indication:Adult residual type attention deficit hyperactivity disorder (ADHD) Start:26-Jul-2017 Instruction Type:Patient Education How to access health informa tion online - Detail Indication:Adult residual type attention deficit hyperactivity disorder (ADHD) Start:26-Jul-2017 Instruction Type:Patient Education Patient Instructions Indication:Adult residual type attention deficit hyperactivity disorder (ADHD) Start:26-Jul-2017 Instruction Type:Provider Instructions for Treatment How to access health informa tion online Indication:Abnormal glucose tolerance test (Renamed from Abnormal glucose tolerance test (GTT)) Start:10-May-2017 Instruction Type:Patient Education How to access health informa tion online - Detail Indication:Abnormal glucose tolerance test (Renamed from Abnormal glucose tolerance test (GTT)) Start:10-May-2017 Instruction Type:Patient Education Patient Instructions Indication:Abnormal glucose tolerance test (Renamed from Abnormal glucose tolerance test (GTT)) Start:10-May-2017 Instruction Type:Provider Instructions for Treatment Patient Instructions Indication:Skin picking habit Start:18-Jan-2017 Instruction Type:Provider Instructions for Treatment How to access health informa tion online Indication:Hyperlipidemia, unspecified Start:03-Dec-2016 Instruction Type:Patient Education How to access health informa tion online - Detail Indication:Hyperlipidemia, unspecified Start:03-Dec-2016 Instruction Type:Patient Education Patient Instructions Indication:Hyperlipidemia, unspecified Start:03-Dec-2016 Instruction Type:Provider Instructions for Treatment How to access health informa tion online Indication:Adult residual type attention deficit hyperactivity disorder (ADHD) Start:12-Oct-2016 Instruction Type:Patient Education How to access health informa tion online - Detail Indication:Adult residual type attention deficit hyperactivity disorder (ADHD) Start:12-Oct-2016 Instruction Type:Patient Education Patient Instructions Indication:Adult residual type attention deficit hyperactivity disorder (ADHD) Start:12-Oct-2016 Instruction Type:Provider Instructions for Treatment Patient Instructions Indication:Vitamin D deficiency Start:01-Oct-2016 Instruction Type:Provider Instructions for Treatment How to access health informa tion online Indication:Nonsmoker Start:01-Oct-2016 Instruction Type:Patient Education How to access health informa tion online - Detail Indication:Nonsmoker Start:01-Oct-2016 Instruction Type:Patient Education Patient Instructions Indication:Nonsmoker Start:01-Oct-2016 Instruction Type:Provider Instructions for Treatment How to access health informa tion online Indication:Abnormal glucose tolerance test (Renamed from Abnormal glucose tolerance test (GTT)) Start:21-Sep-2016 Instruction Type:Patient Education How to access health informa tion online - Detail Indication:Abnormal glucose tolerance test (Renamed from Abnormal glucose tolerance test (GTT)) Start:21-Sep-2016 Instruction Type:Patient Education Patient Instructions Indication:Abnormal glucose tolerance test (Renamed from Abnormal glucose tolerance test (GTT)) Start:21-Sep-2016 Instruction Type:Provider Instructions for Treatment Patient Instructions Indication:Abnormal glucose tolerance test (Renamed from Abnormal glucose tolerance test (GTT)) Start:21-Sep-2016 Instruction Type:Provider Instructions for Treatment Patient Instructions Indication:Abnormal glucose tolerance test (Renamed from Abnormal glucose tolerance test (GTT)) Start:06-Feb-2016 Instruction Type:Provider Instructions for Treatment How to access health informa tion online Indication:Prediabetes Start:26-Dec-2015 Instruction Type:Patient Education How to access health informa tion online - Detail Indication:Prediabetes Start:26-Dec-2015 Instruction Type:Patient Education Patient Instructions Indication:Prediabetes Start:26-Dec-2015 Instruction Type:Provider Instructions for Treatment How to access health informa tion online Indication:Anxiety Start:27-Jun-2015 Instruction Type:Patient Education How to access health informa tion online - Detail Indication:Anxiety Start:27-Jun-2015 Instruction Type:Patient Education Patient Instructions Indication:Anxiety Start:27-Jun-2015 Instruction Type:Provider Instructions for Treatment Patient Instructions Indication:Anxiety Start:09-May-2015 Instruction Type:Provider Instructions for Treatment Patient Instructions Indication:Obesity, unspecified Start:21-May-2014 Instruction Type:Provider Instructions for Treatment How to access health informa tion online Indication:Obesity, unspecified Start:21-May-2014 Instruction Type:Patient Education How to access health informa tion online - Detail Indication:Obesity, unspecified Start:21-May-2014 Instruction Type:Patient Education How to access health informa tion online Indication:Laceration of left leg Start:10-May-2014 Instruction Type:Patient Education How to access health informa tion online - Detail Indication:Laceration of left leg Start:10-May-2014 Instruction Type:Patient Education Patient Instructions Indication:Laceration of left leg Start:10-May-2014 Instruction Type:Provider Instructions for Treatment Patient Instructions Indication:Hyperlipidemia, unspecified Start:28-Jan-2014 Instruction Type:Provider Instructions for Treatment [facility]; [facility] Work Phone: Instructions* Name Dates Details Patient Instructions Indication:Fatty liver Start:20-May-2023 Instruction Type:Provider Instructions for Treatment How to Access Health Informa tion Online using Patient Portal and [employer] Apps Indication:Fatty liver Start:20-May-2023 Instruction Type:Patient Education Patient Instructions Indication:Fatigue Start:29-Apr-2023 Instruction Type:Provider Instructions for Treatment How to Access Health Informa tion Online using Patient Portal and [employer]rd [employer] Apps Indication:Fatigue Start:29-Apr-2023 Instruction Type:Patient Education Patient Instructions Indication:Nonsmoker Start:13-Jun-2022 Instruction Type:Provider Instructions for Treatment How to Access Health Informa tion Online using Patient Portal and [employer]rd [employer] Apps Indication:Nonsmoker Start:13-Jun-2022 Instruction Type:Patient Education Patient Instructions Indication:BMI 33.0-33.9,adult Start:13-Apr-2022 Instruction Type:Provider Instructions for Treatment How to Access Health Informa tion Online using Patient Portal and [employer]rd [employer] Apps Indication:BMI 33.0-33.9,adult Start:13-Apr-2022 Instruction Type:Patient Education Patient Instructions Indication:Dysthymia Start:12-Jan-2022 Instruction Type:Provider Instructions for Treatment How to Access Health Informa tion Online using Patient Portal and [employer]rd [employer] Apps Indication:Dysthymia Start:12-Jan-2022 Instruction Type:Patient Education Patient Instructions Indication:Dysthymia Start:08-Dec-2021 Instruction Type:Provider Instructions for Treatment How to Access Health Informa tion Online using Patient Portal and [employer]rd [employer] Apps Indication:Dysthymia Start:08-Dec-2021 Instruction Type:Patient Education Patient Instructions Indication:BMI 33.0-33.9,adult Start:10-Nov-2021 Instruction Type:Provider Instructions for Treatment How to Access Health Informa tion Online using Patient Portal and [employer]rd [employer] Apps Indication:BMI 33.0-33.9,adult Start:10-Nov-2021 Instruction Type:Patient Education Patient Instructions Indication:Nonsmoker Start:03-Nov-2021 Instruction Type:Provider Instructions for Treatment How to Access Health Informa tion Online using Patient Portal and [employer]rd [employer] Apps Indication:Nonsmoker Start:03-Nov-2021 Instruction Type:Patient Education Patient Instructions Indication:Nonsmoker Start:05-May-2021 Instruction Type:Provider Instructions for Treatment How to Access Health Informa tion Online using Patient Portal and [employer]rd [employer] Apps Indication:Nonsmoker Start:05-May-2021 Instruction Type:Patient Education How to Access Health Informa tion Online using Patient Portal and [employer]rd [employer] Apps Indication:Abnormal glucose tolerance test (Renamed from Abnormal glucose tolerance test (GTT)) Start:28-Apr-2021 Instruction Type:Patient Education Patient Instructions Indication:Abnormal glucose tolerance test (Renamed from Abnormal glucose tolerance test (GTT)) Start:28-Apr-2021 Instruction Type:Provider Instructions for Treatment Patient Instructions Indication:Adult residual type attention deficit hyperactivity disorder (ADHD) Start:28-Apr-2021 Instruction Type:Provider Instructions for Treatment How to Access Health Informa tion Online using Patient Portal and [employer] Apps Indication:Adult residual type attention deficit hyperactivity disorder (ADHD) Start:28-Apr-2021 Instruction Type:Patient Education Patient Instructions Indication:Nonsmoker Start:14-Mar-2021 Instruction Type:Provider Instructions for Treatment How to Access Health Informa tion Online using Patient Portal and [employer] Apps Indication:Nonsmoker Start:14-Mar-2021 Instruction Type:Patient Education Patient Instructions Indication:Adult residual type attention deficit hyperactivity disorder (ADHD) Start:28-Oct-2020 Instruction Type:Provider Instructions for Treatment How to Access Health Informa tion Online using Patient Portal and [employer] Apps Indication:Adult residual type attention deficit hyperactivity disorder (ADHD) Start:28-Oct-2020 Instruction Type:Patient Education Patient Instructions Indication:BMI 32.0-32.9,adult Start:21-Oct-2020 Instruction Type:Provider Instructions for Treatment How to Access Health Informa tion Online using Patient Portal and [employer] Apps Indication:Nonsmoker Start:21-Oct-2020 Instruction Type:Patient Education How to access health informa tion online Indication:Adult residual type attention deficit hyperactivity disorder (ADHD) Start:29-Apr-2020 Instruction Type:Patient Education How to access health informa tion online - Detail Indication:Adult residual type attention deficit hyperactivity disorder (ADHD) Start:29-Apr-2020 Instruction Type:Patient Education Patient Instructions Indication:Adult residual type attention deficit hyperactivity disorder (ADHD) Start:29-Apr-2020 Instruction Type:Provider Instructions for Treatment How to access health informa tion online Indication:Nonsmoker Start:20-Apr-2020 Instruction Type:Patient Education How to access health informa tion online - Detail Indication:Nonsmoker Start:20-Apr-2020 Instruction Type:Patient Education Patient Instructions Indication:Nonsmoker Start:20-Apr-2020 Instruction Type:Provider Instructions for Treatment How to access health informa tion online Indication:Adult residual type attention deficit hyperactivity disorder (ADHD) Start:01-Jan-2020 Instruction Type:Patient Education How to access health informa tion online - Detail Indication:Adult residual type attention deficit hyperactivity disorder (ADHD) Start:01-Jan-2020 Instruction Type:Patient Education Patient Instructions Indication:Adult residual type attention deficit hyperactivity disorder (ADHD) Start:01-Jan-2020 Instruction Type:Provider Instructions for Treatment How to access health informa tion online Indication:Nonsmoker Start:27-Oct-2019 Instruction Type:Patient Education How to access health informa tion online - Detail Indication:Nonsmoker Start:27-Oct-2019 Instruction Type:Patient Education Patient Instructions Indication:Nonsmoker Start:27-Oct-2019 Instruction Type:Provider Instructions for Treatment How to access health informa tion online Indication:Nonsmoker Start:05-Oct-2019 Instruction Type:Patient Education How to access health informa tion online - Detail Indication:Nonsmoker Start:05-Oct-2019 Instruction Type:Patient Education Patient Instructions Indication:Encounter for screening for malignant neoplasm of prostate (Renamed from Screening for prostate cancer) Start:05-Oct-2019 Instruction Type:Provider Instructions for Treatment How to access health informa tion online Indication:Adult residual type attention deficit hyperactivity disorder (ADHD) Start:03-Jul-2019 Instruction Type:Patient Education How to access health informa tion online - Detail Indication:Adult residual type attention deficit hyperactivity disorder (ADHD) Start:03-Jul-2019 Instruction Type:Patient Education Patient Instructions Indication:Adult residual type attention deficit hyperactivity disorder (ADHD) Start:03-Jul-2019 Instruction Type:Provider Instructions for Treatment How to access health informa tion online Indication:Adult residual type attention deficit hyperactivity disorder (ADHD) Start:09-Apr-2019 Instruction Type:Patient Education How to access health informa tion online - Detail Indication:Adult residual type attention deficit hyperactivity disorder (ADHD) Start:09-Apr-2019 Instruction Type:Patient Education Patient Instructions Indication:Adult residual type attention deficit hyperactivity disorder (ADHD) Start:09-Apr-2019 Instruction Type:Provider Instructions for Treatment How to access health informa tion online Indication:Nonsmoker Start:20-Mar-2019 Instruction Type:Patient Education How to access health informa tion online - Detail Indication:Nonsmoker Start:20-Mar-2019 Instruction Type:Patient Education Patient Instructions Indication:Elevated blood-pressure reading, without diagnosis of hypertension (Renamed from Elevated blood-pressure reading without diagnosis of hypertension) Start:20-Mar-2019 Instruction Type:Provider Instructions for Treatment How to access health informa tion online Indication:Nonsmoker Start:12-Dec-2018 Instruction Type:Patient Education How to access health informa tion online - Detail Indication:Nonsmoker Start:12-Dec-2018 Instruction Type:Patient Education Patient Instructions Indication:BMI 34.0-34.9,adult Start:12-Dec-2018 Instruction Type:Provider Instructions for Treatment How to access health informa tion online Indication:Nonsmoker Start:21-Nov-2018 Instruction Type:Patient Education How to access health informa tion online - Detail Indication:Nonsmoker Start:21-Nov-2018 Instruction Type:Patient Education Patient Instructions Indication:Nonsmoker Start:21-Nov-2018 Instruction Type:Provider Instructions for Treatment How to access health informa tion online Indication:Nonsmoker Start:05-Sep-2018 Instruction Type:Patient Education How to access health informa tion online - Detail Indication:Nonsmoker Start:05-Sep-2018 Instruction Type:Patient Education Patient Instructions Indication:Nonsmoker Start:05-Sep-2018 Instruction Type:Provider Instructions for Treatment How to access health informa tion online Indication:Nonsmoker Start:02-Jun-2018 Instruction Type:Patient Education How to access health informa tion online - Detail Indication:Nonsmoker Start:02-Jun-2018 Instruction Type:Patient Education Patient Instructions Indication:Encounter for screening for malignant neoplasm of prostate (Renamed from Screening for prostate cancer) Start:02-Jun-2018 Instruction Type:Provider Instructions for Treatment How to access health informa tion online Indication:Adult residual type attention deficit hyperactivity disorder (ADHD) Start:30-May-2018 Instruction Type:Patient Education How to access health informa tion online - Detail Indication:Adult residual type attention deficit hyperactivity disorder (ADHD) Start:30-May-2018 Instruction Type:Patient Education Patient Instructions Indication:Adult residual type attention deficit hyperactivity disorder (ADHD) Start:30-May-2018 Instruction Type:Provider Instructions for Treatment Patient Instructions Indication:Adult residual type attention deficit hyperactivity disorder (ADHD) Start:30-May-2018 Instruction Type:Provider Instructions for Treatment How to access health informa tion online Indication:Cracked lip Start:28-Apr-2018 Instruction Type:Patient Education How to access health informa tion online - Detail Indication:Cracked lip Start:28-Apr-2018 Instruction Type:Patient Education Patient Instructions Indication:Cracked lip Start:28-Apr-2018 Instruction Type:Provider Instructions for Treatment How to access health informa tion online Indication:Adult residual type attention deficit hyperactivity disorder (ADHD) Start:21-Feb-2018 Instruction Type:Patient Education How to access health informa tion online - Detail Indication:Adult residual type attention deficit hyperactivity disorder (ADHD) Start:21-Feb-2018 Instruction Type:Patient Education Patient Instructions Indication:Adult residual type attention deficit hyperactivity disorder (ADHD) Start:21-Feb-2018 Instruction Type:Provider Instructions for Treatment How to access health informa tion online Indication:Nonsmoker Start:27-Jan-2018 Instruction Type:Patient Education How to access health informa tion online - Detail Indication:Nonsmoker Start:27-Jan-2018 Instruction Type:Patient Education Patient Instructions Indication:Nonsmoker Start:27-Jan-2018 Instruction Type:Provider Instructions for Treatment How to access health informa tion online Indication:Adult residual type attention deficit hyperactivity disorder (ADHD) Start:25-Oct-2017 Instruction Type:Patient Education How to access health informa tion online - Detail Indication:Adult residual type attention deficit hyperactivity disorder (ADHD) Start:25-Oct-2017 Instruction Type:Patient Education Patient Instructions Indication:Adult residual type attention deficit hyperactivity disorder (ADHD) Start:25-Oct-2017 Instruction Type:Provider Instructions for Treatment How to access health informa tion online Indication:Abnormal glucose tolerance test (Renamed from Abnormal glucose tolerance test (GTT)) Start:13-Sep-2017 Instruction Type:Patient Education How to access health informa tion online - Detail Indication:Abnormal glucose tolerance test (Renamed from Abnormal glucose tolerance test (GTT)) Start:13-Sep-2017 Instruction Type:Patient Education Patient Instructions Indication:BMI 34.0-34.9,adult Start:13-Sep-2017 Instruction Type:Provider Instructions for Treatment How to access health informa tion online Indication:Nonsmoker Start:16-Aug-2017 Instruction Type:Patient Education How to access health informa tion online - Detail Indication:Nonsmoker Start:16-Aug-2017 Instruction Type:Patient Education Patient Instructions Indication:Nonsmoker Start:16-Aug-2017 Instruction Type:Provider Instructions for Treatment How to access health informa tion online Indication:Adult residual type attention deficit hyperactivity disorder (ADHD) Start:26-Jul-2017 Instruction Type:Patient Education How to access health informa tion online - Detail Indication:Adult residual type attention deficit hyperactivity disorder (ADHD) Start:26-Jul-2017 Instruction Type:Patient Education Patient Instructions Indication:Adult residual type attention deficit hyperactivity disorder (ADHD) Start:26-Jul-2017 Instruction Type:Provider Instructions for Treatment How to access health informa tion online Indication:Abnormal glucose tolerance test (Renamed from Abnormal glucose tolerance test (GTT)) Start:10-May-2017 Instruction Type:Patient Education How to access health informa tion online - Detail Indication:Abnormal glucose tolerance test (Renamed from Abnormal glucose tolerance test (GTT)) Start:10-May-2017 Instruction Type:Patient Education Patient Instructions Indication:Abnormal glucose tolerance test (Renamed from Abnormal glucose tolerance test (GTT)) Start:10-May-2017 Instruction Type:Provider Instructions for Treatment Patient Instructions Indication:Skin picking habit Start:18-Jan-2017 Instruction Type:Provider Instructions for Treatment How to access health informa tion online Indication:Hyperlipidemia, unspecified Start:03-Dec-2016 Instruction Type:Patient Education How to access health informa tion online - Detail Indication:Hyperlipidemia, unspecified Start:03-Dec-2016 Instruction Type:Patient Education Patient Instructions Indication:Hyperlipidemia, unspecified Start:03-Dec-2016 Instruction Type:Provider Instructions for Treatment How to access health informa tion online Indication:Adult residual type attention deficit hyperactivity disorder (ADHD) Start:12-Oct-2016 Instruction Type:Patient Education How to access health informa tion online - Detail Indication:Adult residual type attention deficit hyperactivity disorder (ADHD) Start:12-Oct-2016 Instruction Type:Patient Education Patient Instructions Indication:Adult residual type attention deficit hyperactivity disorder (ADHD) Start:12-Oct-2016 Instruction Type:Provider Instructions for Treatment Patient Instructions Indication:Vitamin D deficiency Start:01-Oct-2016 Instruction Type:Provider Instructions for Treatment How to access health informa tion online Indication:Nonsmoker Start:01-Oct-2016 Instruction Type:Patient Education How to access health informa tion online - Detail Indication:Nonsmoker Start:01-Oct-2016 Instruction Type:Patient Education Patient Instructions Indication:Nonsmoker Start:01-Oct-2016 Instruction Type:Provider Instructions for Treatment How to access health informa tion online Indication:Abnormal glucose tolerance test (Renamed from Abnormal glucose tolerance test (GTT)) Start:21-Sep-2016 Instruction Type:Patient Education How to access health informa tion online - Detail Indication:Abnormal glucose tolerance test (Renamed from Abnormal glucose tolerance test (GTT)) Start:21-Sep-2016 Instruction Type:Patient Education Patient Instructions Indication:Abnormal glucose tolerance test (Renamed from Abnormal glucose tolerance test (GTT)) Start:21-Sep-2016 Instruction Type:Provider Instructions for Treatment Patient Instructions Indication:Abnormal glucose tolerance test (Renamed from Abnormal glucose tolerance test (GTT)) Start:21-Sep-2016 Instruction Type:Provider Instructions for Treatment Patient Instructions Indication:Abnormal glucose tolerance test (Renamed from Abnormal glucose tolerance test (GTT)) Start:06-Feb-2016 Instruction Type:Provider Instructions for Treatment How to access health informa tion online Indication:Prediabetes Start:26-Dec-2015 Instruction Type:Patient Education How to access health informa tion online - Detail Indication:Prediabetes Start:26-Dec-2015 Instruction Type:Patient Education Patient Instructions Indication:Prediabetes Start:26-Dec-2015 Instruction Type:Provider Instructions for Treatment How to access health informa tion online Indication:Anxiety Start:27-Jun-2015 Instruction Type:Patient Education How to access health informa tion online - Detail Indication:Anxiety Start:27-Jun-2015 Instruction Type:Patient Education Patient Instructions Indication:Anxiety Start:27-Jun-2015 Instruction Type:Provider Instructions for Treatment Patient Instructions Indication:Anxiety Start:09-May-2015 Instruction Type:Provider Instructions for Treatment Patient Instructions Indication:Obesity, unspecified Start:21-May-2014 Instruction Type:Provider Instructions for Treatment How to access health informa tion online Indication:Obesity, unspecified Start:21-May-2014 Instruction Type:Patient Education How to access health informa tion online - Detail Indication:Obesity, unspecified Start:21-May-2014 Instruction Type:Patient Education How to access health informa tion online Indication:Laceration of left leg Start:10-May-2014 Instruction Type:Patient Education How to access health informa tion online - Detail Indication:Laceration of left leg Start:10-May-2014 Instruction Type:Patient Education Patient Instructions Indication:Laceration of left leg Start:10-May-2014 Instruction Type:Provider Instructions for Treatment Patient Instructions Indication:Hyperlipidemia, unspecified Start:28-Jan-2014 Instruction Type:Provider Instructions for Treatment [facility] Work Phone: Family History Unknown Family Member Name Dates Details Father Comments: lung cance r, CHF, HTN, hyperlipidemia Status:Active Maternal Grandfather Comments:Brain cancer, decea sed. CAD started in 50's Status:Active Maternal Grandmother Comments:94 still living Status:Active Mother Comments:healthy Status:Active Paternal Grandfather Comments:Hyperlipidemia, HTN , diabetes Status:Active Paternal Grandmother Comments:HTN, hyperlipidemia , diabetes, Status:Active Unknown Family Member Name Dates Details Father Comments: lung cance r, CHF, HTN, hyperlipidemia Status:Active Maternal Grandfather Comments:Brain cancer, decea sed. CAD started in 50's Status:Active Maternal Grandmother Comments:94 still living Status:Active Mother Comments:healthy Status:Active Paternal Grandfather Comments:Hyperlipidemia, HTN , diabetes Status:Active Paternal Grandmother Comments:HTN, hyperlipidemia , diabetes, Status:Active Unknown Family Member Name Dates Details Father Comments: lung cance r, CHF, HTN, hyperlipidemia Status:Active Maternal Grandfather Comments:Brain cancer, decea sed. CAD started in 50's Status:Active Maternal Grandmother Comments:94 still living Status:Active Mother Comments:healthy Status:Active Paternal Grandfather Comments:Hyperlipidemia, HTN , diabetes Status:Active Paternal Grandmother Comments:HTN, hyperlipidemia , diabetes, Status:Active Unknown Family Member Name Dates Details Father Comments: lung cance r, CHF, HTN, hyperlipidemia Status:Active Maternal Grandfather Comments:Brain cancer, decea sed. CAD started in 50's Status:Active Maternal Grandmother Comments:94 still living Status:Active Mother Comments:healthy Status:Active Paternal Grandfather Comments:Hyperlipidemia, HTN , diabetes Status:Active Paternal Grandmother Comments:HTN, hyperlipidemia , diabetes, Status:Active Unknown Family Member Name Dates Details Father Comments: lung cance r, CHF, HTN, hyperlipidemia Status:Active Maternal Grandfather Comments:Brain cancer, decea sed. CAD started in 50's Status:Active Maternal Grandmother Comments:94 still living Status:Active Mother Comments:healthy Status:Active Paternal Grandfather Comments:Hyperlipidemia, HTN , diabetes Status:Active Paternal Grandmother Comments:HTN, hyperlipidemia , diabetes, Status:Active Unknown Family Member Name Dates Details Father Comments: lung cance r, CHF, HTN, hyperlipidemia Status:Active Maternal Grandfather Comments:Brain cancer, decea sed. CAD started in 50's Status:Active Maternal Grandmother Comments:94 still living Status:Active Mother Comments:healthy Status:Active Paternal Grandfather Comments:Hyperlipidemia, HTN , diabetes Status:Active Paternal Grandmother Comments:HTN, hyperlipidemia , diabetes, Status:Active Unknown Family Member Name Dates Details Father Comments: lung cance r, CHF, HTN, hyperlipidemia Status:Active Maternal Grandfather Comments:Brain cancer, decea sed. CAD started in 50's Status:Active Maternal Grandmother Comments:94 still living Status:Active Mother Comments:healthy Status:Active Paternal Grandfather Comments:Hyperlipidemia, HTN , diabetes Status:Active Paternal Grandmother Comments:HTN, hyperlipidemia , diabetes, Status:Active Unknown Family Member Name Dates Details Father Comments: lung cance r, CHF, HTN, hyperlipidemia Status:Active Maternal Grandfather Comments:Brain cancer, decea sed. CAD started in 50's Status:Active Maternal Grandmother Comments:94 still living Status:Active Mother Comments:healthy Status:Active Paternal Grandfather Comments:Hyperlipidemia, HTN , diabetes Status:Active Paternal Grandmother Comments:HTN, hyperlipidemia , diabetes, Status:Active Unknown Family Member Name Dates Details Father Comments: lung cance r, CHF, HTN, hyperlipidemia Status:Active Maternal Grandfather Comments:Brain cancer, decea sed. CAD started in 50's Status:Active Maternal Grandmother Comments:94 still living Status:Active Mother Comments:healthy Status:Active Paternal Grandfather Comments:Hyperlipidemia, HTN , diabetes Status:Active Paternal Grandmother Comments:HTN, hyperlipidemia , diabetes, Status:Active Unknown Family Member Name Dates Details Father Comments: lung cance r, CHF, HTN, hyperlipidemia Status:Active Maternal Grandfather Comments:Brain cancer, decea sed. CAD started in 50's Status:Active Maternal Grandmother Comments:94 still living Status:Active Mother Comments:healthy Status:Active Paternal Grandfather Comments:Hyperlipidemia, HTN , diabetes Status:Active Paternal Grandmother Comments:HTN, hyperlipidemia , diabetes, Status:Active Unknown Family Member Name Dates Details Father Comments: lung cance r, CHF, HTN, hyperlipidemia Status:Active Maternal Grandfather Comments:Brain cancer, decea sed. CAD started in 50's Status:Active Maternal Grandmother Comments:94 still living Status:Active Mother Comments:healthy Status:Active Paternal Grandfather Comments:Hyperlipidemia, HTN , diabetes Status:Active Paternal Grandmother Comments:HTN, hyperlipidemia , diabetes, Status:Active Unknown Family Member Name Dates Details Father Comments: lung cance r, CHF, HTN, hyperlipidemia Status:Active Maternal Grandfather Comments:Brain cancer, decea sed. CAD started in 50's Status:Active Maternal Grandmother Comments:94 still living Status:Active Mother Comments:healthy Status:Active Paternal Grandfather Comments:Hyperlipidemia, HTN , diabetes Status:Active Paternal Grandmother Comments:HTN, hyperlipidemia , diabetes, Status:Active Unknown Family Member Name Dates Details Father Comments: lung cance r, CHF, HTN, hyperlipidemia Status:Active Maternal Grandfather Comments:Brain cancer, decea sed. CAD started in 50's Status:Active Maternal Grandmother Comments:94 still living Status:Active Mother Comments:healthy Status:Active Paternal Grandfather Comments:Hyperlipidemia, HTN , diabetes Status:Active Paternal Grandmother Comments:HTN, hyperlipidemia , diabetes, Status:Active Unknown Family Member Name Dates Details Father Comments: lung cance r, CHF, HTN, hyperlipidemia Status:Active Maternal Grandfather Comments:Brain cancer, decea sed. CAD started in 50's Status:Active Maternal Grandmother Comments:94 still living Status:Active Mother Comments:healthy Status:Active Paternal Grandfather Comments:Hyperlipidemia, HTN , diabetes Status:Active Paternal Grandmother Comments:HTN, hyperlipidemia , diabetes, Status:Active Unknown Family Member Name Dates Details Father Comments: lung cance r, CHF, HTN, hyperlipidemia Status:Active Maternal Grandfather Comments:Brain cancer, decea sed. CAD started in 50's Status:Active Maternal Grandmother Comments:94 still living Status:Active Mother Comments:healthy Status:Active Paternal Grandfather Comments:Hyperlipidemia, HTN , diabetes Status:Active Paternal Grandmother Comments:HTN, hyperlipidemia , diabetes, Status:Active Unknown Family Member Name Dates Details Father Comments: lung cance r, CHF, HTN, hyperlipidemia Status:Active Maternal Grandfather Comments:Brain cancer, decea sed. CAD started in 50's Status:Active Maternal Grandmother Comments:94 still living Status:Active Mother Comments:healthy Status:Active Paternal Grandfather Comments:Hyperlipidemia, HTN , diabetes Status:Active Paternal Grandmother Comments:HTN, hyperlipidemia , diabetes, Status:Active Unknown Family Member Name Dates Details Father Comments: lung cance r, CHF, HTN, hyperlipidemia Status:Active Maternal Grandfather Comments:Brain cancer, decea sed. CAD started in 50's Status:Active Maternal Grandmother Comments:94 still living Status:Active Mother Comments:healthy Status:Active Paternal Grandfather Comments:Hyperlipidemia, HTN , diabetes Status:Active Paternal Grandmother Comments:HTN, hyperlipidemia , diabetes, Status:Active Unknown Family Member Name Dates Details Father Comments: lung cance r, CHF, HTN, hyperlipidemia Status:Active Maternal Grandfather Comments:Brain cancer, decea sed. CAD started in 50's Status:Active Maternal Grandmother Comments:94 still living Status:Active Mother Comments:healthy Status:Active Paternal Grandfather Comments:Hyperlipidemia, HTN , diabetes Status:Active Paternal Grandmother Comments:HTN, hyperlipidemia , diabetes, Status:Active Unknown Family Member Name Dates Details Father Comments: lung cance r, CHF, HTN, hyperlipidemia Status:Active Maternal Grandfather Comments:Brain cancer, decea sed. CAD started in 50's Status:Active Maternal Grandmother Comments:94 still living Status:Active Mother Comments:healthy Status:Active Paternal Grandfather Comments:Hyperlipidemia, HTN , diabetes Status:Active Paternal Grandmother Comments:HTN, hyperlipidemia , diabetes, Status:Active Unknown Family Member Name Dates Details Father Comments: lung cance r, CHF, HTN, hyperlipidemia Status:Active Maternal Grandfather Comments:Brain cancer, decea sed. CAD started in 50's Status:Active Maternal Grandmother Comments:94 still living Status:Active Mother Comments:healthy Status:Active Paternal Grandfather Comments:Hyperlipidemia, HTN , diabetes Status:Active Paternal Grandmother Comments:HTN, hyperlipidemia , diabetes, Status:Active Unknown Family Member Name Dates Details Father Comments: lung cance r, CHF, HTN, hyperlipidemia Status:Active Maternal Grandfather Comments:Brain cancer, decea sed. CAD started in 50's Status:Active Maternal Grandmother Comments:94 still living Status:Active Mother Comments:healthy Status:Active Paternal Grandfather Comments:Hyperlipidemia, HTN , diabetes Status:Active Paternal Grandmother Comments:HTN, hyperlipidemia , diabetes, Status:Active Unknown Family Member Name Dates Details Father Comments: lung cance r, CHF, HTN, hyperlipidemia Status:Active Maternal Grandfather Comments:Brain cancer, decea sed. CAD started in 50's Status:Active Maternal Grandmother Comments:94 still living Status:Active Mother Comments:healthy Status:Active Paternal Grandfather Comments:Hyperlipidemia, HTN , diabetes Status:Active Paternal Grandmother Comments:HTN, hyperlipidemia , diabetes, Status:Active Unknown Family Member Name Dates Details Father Comments: lung cance r, CHF, HTN, hyperlipidemia Status:Active Maternal Grandfather Comments:Brain cancer, decea sed. CAD started in 50's Status:Active Maternal Grandmother Comments:94 still living Status:Active Mother Comments:healthy Status:Active Paternal Grandfather Comments:Hyperlipidemia, HTN , diabetes Status:Active Paternal Grandmother Comments:HTN, hyperlipidemia , diabetes, Status:Active Unknown Family Member Name Dates Details Father Comments: lung cance r, CHF, HTN, hyperlipidemia Status:Active Maternal Grandfather Comments:Brain cancer, decea sed. CAD started in 50's Status:Active Maternal Grandmother Comments:94 still living Status:Active Mother Comments:healthy Status:Active Paternal Grandfather Comments:Hyperlipidemia, HTN , diabetes Status:Active Paternal Grandmother Comments:HTN, hyperlipidemia , diabetes, Status:Active Unknown Family Member Name Dates Details Father Comments: lung cance r, CHF, HTN, hyperlipidemia Status:Active Maternal Grandfather Comments:Brain cancer, decea sed. CAD started in 50's Status:Active Maternal Grandmother Comments:94 still living Status:Active Mother Comments:healthy Status:Active Paternal Grandfather Comments:Hyperlipidemia, HTN , diabetes Status:Active Paternal Grandmother Comments:HTN, hyperlipidemia , diabetes, Status:Active Unknown Family Member Name Dates Details Father Comments: lung cance r, CHF, HTN, hyperlipidemia Status:Active Maternal Grandfather Comments:Brain cancer, decea sed. CAD started in 50's Status:Active Maternal Grandmother Comments:94 still living Status:Active Mother Comments:healthy Status:Active Paternal Grandfather Comments:Hyperlipidemia, HTN , diabetes Status:Active Paternal Grandmother Comments:HTN, hyperlipidemia , diabetes, Status:Active Unknown Family Member Name Dates Details Father Comments: lung cance r, CHF, HTN, hyperlipidemia Status:Active Maternal Grandfather Comments:Brain cancer, decea sed. CAD started in 50's Status:Active Maternal Grandmother Comments:94 still living Status:Active Mother Comments:healthy Status:Active Paternal Grandfather Comments:Hyperlipidemia, HTN , diabetes Status:Active Paternal Grandmother Comments:HTN, hyperlipidemia , diabetes, Status:Active Unknown Family Member Name Dates Details Father Comments: lung cance r, CHF, HTN, hyperlipidemia Status:Active Maternal Grandfather Comments:Brain cancer, decea sed. CAD started in 50's Status:Active Maternal Grandmother Comments:94 still living Status:Active Mother Comments:healthy Status:Active Paternal Grandfather Comments:Hyperlipidemia, HTN , diabetes Status:Active Paternal Grandmother Comments:HTN, hyperlipidemia , diabetes, Status:Active Unknown Family Member Name Dates Details Father Comments: lung cance r, CHF, HTN, hyperlipidemia Status:Active Maternal Grandfather Comments:Brain cancer, decea sed. CAD started in 50's Status:Active Maternal Grandmother Comments:94 still living Status:Active Mother Comments:healthy Status:Active Paternal Grandfather Comments:Hyperlipidemia, HTN , diabetes Status:Active Paternal Grandmother Comments:HTN, hyperlipidemia , diabetes, Status:Active Unknown Family Member Name Dates Details Father Comments: lung cance r, CHF, HTN, hyperlipidemia Status:Active Maternal Grandfather Comments:Brain cancer, decea sed. CAD started in 50's Status:Active Maternal Grandmother Comments:94 still living Status:Active Mother Comments:healthy Status:Active Paternal Grandfather Comments:Hyperlipidemia, HTN , diabetes Status:Active Paternal Grandmother Comments:HTN, hyperlipidemia , diabetes, Status:Active Unknown Family Member Name Dates Details Father Comments: lung cance r, CHF, HTN, hyperlipidemia Status:Active Maternal Grandfather Comments:Brain cancer, decea sed. CAD started in 50's Status:Active Maternal Grandmother Comments:94 still living Status:Active Mother Comments:healthy Status:Active Paternal Grandfather Comments:Hyperlipidemia, HTN , diabetes Status:Active Paternal Grandmother Comments:HTN, hyperlipidemia , diabetes, Status:Active Unknown Family Member Name Dates Details Father Comments: lung cance r, CHF, HTN, hyperlipidemia Status:Active Maternal Grandfather Comments:Brain cancer, decea sed. CAD started in 50's Status:Active Maternal Grandmother Comments:94 still living Status:Active Mother Comments:healthy Status:Active Paternal Grandfather Comments:Hyperlipidemia, HTN , diabetes Status:Active Paternal Grandmother Comments:HTN, hyperlipidemia , diabetes, Status:Active Unknown Family Member Name Dates Details Father Comments: lung cance r, CHF, HTN, hyperlipidemia Status:Active Maternal Grandfather Comments:Brain cancer, decea sed. CAD started in 50's Status:Active Maternal Grandmother Comments:94 still living Status:Active Mother Comments:healthy Status:Active Paternal Grandfather Comments:Hyperlipidemia, HTN , diabetes Status:Active Paternal Grandmother Comments:HTN, hyperlipidemia , diabetes, Status:Active Unknown Family Member Name Dates Details Father Comments: lung cance r, CHF, HTN, hyperlipidemia Status:Active Maternal Grandfather Comments:Brain cancer, decea sed. CAD started in 50's Status:Active Maternal Grandmother Comments:94 still living Status:Active Mother Comments:healthy Status:Active Paternal Grandfather Comments:Hyperlipidemia, HTN , diabetes Status:Active Paternal Grandmother Comments:HTN, hyperlipidemia , diabetes, Status:Active Unknown Family Member Name Dates Details Father Comments: lung cance r, CHF, HTN, hyperlipidemia Status:Active Maternal Grandfather Comments:Brain cancer, decea sed. CAD started in 50's Status:Active Maternal Grandmother Comments:94 still living Status:Active Mother Comments:healthy Status:Active Paternal Grandfather Comments:Hyperlipidemia, HTN , diabetes Status:Active Paternal Grandmother Comments:HTN, hyperlipidemia , diabetes, Status:Active Unknown Family Member Name Dates Details Father Comments: lung cance r, CHF, HTN, hyperlipidemia Status:Active Maternal Grandfather Comments:Brain cancer, decea sed. CAD started in 50's Status:Active Maternal Grandmother Comments:94 still living Status:Active Mother Comments:healthy Status:Active Paternal Grandfather Comments:Hyperlipidemia, HTN , diabetes Status:Active Paternal Grandmother Comments:HTN, hyperlipidemia , diabetes, Status:Active Unknown Family Member Name Dates Details Father Comments: lung cance r, CHF, HTN, hyperlipidemia Status:Active Maternal Grandfather Comments:Brain cancer, decea sed. CAD started in 50's Status:Active Maternal Grandmother Comments:94 still living Status:Active Mother Comments:healthy Status:Active Paternal Grandfather Comments:Hyperlipidemia, HTN , diabetes Status:Active Paternal Grandmother Comments:HTN, hyperlipidemia , diabetes, Status:Active Unknown Family Member Name Dates Details Father Comments: lung cance r, CHF, HTN, hyperlipidemia Status:Active Maternal Grandfather Comments:Brain cancer, decea sed. CAD started in 50's Status:Active Maternal Grandmother Comments:94 still living Status:Active Mother Comments:healthy Status:Active Paternal Grandfather Comments:Hyperlipidemia, HTN , diabetes Status:Active Paternal Grandmother Comments:HTN, hyperlipidemia , diabetes, Status:Active Unknown Family Member Name Dates Details Father Comments: lung cance r, CHF, HTN, hyperlipidemia Status:Active Maternal Grandfather Comments:Brain cancer, decea sed. CAD started in 50's Status:Active Maternal Grandmother Comments:94 still living Status:Active Mother Comments:healthy Status:Active Paternal Grandfather Comments:Hyperlipidemia, HTN , diabetes Status:Active Paternal Grandmother Comments:HTN, hyperlipidemia , diabetes, Status:Active Unknown Family Member Name Dates Details Father Comments: lung cance r, CHF, HTN, hyperlipidemia Status:Active Maternal Grandfather Comments:Brain cancer, decea sed. CAD started in 50's Status:Active Maternal Grandmother Comments:94 still living Status:Active Mother Comments:healthy Status:Active Paternal Grandfather Comments:Hyperlipidemia, HTN , diabetes Status:Active Paternal Grandmother Comments:HTN, hyperlipidemia , diabetes, Status:Active Unknown Family Member Name Dates Details Father Comments: lung cance r, CHF, HTN, hyperlipidemia Status:Active Maternal Grandfather Comments:Brain cancer, decea sed. CAD started in 50's Status:Active Maternal Grandmother Comments:94 still living Status:Active Mother Comments:healthy Status:Active Paternal Grandfather Comments:Hyperlipidemia, HTN , diabetes Status:Active Paternal Grandmother Comments:HTN, hyperlipidemia , diabetes, Status:Active Unknown Family Member Name Dates Details Father Comments: lung cance r, CHF, HTN, hyperlipidemia Status:Active Maternal Grandfather Comments:Brain cancer, decea sed. CAD started in 50's Status:Active Maternal Grandmother Comments:94 still living Status:Active Mother Comments:healthy Status:Active Paternal Grandfather Comments:Hyperlipidemia, HTN , diabetes Status:Active Paternal Grandmother Comments:HTN, hyperlipidemia , diabetes, Status:Active Unknown Family Member Name Dates Details Father Comments: lung cance r, CHF, HTN, hyperlipidemia Status:Active Maternal Grandfather Comments:Brain cancer, decea sed. CAD started in 50's Status:Active Maternal Grandmother Comments:94 still living Status:Active Mother Comments:healthy Status:Active Paternal Grandfather Comments:Hyperlipidemia, HTN , diabetes Status:Active Paternal Grandmother Comments:HTN, hyperlipidemia , diabetes, Status:Active Unknown Family Member Name Dates Details Father Comments: lung cance r, CHF, HTN, hyperlipidemia Status:Active Maternal Grandfather Comments:Brain cancer, decea sed. CAD started in 50's Status:Active Maternal Grandmother Comments:94 still living Status:Active Mother Comments:healthy Status:Active Paternal Grandfather Comments:Hyperlipidemia, HTN , diabetes Status:Active Paternal Grandmother Comments:HTN, hyperlipidemia , diabetes, Status:Active Unknown Family Member Name Dates Details Father Comments: lung cance r, CHF, HTN, hyperlipidemia Status:Active Maternal Grandfather Comments:Brain cancer, decea sed. CAD started in 50's Status:Active Maternal Grandmother Comments:94 still living Status:Active Mother Comments:healthy Status:Active Paternal Grandfather Comments:Hyperlipidemia, HTN , diabetes Status:Active Paternal Grandmother Comments:HTN, hyperlipidemia , diabetes, Status:Active Unknown Family Member Name Dates Details Father Comments: lung cance r, CHF, HTN, hyperlipidemia Status:Active Maternal Grandfather Comments:Brain cancer, decea sed. CAD started in 50's Status:Active Maternal Grandmother Comments:94 still living Status:Active Mother Comments:healthy Status:Active Paternal Grandfather Comments:Hyperlipidemia, HTN , diabetes Status:Active Paternal Grandmother Comments:HTN, hyperlipidemia , diabetes, Status:Active Unknown Family Member Name Dates Details Father Comments: lung cance r, CHF, HTN, hyperlipidemia Status:Active Maternal Grandfather Comments:Brain cancer, decea sed. CAD started in 50's Status:Active Maternal Grandmother Comments:94 still living Status:Active Mother Comments:healthy Status:Active Paternal Grandfather Comments:Hyperlipidemia, HTN , diabetes Status:Active Paternal Grandmother Comments:HTN, hyperlipidemia , diabetes, Status:Active Instructions Name Dates Details Nonsmoker : How to access he alth information online Indication:Nonsmoker Nonsmoker : How to access he alth information online - Detail Indication:Nonsmoker Encounter for screening for malignant neoplasm of prostate (Renamed from Screening for prostate cancer) : Patient Instructions Indication:Encounter for screening for malignant neoplasm of prostate (Renamed from Screening for prostate cancer) Adult residual type attentio n deficit hyperactivity disorder (ADHD) : How to access health information online Indication:Adult residual type attention deficit hyperactivity disorder (ADHD) Adult residual type attentio n deficit hyperactivity disorder (ADHD) : How to access health information online - Detail Indication:Adult residual type attention deficit hyperactivity disorder (ADHD) Adult residual type attentio n deficit hyperactivity disorder (ADHD) : Patient Instructions Indication:Adult residual type attention deficit hyperactivity disorder (ADHD) Cracked lip : How to access health information online Indication:Cracked lip Cracked lip : How to access health information online - Detail Indication:Cracked lip Cracked lip : Patient Instru ctions Indication:Cracked lip Nonsmoker : Patient Instruct ions Indication:Nonsmoker Abnormal glucose tolerance t est (Renamed from Abnormal glucose tolerance test (GTT)) : How to access health information online Indication:Abnormal glucose tolerance test (Renamed from Abnormal glucose tolerance test (GTT)) Abnormal glucose tolerance t est (Renamed from Abnormal glucose tolerance test (GTT)) : How to access health information online - Detail Indication:Abnormal glucose tolerance test (Renamed from Abnormal glucose tolerance test (GTT)) BMI 34.0-34.9,adult : Patien t Instructions Indication:BMI 34.0-34.9,adult Abnormal glucose tolerance t est (Renamed from Abnormal glucose tolerance test (GTT)) : Patient Instructions Indication:Abnormal glucose tolerance test (Renamed from Abnormal glucose tolerance test (GTT)) Skin picking habit : Patient Instructions Indication:Skin picking habit Hyperlipidemia, unspecified : How to access health information online Indication:Hyperlipidemia, unspecified Hyperlipidemia, unspecified : How to access health information online - Detail Indication:Hyperlipidemia, unspecified Hyperlipidemia, unspecified : Patient Instructions Indication:Hyperlipidemia, unspecified Vitamin D deficiency : Patie nt Instructions Indication:Vitamin D deficiency Prediabetes : How to access health information online Indication:Prediabetes Prediabetes : How to access health information online - Detail Indication:Prediabetes Prediabetes : Patient Instru ctions Indication:Prediabetes Anxiety : How to access heal th information online Indication:Anxiety Anxiety : How to access heal th information online - Detail Indication:Anxiety Anxiety : Patient Instructio ns Indication:Anxiety Obesity, unspecified : Patie nt Instructions Indication:Obesity, unspecified Obesity, unspecified : How t o access health information online Indication:Obesity, unspecified Obesity, unspecified : How t o access health information online - Detail Indication:Obesity, unspecified Laceration of left leg : How to access health information online Indication:Laceration of left leg Laceration of left leg : How to access health information online - Detail Indication:Laceration of left leg Laceration of left leg : Pat ient Instructions Indication:Laceration of left leg Name Dates Details Nonsmoker : How to access he alth information online Indication:Nonsmoker Nonsmoker : How to access he alth information online - Detail Indication:Nonsmoker Nonsmoker : Patient Instruct ions Indication:Nonsmoker Encounter for screening for malignant neoplasm of prostate (Renamed from Screening for prostate cancer) : Patient Instructions Indication:Encounter for screening for malignant neoplasm of prostate (Renamed from Screening for prostate cancer) Adult residual type attentio n deficit hyperactivity disorder (ADHD) : How to access health information online Indication:Adult residual type attention deficit hyperactivity disorder (ADHD) Adult residual type attentio n deficit hyperactivity disorder (ADHD) : How to access health information online - Detail Indication:Adult residual type attention deficit hyperactivity disorder (ADHD) Adult residual type attentio n deficit hyperactivity disorder (ADHD) : Patient Instructions Indication:Adult residual type attention deficit hyperactivity disorder (ADHD) Cracked lip : How to access health information online Indication:Cracked lip Cracked lip : How to access health information online - Detail Indication:Cracked lip Cracked lip : Patient Instru ctions Indication:Cracked lip Abnormal glucose tolerance t est (Renamed from Abnormal glucose tolerance test (GTT)) : How to access health information online Indication:Abnormal glucose tolerance test (Renamed from Abnormal glucose tolerance test (GTT)) Abnormal glucose tolerance t est (Renamed from Abnormal glucose tolerance test (GTT)) : How to access health information online - Detail Indication:Abnormal glucose tolerance test (Renamed from Abnormal glucose tolerance test (GTT)) BMI 34.0-34.9,adult : Patien t Instructions Indication:BMI 34.0-34.9,adult Abnormal glucose tolerance t est (Renamed from Abnormal glucose tolerance test (GTT)) : Patient Instructions Indication:Abnormal glucose tolerance test (Renamed from Abnormal glucose tolerance test (GTT)) Skin picking habit : Patient Instructions Indication:Skin picking habit Hyperlipidemia, unspecified : How to access health information online Indication:Hyperlipidemia, unspecified Hyperlipidemia, unspecified : How to access health information online - Detail Indication:Hyperlipidemia, unspecified Hyperlipidemia, unspecified : Patient Instructions Indication:Hyperlipidemia, unspecified Vitamin D deficiency : Patie nt Instructions Indication:Vitamin D deficiency Prediabetes : How to access health information online Indication:Prediabetes Prediabetes : How to access health information online - Detail Indication:Prediabetes Prediabetes : Patient Instru ctions Indication:Prediabetes Anxiety : How to access heal th information online Indication:Anxiety Anxiety : How to access heal th information online - Detail Indication:Anxiety Anxiety : Patient Instructio ns Indication:Anxiety Obesity, unspecified : Patie nt Instructions Indication:Obesity, unspecified Obesity, unspecified : How t o access health information online Indication:Obesity, unspecified Obesity, unspecified : How t o access health information online - Detail Indication:Obesity, unspecified Laceration of left leg : How to access health information online Indication:Laceration of left leg Laceration of left leg : How to access health information online - Detail Indication:Laceration of left leg Laceration of left leg : Pat ient Instructions Indication:Laceration of left leg Name Dates Details Nonsmoker : How to access he alth information online Indication:Nonsmoker Nonsmoker : How to access he alth information online - Detail Indication:Nonsmoker Nonsmoker : Patient Instruct ions Indication:Nonsmoker Encounter for screening for malignant neoplasm of prostate (Renamed from Screening for prostate cancer) : Patient Instructions Indication:Encounter for screening for malignant neoplasm of prostate (Renamed from Screening for prostate cancer) Adult residual type attentio n deficit hyperactivity disorder (ADHD) : How to access health information online Indication:Adult residual type attention deficit hyperactivity disorder (ADHD) Adult residual type attentio n deficit hyperactivity disorder (ADHD) : How to access health information online - Detail Indication:Adult residual type attention deficit hyperactivity disorder (ADHD) Adult residual type attentio n deficit hyperactivity disorder (ADHD) : Patient Instructions Indication:Adult residual type attention deficit hyperactivity disorder (ADHD) Cracked lip : How to access health information online Indication:Cracked lip Cracked lip : How to access health information online - Detail Indication:Cracked lip Cracked lip : Patient Instru ctions Indication:Cracked lip Abnormal glucose tolerance t est (Renamed from Abnormal glucose tolerance test (GTT)) : How to access health information online Indication:Abnormal glucose tolerance test (Renamed from Abnormal glucose tolerance test (GTT)) Abnormal glucose tolerance t est (Renamed from Abnormal glucose tolerance test (GTT)) : How to access health information online - Detail Indication:Abnormal glucose tolerance test (Renamed from Abnormal glucose tolerance test (GTT)) BMI 34.0-34.9,adult : Patien t Instructions Indication:BMI 34.0-34.9,adult Abnormal glucose tolerance t est (Renamed from Abnormal glucose tolerance test (GTT)) : Patient Instructions Indication:Abnormal glucose tolerance test (Renamed from Abnormal glucose tolerance test (GTT)) Skin picking habit : Patient Instructions Indication:Skin picking habit Hyperlipidemia, unspecified : How to access health information online Indication:Hyperlipidemia, unspecified Hyperlipidemia, unspecified : How to access health information online - Detail Indication:Hyperlipidemia, unspecified Hyperlipidemia, unspecified : Patient Instructions Indication:Hyperlipidemia, unspecified Vitamin D deficiency : Patie nt Instructions Indication:Vitamin D deficiency Prediabetes : How to access health information online Indication:Prediabetes Prediabetes : How to access health information online - Detail Indication:Prediabetes Prediabetes : Patient Instru ctions Indication:Prediabetes Anxiety : How to access heal th information online Indication:Anxiety Anxiety : How to access heal th information online - Detail Indication:Anxiety Anxiety : Patient Instructio ns Indication:Anxiety Obesity, unspecified : Patie nt Instructions Indication:Obesity, unspecified Obesity, unspecified : How t o access health information online Indication:Obesity, unspecified Obesity, unspecified : How t o access health information online - Detail Indication:Obesity, unspecified Laceration of left leg : How to access health information online Indication:Laceration of left leg Laceration of left leg : How to access health information online - Detail Indication:Laceration of left leg Laceration of left leg : Pat ient Instructions Indication:Laceration of left leg Name Dates Details How to access health informa tion online Indication:Nonsmoker Start:12-Dec-2018 Instruction Type:Patient Education How to access health informa tion online - Detail Indication:Nonsmoker Start:12-Dec-2018 Instruction Type:Patient Education Patient Instructions Indication:BMI 34.0-34.9,adult Start:12-Dec-2018 Instruction Type:Provider Instructions for Treatment How to access health informa tion online Indication:Nonsmoker Start:21-Nov-2018 Instruction Type:Patient Education How to access health informa tion online - Detail Indication:Nonsmoker Start:21-Nov-2018 Instruction Type:Patient Education Patient Instructions Indication:Nonsmoker Start:21-Nov-2018 Instruction Type:Provider Instructions for Treatment How to access health informa tion online Indication:Nonsmoker Start:05-Sep-2018 Instruction Type:Patient Education How to access health informa tion online - Detail Indication:Nonsmoker Start:05-Sep-2018 Instruction Type:Patient Education Patient Instructions Indication:Nonsmoker Start:05-Sep-2018 Instruction Type:Provider Instructions for Treatment How to access health informa tion online Indication:Nonsmoker Start:02-Jun-2018 Instruction Type:Patient Education How to access health informa tion online - Detail Indication:Nonsmoker Start:02-Jun-2018 Instruction Type:Patient Education Patient Instructions Indication:Encounter for screening for malignant neoplasm of prostate (Renamed from Screening for prostate cancer) Start:02-Jun-2018 Instruction Type:Provider Instructions for Treatment How to access health informa tion online Indication:Adult residual type attention deficit hyperactivity disorder (ADHD) Start:30-May-2018 Instruction Type:Patient Education How to access health informa tion online - Detail Indication:Adult residual type attention deficit hyperactivity disorder (ADHD) Start:30-May-2018 Instruction Type:Patient Education Patient Instructions Indication:Adult residual type attention deficit hyperactivity disorder (ADHD) Start:30-May-2018 Instruction Type:Provider Instructions for Treatment How to access health informa tion online Indication:Cracked lip Start:28-Apr-2018 Instruction Type:Patient Education How to access health informa tion online - Detail Indication:Cracked lip Start:28-Apr-2018 Instruction Type:Patient Education Patient Instructions Indication:Cracked lip Start:28-Apr-2018 Instruction Type:Provider Instructions for Treatment How to access health informa tion online Indication:Adult residual type attention deficit hyperactivity disorder (ADHD) Start:21-Feb-2018 Instruction Type:Patient Education How to access health informa tion online - Detail Indication:Adult residual type attention deficit hyperactivity disorder (ADHD) Start:21-Feb-2018 Instruction Type:Patient Education Patient Instructions Indication:Adult residual type attention deficit hyperactivity disorder (ADHD) Start:21-Feb-2018 Instruction Type:Provider Instructions for Treatment How to access health informa tion online Indication:Nonsmoker Start:27-Jan-2018 Instruction Type:Patient Education How to access health informa tion online - Detail Indication:Nonsmoker Start:27-Jan-2018 Instruction Type:Patient Education Patient Instructions Indication:Nonsmoker Start:27-Jan-2018 Instruction Type:Provider Instructions for Treatment How to access health informa tion online Indication:Adult residual type attention deficit hyperactivity disorder (ADHD) Start:25-Oct-2017 Instruction Type:Patient Education How to access health informa tion online - Detail Indication:Adult residual type attention deficit hyperactivity disorder (ADHD) Start:25-Oct-2017 Instruction Type:Patient Education Patient Instructions Indication:Adult residual type attention deficit hyperactivity disorder (ADHD) Start:25-Oct-2017 Instruction Type:Provider Instructions for Treatment How to access health informa tion online Indication:Abnormal glucose tolerance test (Renamed from Abnormal glucose tolerance test (GTT)) Start:13-Sep-2017 Instruction Type:Patient Education How to access health informa tion online - Detail Indication:Abnormal glucose tolerance test (Renamed from Abnormal glucose tolerance test (GTT)) Start:13-Sep-2017 Instruction Type:Patient Education Patient Instructions Indication:BMI 34.0-34.9,adult Start:13-Sep-2017 Instruction Type:Provider Instructions for Treatment How to access health informa tion online Indication:Nonsmoker Start:16-Aug-2017 Instruction Type:Patient Education How to access health informa tion online - Detail Indication:Nonsmoker Start:16-Aug-2017 Instruction Type:Patient Education Patient Instructions Indication:Nonsmoker Start:16-Aug-2017 Instruction Type:Provider Instructions for Treatment How to access health informa tion online Indication:Adult residual type attention deficit hyperactivity disorder (ADHD) Start:26-Jul-2017 Instruction Type:Patient Education How to access health informa tion online - Detail Indication:Adult residual type attention deficit hyperactivity disorder (ADHD) Start:26-Jul-2017 Instruction Type:Patient Education Patient Instructions Indication:Adult residual type attention deficit hyperactivity disorder (ADHD) Start:26-Jul-2017 Instruction Type:Provider Instructions for Treatment How to access health informa tion online Indication:Abnormal glucose tolerance test (Renamed from Abnormal glucose tolerance test (GTT)) Start:10-May-2017 Instruction Type:Patient Education How to access health informa tion online - Detail Indication:Abnormal glucose tolerance test (Renamed from Abnormal glucose tolerance test (GTT)) Start:10-May-2017 Instruction Type:Patient Education Patient Instructions Indication:Abnormal glucose tolerance test (Renamed from Abnormal glucose tolerance test (GTT)) Start:10-May-2017 Instruction Type:Provider Instructions for Treatment Patient Instructions Indication:Skin picking habit Start:18-Jan-2017 Instruction Type:Provider Instructions for Treatment How to access health informa tion online Indication:Hyperlipidemia, unspecified Start:03-Dec-2016 Instruction Type:Patient Education How to access health informa tion online - Detail Indication:Hyperlipidemia, unspecified Start:03-Dec-2016 Instruction Type:Patient Education Patient Instructions Indication:Hyperlipidemia, unspecified Start:03-Dec-2016 Instruction Type:Provider Instructions for Treatment How to access health informa tion online Indication:Adult residual type attention deficit hyperactivity disorder (ADHD) Start:12-Oct-2016 Instruction Type:Patient Education How to access health informa tion online - Detail Indication:Adult residual type attention deficit hyperactivity disorder (ADHD) Start:12-Oct-2016 Instruction Type:Patient Education Patient Instructions Indication:Adult residual type attention deficit hyperactivity disorder (ADHD) Start:12-Oct-2016 Instruction Type:Provider Instructions for Treatment Patient Instructions Indication:Vitamin D deficiency Start:01-Oct-2016 Instruction Type:Provider Instructions for Treatment How to access health informa tion online Indication:Nonsmoker Start:01-Oct-2016 Instruction Type:Patient Education How to access health informa tion online - Detail Indication:Nonsmoker Start:01-Oct-2016 Instruction Type:Patient Education Patient Instructions Indication:Nonsmoker Start:01-Oct-2016 Instruction Type:Provider Instructions for Treatment How to access health informa tion online Indication:Abnormal glucose tolerance test (Renamed from Abnormal glucose tolerance test (GTT)) Start:21-Sep-2016 Instruction Type:Patient Education How to access health informa tion online - Detail Indication:Abnormal glucose tolerance test (Renamed from Abnormal glucose tolerance test (GTT)) Start:21-Sep-2016 Instruction Type:Patient Education Patient Instructions Indication:Abnormal glucose tolerance test (Renamed from Abnormal glucose tolerance test (GTT)) Start:21-Sep-2016 Instruction Type:Provider Instructions for Treatment Patient Instructions Indication:Abnormal glucose tolerance test (Renamed from Abnormal glucose tolerance test (GTT)) Start:06-Feb-2016 Instruction Type:Provider Instructions for Treatment How to access health informa tion online Indication:Prediabetes Start:26-Dec-2015 Instruction Type:Patient Education How to access health informa tion online - Detail Indication:Prediabetes Start:26-Dec-2015 Instruction Type:Patient Education Patient Instructions Indication:Prediabetes Start:26-Dec-2015 Instruction Type:Provider Instructions for Treatment How to access health informa tion online Indication:Anxiety Start:27-Jun-2015 Instruction Type:Patient Education How to access health informa tion online - Detail Indication:Anxiety Start:27-Jun-2015 Instruction Type:Patient Education Patient Instructions Indication:Anxiety Start:27-Jun-2015 Instruction Type:Provider Instructions for Treatment Patient Instructions Indication:Anxiety Start:09-May-2015 Instruction Type:Provider Instructions for Treatment Patient Instructions Indication:Obesity, unspecified Start:21-May-2014 Instruction Type:Provider Instructions for Treatment How to access health informa tion online Indication:Obesity, unspecified Start:21-May-2014 Instruction Type:Patient Education How to access health informa tion online - Detail Indication:Obesity, unspecified Start:21-May-2014 Instruction Type:Patient Education How to access health informa tion online Indication:Laceration of left leg Start:10-May-2014 Instruction Type:Patient Education How to access health informa tion online - Detail Indication:Laceration of left leg Start:10-May-2014 Instruction Type:Patient Education Patient Instructions Indication:Laceration of left leg Start:10-May-2014 Instruction Type:Provider Instructions for Treatment Patient Instructions Indication:Hyperlipidemia, unspecified Start:28-Jan-2014 Instruction Type:Provider Instructions for Treatment Name Dates Details How to access health informa tion online Indication:Nonsmoker Start:12-Dec-2018 Instruction Type:Patient Education How to access health informa tion online - Detail Indication:Nonsmoker Start:12-Dec-2018 Instruction Type:Patient Education Patient Instructions Indication:BMI 34.0-34.9,adult Start:12-Dec-2018 Instruction Type:Provider Instructions for Treatment How to access health informa tion online Indication:Nonsmoker Start:21-Nov-2018 Instruction Type:Patient Education How to access health informa tion online - Detail Indication:Nonsmoker Start:21-Nov-2018 Instruction Type:Patient Education Patient Instructions Indication:Nonsmoker Start:21-Nov-2018 Instruction Type:Provider Instructions for Treatment How to access health informa tion online Indication:Nonsmoker Start:05-Sep-2018 Instruction Type:Patient Education How to access health informa tion online - Detail Indication:Nonsmoker Start:05-Sep-2018 Instruction Type:Patient Education Patient Instructions Indication:Nonsmoker Start:05-Sep-2018 Instruction Type:Provider Instructions for Treatment How to access health informa tion online Indication:Nonsmoker Start:02-Jun-2018 Instruction Type:Patient Education How to access health informa tion online - Detail Indication:Nonsmoker Start:02-Jun-2018 Instruction Type:Patient Education Patient Instructions Indication:Encounter for screening for malignant neoplasm of prostate (Renamed from Screening for prostate cancer) Start:02-Jun-2018 Instruction Type:Provider Instructions for Treatment How to access health informa tion online Indication:Adult residual type attention deficit hyperactivity disorder (ADHD) Start:30-May-2018 Instruction Type:Patient Education How to access health informa tion online - Detail Indication:Adult residual type attention deficit hyperactivity disorder (ADHD) Start:30-May-2018 Instruction Type:Patient Education Patient Instructions Indication:Adult residual type attention deficit hyperactivity disorder (ADHD) Start:30-May-2018 Instruction Type:Provider Instructions for Treatment How to access health informa tion online Indication:Cracked lip Start:28-Apr-2018 Instruction Type:Patient Education How to access health informa tion online - Detail Indication:Cracked lip Start:28-Apr-2018 Instruction Type:Patient Education Patient Instructions Indication:Cracked lip Start:28-Apr-2018 Instruction Type:Provider Instructions for Treatment How to access health informa tion online Indication:Adult residual type attention deficit hyperactivity disorder (ADHD) Start:21-Feb-2018 Instruction Type:Patient Education How to access health informa tion online - Detail Indication:Adult residual type attention deficit hyperactivity disorder (ADHD) Start:21-Feb-2018 Instruction Type:Patient Education Patient Instructions Indication:Adult residual type attention deficit hyperactivity disorder (ADHD) Start:21-Feb-2018 Instruction Type:Provider Instructions for Treatment How to access health informa tion online Indication:Nonsmoker Start:27-Jan-2018 Instruction Type:Patient Education How to access health informa tion online - Detail Indication:Nonsmoker Start:27-Jan-2018 Instruction Type:Patient Education Patient Instructions Indication:Nonsmoker Start:27-Jan-2018 Instruction Type:Provider Instructions for Treatment How to access health informa tion online Indication:Adult residual type attention deficit hyperactivity disorder (ADHD) Start:25-Oct-2017 Instruction Type:Patient Education How to access health informa tion online - Detail Indication:Adult residual type attention deficit hyperactivity disorder (ADHD) Start:25-Oct-2017 Instruction Type:Patient Education Patient Instructions Indication:Adult residual type attention deficit hyperactivity disorder (ADHD) Start:25-Oct-2017 Instruction Type:Provider Instructions for Treatment How to access health informa tion online Indication:Abnormal glucose tolerance test (Renamed from Abnormal glucose tolerance test (GTT)) Start:13-Sep-2017 Instruction Type:Patient Education How to access health informa tion online - Detail Indication:Abnormal glucose tolerance test (Renamed from Abnormal glucose tolerance test (GTT)) Start:13-Sep-2017 Instruction Type:Patient Education Patient Instructions Indication:BMI 34.0-34.9,adult Start:13-Sep-2017 Instruction Type:Provider Instructions for Treatment How to access health informa tion online Indication:Nonsmoker Start:16-Aug-2017 Instruction Type:Patient Education How to access health informa tion online - Detail Indication:Nonsmoker Start:16-Aug-2017 Instruction Type:Patient Education Patient Instructions Indication:Nonsmoker Start:16-Aug-2017 Instruction Type:Provider Instructions for Treatment How to access health informa tion online Indication:Adult residual type attention deficit hyperactivity disorder (ADHD) Start:26-Jul-2017 Instruction Type:Patient Education How to access health informa tion online - Detail Indication:Adult residual type attention deficit hyperactivity disorder (ADHD) Start:26-Jul-2017 Instruction Type:Patient Education Patient Instructions Indication:Adult residual type attention deficit hyperactivity disorder (ADHD) Start:26-Jul-2017 Instruction Type:Provider Instructions for Treatment How to access health informa tion online Indication:Abnormal glucose tolerance test (Renamed from Abnormal glucose tolerance test (GTT)) Start:10-May-2017 Instruction Type:Patient Education How to access health informa tion online - Detail Indication:Abnormal glucose tolerance test (Renamed from Abnormal glucose tolerance test (GTT)) Start:10-May-2017 Instruction Type:Patient Education Patient Instructions Indication:Abnormal glucose tolerance test (Renamed from Abnormal glucose tolerance test (GTT)) Start:10-May-2017 Instruction Type:Provider Instructions for Treatment Patient Instructions Indication:Skin picking habit Start:18-Jan-2017 Instruction Type:Provider Instructions for Treatment How to access health informa tion online Indication:Hyperlipidemia, unspecified Start:03-Dec-2016 Instruction Type:Patient Education How to access health informa tion online - Detail Indication:Hyperlipidemia, unspecified Start:03-Dec-2016 Instruction Type:Patient Education Patient Instructions Indication:Hyperlipidemia, unspecified Start:03-Dec-2016 Instruction Type:Provider Instructions for Treatment How to access health informa tion online Indication:Adult residual type attention deficit hyperactivity disorder (ADHD) Start:12-Oct-2016 Instruction Type:Patient Education How to access health informa tion online - Detail Indication:Adult residual type attention deficit hyperactivity disorder (ADHD) Start:12-Oct-2016 Instruction Type:Patient Education Patient Instructions Indication:Adult residual type attention deficit hyperactivity disorder (ADHD) Start:12-Oct-2016 Instruction Type:Provider Instructions for Treatment Patient Instructions Indication:Vitamin D deficiency Start:01-Oct-2016 Instruction Type:Provider Instructions for Treatment How to access health informa tion online Indication:Nonsmoker Start:01-Oct-2016 Instruction Type:Patient Education How to access health informa tion online - Detail Indication:Nonsmoker Start:01-Oct-2016 Instruction Type:Patient Education Patient Instructions Indication:Nonsmoker Start:01-Oct-2016 Instruction Type:Provider Instructions for Treatment How to access health informa tion online Indication:Abnormal glucose tolerance test (Renamed from Abnormal glucose tolerance test (GTT)) Start:21-Sep-2016 Instruction Type:Patient Education How to access health informa tion online - Detail Indication:Abnormal glucose tolerance test (Renamed from Abnormal glucose tolerance test (GTT)) Start:21-Sep-2016 Instruction Type:Patient Education Patient Instructions Indication:Abnormal glucose tolerance test (Renamed from Abnormal glucose tolerance test (GTT)) Start:21-Sep-2016 Instruction Type:Provider Instructions for Treatment Patient Instructions Indication:Abnormal glucose tolerance test (Renamed from Abnormal glucose tolerance test (GTT)) Start:06-Feb-2016 Instruction Type:Provider Instructions for Treatment How to access health informa tion online Indication:Prediabetes Start:26-Dec-2015 Instruction Type:Patient Education How to access health informa tion online - Detail Indication:Prediabetes Start:26-Dec-2015 Instruction Type:Patient Education Patient Instructions Indication:Prediabetes Start:26-Dec-2015 Instruction Type:Provider Instructions for Treatment How to access health informa tion online Indication:Anxiety Start:27-Jun-2015 Instruction Type:Patient Education How to access health informa tion online - Detail Indication:Anxiety Start:27-Jun-2015 Instruction Type:Patient Education Patient Instructions Indication:Anxiety Start:27-Jun-2015 Instruction Type:Provider Instructions for Treatment Patient Instructions Indication:Anxiety Start:09-May-2015 Instruction Type:Provider Instructions for Treatment Patient Instructions Indication:Obesity, unspecified Start:21-May-2014 Instruction Type:Provider Instructions for Treatment How to access health informa tion online Indication:Obesity, unspecified Start:21-May-2014 Instruction Type:Patient Education How to access health informa tion online - Detail Indication:Obesity, unspecified Start:21-May-2014 Instruction Type:Patient Education How to access health informa tion online Indication:Laceration of left leg Start:10-May-2014 Instruction Type:Patient Education How to access health informa tion online - Detail Indication:Laceration of left leg Start:10-May-2014 Instruction Type:Patient Education Patient Instructions Indication:Laceration of left leg Start:10-May-2014 Instruction Type:Provider Instructions for Treatment Patient Instructions Indication:Hyperlipidemia, unspecified Start:28-Jan-2014 Instruction Type:Provider Instructions for Treatment Name Dates Details How to access health informa tion online Indication:Nonsmoker Start:20-Mar-2019 Instruction Type:Patient Education How to access health informa tion online - Detail Indication:Nonsmoker Start:20-Mar-2019 Instruction Type:Patient Education Patient Instructions Indication:Elevated blood-pressure reading, without diagnosis of hypertension (Renamed from Elevated blood-pressure reading without diagnosis of hypertension) Start:20-Mar-2019 Instruction Type:Provider Instructions for Treatment How to access health informa tion online Indication:Nonsmoker Start:12-Dec-2018 Instruction Type:Patient Education How to access health informa tion online - Detail Indication:Nonsmoker Start:12-Dec-2018 Instruction Type:Patient Education Patient Instructions Indication:BMI 34.0-34.9,adult Start:12-Dec-2018 Instruction Type:Provider Instructions for Treatment How to access health informa tion online Indication:Nonsmoker Start:21-Nov-2018 Instruction Type:Patient Education How to access health informa tion online - Detail Indication:Nonsmoker Start:21-Nov-2018 Instruction Type:Patient Education Patient Instructions Indication:Nonsmoker Start:21-Nov-2018 Instruction Type:Provider Instructions for Treatment How to access health informa tion online Indication:Nonsmoker Start:05-Sep-2018 Instruction Type:Patient Education How to access health informa tion online - Detail Indication:Nonsmoker Start:05-Sep-2018 Instruction Type:Patient Education Patient Instructions Indication:Nonsmoker Start:05-Sep-2018 Instruction Type:Provider Instructions for Treatment How to access health informa tion online Indication:Nonsmoker Start:02-Jun-2018 Instruction Type:Patient Education How to access health informa tion online - Detail Indication:Nonsmoker Start:02-Jun-2018 Instruction Type:Patient Education Patient Instructions Indication:Encounter for screening for malignant neoplasm of prostate (Renamed from Screening for prostate cancer) Start:02-Jun-2018 Instruction Type:Provider Instructions for Treatment How to access health informa tion online Indication:Adult residual type attention deficit hyperactivity disorder (ADHD) Start:30-May-2018 Instruction Type:Patient Education How to access health informa tion online - Detail Indication:Adult residual type attention deficit hyperactivity disorder (ADHD) Start:30-May-2018 Instruction Type:Patient Education Patient Instructions Indication:Adult residual type attention deficit hyperactivity disorder (ADHD) Start:30-May-2018 Instruction Type:Provider Instructions for Treatment How to access health informa tion online Indication:Cracked lip Start:28-Apr-2018 Instruction Type:Patient Education How to access health informa tion online - Detail Indication:Cracked lip Start:28-Apr-2018 Instruction Type:Patient Education Patient Instructions Indication:Cracked lip Start:28-Apr-2018 Instruction Type:Provider Instructions for Treatment How to access health informa tion online Indication:Adult residual type attention deficit hyperactivity disorder (ADHD) Start:21-Feb-2018 Instruction Type:Patient Education How to access health informa tion online - Detail Indication:Adult residual type attention deficit hyperactivity disorder (ADHD) Start:21-Feb-2018 Instruction Type:Patient Education Patient Instructions Indication:Adult residual type attention deficit hyperactivity disorder (ADHD) Start:21-Feb-2018 Instruction Type:Provider Instructions for Treatment How to access health informa tion online Indication:Nonsmoker Start:27-Jan-2018 Instruction Type:Patient Education How to access health informa tion online - Detail Indication:Nonsmoker Start:27-Jan-2018 Instruction Type:Patient Education Patient Instructions Indication:Nonsmoker Start:27-Jan-2018 Instruction Type:Provider Instructions for Treatment How to access health informa tion online Indication:Adult residual type attention deficit hyperactivity disorder (ADHD) Start:25-Oct-2017 Instruction Type:Patient Education How to access health informa tion online - Detail Indication:Adult residual type attention deficit hyperactivity disorder (ADHD) Start:25-Oct-2017 Instruction Type:Patient Education Patient Instructions Indication:Adult residual type attention deficit hyperactivity disorder (ADHD) Start:25-Oct-2017 Instruction Type:Provider Instructions for Treatment How to access health informa tion online Indication:Abnormal glucose tolerance test (Renamed from Abnormal glucose tolerance test (GTT)) Start:13-Sep-2017 Instruction Type:Patient Education How to access health informa tion online - Detail Indication:Abnormal glucose tolerance test (Renamed from Abnormal glucose tolerance test (GTT)) Start:13-Sep-2017 Instruction Type:Patient Education Patient Instructions Indication:BMI 34.0-34.9,adult Start:13-Sep-2017 Instruction Type:Provider Instructions for Treatment How to access health informa tion online Indication:Nonsmoker Start:16-Aug-2017 Instruction Type:Patient Education How to access health informa tion online - Detail Indication:Nonsmoker Start:16-Aug-2017 Instruction Type:Patient Education Patient Instructions Indication:Nonsmoker Start:16-Aug-2017 Instruction Type:Provider Instructions for Treatment How to access health informa tion online Indication:Adult residual type attention deficit hyperactivity disorder (ADHD) Start:26-Jul-2017 Instruction Type:Patient Education How to access health informa tion online - Detail Indication:Adult residual type attention deficit hyperactivity disorder (ADHD) Start:26-Jul-2017 Instruction Type:Patient Education Patient Instructions Indication:Adult residual type attention deficit hyperactivity disorder (ADHD) Start:26-Jul-2017 Instruction Type:Provider Instructions for Treatment How to access health informa tion online Indication:Abnormal glucose tolerance test (Renamed from Abnormal glucose tolerance test (GTT)) Start:10-May-2017 Instruction Type:Patient Education How to access health informa tion online - Detail Indication:Abnormal glucose tolerance test (Renamed from Abnormal glucose tolerance test (GTT)) Start:10-May-2017 Instruction Type:Patient Education Patient Instructions Indication:Abnormal glucose tolerance test (Renamed from Abnormal glucose tolerance test (GTT)) Start:10-May-2017 Instruction Type:Provider Instructions for Treatment Patient Instructions Indication:Skin picking habit Start:18-Jan-2017 Instruction Type:Provider Instructions for Treatment How to access health informa tion online Indication:Hyperlipidemia, unspecified Start:03-Dec-2016 Instruction Type:Patient Education How to access health informa tion online - Detail Indication:Hyperlipidemia, unspecified Start:03-Dec-2016 Instruction Type:Patient Education Patient Instructions Indication:Hyperlipidemia, unspecified Start:03-Dec-2016 Instruction Type:Provider Instructions for Treatment How to access health informa tion online Indication:Adult residual type attention deficit hyperactivity disorder (ADHD) Start:12-Oct-2016 Instruction Type:Patient Education How to access health informa tion online - Detail Indication:Adult residual type attention deficit hyperactivity disorder (ADHD) Start:12-Oct-2016 Instruction Type:Patient Education Patient Instructions Indication:Adult residual type attention deficit hyperactivity disorder (ADHD) Start:12-Oct-2016 Instruction Type:Provider Instructions for Treatment Patient Instructions Indication:Vitamin D deficiency Start:01-Oct-2016 Instruction Type:Provider Instructions for Treatment How to access health informa tion online Indication:Nonsmoker Start:01-Oct-2016 Instruction Type:Patient Education How to access health informa tion online - Detail Indication:Nonsmoker Start:01-Oct-2016 Instruction Type:Patient Education Patient Instructions Indication:Nonsmoker Start:01-Oct-2016 Instruction Type:Provider Instructions for Treatment How to access health informa tion online Indication:Abnormal glucose tolerance test (Renamed from Abnormal glucose tolerance test (GTT)) Start:21-Sep-2016 Instruction Type:Patient Education How to access health informa tion online - Detail Indication:Abnormal glucose tolerance test (Renamed from Abnormal glucose tolerance test (GTT)) Start:21-Sep-2016 Instruction Type:Patient Education Patient Instructions Indication:Abnormal glucose tolerance test (Renamed from Abnormal glucose tolerance test (GTT)) Start:21-Sep-2016 Instruction Type:Provider Instructions for Treatment Patient Instructions Indication:Abnormal glucose tolerance test (Renamed from Abnormal glucose tolerance test (GTT)) Start:06-Feb-2016 Instruction Type:Provider Instructions for Treatment How to access health informa tion online Indication:Prediabetes Start:26-Dec-2015 Instruction Type:Patient Education How to access health informa tion online - Detail Indication:Prediabetes Start:26-Dec-2015 Instruction Type:Patient Education Patient Instructions Indication:Prediabetes Start:26-Dec-2015 Instruction Type:Provider Instructions for Treatment How to access health informa tion online Indication:Anxiety Start:27-Jun-2015 Instruction Type:Patient Education How to access health informa tion online - Detail Indication:Anxiety Start:27-Jun-2015 Instruction Type:Patient Education Patient Instructions Indication:Anxiety Start:27-Jun-2015 Instruction Type:Provider Instructions for Treatment Patient Instructions Indication:Anxiety Start:09-May-2015 Instruction Type:Provider Instructions for Treatment Patient Instructions Indication:Obesity, unspecified Start:21-May-2014 Instruction Type:Provider Instructions for Treatment How to access health informa tion online Indication:Obesity, unspecified Start:21-May-2014 Instruction Type:Patient Education How to access health informa tion online - Detail Indication:Obesity, unspecified Start:21-May-2014 Instruction Type:Patient Education How to access health informa tion online Indication:Laceration of left leg Start:10-May-2014 Instruction Type:Patient Education How to access health informa tion online - Detail Indication:Laceration of left leg Start:10-May-2014 Instruction Type:Patient Education Patient Instructions Indication:Laceration of left leg Start:10-May-2014 Instruction Type:Provider Instructions for Treatment Patient Instructions Indication:Hyperlipidemia, unspecified Start:28-Jan-2014 Instruction Type:Provider Instructions for Treatment Name Dates Details How to access health informa tion online Indication:Nonsmoker Start:20-Mar-2019 Instruction Type:Patient Education How to access health informa tion online - Detail Indication:Nonsmoker Start:20-Mar-2019 Instruction Type:Patient Education Patient Instructions Indication:Elevated blood-pressure reading, without diagnosis of hypertension (Renamed from Elevated blood-pressure reading without diagnosis of hypertension) Start:20-Mar-2019 Instruction Type:Provider Instructions for Treatment How to access health informa tion online Indication:Nonsmoker Start:12-Dec-2018 Instruction Type:Patient Education How to access health informa tion online - Detail Indication:Nonsmoker Start:12-Dec-2018 Instruction Type:Patient Education Patient Instructions Indication:BMI 34.0-34.9,adult Start:12-Dec-2018 Instruction Type:Provider Instructions for Treatment How to access health informa tion online Indication:Nonsmoker Start:21-Nov-2018 Instruction Type:Patient Education How to access health informa tion online - Detail Indication:Nonsmoker Start:21-Nov-2018 Instruction Type:Patient Education Patient Instructions Indication:Nonsmoker Start:21-Nov-2018 Instruction Type:Provider Instructions for Treatment How to access health informa tion online Indication:Nonsmoker Start:05-Sep-2018 Instruction Type:Patient Education How to access health informa tion online - Detail Indication:Nonsmoker Start:05-Sep-2018 Instruction Type:Patient Education Patient Instructions Indication:Nonsmoker Start:05-Sep-2018 Instruction Type:Provider Instructions for Treatment How to access health informa tion online Indication:Nonsmoker Start:02-Jun-2018 Instruction Type:Patient Education How to access health informa tion online - Detail Indication:Nonsmoker Start:02-Jun-2018 Instruction Type:Patient Education Patient Instructions Indication:Encounter for screening for malignant neoplasm of prostate (Renamed from Screening for prostate cancer) Start:02-Jun-2018 Instruction Type:Provider Instructions for Treatment How to access health informa tion online Indication:Adult residual type attention deficit hyperactivity disorder (ADHD) Start:30-May-2018 Instruction Type:Patient Education How to access health informa tion online - Detail Indication:Adult residual type attention deficit hyperactivity disorder (ADHD) Start:30-May-2018 Instruction Type:Patient Education Patient Instructions Indication:Adult residual type attention deficit hyperactivity disorder (ADHD) Start:30-May-2018 Instruction Type:Provider Instructions for Treatment How to access health informa tion online Indication:Cracked lip Start:28-Apr-2018 Instruction Type:Patient Education How to access health informa tion online - Detail Indication:Cracked lip Start:28-Apr-2018 Instruction Type:Patient Education Patient Instructions Indication:Cracked lip Start:28-Apr-2018 Instruction Type:Provider Instructions for Treatment How to access health informa tion online Indication:Adult residual type attention deficit hyperactivity disorder (ADHD) Start:21-Feb-2018 Instruction Type:Patient Education How to access health informa tion online - Detail Indication:Adult residual type attention deficit hyperactivity disorder (ADHD) Start:21-Feb-2018 Instruction Type:Patient Education Patient Instructions Indication:Adult residual type attention deficit hyperactivity disorder (ADHD) Start:21-Feb-2018 Instruction Type:Provider Instructions for Treatment How to access health informa tion online Indication:Nonsmoker Start:27-Jan-2018 Instruction Type:Patient Education How to access health informa tion online - Detail Indication:Nonsmoker Start:27-Jan-2018 Instruction Type:Patient Education Patient Instructions Indication:Nonsmoker Start:27-Jan-2018 Instruction Type:Provider Instructions for Treatment How to access health informa tion online Indication:Adult residual type attention deficit hyperactivity disorder (ADHD) Start:25-Oct-2017 Instruction Type:Patient Education How to access health informa tion online - Detail Indication:Adult residual type attention deficit hyperactivity disorder (ADHD) Start:25-Oct-2017 Instruction Type:Patient Education Patient Instructions Indication:Adult residual type attention deficit hyperactivity disorder (ADHD) Start:25-Oct-2017 Instruction Type:Provider Instructions for Treatment How to access health informa tion online Indication:Abnormal glucose tolerance test (Renamed from Abnormal glucose tolerance test (GTT)) Start:13-Sep-2017 Instruction Type:Patient Education How to access health informa tion online - Detail Indication:Abnormal glucose tolerance test (Renamed from Abnormal glucose tolerance test (GTT)) Start:13-Sep-2017 Instruction Type:Patient Education Patient Instructions Indication:BMI 34.0-34.9,adult Start:13-Sep-2017 Instruction Type:Provider Instructions for Treatment How to access health informa tion online Indication:Nonsmoker Start:16-Aug-2017 Instruction Type:Patient Education How to access health informa tion online - Detail Indication:Nonsmoker Start:16-Aug-2017 Instruction Type:Patient Education Patient Instructions Indication:Nonsmoker Start:16-Aug-2017 Instruction Type:Provider Instructions for Treatment How to access health informa tion online Indication:Adult residual type attention deficit hyperactivity disorder (ADHD) Start:26-Jul-2017 Instruction Type:Patient Education How to access health informa tion online - Detail Indication:Adult residual type attention deficit hyperactivity disorder (ADHD) Start:26-Jul-2017 Instruction Type:Patient Education Patient Instructions Indication:Adult residual type attention deficit hyperactivity disorder (ADHD) Start:26-Jul-2017 Instruction Type:Provider Instructions for Treatment How to access health informa tion online Indication:Abnormal glucose tolerance test (Renamed from Abnormal glucose tolerance test (GTT)) Start:10-May-2017 Instruction Type:Patient Education How to access health informa tion online - Detail Indication:Abnormal glucose tolerance test (Renamed from Abnormal glucose tolerance test (GTT)) Start:10-May-2017 Instruction Type:Patient Education Patient Instructions Indication:Abnormal glucose tolerance test (Renamed from Abnormal glucose tolerance test (GTT)) Start:10-May-2017 Instruction Type:Provider Instructions for Treatment Patient Instructions Indication:Skin picking habit Start:18-Jan-2017 Instruction Type:Provider Instructions for Treatment How to access health informa tion online Indication:Hyperlipidemia, unspecified Start:03-Dec-2016 Instruction Type:Patient Education How to access health informa tion online - Detail Indication:Hyperlipidemia, unspecified Start:03-Dec-2016 Instruction Type:Patient Education Patient Instructions Indication:Hyperlipidemia, unspecified Start:03-Dec-2016 Instruction Type:Provider Instructions for Treatment How to access health informa tion online Indication:Adult residual type attention deficit hyperactivity disorder (ADHD) Start:12-Oct-2016 Instruction Type:Patient Education How to access health informa tion online - Detail Indication:Adult residual type attention deficit hyperactivity disorder (ADHD) Start:12-Oct-2016 Instruction Type:Patient Education Patient Instructions Indication:Adult residual type attention deficit hyperactivity disorder (ADHD) Start:12-Oct-2016 Instruction Type:Provider Instructions for Treatment Patient Instructions Indication:Vitamin D deficiency Start:01-Oct-2016 Instruction Type:Provider Instructions for Treatment How to access health informa tion online Indication:Nonsmoker Start:01-Oct-2016 Instruction Type:Patient Education How to access health informa tion online - Detail Indication:Nonsmoker Start:01-Oct-2016 Instruction Type:Patient Education Patient Instructions Indication:Nonsmoker Start:01-Oct-2016 Instruction Type:Provider Instructions for Treatment How to access health informa tion online Indication:Abnormal glucose tolerance test (Renamed from Abnormal glucose tolerance test (GTT)) Start:21-Sep-2016 Instruction Type:Patient Education How to access health informa tion online - Detail Indication:Abnormal glucose tolerance test (Renamed from Abnormal glucose tolerance test (GTT)) Start:21-Sep-2016 Instruction Type:Patient Education Patient Instructions Indication:Abnormal glucose tolerance test (Renamed from Abnormal glucose tolerance test (GTT)) Start:21-Sep-2016 Instruction Type:Provider Instructions for Treatment Patient Instructions Indication:Abnormal glucose tolerance test (Renamed from Abnormal glucose tolerance test (GTT)) Start:06-Feb-2016 Instruction Type:Provider Instructions for Treatment How to access health informa tion online Indication:Prediabetes Start:26-Dec-2015 Instruction Type:Patient Education How to access health informa tion online - Detail Indication:Prediabetes Start:26-Dec-2015 Instruction Type:Patient Education Patient Instructions Indication:Prediabetes Start:26-Dec-2015 Instruction Type:Provider Instructions for Treatment How to access health informa tion online Indication:Anxiety Start:27-Jun-2015 Instruction Type:Patient Education How to access health informa tion online - Detail Indication:Anxiety Start:27-Jun-2015 Instruction Type:Patient Education Patient Instructions Indication:Anxiety Start:27-Jun-2015 Instruction Type:Provider Instructions for Treatment Patient Instructions Indication:Anxiety Start:09-May-2015 Instruction Type:Provider Instructions for Treatment Patient Instructions Indication:Obesity, unspecified Start:21-May-2014 Instruction Type:Provider Instructions for Treatment How to access health informa tion online Indication:Obesity, unspecified Start:21-May-2014 Instruction Type:Patient Education How to access health informa tion online - Detail Indication:Obesity, unspecified Start:21-May-2014 Instruction Type:Patient Education How to access health informa tion online Indication:Laceration of left leg Start:10-May-2014 Instruction Type:Patient Education How to access health informa tion online - Detail Indication:Laceration of left leg Start:10-May-2014 Instruction Type:Patient Education Patient Instructions Indication:Laceration of left leg Start:10-May-2014 Instruction Type:Provider Instructions for Treatment Patient Instructions Indication:Hyperlipidemia, unspecified Start:28-Jan-2014 Instruction Type:Provider Instructions for Treatment Name Dates Details How to access health informa tion online Indication:Adult residual type attention deficit hyperactivity disorder (ADHD) Start:09-Apr-2019 Instruction Type:Patient Education How to access health informa tion online - Detail Indication:Adult residual type attention deficit hyperactivity disorder (ADHD) Start:09-Apr-2019 Instruction Type:Patient Education Patient Instructions Indication:Adult residual type attention deficit hyperactivity disorder (ADHD) Start:09-Apr-2019 Instruction Type:Provider Instructions for Treatment How to access health informa tion online Indication:Nonsmoker Start:20-Mar-2019 Instruction Type:Patient Education How to access health informa tion online - Detail Indication:Nonsmoker Start:20-Mar-2019 Instruction Type:Patient Education Patient Instructions Indication:Elevated blood-pressure reading, without diagnosis of hypertension (Renamed from Elevated blood-pressure reading without diagnosis of hypertension) Start:20-Mar-2019 Instruction Type:Provider Instructions for Treatment How to access health informa tion online Indication:Nonsmoker Start:12-Dec-2018 Instruction Type:Patient Education How to access health informa tion online - Detail Indication:Nonsmoker Start:12-Dec-2018 Instruction Type:Patient Education Patient Instructions Indication:BMI 34.0-34.9,adult Start:12-Dec-2018 Instruction Type:Provider Instructions for Treatment How to access health informa tion online Indication:Nonsmoker Start:21-Nov-2018 Instruction Type:Patient Education How to access health informa tion online - Detail Indication:Nonsmoker Start:21-Nov-2018 Instruction Type:Patient Education Patient Instructions Indication:Nonsmoker Start:21-Nov-2018 Instruction Type:Provider Instructions for Treatment How to access health informa tion online Indication:Nonsmoker Start:05-Sep-2018 Instruction Type:Patient Education How to access health informa tion online - Detail Indication:Nonsmoker Start:05-Sep-2018 Instruction Type:Patient Education Patient Instructions Indication:Nonsmoker Start:05-Sep-2018 Instruction Type:Provider Instructions for Treatment How to access health informa tion online Indication:Nonsmoker Start:02-Jun-2018 Instruction Type:Patient Education How to access health informa tion online - Detail Indication:Nonsmoker Start:02-Jun-2018 Instruction Type:Patient Education Patient Instructions Indication:Encounter for screening for malignant neoplasm of prostate (Renamed from Screening for prostate cancer) Start:02-Jun-2018 Instruction Type:Provider Instructions for Treatment How to access health informa tion online Indication:Adult residual type attention deficit hyperactivity disorder (ADHD) Start:30-May-2018 Instruction Type:Patient Education How to access health informa tion online - Detail Indication:Adult residual type attention deficit hyperactivity disorder (ADHD) Start:30-May-2018 Instruction Type:Patient Education Patient Instructions Indication:Adult residual type attention deficit hyperactivity disorder (ADHD) Start:30-May-2018 Instruction Type:Provider Instructions for Treatment How to access health informa tion online Indication:Cracked lip Start:28-Apr-2018 Instruction Type:Patient Education How to access health informa tion online - Detail Indication:Cracked lip Start:28-Apr-2018 Instruction Type:Patient Education Patient Instructions Indication:Cracked lip Start:28-Apr-2018 Instruction Type:Provider Instructions for Treatment How to access health informa tion online Indication:Adult residual type attention deficit hyperactivity disorder (ADHD) Start:21-Feb-2018 Instruction Type:Patient Education How to access health informa tion online - Detail Indication:Adult residual type attention deficit hyperactivity disorder (ADHD) Start:21-Feb-2018 Instruction Type:Patient Education Patient Instructions Indication:Adult residual type attention deficit hyperactivity disorder (ADHD) Start:21-Feb-2018 Instruction Type:Provider Instructions for Treatment How to access health informa tion online Indication:Nonsmoker Start:27-Jan-2018 Instruction Type:Patient Education How to access health informa tion online - Detail Indication:Nonsmoker Start:27-Jan-2018 Instruction Type:Patient Education Patient Instructions Indication:Nonsmoker Start:27-Jan-2018 Instruction Type:Provider Instructions for Treatment How to access health informa tion online Indication:Adult residual type attention deficit hyperactivity disorder (ADHD) Start:25-Oct-2017 Instruction Type:Patient Education How to access health informa tion online - Detail Indication:Adult residual type attention deficit hyperactivity disorder (ADHD) Start:25-Oct-2017 Instruction Type:Patient Education Patient Instructions Indication:Adult residual type attention deficit hyperactivity disorder (ADHD) Start:25-Oct-2017 Instruction Type:Provider Instructions for Treatment How to access health informa tion online Indication:Abnormal glucose tolerance test (Renamed from Abnormal glucose tolerance test (GTT)) Start:13-Sep-2017 Instruction Type:Patient Education How to access health informa tion online - Detail Indication:Abnormal glucose tolerance test (Renamed from Abnormal glucose tolerance test (GTT)) Start:13-Sep-2017 Instruction Type:Patient Education Patient Instructions Indication:BMI 34.0-34.9,adult Start:13-Sep-2017 Instruction Type:Provider Instructions for Treatment How to access health informa tion online Indication:Nonsmoker Start:16-Aug-2017 Instruction Type:Patient Education How to access health informa tion online - Detail Indication:Nonsmoker Start:16-Aug-2017 Instruction Type:Patient Education Patient Instructions Indication:Nonsmoker Start:16-Aug-2017 Instruction Type:Provider Instructions for Treatment How to access health informa tion online Indication:Adult residual type attention deficit hyperactivity disorder (ADHD) Start:26-Jul-2017 Instruction Type:Patient Education How to access health informa tion online - Detail Indication:Adult residual type attention deficit hyperactivity disorder (ADHD) Start:26-Jul-2017 Instruction Type:Patient Education Patient Instructions Indication:Adult residual type attention deficit hyperactivity disorder (ADHD) Start:26-Jul-2017 Instruction Type:Provider Instructions for Treatment How to access health informa tion online Indication:Abnormal glucose tolerance test (Renamed from Abnormal glucose tolerance test (GTT)) Start:10-May-2017 Instruction Type:Patient Education How to access health informa tion online - Detail Indication:Abnormal glucose tolerance test (Renamed from Abnormal glucose tolerance test (GTT)) Start:10-May-2017 Instruction Type:Patient Education Patient Instructions Indication:Abnormal glucose tolerance test (Renamed from Abnormal glucose tolerance test (GTT)) Start:10-May-2017 Instruction Type:Provider Instructions for Treatment Patient Instructions Indication:Skin picking habit Start:18-Jan-2017 Instruction Type:Provider Instructions for Treatment How to access health informa tion online Indication:Hyperlipidemia, unspecified Start:03-Dec-2016 Instruction Type:Patient Education How to access health informa tion online - Detail Indication:Hyperlipidemia, unspecified Start:03-Dec-2016 Instruction Type:Patient Education Patient Instructions Indication:Hyperlipidemia, unspecified Start:03-Dec-2016 Instruction Type:Provider Instructions for Treatment How to access health informa tion online Indication:Adult residual type attention deficit hyperactivity disorder (ADHD) Start:12-Oct-2016 Instruction Type:Patient Education How to access health informa tion online - Detail Indication:Adult residual type attention deficit hyperactivity disorder (ADHD) Start:12-Oct-2016 Instruction Type:Patient Education Patient Instructions Indication:Adult residual type attention deficit hyperactivity disorder (ADHD) Start:12-Oct-2016 Instruction Type:Provider Instructions for Treatment Patient Instructions Indication:Vitamin D deficiency Start:01-Oct-2016 Instruction Type:Provider Instructions for Treatment How to access health informa tion online Indication:Nonsmoker Start:01-Oct-2016 Instruction Type:Patient Education How to access health informa tion online - Detail Indication:Nonsmoker Start:01-Oct-2016 Instruction Type:Patient Education Patient Instructions Indication:Nonsmoker Start:01-Oct-2016 Instruction Type:Provider Instructions for Treatment How to access health informa tion online Indication:Abnormal glucose tolerance test (Renamed from Abnormal glucose tolerance test (GTT)) Start:21-Sep-2016 Instruction Type:Patient Education How to access health informa tion online - Detail Indication:Abnormal glucose tolerance test (Renamed from Abnormal glucose tolerance test (GTT)) Start:21-Sep-2016 Instruction Type:Patient Education Patient Instructions Indication:Abnormal glucose tolerance test (Renamed from Abnormal glucose tolerance test (GTT)) Start:21-Sep-2016 Instruction Type:Provider Instructions for Treatment Patient Instructions Indication:Abnormal glucose tolerance test (Renamed from Abnormal glucose tolerance test (GTT)) Start:06-Feb-2016 Instruction Type:Provider Instructions for Treatment How to access health informa tion online Indication:Prediabetes Start:26-Dec-2015 Instruction Type:Patient Education How to access health informa tion online - Detail Indication:Prediabetes Start:26-Dec-2015 Instruction Type:Patient Education Patient Instructions Indication:Prediabetes Start:26-Dec-2015 Instruction Type:Provider Instructions for Treatment How to access health informa tion online Indication:Anxiety Start:27-Jun-2015 Instruction Type:Patient Education How to access health informa tion online - Detail Indication:Anxiety Start:27-Jun-2015 Instruction Type:Patient Education Patient Instructions Indication:Anxiety Start:27-Jun-2015 Instruction Type:Provider Instructions for Treatment Patient Instructions Indication:Anxiety Start:09-May-2015 Instruction Type:Provider Instructions for Treatment Patient Instructions Indication:Obesity, unspecified Start:21-May-2014 Instruction Type:Provider Instructions for Treatment How to access health informa tion online Indication:Obesity, unspecified Start:21-May-2014 Instruction Type:Patient Education How to access health informa tion online - Detail Indication:Obesity, unspecified Start:21-May-2014 Instruction Type:Patient Education How to access health informa tion online Indication:Laceration of left leg Start:10-May-2014 Instruction Type:Patient Education How to access health informa tion online - Detail Indication:Laceration of left leg Start:10-May-2014 Instruction Type:Patient Education Patient Instructions Indication:Laceration of left leg Start:10-May-2014 Instruction Type:Provider Instructions for Treatment Patient Instructions Indication:Hyperlipidemia, unspecified Start:28-Jan-2014 Instruction Type:Provider Instructions for Treatment Name Dates Details How to access health informa tion online Indication:Adult residual type attention deficit hyperactivity disorder (ADHD) Start:09-Apr-2019 Instruction Type:Patient Education How to access health informa tion online - Detail Indication:Adult residual type attention deficit hyperactivity disorder (ADHD) Start:09-Apr-2019 Instruction Type:Patient Education Patient Instructions Indication:Adult residual type attention deficit hyperactivity disorder (ADHD) Start:09-Apr-2019 Instruction Type:Provider Instructions for Treatment How to access health informa tion online Indication:Nonsmoker Start:20-Mar-2019 Instruction Type:Patient Education How to access health informa tion online - Detail Indication:Nonsmoker Start:20-Mar-2019 Instruction Type:Patient Education Patient Instructions Indication:Elevated blood-pressure reading, without diagnosis of hypertension (Renamed from Elevated blood-pressure reading without diagnosis of hypertension) Start:20-Mar-2019 Instruction Type:Provider Instructions for Treatment How to access health informa tion online Indication:Nonsmoker Start:12-Dec-2018 Instruction Type:Patient Education How to access health informa tion online - Detail Indication:Nonsmoker Start:12-Dec-2018 Instruction Type:Patient Education Patient Instructions Indication:BMI 34.0-34.9,adult Start:12-Dec-2018 Instruction Type:Provider Instructions for Treatment How to access health informa tion online Indication:Nonsmoker Start:21-Nov-2018 Instruction Type:Patient Education How to access health informa tion online - Detail Indication:Nonsmoker Start:21-Nov-2018 Instruction Type:Patient Education Patient Instructions Indication:Nonsmoker Start:21-Nov-2018 Instruction Type:Provider Instructions for Treatment How to access health informa tion online Indication:Nonsmoker Start:05-Sep-2018 Instruction Type:Patient Education How to access health informa tion online - Detail Indication:Nonsmoker Start:05-Sep-2018 Instruction Type:Patient Education Patient Instructions Indication:Nonsmoker Start:05-Sep-2018 Instruction Type:Provider Instructions for Treatment How to access health informa tion online Indication:Nonsmoker Start:02-Jun-2018 Instruction Type:Patient Education How to access health informa tion online - Detail Indication:Nonsmoker Start:02-Jun-2018 Instruction Type:Patient Education Patient Instructions Indication:Encounter for screening for malignant neoplasm of prostate (Renamed from Screening for prostate cancer) Start:02-Jun-2018 Instruction Type:Provider Instructions for Treatment How to access health informa tion online Indication:Adult residual type attention deficit hyperactivity disorder (ADHD) Start:30-May-2018 Instruction Type:Patient Education How to access health informa tion online - Detail Indication:Adult residual type attention deficit hyperactivity disorder (ADHD) Start:30-May-2018 Instruction Type:Patient Education Patient Instructions Indication:Adult residual type attention deficit hyperactivity disorder (ADHD) Start:30-May-2018 Instruction Type:Provider Instructions for Treatment How to access health informa tion online Indication:Cracked lip Start:28-Apr-2018 Instruction Type:Patient Education How to access health informa tion online - Detail Indication:Cracked lip Start:28-Apr-2018 Instruction Type:Patient Education Patient Instructions Indication:Cracked lip Start:28-Apr-2018 Instruction Type:Provider Instructions for Treatment How to access health informa tion online Indication:Adult residual type attention deficit hyperactivity disorder (ADHD) Start:21-Feb-2018 Instruction Type:Patient Education How to access health informa tion online - Detail Indication:Adult residual type attention deficit hyperactivity disorder (ADHD) Start:21-Feb-2018 Instruction Type:Patient Education Patient Instructions Indication:Adult residual type attention deficit hyperactivity disorder (ADHD) Start:21-Feb-2018 Instruction Type:Provider Instructions for Treatment How to access health informa tion online Indication:Nonsmoker Start:27-Jan-2018 Instruction Type:Patient Education How to access health informa tion online - Detail Indication:Nonsmoker Start:27-Jan-2018 Instruction Type:Patient Education Patient Instructions Indication:Nonsmoker Start:27-Jan-2018 Instruction Type:Provider Instructions for Treatment How to access health informa tion online Indication:Adult residual type attention deficit hyperactivity disorder (ADHD) Start:25-Oct-2017 Instruction Type:Patient Education How to access health informa tion online - Detail Indication:Adult residual type attention deficit hyperactivity disorder (ADHD) Start:25-Oct-2017 Instruction Type:Patient Education Patient Instructions Indication:Adult residual type attention deficit hyperactivity disorder (ADHD) Start:25-Oct-2017 Instruction Type:Provider Instructions for Treatment How to access health informa tion online Indication:Abnormal glucose tolerance test (Renamed from Abnormal glucose tolerance test (GTT)) Start:13-Sep-2017 Instruction Type:Patient Education How to access health informa tion online - Detail Indication:Abnormal glucose tolerance test (Renamed from Abnormal glucose tolerance test (GTT)) Start:13-Sep-2017 Instruction Type:Patient Education Patient Instructions Indication:BMI 34.0-34.9,adult Start:13-Sep-2017 Instruction Type:Provider Instructions for Treatment How to access health informa tion online Indication:Nonsmoker Start:16-Aug-2017 Instruction Type:Patient Education How to access health informa tion online - Detail Indication:Nonsmoker Start:16-Aug-2017 Instruction Type:Patient Education Patient Instructions Indication:Nonsmoker Start:16-Aug-2017 Instruction Type:Provider Instructions for Treatment How to access health informa tion online Indication:Adult residual type attention deficit hyperactivity disorder (ADHD) Start:26-Jul-2017 Instruction Type:Patient Education How to access health informa tion online - Detail Indication:Adult residual type attention deficit hyperactivity disorder (ADHD) Start:26-Jul-2017 Instruction Type:Patient Education Patient Instructions Indication:Adult residual type attention deficit hyperactivity disorder (ADHD) Start:26-Jul-2017 Instruction Type:Provider Instructions for Treatment How to access health informa tion online Indication:Abnormal glucose tolerance test (Renamed from Abnormal glucose tolerance test (GTT)) Start:10-May-2017 Instruction Type:Patient Education How to access health informa tion online - Detail Indication:Abnormal glucose tolerance test (Renamed from Abnormal glucose tolerance test (GTT)) Start:10-May-2017 Instruction Type:Patient Education Patient Instructions Indication:Abnormal glucose tolerance test (Renamed from Abnormal glucose tolerance test (GTT)) Start:10-May-2017 Instruction Type:Provider Instructions for Treatment Patient Instructions Indication:Skin picking habit Start:18-Jan-2017 Instruction Type:Provider Instructions for Treatment How to access health informa tion online Indication:Hyperlipidemia, unspecified Start:03-Dec-2016 Instruction Type:Patient Education How to access health informa tion online - Detail Indication:Hyperlipidemia, unspecified Start:03-Dec-2016 Instruction Type:Patient Education Patient Instructions Indication:Hyperlipidemia, unspecified Start:03-Dec-2016 Instruction Type:Provider Instructions for Treatment How to access health informa tion online Indication:Adult residual type attention deficit hyperactivity disorder (ADHD) Start:12-Oct-2016 Instruction Type:Patient Education How to access health informa tion online - Detail Indication:Adult residual type attention deficit hyperactivity disorder (ADHD) Start:12-Oct-2016 Instruction Type:Patient Education Patient Instructions Indication:Adult residual type attention deficit hyperactivity disorder (ADHD) Start:12-Oct-2016 Instruction Type:Provider Instructions for Treatment Patient Instructions Indication:Vitamin D deficiency Start:01-Oct-2016 Instruction Type:Provider Instructions for Treatment How to access health informa tion online Indication:Nonsmoker Start:01-Oct-2016 Instruction Type:Patient Education How to access health informa tion online - Detail Indication:Nonsmoker Start:01-Oct-2016 Instruction Type:Patient Education Patient Instructions Indication:Nonsmoker Start:01-Oct-2016 Instruction Type:Provider Instructions for Treatment How to access health informa tion online Indication:Abnormal glucose tolerance test (Renamed from Abnormal glucose tolerance test (GTT)) Start:21-Sep-2016 Instruction Type:Patient Education How to access health informa tion online - Detail Indication:Abnormal glucose tolerance test (Renamed from Abnormal glucose tolerance test (GTT)) Start:21-Sep-2016 Instruction Type:Patient Education Patient Instructions Indication:Abnormal glucose tolerance test (Renamed from Abnormal glucose tolerance test (GTT)) Start:21-Sep-2016 Instruction Type:Provider Instructions for Treatment Patient Instructions Indication:Abnormal glucose tolerance test (Renamed from Abnormal glucose tolerance test (GTT)) Start:06-Feb-2016 Instruction Type:Provider Instructions for Treatment How to access health informa tion online Indication:Prediabetes Start:26-Dec-2015 Instruction Type:Patient Education How to access health informa tion online - Detail Indication:Prediabetes Start:26-Dec-2015 Instruction Type:Patient Education Patient Instructions Indication:Prediabetes Start:26-Dec-2015 Instruction Type:Provider Instructions for Treatment How to access health informa tion online Indication:Anxiety Start:27-Jun-2015 Instruction Type:Patient Education How to access health informa tion online - Detail Indication:Anxiety Start:27-Jun-2015 Instruction Type:Patient Education Patient Instructions Indication:Anxiety Start:27-Jun-2015 Instruction Type:Provider Instructions for Treatment Patient Instructions Indication:Anxiety Start:09-May-2015 Instruction Type:Provider Instructions for Treatment Patient Instructions Indication:Obesity, unspecified Start:21-May-2014 Instruction Type:Provider Instructions for Treatment How to access health informa tion online Indication:Obesity, unspecified Start:21-May-2014 Instruction Type:Patient Education How to access health informa tion online - Detail Indication:Obesity, unspecified Start:21-May-2014 Instruction Type:Patient Education How to access health informa tion online Indication:Laceration of left leg Start:10-May-2014 Instruction Type:Patient Education How to access health informa tion online - Detail Indication:Laceration of left leg Start:10-May-2014 Instruction Type:Patient Education Patient Instructions Indication:Laceration of left leg Start:10-May-2014 Instruction Type:Provider Instructions for Treatment Patient Instructions Indication:Hyperlipidemia, unspecified Start:28-Jan-2014 Instruction Type:Provider Instructions for Treatment Name Dates Details How to access health informa tion online Indication:Adult residual type attention deficit hyperactivity disorder (ADHD) Start:09-Apr-2019 Instruction Type:Patient Education How to access health informa tion online - Detail Indication:Adult residual type attention deficit hyperactivity disorder (ADHD) Start:09-Apr-2019 Instruction Type:Patient Education Patient Instructions Indication:Adult residual type attention deficit hyperactivity disorder (ADHD) Start:09-Apr-2019 Instruction Type:Provider Instructions for Treatment How to access health informa tion online Indication:Nonsmoker Start:20-Mar-2019 Instruction Type:Patient Education How to access health informa tion online - Detail Indication:Nonsmoker Start:20-Mar-2019 Instruction Type:Patient Education Patient Instructions Indication:Elevated blood-pressure reading, without diagnosis of hypertension (Renamed from Elevated blood-pressure reading without diagnosis of hypertension) Start:20-Mar-2019 Instruction Type:Provider Instructions for Treatment How to access health informa tion online Indication:Nonsmoker Start:12-Dec-2018 Instruction Type:Patient Education How to access health informa tion online - Detail Indication:Nonsmoker Start:12-Dec-2018 Instruction Type:Patient Education Patient Instructions Indication:BMI 34.0-34.9,adult Start:12-Dec-2018 Instruction Type:Provider Instructions for Treatment How to access health informa tion online Indication:Nonsmoker Start:21-Nov-2018 Instruction Type:Patient Education How to access health informa tion online - Detail Indication:Nonsmoker Start:21-Nov-2018 Instruction Type:Patient Education Patient Instructions Indication:Nonsmoker Start:21-Nov-2018 Instruction Type:Provider Instructions for Treatment How to access health informa tion online Indication:Nonsmoker Start:05-Sep-2018 Instruction Type:Patient Education How to access health informa tion online - Detail Indication:Nonsmoker Start:05-Sep-2018 Instruction Type:Patient Education Patient Instructions Indication:Nonsmoker Start:05-Sep-2018 Instruction Type:Provider Instructions for Treatment How to access health informa tion online Indication:Nonsmoker Start:02-Jun-2018 Instruction Type:Patient Education How to access health informa tion online - Detail Indication:Nonsmoker Start:02-Jun-2018 Instruction Type:Patient Education Patient Instructions Indication:Encounter for screening for malignant neoplasm of prostate (Renamed from Screening for prostate cancer) Start:02-Jun-2018 Instruction Type:Provider Instructions for Treatment How to access health informa tion online Indication:Adult residual type attention deficit hyperactivity disorder (ADHD) Start:30-May-2018 Instruction Type:Patient Education How to access health informa tion online - Detail Indication:Adult residual type attention deficit hyperactivity disorder (ADHD) Start:30-May-2018 Instruction Type:Patient Education Patient Instructions Indication:Adult residual type attention deficit hyperactivity disorder (ADHD) Start:30-May-2018 Instruction Type:Provider Instructions for Treatment How to access health informa tion online Indication:Cracked lip Start:28-Apr-2018 Instruction Type:Patient Education How to access health informa tion online - Detail Indication:Cracked lip Start:28-Apr-2018 Instruction Type:Patient Education Patient Instructions Indication:Cracked lip Start:28-Apr-2018 Instruction Type:Provider Instructions for Treatment How to access health informa tion online Indication:Adult residual type attention deficit hyperactivity disorder (ADHD) Start:21-Feb-2018 Instruction Type:Patient Education How to access health informa tion online - Detail Indication:Adult residual type attention deficit hyperactivity disorder (ADHD) Start:21-Feb-2018 Instruction Type:Patient Education Patient Instructions Indication:Adult residual type attention deficit hyperactivity disorder (ADHD) Start:21-Feb-2018 Instruction Type:Provider Instructions for Treatment How to access health informa tion online Indication:Nonsmoker Start:27-Jan-2018 Instruction Type:Patient Education How to access health informa tion online - Detail Indication:Nonsmoker Start:27-Jan-2018 Instruction Type:Patient Education Patient Instructions Indication:Nonsmoker Start:27-Jan-2018 Instruction Type:Provider Instructions for Treatment How to access health informa tion online Indication:Adult residual type attention deficit hyperactivity disorder (ADHD) Start:25-Oct-2017 Instruction Type:Patient Education How to access health informa tion online - Detail Indication:Adult residual type attention deficit hyperactivity disorder (ADHD) Start:25-Oct-2017 Instruction Type:Patient Education Patient Instructions Indication:Adult residual type attention deficit hyperactivity disorder (ADHD) Start:25-Oct-2017 Instruction Type:Provider Instructions for Treatment How to access health informa tion online Indication:Abnormal glucose tolerance test (Renamed from Abnormal glucose tolerance test (GTT)) Start:13-Sep-2017 Instruction Type:Patient Education How to access health informa tion online - Detail Indication:Abnormal glucose tolerance test (Renamed from Abnormal glucose tolerance test (GTT)) Start:13-Sep-2017 Instruction Type:Patient Education Patient Instructions Indication:BMI 34.0-34.9,adult Start:13-Sep-2017 Instruction Type:Provider Instructions for Treatment How to access health informa tion online Indication:Nonsmoker Start:16-Aug-2017 Instruction Type:Patient Education How to access health informa tion online - Detail Indication:Nonsmoker Start:16-Aug-2017 Instruction Type:Patient Education Patient Instructions Indication:Nonsmoker Start:16-Aug-2017 Instruction Type:Provider Instructions for Treatment How to access health informa tion online Indication:Adult residual type attention deficit hyperactivity disorder (ADHD) Start:26-Jul-2017 Instruction Type:Patient Education How to access health informa tion online - Detail Indication:Adult residual type attention deficit hyperactivity disorder (ADHD) Start:26-Jul-2017 Instruction Type:Patient Education Patient Instructions Indication:Adult residual type attention deficit hyperactivity disorder (ADHD) Start:26-Jul-2017 Instruction Type:Provider Instructions for Treatment How to access health informa tion online Indication:Abnormal glucose tolerance test (Renamed from Abnormal glucose tolerance test (GTT)) Start:10-May-2017 Instruction Type:Patient Education How to access health informa tion online - Detail Indication:Abnormal glucose tolerance test (Renamed from Abnormal glucose tolerance test (GTT)) Start:10-May-2017 Instruction Type:Patient Education Patient Instructions Indication:Abnormal glucose tolerance test (Renamed from Abnormal glucose tolerance test (GTT)) Start:10-May-2017 Instruction Type:Provider Instructions for Treatment Patient Instructions Indication:Skin picking habit Start:18-Jan-2017 Instruction Type:Provider Instructions for Treatment How to access health informa tion online Indication:Hyperlipidemia, unspecified Start:03-Dec-2016 Instruction Type:Patient Education How to access health informa tion online - Detail Indication:Hyperlipidemia, unspecified Start:03-Dec-2016 Instruction Type:Patient Education Patient Instructions Indication:Hyperlipidemia, unspecified Start:03-Dec-2016 Instruction Type:Provider Instructions for Treatment How to access health informa tion online Indication:Adult residual type attention deficit hyperactivity disorder (ADHD) Start:12-Oct-2016 Instruction Type:Patient Education How to access health informa tion online - Detail Indication:Adult residual type attention deficit hyperactivity disorder (ADHD) Start:12-Oct-2016 Instruction Type:Patient Education Patient Instructions Indication:Adult residual type attention deficit hyperactivity disorder (ADHD) Start:12-Oct-2016 Instruction Type:Provider Instructions for Treatment Patient Instructions Indication:Vitamin D deficiency Start:01-Oct-2016 Instruction Type:Provider Instructions for Treatment How to access health informa tion online Indication:Nonsmoker Start:01-Oct-2016 Instruction Type:Patient Education How to access health informa tion online - Detail Indication:Nonsmoker Start:01-Oct-2016 Instruction Type:Patient Education Patient Instructions Indication:Nonsmoker Start:01-Oct-2016 Instruction Type:Provider Instructions for Treatment How to access health informa tion online Indication:Abnormal glucose tolerance test (Renamed from Abnormal glucose tolerance test (GTT)) Start:21-Sep-2016 Instruction Type:Patient Education How to access health informa tion online - Detail Indication:Abnormal glucose tolerance test (Renamed from Abnormal glucose tolerance test (GTT)) Start:21-Sep-2016 Instruction Type:Patient Education Patient Instructions Indication:Abnormal glucose tolerance test (Renamed from Abnormal glucose tolerance test (GTT)) Start:21-Sep-2016 Instruction Type:Provider Instructions for Treatment Patient Instructions Indication:Abnormal glucose tolerance test (Renamed from Abnormal glucose tolerance test (GTT)) Start:06-Feb-2016 Instruction Type:Provider Instructions for Treatment How to access health informa tion online Indication:Prediabetes Start:26-Dec-2015 Instruction Type:Patient Education How to access health informa tion online - Detail Indication:Prediabetes Start:26-Dec-2015 Instruction Type:Patient Education Patient Instructions Indication:Prediabetes Start:26-Dec-2015 Instruction Type:Provider Instructions for Treatment How to access health informa tion online Indication:Anxiety Start:27-Jun-2015 Instruction Type:Patient Education How to access health informa tion online - Detail Indication:Anxiety Start:27-Jun-2015 Instruction Type:Patient Education Patient Instructions Indication:Anxiety Start:27-Jun-2015 Instruction Type:Provider Instructions for Treatment Patient Instructions Indication:Anxiety Start:09-May-2015 Instruction Type:Provider Instructions for Treatment Patient Instructions Indication:Obesity, unspecified Start:21-May-2014 Instruction Type:Provider Instructions for Treatment How to access health informa tion online Indication:Obesity, unspecified Start:21-May-2014 Instruction Type:Patient Education How to access health informa tion online - Detail Indication:Obesity, unspecified Start:21-May-2014 Instruction Type:Patient Education How to access health informa tion online Indication:Laceration of left leg Start:10-May-2014 Instruction Type:Patient Education How to access health informa tion online - Detail Indication:Laceration of left leg Start:10-May-2014 Instruction Type:Patient Education Patient Instructions Indication:Laceration of left leg Start:10-May-2014 Instruction Type:Provider Instructions for Treatment Patient Instructions Indication:Hyperlipidemia, unspecified Start:28-Jan-2014 Instruction Type:Provider Instructions for Treatment Name Dates Details How to access health informa tion online Indication:Adult residual type attention deficit hyperactivity disorder (ADHD) Start:09-Apr-2019 Instruction Type:Patient Education How to access health informa tion online - Detail Indication:Adult residual type attention deficit hyperactivity disorder (ADHD) Start:09-Apr-2019 Instruction Type:Patient Education Patient Instructions Indication:Adult residual type attention deficit hyperactivity disorder (ADHD) Start:09-Apr-2019 Instruction Type:Provider Instructions for Treatment How to access health informa tion online Indication:Nonsmoker Start:20-Mar-2019 Instruction Type:Patient Education How to access health informa tion online - Detail Indication:Nonsmoker Start:20-Mar-2019 Instruction Type:Patient Education Patient Instructions Indication:Elevated blood-pressure reading, without diagnosis of hypertension (Renamed from Elevated blood-pressure reading without diagnosis of hypertension) Start:20-Mar-2019 Instruction Type:Provider Instructions for Treatment How to access health informa tion online Indication:Nonsmoker Start:12-Dec-2018 Instruction Type:Patient Education How to access health informa tion online - Detail Indication:Nonsmoker Start:12-Dec-2018 Instruction Type:Patient Education Patient Instructions Indication:BMI 34.0-34.9,adult Start:12-Dec-2018 Instruction Type:Provider Instructions for Treatment How to access health informa tion online Indication:Nonsmoker Start:21-Nov-2018 Instruction Type:Patient Education How to access health informa tion online - Detail Indication:Nonsmoker Start:21-Nov-2018 Instruction Type:Patient Education Patient Instructions Indication:Nonsmoker Start:21-Nov-2018 Instruction Type:Provider Instructions for Treatment How to access health informa tion online Indication:Nonsmoker Start:05-Sep-2018 Instruction Type:Patient Education How to access health informa tion online - Detail Indication:Nonsmoker Start:05-Sep-2018 Instruction Type:Patient Education Patient Instructions Indication:Nonsmoker Start:05-Sep-2018 Instruction Type:Provider Instructions for Treatment How to access health informa tion online Indication:Nonsmoker Start:02-Jun-2018 Instruction Type:Patient Education How to access health informa tion online - Detail Indication:Nonsmoker Start:02-Jun-2018 Instruction Type:Patient Education Patient Instructions Indication:Encounter for screening for malignant neoplasm of prostate (Renamed from Screening for prostate cancer) Start:02-Jun-2018 Instruction Type:Provider Instructions for Treatment How to access health informa tion online Indication:Adult residual type attention deficit hyperactivity disorder (ADHD) Start:30-May-2018 Instruction Type:Patient Education How to access health informa tion online - Detail Indication:Adult residual type attention deficit hyperactivity disorder (ADHD) Start:30-May-2018 Instruction Type:Patient Education Patient Instructions Indication:Adult residual type attention deficit hyperactivity disorder (ADHD) Start:30-May-2018 Instruction Type:Provider Instructions for Treatment How to access health informa tion online Indication:Cracked lip Start:28-Apr-2018 Instruction Type:Patient Education How to access health informa tion online - Detail Indication:Cracked lip Start:28-Apr-2018 Instruction Type:Patient Education Patient Instructions Indication:Cracked lip Start:28-Apr-2018 Instruction Type:Provider Instructions for Treatment How to access health informa tion online Indication:Adult residual type attention deficit hyperactivity disorder (ADHD) Start:21-Feb-2018 Instruction Type:Patient Education How to access health informa tion online - Detail Indication:Adult residual type attention deficit hyperactivity disorder (ADHD) Start:21-Feb-2018 Instruction Type:Patient Education Patient Instructions Indication:Adult residual type attention deficit hyperactivity disorder (ADHD) Start:21-Feb-2018 Instruction Type:Provider Instructions for Treatment How to access health informa tion online Indication:Nonsmoker Start:27-Jan-2018 Instruction Type:Patient Education How to access health informa tion online - Detail Indication:Nonsmoker Start:27-Jan-2018 Instruction Type:Patient Education Patient Instructions Indication:Nonsmoker Start:27-Jan-2018 Instruction Type:Provider Instructions for Treatment How to access health informa tion online Indication:Adult residual type attention deficit hyperactivity disorder (ADHD) Start:25-Oct-2017 Instruction Type:Patient Education How to access health informa tion online - Detail Indication:Adult residual type attention deficit hyperactivity disorder (ADHD) Start:25-Oct-2017 Instruction Type:Patient Education Patient Instructions Indication:Adult residual type attention deficit hyperactivity disorder (ADHD) Start:25-Oct-2017 Instruction Type:Provider Instructions for Treatment How to access health informa tion online Indication:Abnormal glucose tolerance test (Renamed from Abnormal glucose tolerance test (GTT)) Start:13-Sep-2017 Instruction Type:Patient Education How to access health informa tion online - Detail Indication:Abnormal glucose tolerance test (Renamed from Abnormal glucose tolerance test (GTT)) Start:13-Sep-2017 Instruction Type:Patient Education Patient Instructions Indication:BMI 34.0-34.9,adult Start:13-Sep-2017 Instruction Type:Provider Instructions for Treatment How to access health informa tion online Indication:Nonsmoker Start:16-Aug-2017 Instruction Type:Patient Education How to access health informa tion online - Detail Indication:Nonsmoker Start:16-Aug-2017 Instruction Type:Patient Education Patient Instructions Indication:Nonsmoker Start:16-Aug-2017 Instruction Type:Provider Instructions for Treatment How to access health informa tion online Indication:Adult residual type attention deficit hyperactivity disorder (ADHD) Start:26-Jul-2017 Instruction Type:Patient Education How to access health informa tion online - Detail Indication:Adult residual type attention deficit hyperactivity disorder (ADHD) Start:26-Jul-2017 Instruction Type:Patient Education Patient Instructions Indication:Adult residual type attention deficit hyperactivity disorder (ADHD) Start:26-Jul-2017 Instruction Type:Provider Instructions for Treatment How to access health informa tion online Indication:Abnormal glucose tolerance test (Renamed from Abnormal glucose tolerance test (GTT)) Start:10-May-2017 Instruction Type:Patient Education How to access health informa tion online - Detail Indication:Abnormal glucose tolerance test (Renamed from Abnormal glucose tolerance test (GTT)) Start:10-May-2017 Instruction Type:Patient Education Patient Instructions Indication:Abnormal glucose tolerance test (Renamed from Abnormal glucose tolerance test (GTT)) Start:10-May-2017 Instruction Type:Provider Instructions for Treatment Patient Instructions Indication:Skin picking habit Start:18-Jan-2017 Instruction Type:Provider Instructions for Treatment How to access health informa tion online Indication:Hyperlipidemia, unspecified Start:03-Dec-2016 Instruction Type:Patient Education How to access health informa tion online - Detail Indication:Hyperlipidemia, unspecified Start:03-Dec-2016 Instruction Type:Patient Education Patient Instructions Indication:Hyperlipidemia, unspecified Start:03-Dec-2016 Instruction Type:Provider Instructions for Treatment How to access health informa tion online Indication:Adult residual type attention deficit hyperactivity disorder (ADHD) Start:12-Oct-2016 Instruction Type:Patient Education How to access health informa tion online - Detail Indication:Adult residual type attention deficit hyperactivity disorder (ADHD) Start:12-Oct-2016 Instruction Type:Patient Education Patient Instructions Indication:Adult residual type attention deficit hyperactivity disorder (ADHD) Start:12-Oct-2016 Instruction Type:Provider Instructions for Treatment Patient Instructions Indication:Vitamin D deficiency Start:01-Oct-2016 Instruction Type:Provider Instructions for Treatment How to access health informa tion online Indication:Nonsmoker Start:01-Oct-2016 Instruction Type:Patient Education How to access health informa tion online - Detail Indication:Nonsmoker Start:01-Oct-2016 Instruction Type:Patient Education Patient Instructions Indication:Nonsmoker Start:01-Oct-2016 Instruction Type:Provider Instructions for Treatment How to access health informa tion online Indication:Abnormal glucose tolerance test (Renamed from Abnormal glucose tolerance test (GTT)) Start:21-Sep-2016 Instruction Type:Patient Education How to access health informa tion online - Detail Indication:Abnormal glucose tolerance test (Renamed from Abnormal glucose tolerance test (GTT)) Start:21-Sep-2016 Instruction Type:Patient Education Patient Instructions Indication:Abnormal glucose tolerance test (Renamed from Abnormal glucose tolerance test (GTT)) Start:21-Sep-2016 Instruction Type:Provider Instructions for Treatment Patient Instructions Indication:Abnormal glucose tolerance test (Renamed from Abnormal glucose tolerance test (GTT)) Start:06-Feb-2016 Instruction Type:Provider Instructions for Treatment How to access health informa tion online Indication:Prediabetes Start:26-Dec-2015 Instruction Type:Patient Education How to access health informa tion online - Detail Indication:Prediabetes Start:26-Dec-2015 Instruction Type:Patient Education Patient Instructions Indication:Prediabetes Start:26-Dec-2015 Instruction Type:Provider Instructions for Treatment How to access health informa tion online Indication:Anxiety Start:27-Jun-2015 Instruction Type:Patient Education How to access health informa tion online - Detail Indication:Anxiety Start:27-Jun-2015 Instruction Type:Patient Education Patient Instructions Indication:Anxiety Start:27-Jun-2015 Instruction Type:Provider Instructions for Treatment Patient Instructions Indication:Anxiety Start:09-May-2015 Instruction Type:Provider Instructions for Treatment Patient Instructions Indication:Obesity, unspecified Start:21-May-2014 Instruction Type:Provider Instructions for Treatment How to access health informa tion online Indication:Obesity, unspecified Start:21-May-2014 Instruction Type:Patient Education How to access health informa tion online - Detail Indication:Obesity, unspecified Start:21-May-2014 Instruction Type:Patient Education How to access health informa tion online Indication:Laceration of left leg Start:10-May-2014 Instruction Type:Patient Education How to access health informa tion online - Detail Indication:Laceration of left leg Start:10-May-2014 Instruction Type:Patient Education Patient Instructions Indication:Laceration of left leg Start:10-May-2014 Instruction Type:Provider Instructions for Treatment Patient Instructions Indication:Hyperlipidemia, unspecified Start:28-Jan-2014 Instruction Type:Provider Instructions for Treatment Name Dates Details How to access health informa tion online Indication:Adult residual type attention deficit hyperactivity disorder (ADHD) Start:01-Jan-2020 Instruction Type:Patient Education How to access health informa tion online - Detail Indication:Adult residual type attention deficit hyperactivity disorder (ADHD) Start:01-Jan-2020 Instruction Type:Patient Education Patient Instructions Indication:Adult residual type attention deficit hyperactivity disorder (ADHD) Start:01-Jan-2020 Instruction Type:Provider Instructions for Treatment How to access health informa tion online Indication:Nonsmoker Start:27-Oct-2019 Instruction Type:Patient Education How to access health informa tion online - Detail Indication:Nonsmoker Start:27-Oct-2019 Instruction Type:Patient Education Patient Instructions Indication:Nonsmoker Start:27-Oct-2019 Instruction Type:Provider Instructions for Treatment How to access health informa tion online Indication:Nonsmoker Start:05-Oct-2019 Instruction Type:Patient Education How to access health informa tion online - Detail Indication:Nonsmoker Start:05-Oct-2019 Instruction Type:Patient Education Patient Instructions Indication:Encounter for screening for malignant neoplasm of prostate (Renamed from Screening for prostate cancer) Start:05-Oct-2019 Instruction Type:Provider Instructions for Treatment How to access health informa tion online Indication:Adult residual type attention deficit hyperactivity disorder (ADHD) Start:03-Jul-2019 Instruction Type:Patient Education How to access health informa tion online - Detail Indication:Adult residual type attention deficit hyperactivity disorder (ADHD) Start:03-Jul-2019 Instruction Type:Patient Education Patient Instructions Indication:Adult residual type attention deficit hyperactivity disorder (ADHD) Start:03-Jul-2019 Instruction Type:Provider Instructions for Treatment How to access health informa tion online Indication:Adult residual type attention deficit hyperactivity disorder (ADHD) Start:09-Apr-2019 Instruction Type:Patient Education How to access health informa tion online - Detail Indication:Adult residual type attention deficit hyperactivity disorder (ADHD) Start:09-Apr-2019 Instruction Type:Patient Education Patient Instructions Indication:Adult residual type attention deficit hyperactivity disorder (ADHD) Start:09-Apr-2019 Instruction Type:Provider Instructions for Treatment How to access health informa tion online Indication:Nonsmoker Start:20-Mar-2019 Instruction Type:Patient Education How to access health informa tion online - Detail Indication:Nonsmoker Start:20-Mar-2019 Instruction Type:Patient Education Patient Instructions Indication:Elevated blood-pressure reading, without diagnosis of hypertension (Renamed from Elevated blood-pressure reading without diagnosis of hypertension) Start:20-Mar-2019 Instruction Type:Provider Instructions for Treatment How to access health informa tion online Indication:Nonsmoker Start:12-Dec-2018 Instruction Type:Patient Education How to access health informa tion online - Detail Indication:Nonsmoker Start:12-Dec-2018 Instruction Type:Patient Education Patient Instructions Indication:BMI 34.0-34.9,adult Start:12-Dec-2018 Instruction Type:Provider Instructions for Treatment How to access health informa tion online Indication:Nonsmoker Start:21-Nov-2018 Instruction Type:Patient Education How to access health informa tion online - Detail Indication:Nonsmoker Start:21-Nov-2018 Instruction Type:Patient Education Patient Instructions Indication:Nonsmoker Start:21-Nov-2018 Instruction Type:Provider Instructions for Treatment How to access health informa tion online Indication:Nonsmoker Start:05-Sep-2018 Instruction Type:Patient Education How to access health informa tion online - Detail Indication:Nonsmoker Start:05-Sep-2018 Instruction Type:Patient Education Patient Instructions Indication:Nonsmoker Start:05-Sep-2018 Instruction Type:Provider Instructions for Treatment How to access health informa tion online Indication:Nonsmoker Start:02-Jun-2018 Instruction Type:Patient Education How to access health informa tion online - Detail Indication:Nonsmoker Start:02-Jun-2018 Instruction Type:Patient Education Patient Instructions Indication:Encounter for screening for malignant neoplasm of prostate (Renamed from Screening for prostate cancer) Start:02-Jun-2018 Instruction Type:Provider Instructions for Treatment How to access health informa tion online Indication:Adult residual type attention deficit hyperactivity disorder (ADHD) Start:30-May-2018 Instruction Type:Patient Education How to access health informa tion online - Detail Indication:Adult residual type attention deficit hyperactivity disorder (ADHD) Start:30-May-2018 Instruction Type:Patient Education Patient Instructions Indication:Adult residual type attention deficit hyperactivity disorder (ADHD) Start:30-May-2018 Instruction Type:Provider Instructions for Treatment How to access health informa tion online Indication:Cracked lip Start:28-Apr-2018 Instruction Type:Patient Education How to access health informa tion online - Detail Indication:Cracked lip Start:28-Apr-2018 Instruction Type:Patient Education Patient Instructions Indication:Cracked lip Start:28-Apr-2018 Instruction Type:Provider Instructions for Treatment How to access health informa tion online Indication:Adult residual type attention deficit hyperactivity disorder (ADHD) Start:21-Feb-2018 Instruction Type:Patient Education How to access health informa tion online - Detail Indication:Adult residual type attention deficit hyperactivity disorder (ADHD) Start:21-Feb-2018 Instruction Type:Patient Education Patient Instructions Indication:Adult residual type attention deficit hyperactivity disorder (ADHD) Start:21-Feb-2018 Instruction Type:Provider Instructions for Treatment How to access health informa tion online Indication:Nonsmoker Start:27-Jan-2018 Instruction Type:Patient Education How to access health informa tion online - Detail Indication:Nonsmoker Start:27-Jan-2018 Instruction Type:Patient Education Patient Instructions Indication:Nonsmoker Start:27-Jan-2018 Instruction Type:Provider Instructions for Treatment How to access health informa tion online Indication:Adult residual type attention deficit hyperactivity disorder (ADHD) Start:25-Oct-2017 Instruction Type:Patient Education How to access health informa tion online - Detail Indication:Adult residual type attention deficit hyperactivity disorder (ADHD) Start:25-Oct-2017 Instruction Type:Patient Education Patient Instructions Indication:Adult residual type attention deficit hyperactivity disorder (ADHD) Start:25-Oct-2017 Instruction Type:Provider Instructions for Treatment How to access health informa tion online Indication:Abnormal glucose tolerance test (Renamed from Abnormal glucose tolerance test (GTT)) Start:13-Sep-2017 Instruction Type:Patient Education How to access health informa tion online - Detail Indication:Abnormal glucose tolerance test (Renamed from Abnormal glucose tolerance test (GTT)) Start:13-Sep-2017 Instruction Type:Patient Education Patient Instructions Indication:BMI 34.0-34.9,adult Start:13-Sep-2017 Instruction Type:Provider Instructions for Treatment How to access health informa tion online Indication:Nonsmoker Start:16-Aug-2017 Instruction Type:Patient Education How to access health informa tion online - Detail Indication:Nonsmoker Start:16-Aug-2017 Instruction Type:Patient Education Patient Instructions Indication:Nonsmoker Start:16-Aug-2017 Instruction Type:Provider Instructions for Treatment How to access health informa tion online Indication:Adult residual type attention deficit hyperactivity disorder (ADHD) Start:26-Jul-2017 Instruction Type:Patient Education How to access health informa tion online - Detail Indication:Adult residual type attention deficit hyperactivity disorder (ADHD) Start:26-Jul-2017 Instruction Type:Patient Education Patient Instructions Indication:Adult residual type attention deficit hyperactivity disorder (ADHD) Start:26-Jul-2017 Instruction Type:Provider Instructions for Treatment How to access health informa tion online Indication:Abnormal glucose tolerance test (Renamed from Abnormal glucose tolerance test (GTT)) Start:10-May-2017 Instruction Type:Patient Education How to access health informa tion online - Detail Indication:Abnormal glucose tolerance test (Renamed from Abnormal glucose tolerance test (GTT)) Start:10-May-2017 Instruction Type:Patient Education Patient Instructions Indication:Abnormal glucose tolerance test (Renamed from Abnormal glucose tolerance test (GTT)) Start:10-May-2017 Instruction Type:Provider Instructions for Treatment Patient Instructions Indication:Skin picking habit Start:18-Jan-2017 Instruction Type:Provider Instructions for Treatment How to access health informa tion online Indication:Hyperlipidemia, unspecified Start:03-Dec-2016 Instruction Type:Patient Education How to access health informa tion online - Detail Indication:Hyperlipidemia, unspecified Start:03-Dec-2016 Instruction Type:Patient Education Patient Instructions Indication:Hyperlipidemia, unspecified Start:03-Dec-2016 Instruction Type:Provider Instructions for Treatment How to access health informa tion online Indication:Adult residual type attention deficit hyperactivity disorder (ADHD) Start:12-Oct-2016 Instruction Type:Patient Education How to access health informa tion online - Detail Indication:Adult residual type attention deficit hyperactivity disorder (ADHD) Start:12-Oct-2016 Instruction Type:Patient Education Patient Instructions Indication:Adult residual type attention deficit hyperactivity disorder (ADHD) Start:12-Oct-2016 Instruction Type:Provider Instructions for Treatment Patient Instructions Indication:Vitamin D deficiency Start:01-Oct-2016 Instruction Type:Provider Instructions for Treatment How to access health informa tion online Indication:Nonsmoker Start:01-Oct-2016 Instruction Type:Patient Education How to access health informa tion online - Detail Indication:Nonsmoker Start:01-Oct-2016 Instruction Type:Patient Education Patient Instructions Indication:Nonsmoker Start:01-Oct-2016 Instruction Type:Provider Instructions for Treatment How to access health informa tion online Indication:Abnormal glucose tolerance test (Renamed from Abnormal glucose tolerance test (GTT)) Start:21-Sep-2016 Instruction Type:Patient Education How to access health informa tion online - Detail Indication:Abnormal glucose tolerance test (Renamed from Abnormal glucose tolerance test (GTT)) Start:21-Sep-2016 Instruction Type:Patient Education Patient Instructions Indication:Abnormal glucose tolerance test (Renamed from Abnormal glucose tolerance test (GTT)) Start:21-Sep-2016 Instruction Type:Provider Instructions for Treatment Patient Instructions Indication:Abnormal glucose tolerance test (Renamed from Abnormal glucose tolerance test (GTT)) Start:06-Feb-2016 Instruction Type:Provider Instructions for Treatment How to access health informa tion online Indication:Prediabetes Start:26-Dec-2015 Instruction Type:Patient Education How to access health informa tion online - Detail Indication:Prediabetes Start:26-Dec-2015 Instruction Type:Patient Education Patient Instructions Indication:Prediabetes Start:26-Dec-2015 Instruction Type:Provider Instructions for Treatment How to access health informa tion online Indication:Anxiety Start:27-Jun-2015 Instruction Type:Patient Education How to access health informa tion online - Detail Indication:Anxiety Start:27-Jun-2015 Instruction Type:Patient Education Patient Instructions Indication:Anxiety Start:27-Jun-2015 Instruction Type:Provider Instructions for Treatment Patient Instructions Indication:Anxiety Start:09-May-2015 Instruction Type:Provider Instructions for Treatment Patient Instructions Indication:Obesity, unspecified Start:21-May-2014 Instruction Type:Provider Instructions for Treatment How to access health informa tion online Indication:Obesity, unspecified Start:21-May-2014 Instruction Type:Patient Education How to access health informa tion online - Detail Indication:Obesity, unspecified Start:21-May-2014 Instruction Type:Patient Education How to access health informa tion online Indication:Laceration of left leg Start:10-May-2014 Instruction Type:Patient Education How to access health informa tion online - Detail Indication:Laceration of left leg Start:10-May-2014 Instruction Type:Patient Education Patient Instructions Indication:Laceration of left leg Start:10-May-2014 Instruction Type:Provider Instructions for Treatment Patient Instructions Indication:Hyperlipidemia, unspecified Start:28-Jan-2014 Instruction Type:Provider Instructions for Treatment Name Dates Details How to access health informa tion online Indication:Adult residual type attention deficit hyperactivity disorder (ADHD) Start:01-Jan-2020 Instruction Type:Patient Education How to access health informa tion online - Detail Indication:Adult residual type attention deficit hyperactivity disorder (ADHD) Start:01-Jan-2020 Instruction Type:Patient Education Patient Instructions Indication:Adult residual type attention deficit hyperactivity disorder (ADHD) Start:01-Jan-2020 Instruction Type:Provider Instructions for Treatment How to access health informa tion online Indication:Nonsmoker Start:27-Oct-2019 Instruction Type:Patient Education How to access health informa tion online - Detail Indication:Nonsmoker Start:27-Oct-2019 Instruction Type:Patient Education Patient Instructions Indication:Nonsmoker Start:27-Oct-2019 Instruction Type:Provider Instructions for Treatment How to access health informa tion online Indication:Nonsmoker Start:05-Oct-2019 Instruction Type:Patient Education How to access health informa tion online - Detail Indication:Nonsmoker Start:05-Oct-2019 Instruction Type:Patient Education Patient Instructions Indication:Encounter for screening for malignant neoplasm of prostate (Renamed from Screening for prostate cancer) Start:05-Oct-2019 Instruction Type:Provider Instructions for Treatment How to access health informa tion online Indication:Adult residual type attention deficit hyperactivity disorder (ADHD) Start:03-Jul-2019 Instruction Type:Patient Education How to access health informa tion online - Detail Indication:Adult residual type attention deficit hyperactivity disorder (ADHD) Start:03-Jul-2019 Instruction Type:Patient Education Patient Instructions Indication:Adult residual type attention deficit hyperactivity disorder (ADHD) Start:03-Jul-2019 Instruction Type:Provider Instructions for Treatment How to access health informa tion online Indication:Adult residual type attention deficit hyperactivity disorder (ADHD) Start:09-Apr-2019 Instruction Type:Patient Education How to access health informa tion online - Detail Indication:Adult residual type attention deficit hyperactivity disorder (ADHD) Start:09-Apr-2019 Instruction Type:Patient Education Patient Instructions Indication:Adult residual type attention deficit hyperactivity disorder (ADHD) Start:09-Apr-2019 Instruction Type:Provider Instructions for Treatment How to access health informa tion online Indication:Nonsmoker Start:20-Mar-2019 Instruction Type:Patient Education How to access health informa tion online - Detail Indication:Nonsmoker Start:20-Mar-2019 Instruction Type:Patient Education Patient Instructions Indication:Elevated blood-pressure reading, without diagnosis of hypertension (Renamed from Elevated blood-pressure reading without diagnosis of hypertension) Start:20-Mar-2019 Instruction Type:Provider Instructions for Treatment How to access health informa tion online Indication:Nonsmoker Start:12-Dec-2018 Instruction Type:Patient Education How to access health informa tion online - Detail Indication:Nonsmoker Start:12-Dec-2018 Instruction Type:Patient Education Patient Instructions Indication:BMI 34.0-34.9,adult Start:12-Dec-2018 Instruction Type:Provider Instructions for Treatment How to access health informa tion online Indication:Nonsmoker Start:21-Nov-2018 Instruction Type:Patient Education How to access health informa tion online - Detail Indication:Nonsmoker Start:21-Nov-2018 Instruction Type:Patient Education Patient Instructions Indication:Nonsmoker Start:21-Nov-2018 Instruction Type:Provider Instructions for Treatment How to access health informa tion online Indication:Nonsmoker Start:05-Sep-2018 Instruction Type:Patient Education How to access health informa tion online - Detail Indication:Nonsmoker Start:05-Sep-2018 Instruction Type:Patient Education Patient Instructions Indication:Nonsmoker Start:05-Sep-2018 Instruction Type:Provider Instructions for Treatment How to access health informa tion online Indication:Nonsmoker Start:02-Jun-2018 Instruction Type:Patient Education How to access health informa tion online - Detail Indication:Nonsmoker Start:02-Jun-2018 Instruction Type:Patient Education Patient Instructions Indication:Encounter for screening for malignant neoplasm of prostate (Renamed from Screening for prostate cancer) Start:02-Jun-2018 Instruction Type:Provider Instructions for Treatment How to access health informa tion online Indication:Adult residual type attention deficit hyperactivity disorder (ADHD) Start:30-May-2018 Instruction Type:Patient Education How to access health informa tion online - Detail Indication:Adult residual type attention deficit hyperactivity disorder (ADHD) Start:30-May-2018 Instruction Type:Patient Education Patient Instructions Indication:Adult residual type attention deficit hyperactivity disorder (ADHD) Start:30-May-2018 Instruction Type:Provider Instructions for Treatment How to access health informa tion online Indication:Cracked lip Start:28-Apr-2018 Instruction Type:Patient Education How to access health informa tion online - Detail Indication:Cracked lip Start:28-Apr-2018 Instruction Type:Patient Education Patient Instructions Indication:Cracked lip Start:28-Apr-2018 Instruction Type:Provider Instructions for Treatment How to access health informa tion online Indication:Adult residual type attention deficit hyperactivity disorder (ADHD) Start:21-Feb-2018 Instruction Type:Patient Education How to access health informa tion online - Detail Indication:Adult residual type attention deficit hyperactivity disorder (ADHD) Start:21-Feb-2018 Instruction Type:Patient Education Patient Instructions Indication:Adult residual type attention deficit hyperactivity disorder (ADHD) Start:21-Feb-2018 Instruction Type:Provider Instructions for Treatment How to access health informa tion online Indication:Nonsmoker Start:27-Jan-2018 Instruction Type:Patient Education How to access health informa tion online - Detail Indication:Nonsmoker Start:27-Jan-2018 Instruction Type:Patient Education Patient Instructions Indication:Nonsmoker Start:27-Jan-2018 Instruction Type:Provider Instructions for Treatment How to access health informa tion online Indication:Adult residual type attention deficit hyperactivity disorder (ADHD) Start:25-Oct-2017 Instruction Type:Patient Education How to access health informa tion online - Detail Indication:Adult residual type attention deficit hyperactivity disorder (ADHD) Start:25-Oct-2017 Instruction Type:Patient Education Patient Instructions Indication:Adult residual type attention deficit hyperactivity disorder (ADHD) Start:25-Oct-2017 Instruction Type:Provider Instructions for Treatment How to access health informa tion online Indication:Abnormal glucose tolerance test (Renamed from Abnormal glucose tolerance test (GTT)) Start:13-Sep-2017 Instruction Type:Patient Education How to access health informa tion online - Detail Indication:Abnormal glucose tolerance test (Renamed from Abnormal glucose tolerance test (GTT)) Start:13-Sep-2017 Instruction Type:Patient Education Patient Instructions Indication:BMI 34.0-34.9,adult Start:13-Sep-2017 Instruction Type:Provider Instructions for Treatment How to access health informa tion online Indication:Nonsmoker Start:16-Aug-2017 Instruction Type:Patient Education How to access health informa tion online - Detail Indication:Nonsmoker Start:16-Aug-2017 Instruction Type:Patient Education Patient Instructions Indication:Nonsmoker Start:16-Aug-2017 Instruction Type:Provider Instructions for Treatment How to access health informa tion online Indication:Adult residual type attention deficit hyperactivity disorder (ADHD) Start:26-Jul-2017 Instruction Type:Patient Education How to access health informa tion online - Detail Indication:Adult residual type attention deficit hyperactivity disorder (ADHD) Start:26-Jul-2017 Instruction Type:Patient Education Patient Instructions Indication:Adult residual type attention deficit hyperactivity disorder (ADHD) Start:26-Jul-2017 Instruction Type:Provider Instructions for Treatment How to access health informa tion online Indication:Abnormal glucose tolerance test (Renamed from Abnormal glucose tolerance test (GTT)) Start:10-May-2017 Instruction Type:Patient Education How to access health informa tion online - Detail Indication:Abnormal glucose tolerance test (Renamed from Abnormal glucose tolerance test (GTT)) Start:10-May-2017 Instruction Type:Patient Education Patient Instructions Indication:Abnormal glucose tolerance test (Renamed from Abnormal glucose tolerance test (GTT)) Start:10-May-2017 Instruction Type:Provider Instructions for Treatment Patient Instructions Indication:Skin picking habit Start:18-Jan-2017 Instruction Type:Provider Instructions for Treatment How to access health informa tion online Indication:Hyperlipidemia, unspecified Start:03-Dec-2016 Instruction Type:Patient Education How to access health informa tion online - Detail Indication:Hyperlipidemia, unspecified Start:03-Dec-2016 Instruction Type:Patient Education Patient Instructions Indication:Hyperlipidemia, unspecified Start:03-Dec-2016 Instruction Type:Provider Instructions for Treatment How to access health informa tion online Indication:Adult residual type attention deficit hyperactivity disorder (ADHD) Start:12-Oct-2016 Instruction Type:Patient Education How to access health informa tion online - Detail Indication:Adult residual type attention deficit hyperactivity disorder (ADHD) Start:12-Oct-2016 Instruction Type:Patient Education Patient Instructions Indication:Adult residual type attention deficit hyperactivity disorder (ADHD) Start:12-Oct-2016 Instruction Type:Provider Instructions for Treatment Patient Instructions Indication:Vitamin D deficiency Start:01-Oct-2016 Instruction Type:Provider Instructions for Treatment How to access health informa tion online Indication:Nonsmoker Start:01-Oct-2016 Instruction Type:Patient Education How to access health informa tion online - Detail Indication:Nonsmoker Start:01-Oct-2016 Instruction Type:Patient Education Patient Instructions Indication:Nonsmoker Start:01-Oct-2016 Instruction Type:Provider Instructions for Treatment How to access health informa tion online Indication:Abnormal glucose tolerance test (Renamed from Abnormal glucose tolerance test (GTT)) Start:21-Sep-2016 Instruction Type:Patient Education How to access health informa tion online - Detail Indication:Abnormal glucose tolerance test (Renamed from Abnormal glucose tolerance test (GTT)) Start:21-Sep-2016 Instruction Type:Patient Education Patient Instructions Indication:Abnormal glucose tolerance test (Renamed from Abnormal glucose tolerance test (GTT)) Start:21-Sep-2016 Instruction Type:Provider Instructions for Treatment Patient Instructions Indication:Abnormal glucose tolerance test (Renamed from Abnormal glucose tolerance test (GTT)) Start:06-Feb-2016 Instruction Type:Provider Instructions for Treatment How to access health informa tion online Indication:Prediabetes Start:26-Dec-2015 Instruction Type:Patient Education How to access health informa tion online - Detail Indication:Prediabetes Start:26-Dec-2015 Instruction Type:Patient Education Patient Instructions Indication:Prediabetes Start:26-Dec-2015 Instruction Type:Provider Instructions for Treatment How to access health informa tion online Indication:Anxiety Start:27-Jun-2015 Instruction Type:Patient Education How to access health informa tion online - Detail Indication:Anxiety Start:27-Jun-2015 Instruction Type:Patient Education Patient Instructions Indication:Anxiety Start:27-Jun-2015 Instruction Type:Provider Instructions for Treatment Patient Instructions Indication:Anxiety Start:09-May-2015 Instruction Type:Provider Instructions for Treatment Patient Instructions Indication:Obesity, unspecified Start:21-May-2014 Instruction Type:Provider Instructions for Treatment How to access health informa tion online Indication:Obesity, unspecified Start:21-May-2014 Instruction Type:Patient Education How to access health informa tion online - Detail Indication:Obesity, unspecified Start:21-May-2014 Instruction Type:Patient Education How to access health informa tion online Indication:Laceration of left leg Start:10-May-2014 Instruction Type:Patient Education How to access health informa tion online - Detail Indication:Laceration of left leg Start:10-May-2014 Instruction Type:Patient Education Patient Instructions Indication:Laceration of left leg Start:10-May-2014 Instruction Type:Provider Instructions for Treatment Patient Instructions Indication:Hyperlipidemia, unspecified Start:28-Jan-2014 Instruction Type:Provider Instructions for Treatment Name Dates Details How to access health informa tion online Indication:Adult residual type attention deficit hyperactivity disorder (ADHD) Start:01-Jan-2020 Instruction Type:Patient Education How to access health informa tion online - Detail Indication:Adult residual type attention deficit hyperactivity disorder (ADHD) Start:01-Jan-2020 Instruction Type:Patient Education Patient Instructions Indication:Adult residual type attention deficit hyperactivity disorder (ADHD) Start:01-Jan-2020 Instruction Type:Provider Instructions for Treatment How to access health informa tion online Indication:Nonsmoker Start:27-Oct-2019 Instruction Type:Patient Education How to access health informa tion online - Detail Indication:Nonsmoker Start:27-Oct-2019 Instruction Type:Patient Education Patient Instructions Indication:Nonsmoker Start:27-Oct-2019 Instruction Type:Provider Instructions for Treatment How to access health informa tion online Indication:Nonsmoker Start:05-Oct-2019 Instruction Type:Patient Education How to access health informa tion online - Detail Indication:Nonsmoker Start:05-Oct-2019 Instruction Type:Patient Education Patient Instructions Indication:Encounter for screening for malignant neoplasm of prostate (Renamed from Screening for prostate cancer) Start:05-Oct-2019 Instruction Type:Provider Instructions for Treatment How to access health informa tion online Indication:Adult residual type attention deficit hyperactivity disorder (ADHD) Start:03-Jul-2019 Instruction Type:Patient Education How to access health informa tion online - Detail Indication:Adult residual type attention deficit hyperactivity disorder (ADHD) Start:03-Jul-2019 Instruction Type:Patient Education Patient Instructions Indication:Adult residual type attention deficit hyperactivity disorder (ADHD) Start:03-Jul-2019 Instruction Type:Provider Instructions for Treatment How to access health informa tion online Indication:Adult residual type attention deficit hyperactivity disorder (ADHD) Start:09-Apr-2019 Instruction Type:Patient Education How to access health informa tion online - Detail Indication:Adult residual type attention deficit hyperactivity disorder (ADHD) Start:09-Apr-2019 Instruction Type:Patient Education Patient Instructions Indication:Adult residual type attention deficit hyperactivity disorder (ADHD) Start:09-Apr-2019 Instruction Type:Provider Instructions for Treatment How to access health informa tion online Indication:Nonsmoker Start:20-Mar-2019 Instruction Type:Patient Education How to access health informa tion online - Detail Indication:Nonsmoker Start:20-Mar-2019 Instruction Type:Patient Education Patient Instructions Indication:Elevated blood-pressure reading, without diagnosis of hypertension (Renamed from Elevated blood-pressure reading without diagnosis of hypertension) Start:20-Mar-2019 Instruction Type:Provider Instructions for Treatment How to access health informa tion online Indication:Nonsmoker Start:12-Dec-2018 Instruction Type:Patient Education How to access health informa tion online - Detail Indication:Nonsmoker Start:12-Dec-2018 Instruction Type:Patient Education Patient Instructions Indication:BMI 34.0-34.9,adult Start:12-Dec-2018 Instruction Type:Provider Instructions for Treatment How to access health informa tion online Indication:Nonsmoker Start:21-Nov-2018 Instruction Type:Patient Education How to access health informa tion online - Detail Indication:Nonsmoker Start:21-Nov-2018 Instruction Type:Patient Education Patient Instructions Indication:Nonsmoker Start:21-Nov-2018 Instruction Type:Provider Instructions for Treatment How to access health informa tion online Indication:Nonsmoker Start:05-Sep-2018 Instruction Type:Patient Education How to access health informa tion online - Detail Indication:Nonsmoker Start:05-Sep-2018 Instruction Type:Patient Education Patient Instructions Indication:Nonsmoker Start:05-Sep-2018 Instruction Type:Provider Instructions for Treatment How to access health informa tion online Indication:Nonsmoker Start:02-Jun-2018 Instruction Type:Patient Education How to access health informa tion online - Detail Indication:Nonsmoker Start:02-Jun-2018 Instruction Type:Patient Education Patient Instructions Indication:Encounter for screening for malignant neoplasm of prostate (Renamed from Screening for prostate cancer) Start:02-Jun-2018 Instruction Type:Provider Instructions for Treatment How to access health informa tion online Indication:Adult residual type attention deficit hyperactivity disorder (ADHD) Start:30-May-2018 Instruction Type:Patient Education How to access health informa tion online - Detail Indication:Adult residual type attention deficit hyperactivity disorder (ADHD) Start:30-May-2018 Instruction Type:Patient Education Patient Instructions Indication:Adult residual type attention deficit hyperactivity disorder (ADHD) Start:30-May-2018 Instruction Type:Provider Instructions for Treatment How to access health informa tion online Indication:Cracked lip Start:28-Apr-2018 Instruction Type:Patient Education How to access health informa tion online - Detail Indication:Cracked lip Start:28-Apr-2018 Instruction Type:Patient Education Patient Instructions Indication:Cracked lip Start:28-Apr-2018 Instruction Type:Provider Instructions for Treatment How to access health informa tion online Indication:Adult residual type attention deficit hyperactivity disorder (ADHD) Start:21-Feb-2018 Instruction Type:Patient Education How to access health informa tion online - Detail Indication:Adult residual type attention deficit hyperactivity disorder (ADHD) Start:21-Feb-2018 Instruction Type:Patient Education Patient Instructions Indication:Adult residual type attention deficit hyperactivity disorder (ADHD) Start:21-Feb-2018 Instruction Type:Provider Instructions for Treatment How to access health informa tion online Indication:Nonsmoker Start:27-Jan-2018 Instruction Type:Patient Education How to access health informa tion online - Detail Indication:Nonsmoker Start:27-Jan-2018 Instruction Type:Patient Education Patient Instructions Indication:Nonsmoker Start:27-Jan-2018 Instruction Type:Provider Instructions for Treatment How to access health informa tion online Indication:Adult residual type attention deficit hyperactivity disorder (ADHD) Start:25-Oct-2017 Instruction Type:Patient Education How to access health informa tion online - Detail Indication:Adult residual type attention deficit hyperactivity disorder (ADHD) Start:25-Oct-2017 Instruction Type:Patient Education Patient Instructions Indication:Adult residual type attention deficit hyperactivity disorder (ADHD) Start:25-Oct-2017 Instruction Type:Provider Instructions for Treatment How to access health informa tion online Indication:Abnormal glucose tolerance test (Renamed from Abnormal glucose tolerance test (GTT)) Start:13-Sep-2017 Instruction Type:Patient Education How to access health informa tion online - Detail Indication:Abnormal glucose tolerance test (Renamed from Abnormal glucose tolerance test (GTT)) Start:13-Sep-2017 Instruction Type:Patient Education Patient Instructions Indication:BMI 34.0-34.9,adult Start:13-Sep-2017 Instruction Type:Provider Instructions for Treatment How to access health informa tion online Indication:Nonsmoker Start:16-Aug-2017 Instruction Type:Patient Education How to access health informa tion online - Detail Indication:Nonsmoker Start:16-Aug-2017 Instruction Type:Patient Education Patient Instructions Indication:Nonsmoker Start:16-Aug-2017 Instruction Type:Provider Instructions for Treatment How to access health informa tion online Indication:Adult residual type attention deficit hyperactivity disorder (ADHD) Start:26-Jul-2017 Instruction Type:Patient Education How to access health informa tion online - Detail Indication:Adult residual type attention deficit hyperactivity disorder (ADHD) Start:26-Jul-2017 Instruction Type:Patient Education Patient Instructions Indication:Adult residual type attention deficit hyperactivity disorder (ADHD) Start:26-Jul-2017 Instruction Type:Provider Instructions for Treatment How to access health informa tion online Indication:Abnormal glucose tolerance test (Renamed from Abnormal glucose tolerance test (GTT)) Start:10-May-2017 Instruction Type:Patient Education How to access health informa tion online - Detail Indication:Abnormal glucose tolerance test (Renamed from Abnormal glucose tolerance test (GTT)) Start:10-May-2017 Instruction Type:Patient Education Patient Instructions Indication:Abnormal glucose tolerance test (Renamed from Abnormal glucose tolerance test (GTT)) Start:10-May-2017 Instruction Type:Provider Instructions for Treatment Patient Instructions Indication:Skin picking habit Start:18-Jan-2017 Instruction Type:Provider Instructions for Treatment How to access health informa tion online Indication:Hyperlipidemia, unspecified Start:03-Dec-2016 Instruction Type:Patient Education How to access health informa tion online - Detail Indication:Hyperlipidemia, unspecified Start:03-Dec-2016 Instruction Type:Patient Education Patient Instructions Indication:Hyperlipidemia, unspecified Start:03-Dec-2016 Instruction Type:Provider Instructions for Treatment How to access health informa tion online Indication:Adult residual type attention deficit hyperactivity disorder (ADHD) Start:12-Oct-2016 Instruction Type:Patient Education How to access health informa tion online - Detail Indication:Adult residual type attention deficit hyperactivity disorder (ADHD) Start:12-Oct-2016 Instruction Type:Patient Education Patient Instructions Indication:Adult residual type attention deficit hyperactivity disorder (ADHD) Start:12-Oct-2016 Instruction Type:Provider Instructions for Treatment Patient Instructions Indication:Vitamin D deficiency Start:01-Oct-2016 Instruction Type:Provider Instructions for Treatment How to access health informa tion online Indication:Nonsmoker Start:01-Oct-2016 Instruction Type:Patient Education How to access health informa tion online - Detail Indication:Nonsmoker Start:01-Oct-2016 Instruction Type:Patient Education Patient Instructions Indication:Nonsmoker Start:01-Oct-2016 Instruction Type:Provider Instructions for Treatment How to access health informa tion online Indication:Abnormal glucose tolerance test (Renamed from Abnormal glucose tolerance test (GTT)) Start:21-Sep-2016 Instruction Type:Patient Education How to access health informa tion online - Detail Indication:Abnormal glucose tolerance test (Renamed from Abnormal glucose tolerance test (GTT)) Start:21-Sep-2016 Instruction Type:Patient Education Patient Instructions Indication:Abnormal glucose tolerance test (Renamed from Abnormal glucose tolerance test (GTT)) Start:21-Sep-2016 Instruction Type:Provider Instructions for Treatment Patient Instructions Indication:Abnormal glucose tolerance test (Renamed from Abnormal glucose tolerance test (GTT)) Start:06-Feb-2016 Instruction Type:Provider Instructions for Treatment How to access health informa tion online Indication:Prediabetes Start:26-Dec-2015 Instruction Type:Patient Education How to access health informa tion online - Detail Indication:Prediabetes Start:26-Dec-2015 Instruction Type:Patient Education Patient Instructions Indication:Prediabetes Start:26-Dec-2015 Instruction Type:Provider Instructions for Treatment How to access health informa tion online Indication:Anxiety Start:27-Jun-2015 Instruction Type:Patient Education How to access health informa tion online - Detail Indication:Anxiety Start:27-Jun-2015 Instruction Type:Patient Education Patient Instructions Indication:Anxiety Start:27-Jun-2015 Instruction Type:Provider Instructions for Treatment Patient Instructions Indication:Anxiety Start:09-May-2015 Instruction Type:Provider Instructions for Treatment Patient Instructions Indication:Obesity, unspecified Start:21-May-2014 Instruction Type:Provider Instructions for Treatment How to access health informa tion online Indication:Obesity, unspecified Start:21-May-2014 Instruction Type:Patient Education How to access health informa tion online - Detail Indication:Obesity, unspecified Start:21-May-2014 Instruction Type:Patient Education How to access health informa tion online Indication:Laceration of left leg Start:10-May-2014 Instruction Type:Patient Education How to access health informa tion online - Detail Indication:Laceration of left leg Start:10-May-2014 Instruction Type:Patient Education Patient Instructions Indication:Laceration of left leg Start:10-May-2014 Instruction Type:Provider Instructions for Treatment Patient Instructions Indication:Hyperlipidemia, unspecified Start:28-Jan-2014 Instruction Type:Provider Instructions for Treatment Name Dates Details How to access health informa tion online Indication:Adult residual type attention deficit hyperactivity disorder (ADHD) Start:01-Jan-2020 Instruction Type:Patient Education How to access health informa tion online - Detail Indication:Adult residual type attention deficit hyperactivity disorder (ADHD) Start:01-Jan-2020 Instruction Type:Patient Education Patient Instructions Indication:Adult residual type attention deficit hyperactivity disorder (ADHD) Start:01-Jan-2020 Instruction Type:Provider Instructions for Treatment How to access health informa tion online Indication:Nonsmoker Start:27-Oct-2019 Instruction Type:Patient Education How to access health informa tion online - Detail Indication:Nonsmoker Start:27-Oct-2019 Instruction Type:Patient Education Patient Instructions Indication:Nonsmoker Start:27-Oct-2019 Instruction Type:Provider Instructions for Treatment How to access health informa tion online Indication:Nonsmoker Start:05-Oct-2019 Instruction Type:Patient Education How to access health informa tion online - Detail Indication:Nonsmoker Start:05-Oct-2019 Instruction Type:Patient Education Patient Instructions Indication:Encounter for screening for malignant neoplasm of prostate (Renamed from Screening for prostate cancer) Start:05-Oct-2019 Instruction Type:Provider Instructions for Treatment How to access health informa tion online Indication:Adult residual type attention deficit hyperactivity disorder (ADHD) Start:03-Jul-2019 Instruction Type:Patient Education How to access health informa tion online - Detail Indication:Adult residual type attention deficit hyperactivity disorder (ADHD) Start:03-Jul-2019 Instruction Type:Patient Education Patient Instructions Indication:Adult residual type attention deficit hyperactivity disorder (ADHD) Start:03-Jul-2019 Instruction Type:Provider Instructions for Treatment How to access health informa tion online Indication:Adult residual type attention deficit hyperactivity disorder (ADHD) Start:09-Apr-2019 Instruction Type:Patient Education How to access health informa tion online - Detail Indication:Adult residual type attention deficit hyperactivity disorder (ADHD) Start:09-Apr-2019 Instruction Type:Patient Education Patient Instructions Indication:Adult residual type attention deficit hyperactivity disorder (ADHD) Start:09-Apr-2019 Instruction Type:Provider Instructions for Treatment How to access health informa tion online Indication:Nonsmoker Start:20-Mar-2019 Instruction Type:Patient Education How to access health informa tion online - Detail Indication:Nonsmoker Start:20-Mar-2019 Instruction Type:Patient Education Patient Instructions Indication:Elevated blood-pressure reading, without diagnosis of hypertension (Renamed from Elevated blood-pressure reading without diagnosis of hypertension) Start:20-Mar-2019 Instruction Type:Provider Instructions for Treatment How to access health informa tion online Indication:Nonsmoker Start:12-Dec-2018 Instruction Type:Patient Education How to access health informa tion online - Detail Indication:Nonsmoker Start:12-Dec-2018 Instruction Type:Patient Education Patient Instructions Indication:BMI 34.0-34.9,adult Start:12-Dec-2018 Instruction Type:Provider Instructions for Treatment How to access health informa tion online Indication:Nonsmoker Start:21-Nov-2018 Instruction Type:Patient Education How to access health informa tion online - Detail Indication:Nonsmoker Start:21-Nov-2018 Instruction Type:Patient Education Patient Instructions Indication:Nonsmoker Start:21-Nov-2018 Instruction Type:Provider Instructions for Treatment How to access health informa tion online Indication:Nonsmoker Start:05-Sep-2018 Instruction Type:Patient Education How to access health informa tion online - Detail Indication:Nonsmoker Start:05-Sep-2018 Instruction Type:Patient Education Patient Instructions Indication:Nonsmoker Start:05-Sep-2018 Instruction Type:Provider Instructions for Treatment How to access health informa tion online Indication:Nonsmoker Start:02-Jun-2018 Instruction Type:Patient Education How to access health informa tion online - Detail Indication:Nonsmoker Start:02-Jun-2018 Instruction Type:Patient Education Patient Instructions Indication:Encounter for screening for malignant neoplasm of prostate (Renamed from Screening for prostate cancer) Start:02-Jun-2018 Instruction Type:Provider Instructions for Treatment How to access health informa tion online Indication:Adult residual type attention deficit hyperactivity disorder (ADHD) Start:30-May-2018 Instruction Type:Patient Education How to access health informa tion online - Detail Indication:Adult residual type attention deficit hyperactivity disorder (ADHD) Start:30-May-2018 Instruction Type:Patient Education Patient Instructions Indication:Adult residual type attention deficit hyperactivity disorder (ADHD) Start:30-May-2018 Instruction Type:Provider Instructions for Treatment How to access health informa tion online Indication:Cracked lip Start:28-Apr-2018 Instruction Type:Patient Education How to access health informa tion online - Detail Indication:Cracked lip Start:28-Apr-2018 Instruction Type:Patient Education Patient Instructions Indication:Cracked lip Start:28-Apr-2018 Instruction Type:Provider Instructions for Treatment How to access health informa tion online Indication:Adult residual type attention deficit hyperactivity disorder (ADHD) Start:21-Feb-2018 Instruction Type:Patient Education How to access health informa tion online - Detail Indication:Adult residual type attention deficit hyperactivity disorder (ADHD) Start:21-Feb-2018 Instruction Type:Patient Education Patient Instructions Indication:Adult residual type attention deficit hyperactivity disorder (ADHD) Start:21-Feb-2018 Instruction Type:Provider Instructions for Treatment How to access health informa tion online Indication:Nonsmoker Start:27-Jan-2018 Instruction Type:Patient Education How to access health informa tion online - Detail Indication:Nonsmoker Start:27-Jan-2018 Instruction Type:Patient Education Patient Instructions Indication:Nonsmoker Start:27-Jan-2018 Instruction Type:Provider Instructions for Treatment How to access health informa tion online Indication:Adult residual type attention deficit hyperactivity disorder (ADHD) Start:25-Oct-2017 Instruction Type:Patient Education How to access health informa tion online - Detail Indication:Adult residual type attention deficit hyperactivity disorder (ADHD) Start:25-Oct-2017 Instruction Type:Patient Education Patient Instructions Indication:Adult residual type attention deficit hyperactivity disorder (ADHD) Start:25-Oct-2017 Instruction Type:Provider Instructions for Treatment How to access health informa tion online Indication:Abnormal glucose tolerance test (Renamed from Abnormal glucose tolerance test (GTT)) Start:13-Sep-2017 Instruction Type:Patient Education How to access health informa tion online - Detail Indication:Abnormal glucose tolerance test (Renamed from Abnormal glucose tolerance test (GTT)) Start:13-Sep-2017 Instruction Type:Patient Education Patient Instructions Indication:BMI 34.0-34.9,adult Start:13-Sep-2017 Instruction Type:Provider Instructions for Treatment How to access health informa tion online Indication:Nonsmoker Start:16-Aug-2017 Instruction Type:Patient Education How to access health informa tion online - Detail Indication:Nonsmoker Start:16-Aug-2017 Instruction Type:Patient Education Patient Instructions Indication:Nonsmoker Start:16-Aug-2017 Instruction Type:Provider Instructions for Treatment How to access health informa tion online Indication:Adult residual type attention deficit hyperactivity disorder (ADHD) Start:26-Jul-2017 Instruction Type:Patient Education How to access health informa tion online - Detail Indication:Adult residual type attention deficit hyperactivity disorder (ADHD) Start:26-Jul-2017 Instruction Type:Patient Education Patient Instructions Indication:Adult residual type attention deficit hyperactivity disorder (ADHD) Start:26-Jul-2017 Instruction Type:Provider Instructions for Treatment How to access health informa tion online Indication:Abnormal glucose tolerance test (Renamed from Abnormal glucose tolerance test (GTT)) Start:10-May-2017 Instruction Type:Patient Education How to access health informa tion online - Detail Indication:Abnormal glucose tolerance test (Renamed from Abnormal glucose tolerance test (GTT)) Start:10-May-2017 Instruction Type:Patient Education Patient Instructions Indication:Abnormal glucose tolerance test (Renamed from Abnormal glucose tolerance test (GTT)) Start:10-May-2017 Instruction Type:Provider Instructions for Treatment Patient Instructions Indication:Skin picking habit Start:18-Jan-2017 Instruction Type:Provider Instructions for Treatment How to access health informa tion online Indication:Hyperlipidemia, unspecified Start:03-Dec-2016 Instruction Type:Patient Education How to access health informa tion online - Detail Indication:Hyperlipidemia, unspecified Start:03-Dec-2016 Instruction Type:Patient Education Patient Instructions Indication:Hyperlipidemia, unspecified Start:03-Dec-2016 Instruction Type:Provider Instructions for Treatment How to access health informa tion online Indication:Adult residual type attention deficit hyperactivity disorder (ADHD) Start:12-Oct-2016 Instruction Type:Patient Education How to access health informa tion online - Detail Indication:Adult residual type attention deficit hyperactivity disorder (ADHD) Start:12-Oct-2016 Instruction Type:Patient Education Patient Instructions Indication:Adult residual type attention deficit hyperactivity disorder (ADHD) Start:12-Oct-2016 Instruction Type:Provider Instructions for Treatment Patient Instructions Indication:Vitamin D deficiency Start:01-Oct-2016 Instruction Type:Provider Instructions for Treatment How to access health informa tion online Indication:Nonsmoker Start:01-Oct-2016 Instruction Type:Patient Education How to access health informa tion online - Detail Indication:Nonsmoker Start:01-Oct-2016 Instruction Type:Patient Education Patient Instructions Indication:Nonsmoker Start:01-Oct-2016 Instruction Type:Provider Instructions for Treatment How to access health informa tion online Indication:Abnormal glucose tolerance test (Renamed from Abnormal glucose tolerance test (GTT)) Start:21-Sep-2016 Instruction Type:Patient Education How to access health informa tion online - Detail Indication:Abnormal glucose tolerance test (Renamed from Abnormal glucose tolerance test (GTT)) Start:21-Sep-2016 Instruction Type:Patient Education Patient Instructions Indication:Abnormal glucose tolerance test (Renamed from Abnormal glucose tolerance test (GTT)) Start:21-Sep-2016 Instruction Type:Provider Instructions for Treatment Patient Instructions Indication:Abnormal glucose tolerance test (Renamed from Abnormal glucose tolerance test (GTT)) Start:06-Feb-2016 Instruction Type:Provider Instructions for Treatment How to access health informa tion online Indication:Prediabetes Start:26-Dec-2015 Instruction Type:Patient Education How to access health informa tion online - Detail Indication:Prediabetes Start:26-Dec-2015 Instruction Type:Patient Education Patient Instructions Indication:Prediabetes Start:26-Dec-2015 Instruction Type:Provider Instructions for Treatment How to access health informa tion online Indication:Anxiety Start:27-Jun-2015 Instruction Type:Patient Education How to access health informa tion online - Detail Indication:Anxiety Start:27-Jun-2015 Instruction Type:Patient Education Patient Instructions Indication:Anxiety Start:27-Jun-2015 Instruction Type:Provider Instructions for Treatment Patient Instructions Indication:Anxiety Start:09-May-2015 Instruction Type:Provider Instructions for Treatment Patient Instructions Indication:Obesity, unspecified Start:21-May-2014 Instruction Type:Provider Instructions for Treatment How to access health informa tion online Indication:Obesity, unspecified Start:21-May-2014 Instruction Type:Patient Education How to access health informa tion online - Detail Indication:Obesity, unspecified Start:21-May-2014 Instruction Type:Patient Education How to access health informa tion online Indication:Laceration of left leg Start:10-May-2014 Instruction Type:Patient Education How to access health informa tion online - Detail Indication:Laceration of left leg Start:10-May-2014 Instruction Type:Patient Education Patient Instructions Indication:Laceration of left leg Start:10-May-2014 Instruction Type:Provider Instructions for Treatment Patient Instructions Indication:Hyperlipidemia, unspecified Start:28-Jan-2014 Instruction Type:Provider Instructions for Treatment Name Dates Details How to access health informa tion online Indication:Nonsmoker Start:20-Apr-2020 Instruction Type:Patient Education How to access health informa tion online - Detail Indication:Nonsmoker Start:20-Apr-2020 Instruction Type:Patient Education Patient Instructions Indication:Nonsmoker Start:20-Apr-2020 Instruction Type:Provider Instructions for Treatment How to access health informa tion online Indication:Adult residual type attention deficit hyperactivity disorder (ADHD) Start:01-Jan-2020 Instruction Type:Patient Education How to access health informa tion online - Detail Indication:Adult residual type attention deficit hyperactivity disorder (ADHD) Start:01-Jan-2020 Instruction Type:Patient Education Patient Instructions Indication:Adult residual type attention deficit hyperactivity disorder (ADHD) Start:01-Jan-2020 Instruction Type:Provider Instructions for Treatment How to access health informa tion online Indication:Nonsmoker Start:27-Oct-2019 Instruction Type:Patient Education How to access health informa tion online - Detail Indication:Nonsmoker Start:27-Oct-2019 Instruction Type:Patient Education Patient Instructions Indication:Nonsmoker Start:27-Oct-2019 Instruction Type:Provider Instructions for Treatment How to access health informa tion online Indication:Nonsmoker Start:05-Oct-2019 Instruction Type:Patient Education How to access health informa tion online - Detail Indication:Nonsmoker Start:05-Oct-2019 Instruction Type:Patient Education Patient Instructions Indication:Encounter for screening for malignant neoplasm of prostate (Renamed from Screening for prostate cancer) Start:05-Oct-2019 Instruction Type:Provider Instructions for Treatment How to access health informa tion online Indication:Adult residual type attention deficit hyperactivity disorder (ADHD) Start:03-Jul-2019 Instruction Type:Patient Education How to access health informa tion online - Detail Indication:Adult residual type attention deficit hyperactivity disorder (ADHD) Start:03-Jul-2019 Instruction Type:Patient Education Patient Instructions Indication:Adult residual type attention deficit hyperactivity disorder (ADHD) Start:03-Jul-2019 Instruction Type:Provider Instructions for Treatment How to access health informa tion online Indication:Adult residual type attention deficit hyperactivity disorder (ADHD) Start:09-Apr-2019 Instruction Type:Patient Education How to access health informa tion online - Detail Indication:Adult residual type attention deficit hyperactivity disorder (ADHD) Start:09-Apr-2019 Instruction Type:Patient Education Patient Instructions Indication:Adult residual type attention deficit hyperactivity disorder (ADHD) Start:09-Apr-2019 Instruction Type:Provider Instructions for Treatment How to access health informa tion online Indication:Nonsmoker Start:20-Mar-2019 Instruction Type:Patient Education How to access health informa tion online - Detail Indication:Nonsmoker Start:20-Mar-2019 Instruction Type:Patient Education Patient Instructions Indication:Elevated blood-pressure reading, without diagnosis of hypertension (Renamed from Elevated blood-pressure reading without diagnosis of hypertension) Start:20-Mar-2019 Instruction Type:Provider Instructions for Treatment How to access health informa tion online Indication:Nonsmoker Start:12-Dec-2018 Instruction Type:Patient Education How to access health informa tion online - Detail Indication:Nonsmoker Start:12-Dec-2018 Instruction Type:Patient Education Patient Instructions Indication:BMI 34.0-34.9,adult Start:12-Dec-2018 Instruction Type:Provider Instructions for Treatment How to access health informa tion online Indication:Nonsmoker Start:21-Nov-2018 Instruction Type:Patient Education How to access health informa tion online - Detail Indication:Nonsmoker Start:21-Nov-2018 Instruction Type:Patient Education Patient Instructions Indication:Nonsmoker Start:21-Nov-2018 Instruction Type:Provider Instructions for Treatment How to access health informa tion online Indication:Nonsmoker Start:05-Sep-2018 Instruction Type:Patient Education How to access health informa tion online - Detail Indication:Nonsmoker Start:05-Sep-2018 Instruction Type:Patient Education Patient Instructions Indication:Nonsmoker Start:05-Sep-2018 Instruction Type:Provider Instructions for Treatment How to access health informa tion online Indication:Nonsmoker Start:02-Jun-2018 Instruction Type:Patient Education How to access health informa tion online - Detail Indication:Nonsmoker Start:02-Jun-2018 Instruction Type:Patient Education Patient Instructions Indication:Encounter for screening for malignant neoplasm of prostate (Renamed from Screening for prostate cancer) Start:02-Jun-2018 Instruction Type:Provider Instructions for Treatment How to access health informa tion online Indication:Adult residual type attention deficit hyperactivity disorder (ADHD) Start:30-May-2018 Instruction Type:Patient Education How to access health informa tion online - Detail Indication:Adult residual type attention deficit hyperactivity disorder (ADHD) Start:30-May-2018 Instruction Type:Patient Education Patient Instructions Indication:Adult residual type attention deficit hyperactivity disorder (ADHD) Start:30-May-2018 Instruction Type:Provider Instructions for Treatment How to access health informa tion online Indication:Cracked lip Start:28-Apr-2018 Instruction Type:Patient Education How to access health informa tion online - Detail Indication:Cracked lip Start:28-Apr-2018 Instruction Type:Patient Education Patient Instructions Indication:Cracked lip Start:28-Apr-2018 Instruction Type:Provider Instructions for Treatment How to access health informa tion online Indication:Adult residual type attention deficit hyperactivity disorder (ADHD) Start:21-Feb-2018 Instruction Type:Patient Education How to access health informa tion online - Detail Indication:Adult residual type attention deficit hyperactivity disorder (ADHD) Start:21-Feb-2018 Instruction Type:Patient Education Patient Instructions Indication:Adult residual type attention deficit hyperactivity disorder (ADHD) Start:21-Feb-2018 Instruction Type:Provider Instructions for Treatment How to access health informa tion online Indication:Nonsmoker Start:27-Jan-2018 Instruction Type:Patient Education How to access health informa tion online - Detail Indication:Nonsmoker Start:27-Jan-2018 Instruction Type:Patient Education Patient Instructions Indication:Nonsmoker Start:27-Jan-2018 Instruction Type:Provider Instructions for Treatment How to access health informa tion online Indication:Adult residual type attention deficit hyperactivity disorder (ADHD) Start:25-Oct-2017 Instruction Type:Patient Education How to access health informa tion online - Detail Indication:Adult residual type attention deficit hyperactivity disorder (ADHD) Start:25-Oct-2017 Instruction Type:Patient Education Patient Instructions Indication:Adult residual type attention deficit hyperactivity disorder (ADHD) Start:25-Oct-2017 Instruction Type:Provider Instructions for Treatment How to access health informa tion online Indication:Abnormal glucose tolerance test (Renamed from Abnormal glucose tolerance test (GTT)) Start:13-Sep-2017 Instruction Type:Patient Education How to access health informa tion online - Detail Indication:Abnormal glucose tolerance test (Renamed from Abnormal glucose tolerance test (GTT)) Start:13-Sep-2017 Instruction Type:Patient Education Patient Instructions Indication:BMI 34.0-34.9,adult Start:13-Sep-2017 Instruction Type:Provider Instructions for Treatment How to access health informa tion online Indication:Nonsmoker Start:16-Aug-2017 Instruction Type:Patient Education How to access health informa tion online - Detail Indication:Nonsmoker Start:16-Aug-2017 Instruction Type:Patient Education Patient Instructions Indication:Nonsmoker Start:16-Aug-2017 Instruction Type:Provider Instructions for Treatment How to access health informa tion online Indication:Adult residual type attention deficit hyperactivity disorder (ADHD) Start:26-Jul-2017 Instruction Type:Patient Education How to access health informa tion online - Detail Indication:Adult residual type attention deficit hyperactivity disorder (ADHD) Start:26-Jul-2017 Instruction Type:Patient Education Patient Instructions Indication:Adult residual type attention deficit hyperactivity disorder (ADHD) Start:26-Jul-2017 Instruction Type:Provider Instructions for Treatment How to access health informa tion online Indication:Abnormal glucose tolerance test (Renamed from Abnormal glucose tolerance test (GTT)) Start:10-May-2017 Instruction Type:Patient Education How to access health informa tion online - Detail Indication:Abnormal glucose tolerance test (Renamed from Abnormal glucose tolerance test (GTT)) Start:10-May-2017 Instruction Type:Patient Education Patient Instructions Indication:Abnormal glucose tolerance test (Renamed from Abnormal glucose tolerance test (GTT)) Start:10-May-2017 Instruction Type:Provider Instructions for Treatment Patient Instructions Indication:Skin picking habit Start:18-Jan-2017 Instruction Type:Provider Instructions for Treatment How to access health informa tion online Indication:Hyperlipidemia, unspecified Start:03-Dec-2016 Instruction Type:Patient Education How to access health informa tion online - Detail Indication:Hyperlipidemia, unspecified Start:03-Dec-2016 Instruction Type:Patient Education Patient Instructions Indication:Hyperlipidemia, unspecified Start:03-Dec-2016 Instruction Type:Provider Instructions for Treatment How to access health informa tion online Indication:Adult residual type attention deficit hyperactivity disorder (ADHD) Start:12-Oct-2016 Instruction Type:Patient Education How to access health informa tion online - Detail Indication:Adult residual type attention deficit hyperactivity disorder (ADHD) Start:12-Oct-2016 Instruction Type:Patient Education Patient Instructions Indication:Adult residual type attention deficit hyperactivity disorder (ADHD) Start:12-Oct-2016 Instruction Type:Provider Instructions for Treatment Patient Instructions Indication:Vitamin D deficiency Start:01-Oct-2016 Instruction Type:Provider Instructions for Treatment How to access health informa tion online Indication:Nonsmoker Start:01-Oct-2016 Instruction Type:Patient Education How to access health informa tion online - Detail Indication:Nonsmoker Start:01-Oct-2016 Instruction Type:Patient Education Patient Instructions Indication:Nonsmoker Start:01-Oct-2016 Instruction Type:Provider Instructions for Treatment How to access health informa tion online Indication:Abnormal glucose tolerance test (Renamed from Abnormal glucose tolerance test (GTT)) Start:21-Sep-2016 Instruction Type:Patient Education How to access health informa tion online - Detail Indication:Abnormal glucose tolerance test (Renamed from Abnormal glucose tolerance test (GTT)) Start:21-Sep-2016 Instruction Type:Patient Education Patient Instructions Indication:Abnormal glucose tolerance test (Renamed from Abnormal glucose tolerance test (GTT)) Start:21-Sep-2016 Instruction Type:Provider Instructions for Treatment Patient Instructions Indication:Abnormal glucose tolerance test (Renamed from Abnormal glucose tolerance test (GTT)) Start:06-Feb-2016 Instruction Type:Provider Instructions for Treatment How to access health informa tion online Indication:Prediabetes Start:26-Dec-2015 Instruction Type:Patient Education How to access health informa tion online - Detail Indication:Prediabetes Start:26-Dec-2015 Instruction Type:Patient Education Patient Instructions Indication:Prediabetes Start:26-Dec-2015 Instruction Type:Provider Instructions for Treatment How to access health informa tion online Indication:Anxiety Start:27-Jun-2015 Instruction Type:Patient Education How to access health informa tion online - Detail Indication:Anxiety Start:27-Jun-2015 Instruction Type:Patient Education Patient Instructions Indication:Anxiety Start:27-Jun-2015 Instruction Type:Provider Instructions for Treatment Patient Instructions Indication:Anxiety Start:09-May-2015 Instruction Type:Provider Instructions for Treatment Patient Instructions Indication:Obesity, unspecified Start:21-May-2014 Instruction Type:Provider Instructions for Treatment How to access health informa tion online Indication:Obesity, unspecified Start:21-May-2014 Instruction Type:Patient Education How to access health informa tion online - Detail Indication:Obesity, unspecified Start:21-May-2014 Instruction Type:Patient Education How to access health informa tion online Indication:Laceration of left leg Start:10-May-2014 Instruction Type:Patient Education How to access health informa tion online - Detail Indication:Laceration of left leg Start:10-May-2014 Instruction Type:Patient Education Patient Instructions Indication:Laceration of left leg Start:10-May-2014 Instruction Type:Provider Instructions for Treatment Patient Instructions Indication:Hyperlipidemia, unspecified Start:28-Jan-2014 Instruction Type:Provider Instructions for Treatment Name Dates Details How to access health informa tion online Indication:Adult residual type attention deficit hyperactivity disorder (ADHD) Start:29-Apr-2020 Instruction Type:Patient Education How to access health informa tion online - Detail Indication:Adult residual type attention deficit hyperactivity disorder (ADHD) Start:29-Apr-2020 Instruction Type:Patient Education Patient Instructions Indication:Adult residual type attention deficit hyperactivity disorder (ADHD) Start:29-Apr-2020 Instruction Type:Provider Instructions for Treatment How to access health informa tion online Indication:Nonsmoker Start:20-Apr-2020 Instruction Type:Patient Education How to access health informa tion online - Detail Indication:Nonsmoker Start:20-Apr-2020 Instruction Type:Patient Education Patient Instructions Indication:Nonsmoker Start:20-Apr-2020 Instruction Type:Provider Instructions for Treatment How to access health informa tion online Indication:Adult residual type attention deficit hyperactivity disorder (ADHD) Start:01-Jan-2020 Instruction Type:Patient Education How to access health informa tion online - Detail Indication:Adult residual type attention deficit hyperactivity disorder (ADHD) Start:01-Jan-2020 Instruction Type:Patient Education Patient Instructions Indication:Adult residual type attention deficit hyperactivity disorder (ADHD) Start:01-Jan-2020 Instruction Type:Provider Instructions for Treatment How to access health informa tion online Indication:Nonsmoker Start:27-Oct-2019 Instruction Type:Patient Education How to access health informa tion online - Detail Indication:Nonsmoker Start:27-Oct-2019 Instruction Type:Patient Education Patient Instructions Indication:Nonsmoker Start:27-Oct-2019 Instruction Type:Provider Instructions for Treatment How to access health informa tion online Indication:Nonsmoker Start:05-Oct-2019 Instruction Type:Patient Education How to access health informa tion online - Detail Indication:Nonsmoker Start:05-Oct-2019 Instruction Type:Patient Education Patient Instructions Indication:Encounter for screening for malignant neoplasm of prostate (Renamed from Screening for prostate cancer) Start:05-Oct-2019 Instruction Type:Provider Instructions for Treatment How to access health informa tion online Indication:Adult residual type attention deficit hyperactivity disorder (ADHD) Start:03-Jul-2019 Instruction Type:Patient Education How to access health informa tion online - Detail Indication:Adult residual type attention deficit hyperactivity disorder (ADHD) Start:03-Jul-2019 Instruction Type:Patient Education Patient Instructions Indication:Adult residual type attention deficit hyperactivity disorder (ADHD) Start:03-Jul-2019 Instruction Type:Provider Instructions for Treatment How to access health informa tion online Indication:Adult residual type attention deficit hyperactivity disorder (ADHD) Start:09-Apr-2019 Instruction Type:Patient Education How to access health informa tion online - Detail Indication:Adult residual type attention deficit hyperactivity disorder (ADHD) Start:09-Apr-2019 Instruction Type:Patient Education Patient Instructions Indication:Adult residual type attention deficit hyperactivity disorder (ADHD) Start:09-Apr-2019 Instruction Type:Provider Instructions for Treatment How to access health informa tion online Indication:Nonsmoker Start:20-Mar-2019 Instruction Type:Patient Education How to access health informa tion online - Detail Indication:Nonsmoker Start:20-Mar-2019 Instruction Type:Patient Education Patient Instructions Indication:Elevated blood-pressure reading, without diagnosis of hypertension (Renamed from Elevated blood-pressure reading without diagnosis of hypertension) Start:20-Mar-2019 Instruction Type:Provider Instructions for Treatment How to access health informa tion online Indication:Nonsmoker Start:12-Dec-2018 Instruction Type:Patient Education How to access health informa tion online - Detail Indication:Nonsmoker Start:12-Dec-2018 Instruction Type:Patient Education Patient Instructions Indication:BMI 34.0-34.9,adult Start:12-Dec-2018 Instruction Type:Provider Instructions for Treatment How to access health informa tion online Indication:Nonsmoker Start:21-Nov-2018 Instruction Type:Patient Education How to access health informa tion online - Detail Indication:Nonsmoker Start:21-Nov-2018 Instruction Type:Patient Education Patient Instructions Indication:Nonsmoker Start:21-Nov-2018 Instruction Type:Provider Instructions for Treatment How to access health informa tion online Indication:Nonsmoker Start:05-Sep-2018 Instruction Type:Patient Education How to access health informa tion online - Detail Indication:Nonsmoker Start:05-Sep-2018 Instruction Type:Patient Education Patient Instructions Indication:Nonsmoker Start:05-Sep-2018 Instruction Type:Provider Instructions for Treatment How to access health informa tion online Indication:Nonsmoker Start:02-Jun-2018 Instruction Type:Patient Education How to access health informa tion online - Detail Indication:Nonsmoker Start:02-Jun-2018 Instruction Type:Patient Education Patient Instructions Indication:Encounter for screening for malignant neoplasm of prostate (Renamed from Screening for prostate cancer) Start:02-Jun-2018 Instruction Type:Provider Instructions for Treatment How to access health informa tion online Indication:Adult residual type attention deficit hyperactivity disorder (ADHD) Start:30-May-2018 Instruction Type:Patient Education How to access health informa tion online - Detail Indication:Adult residual type attention deficit hyperactivity disorder (ADHD) Start:30-May-2018 Instruction Type:Patient Education Patient Instructions Indication:Adult residual type attention deficit hyperactivity disorder (ADHD) Start:30-May-2018 Instruction Type:Provider Instructions for Treatment How to access health informa tion online Indication:Cracked lip Start:28-Apr-2018 Instruction Type:Patient Education How to access health informa tion online - Detail Indication:Cracked lip Start:28-Apr-2018 Instruction Type:Patient Education Patient Instructions Indication:Cracked lip Start:28-Apr-2018 Instruction Type:Provider Instructions for Treatment How to access health informa tion online Indication:Adult residual type attention deficit hyperactivity disorder (ADHD) Start:21-Feb-2018 Instruction Type:Patient Education How to access health informa tion online - Detail Indication:Adult residual type attention deficit hyperactivity disorder (ADHD) Start:21-Feb-2018 Instruction Type:Patient Education Patient Instructions Indication:Adult residual type attention deficit hyperactivity disorder (ADHD) Start:21-Feb-2018 Instruction Type:Provider Instructions for Treatment How to access health informa tion online Indication:Nonsmoker Start:27-Jan-2018 Instruction Type:Patient Education How to access health informa tion online - Detail Indication:Nonsmoker Start:27-Jan-2018 Instruction Type:Patient Education Patient Instructions Indication:Nonsmoker Start:27-Jan-2018 Instruction Type:Provider Instructions for Treatment How to access health informa tion online Indication:Adult residual type attention deficit hyperactivity disorder (ADHD) Start:25-Oct-2017 Instruction Type:Patient Education How to access health informa tion online - Detail Indication:Adult residual type attention deficit hyperactivity disorder (ADHD) Start:25-Oct-2017 Instruction Type:Patient Education Patient Instructions Indication:Adult residual type attention deficit hyperactivity disorder (ADHD) Start:25-Oct-2017 Instruction Type:Provider Instructions for Treatment How to access health informa tion online Indication:Abnormal glucose tolerance test (Renamed from Abnormal glucose tolerance test (GTT)) Start:13-Sep-2017 Instruction Type:Patient Education How to access health informa tion online - Detail Indication:Abnormal glucose tolerance test (Renamed from Abnormal glucose tolerance test (GTT)) Start:13-Sep-2017 Instruction Type:Patient Education Patient Instructions Indication:BMI 34.0-34.9,adult Start:13-Sep-2017 Instruction Type:Provider Instructions for Treatment How to access health informa tion online Indication:Nonsmoker Start:16-Aug-2017 Instruction Type:Patient Education How to access health informa tion online - Detail Indication:Nonsmoker Start:16-Aug-2017 Instruction Type:Patient Education Patient Instructions Indication:Nonsmoker Start:16-Aug-2017 Instruction Type:Provider Instructions for Treatment How to access health informa tion online Indication:Adult residual type attention deficit hyperactivity disorder (ADHD) Start:26-Jul-2017 Instruction Type:Patient Education How to access health informa tion online - Detail Indication:Adult residual type attention deficit hyperactivity disorder (ADHD) Start:26-Jul-2017 Instruction Type:Patient Education Patient Instructions Indication:Adult residual type attention deficit hyperactivity disorder (ADHD) Start:26-Jul-2017 Instruction Type:Provider Instructions for Treatment How to access health informa tion online Indication:Abnormal glucose tolerance test (Renamed from Abnormal glucose tolerance test (GTT)) Start:10-May-2017 Instruction Type:Patient Education How to access health informa tion online - Detail Indication:Abnormal glucose tolerance test (Renamed from Abnormal glucose tolerance test (GTT)) Start:10-May-2017 Instruction Type:Patient Education Patient Instructions Indication:Abnormal glucose tolerance test (Renamed from Abnormal glucose tolerance test (GTT)) Start:10-May-2017 Instruction Type:Provider Instructions for Treatment Patient Instructions Indication:Skin picking habit Start:18-Jan-2017 Instruction Type:Provider Instructions for Treatment How to access health informa tion online Indication:Hyperlipidemia, unspecified Start:03-Dec-2016 Instruction Type:Patient Education How to access health informa tion online - Detail Indication:Hyperlipidemia, unspecified Start:03-Dec-2016 Instruction Type:Patient Education Patient Instructions Indication:Hyperlipidemia, unspecified Start:03-Dec-2016 Instruction Type:Provider Instructions for Treatment How to access health informa tion online Indication:Adult residual type attention deficit hyperactivity disorder (ADHD) Start:12-Oct-2016 Instruction Type:Patient Education How to access health informa tion online - Detail Indication:Adult residual type attention deficit hyperactivity disorder (ADHD) Start:12-Oct-2016 Instruction Type:Patient Education Patient Instructions Indication:Adult residual type attention deficit hyperactivity disorder (ADHD) Start:12-Oct-2016 Instruction Type:Provider Instructions for Treatment Patient Instructions Indication:Vitamin D deficiency Start:01-Oct-2016 Instruction Type:Provider Instructions for Treatment How to access health informa tion online Indication:Nonsmoker Start:01-Oct-2016 Instruction Type:Patient Education How to access health informa tion online - Detail Indication:Nonsmoker Start:01-Oct-2016 Instruction Type:Patient Education Patient Instructions Indication:Nonsmoker Start:01-Oct-2016 Instruction Type:Provider Instructions for Treatment How to access health informa tion online Indication:Abnormal glucose tolerance test (Renamed from Abnormal glucose tolerance test (GTT)) Start:21-Sep-2016 Instruction Type:Patient Education How to access health informa tion online - Detail Indication:Abnormal glucose tolerance test (Renamed from Abnormal glucose tolerance test (GTT)) Start:21-Sep-2016 Instruction Type:Patient Education Patient Instructions Indication:Abnormal glucose tolerance test (Renamed from Abnormal glucose tolerance test (GTT)) Start:21-Sep-2016 Instruction Type:Provider Instructions for Treatment Patient Instructions Indication:Abnormal glucose tolerance test (Renamed from Abnormal glucose tolerance test (GTT)) Start:06-Feb-2016 Instruction Type:Provider Instructions for Treatment How to access health informa tion online Indication:Prediabetes Start:26-Dec-2015 Instruction Type:Patient Education How to access health informa tion online - Detail Indication:Prediabetes Start:26-Dec-2015 Instruction Type:Patient Education Patient Instructions Indication:Prediabetes Start:26-Dec-2015 Instruction Type:Provider Instructions for Treatment How to access health informa tion online Indication:Anxiety Start:27-Jun-2015 Instruction Type:Patient Education How to access health informa tion online - Detail Indication:Anxiety Start:27-Jun-2015 Instruction Type:Patient Education Patient Instructions Indication:Anxiety Start:27-Jun-2015 Instruction Type:Provider Instructions for Treatment Patient Instructions Indication:Anxiety Start:09-May-2015 Instruction Type:Provider Instructions for Treatment Patient Instructions Indication:Obesity, unspecified Start:21-May-2014 Instruction Type:Provider Instructions for Treatment How to access health informa tion online Indication:Obesity, unspecified Start:21-May-2014 Instruction Type:Patient Education How to access health informa tion online - Detail Indication:Obesity, unspecified Start:21-May-2014 Instruction Type:Patient Education How to access health informa tion online Indication:Laceration of left leg Start:10-May-2014 Instruction Type:Patient Education How to access health informa tion online - Detail Indication:Laceration of left leg Start:10-May-2014 Instruction Type:Patient Education Patient Instructions Indication:Laceration of left leg Start:10-May-2014 Instruction Type:Provider Instructions for Treatment Patient Instructions Indication:Hyperlipidemia, unspecified Start:28-Jan-2014 Instruction Type:Provider Instructions for Treatment Name Dates Details How to access health informa tion online Indication:Adult residual type attention deficit hyperactivity disorder (ADHD) Start:29-Apr-2020 Instruction Type:Patient Education How to access health informa tion online - Detail Indication:Adult residual type attention deficit hyperactivity disorder (ADHD) Start:29-Apr-2020 Instruction Type:Patient Education Patient Instructions Indication:Adult residual type attention deficit hyperactivity disorder (ADHD) Start:29-Apr-2020 Instruction Type:Provider Instructions for Treatment How to access health informa tion online Indication:Nonsmoker Start:20-Apr-2020 Instruction Type:Patient Education How to access health informa tion online - Detail Indication:Nonsmoker Start:20-Apr-2020 Instruction Type:Patient Education Patient Instructions Indication:Nonsmoker Start:20-Apr-2020 Instruction Type:Provider Instructions for Treatment How to access health informa tion online Indication:Adult residual type attention deficit hyperactivity disorder (ADHD) Start:01-Jan-2020 Instruction Type:Patient Education How to access health informa tion online - Detail Indication:Adult residual type attention deficit hyperactivity disorder (ADHD) Start:01-Jan-2020 Instruction Type:Patient Education Patient Instructions Indication:Adult residual type attention deficit hyperactivity disorder (ADHD) Start:01-Jan-2020 Instruction Type:Provider Instructions for Treatment How to access health informa tion online Indication:Nonsmoker Start:27-Oct-2019 Instruction Type:Patient Education How to access health informa tion online - Detail Indication:Nonsmoker Start:27-Oct-2019 Instruction Type:Patient Education Patient Instructions Indication:Nonsmoker Start:27-Oct-2019 Instruction Type:Provider Instructions for Treatment How to access health informa tion online Indication:Nonsmoker Start:05-Oct-2019 Instruction Type:Patient Education How to access health informa tion online - Detail Indication:Nonsmoker Start:05-Oct-2019 Instruction Type:Patient Education Patient Instructions Indication:Encounter for screening for malignant neoplasm of prostate (Renamed from Screening for prostate cancer) Start:05-Oct-2019 Instruction Type:Provider Instructions for Treatment How to access health informa tion online Indication:Adult residual type attention deficit hyperactivity disorder (ADHD) Start:03-Jul-2019 Instruction Type:Patient Education How to access health informa tion online - Detail Indication:Adult residual type attention deficit hyperactivity disorder (ADHD) Start:03-Jul-2019 Instruction Type:Patient Education Patient Instructions Indication:Adult residual type attention deficit hyperactivity disorder (ADHD) Start:03-Jul-2019 Instruction Type:Provider Instructions for Treatment How to access health informa tion online Indication:Adult residual type attention deficit hyperactivity disorder (ADHD) Start:09-Apr-2019 Instruction Type:Patient Education How to access health informa tion online - Detail Indication:Adult residual type attention deficit hyperactivity disorder (ADHD) Start:09-Apr-2019 Instruction Type:Patient Education Patient Instructions Indication:Adult residual type attention deficit hyperactivity disorder (ADHD) Start:09-Apr-2019 Instruction Type:Provider Instructions for Treatment How to access health informa tion online Indication:Nonsmoker Start:20-Mar-2019 Instruction Type:Patient Education How to access health informa tion online - Detail Indication:Nonsmoker Start:20-Mar-2019 Instruction Type:Patient Education Patient Instructions Indication:Elevated blood-pressure reading, without diagnosis of hypertension (Renamed from Elevated blood-pressure reading without diagnosis of hypertension) Start:20-Mar-2019 Instruction Type:Provider Instructions for Treatment How to access health informa tion online Indication:Nonsmoker Start:12-Dec-2018 Instruction Type:Patient Education How to access health informa tion online - Detail Indication:Nonsmoker Start:12-Dec-2018 Instruction Type:Patient Education Patient Instructions Indication:BMI 34.0-34.9,adult Start:12-Dec-2018 Instruction Type:Provider Instructions for Treatment How to access health informa tion online Indication:Nonsmoker Start:21-Nov-2018 Instruction Type:Patient Education How to access health informa tion online - Detail Indication:Nonsmoker Start:21-Nov-2018 Instruction Type:Patient Education Patient Instructions Indication:Nonsmoker Start:21-Nov-2018 Instruction Type:Provider Instructions for Treatment How to access health informa tion online Indication:Nonsmoker Start:05-Sep-2018 Instruction Type:Patient Education How to access health informa tion online - Detail Indication:Nonsmoker Start:05-Sep-2018 Instruction Type:Patient Education Patient Instructions Indication:Nonsmoker Start:05-Sep-2018 Instruction Type:Provider Instructions for Treatment How to access health informa tion online Indication:Nonsmoker Start:02-Jun-2018 Instruction Type:Patient Education How to access health informa tion online - Detail Indication:Nonsmoker Start:02-Jun-2018 Instruction Type:Patient Education Patient Instructions Indication:Encounter for screening for malignant neoplasm of prostate (Renamed from Screening for prostate cancer) Start:02-Jun-2018 Instruction Type:Provider Instructions for Treatment How to access health informa tion online Indication:Adult residual type attention deficit hyperactivity disorder (ADHD) Start:30-May-2018 Instruction Type:Patient Education How to access health informa tion online - Detail Indication:Adult residual type attention deficit hyperactivity disorder (ADHD) Start:30-May-2018 Instruction Type:Patient Education Patient Instructions Indication:Adult residual type attention deficit hyperactivity disorder (ADHD) Start:30-May-2018 Instruction Type:Provider Instructions for Treatment How to access health informa tion online Indication:Cracked lip Start:28-Apr-2018 Instruction Type:Patient Education How to access health informa tion online - Detail Indication:Cracked lip Start:28-Apr-2018 Instruction Type:Patient Education Patient Instructions Indication:Cracked lip Start:28-Apr-2018 Instruction Type:Provider Instructions for Treatment How to access health informa tion online Indication:Adult residual type attention deficit hyperactivity disorder (ADHD) Start:21-Feb-2018 Instruction Type:Patient Education How to access health informa tion online - Detail Indication:Adult residual type attention deficit hyperactivity disorder (ADHD) Start:21-Feb-2018 Instruction Type:Patient Education Patient Instructions Indication:Adult residual type attention deficit hyperactivity disorder (ADHD) Start:21-Feb-2018 Instruction Type:Provider Instructions for Treatment How to access health informa tion online Indication:Nonsmoker Start:27-Jan-2018 Instruction Type:Patient Education How to access health informa tion online - Detail Indication:Nonsmoker Start:27-Jan-2018 Instruction Type:Patient Education Patient Instructions Indication:Nonsmoker Start:27-Jan-2018 Instruction Type:Provider Instructions for Treatment How to access health informa tion online Indication:Adult residual type attention deficit hyperactivity disorder (ADHD) Start:25-Oct-2017 Instruction Type:Patient Education How to access health informa tion online - Detail Indication:Adult residual type attention deficit hyperactivity disorder (ADHD) Start:25-Oct-2017 Instruction Type:Patient Education Patient Instructions Indication:Adult residual type attention deficit hyperactivity disorder (ADHD) Start:25-Oct-2017 Instruction Type:Provider Instructions for Treatment How to access health informa tion online Indication:Abnormal glucose tolerance test (Renamed from Abnormal glucose tolerance test (GTT)) Start:13-Sep-2017 Instruction Type:Patient Education How to access health informa tion online - Detail Indication:Abnormal glucose tolerance test (Renamed from Abnormal glucose tolerance test (GTT)) Start:13-Sep-2017 Instruction Type:Patient Education Patient Instructions Indication:BMI 34.0-34.9,adult Start:13-Sep-2017 Instruction Type:Provider Instructions for Treatment How to access health informa tion online Indication:Nonsmoker Start:16-Aug-2017 Instruction Type:Patient Education How to access health informa tion online - Detail Indication:Nonsmoker Start:16-Aug-2017 Instruction Type:Patient Education Patient Instructions Indication:Nonsmoker Start:16-Aug-2017 Instruction Type:Provider Instructions for Treatment How to access health informa tion online Indication:Adult residual type attention deficit hyperactivity disorder (ADHD) Start:26-Jul-2017 Instruction Type:Patient Education How to access health informa tion online - Detail Indication:Adult residual type attention deficit hyperactivity disorder (ADHD) Start:26-Jul-2017 Instruction Type:Patient Education Patient Instructions Indication:Adult residual type attention deficit hyperactivity disorder (ADHD) Start:26-Jul-2017 Instruction Type:Provider Instructions for Treatment How to access health informa tion online Indication:Abnormal glucose tolerance test (Renamed from Abnormal glucose tolerance test (GTT)) Start:10-May-2017 Instruction Type:Patient Education How to access health informa tion online - Detail Indication:Abnormal glucose tolerance test (Renamed from Abnormal glucose tolerance test (GTT)) Start:10-May-2017 Instruction Type:Patient Education Patient Instructions Indication:Abnormal glucose tolerance test (Renamed from Abnormal glucose tolerance test (GTT)) Start:10-May-2017 Instruction Type:Provider Instructions for Treatment Patient Instructions Indication:Skin picking habit Start:18-Jan-2017 Instruction Type:Provider Instructions for Treatment How to access health informa tion online Indication:Hyperlipidemia, unspecified Start:03-Dec-2016 Instruction Type:Patient Education How to access health informa tion online - Detail Indication:Hyperlipidemia, unspecified Start:03-Dec-2016 Instruction Type:Patient Education Patient Instructions Indication:Hyperlipidemia, unspecified Start:03-Dec-2016 Instruction Type:Provider Instructions for Treatment How to access health informa tion online Indication:Adult residual type attention deficit hyperactivity disorder (ADHD) Start:12-Oct-2016 Instruction Type:Patient Education How to access health informa tion online - Detail Indication:Adult residual type attention deficit hyperactivity disorder (ADHD) Start:12-Oct-2016 Instruction Type:Patient Education Patient Instructions Indication:Adult residual type attention deficit hyperactivity disorder (ADHD) Start:12-Oct-2016 Instruction Type:Provider Instructions for Treatment Patient Instructions Indication:Vitamin D deficiency Start:01-Oct-2016 Instruction Type:Provider Instructions for Treatment How to access health informa tion online Indication:Nonsmoker Start:01-Oct-2016 Instruction Type:Patient Education How to access health informa tion online - Detail Indication:Nonsmoker Start:01-Oct-2016 Instruction Type:Patient Education Patient Instructions Indication:Nonsmoker Start:01-Oct-2016 Instruction Type:Provider Instructions for Treatment How to access health informa tion online Indication:Abnormal glucose tolerance test (Renamed from Abnormal glucose tolerance test (GTT)) Start:21-Sep-2016 Instruction Type:Patient Education How to access health informa tion online - Detail Indication:Abnormal glucose tolerance test (Renamed from Abnormal glucose tolerance test (GTT)) Start:21-Sep-2016 Instruction Type:Patient Education Patient Instructions Indication:Abnormal glucose tolerance test (Renamed from Abnormal glucose tolerance test (GTT)) Start:21-Sep-2016 Instruction Type:Provider Instructions for Treatment Patient Instructions Indication:Abnormal glucose tolerance test (Renamed from Abnormal glucose tolerance test (GTT)) Start:06-Feb-2016 Instruction Type:Provider Instructions for Treatment How to access health informa tion online Indication:Prediabetes Start:26-Dec-2015 Instruction Type:Patient Education How to access health informa tion online - Detail Indication:Prediabetes Start:26-Dec-2015 Instruction Type:Patient Education Patient Instructions Indication:Prediabetes Start:26-Dec-2015 Instruction Type:Provider Instructions for Treatment How to access health informa tion online Indication:Anxiety Start:27-Jun-2015 Instruction Type:Patient Education How to access health informa tion online - Detail Indication:Anxiety Start:27-Jun-2015 Instruction Type:Patient Education Patient Instructions Indication:Anxiety Start:27-Jun-2015 Instruction Type:Provider Instructions for Treatment Patient Instructions Indication:Anxiety Start:09-May-2015 Instruction Type:Provider Instructions for Treatment Patient Instructions Indication:Obesity, unspecified Start:21-May-2014 Instruction Type:Provider Instructions for Treatment How to access health informa tion online Indication:Obesity, unspecified Start:21-May-2014 Instruction Type:Patient Education How to access health informa tion online - Detail Indication:Obesity, unspecified Start:21-May-2014 Instruction Type:Patient Education How to access health informa tion online Indication:Laceration of left leg Start:10-May-2014 Instruction Type:Patient Education How to access health informa tion online - Detail Indication:Laceration of left leg Start:10-May-2014 Instruction Type:Patient Education Patient Instructions Indication:Laceration of left leg Start:10-May-2014 Instruction Type:Provider Instructions for Treatment Patient Instructions Indication:Hyperlipidemia, unspecified Start:28-Jan-2014 Instruction Type:Provider Instructions for Treatment Name Dates Details Patient Instructions Indication:Nonsmoker Start:21-Oct-2020 Instruction Type:Provider Instructions for Treatment How to Access Health Informa tion Online using Patient Portal and [employer] Apps Indication:Nonsmoker Start:21-Oct-2020 Instruction Type:Patient Education How to access health informa tion online Indication:Adult residual type attention deficit hyperactivity disorder (ADHD) Start:29-Apr-2020 Instruction Type:Patient Education How to access health informa tion online - Detail Indication:Adult residual type attention deficit hyperactivity disorder (ADHD) Start:29-Apr-2020 Instruction Type:Patient Education Patient Instructions Indication:Adult residual type attention deficit hyperactivity disorder (ADHD) Start:29-Apr-2020 Instruction Type:Provider Instructions for Treatment How to access health informa tion online Indication:Nonsmoker Start:20-Apr-2020 Instruction Type:Patient Education How to access health informa tion online - Detail Indication:Nonsmoker Start:20-Apr-2020 Instruction Type:Patient Education Patient Instructions Indication:Nonsmoker Start:20-Apr-2020 Instruction Type:Provider Instructions for Treatment How to access health informa tion online Indication:Adult residual type attention deficit hyperactivity disorder (ADHD) Start:01-Jan-2020 Instruction Type:Patient Education How to access health informa tion online - Detail Indication:Adult residual type attention deficit hyperactivity disorder (ADHD) Start:01-Jan-2020 Instruction Type:Patient Education Patient Instructions Indication:Adult residual type attention deficit hyperactivity disorder (ADHD) Start:01-Jan-2020 Instruction Type:Provider Instructions for Treatment How to access health informa tion online Indication:Nonsmoker Start:27-Oct-2019 Instruction Type:Patient Education How to access health informa tion online - Detail Indication:Nonsmoker Start:27-Oct-2019 Instruction Type:Patient Education Patient Instructions Indication:Nonsmoker Start:27-Oct-2019 Instruction Type:Provider Instructions for Treatment How to access health informa tion online Indication:Nonsmoker Start:05-Oct-2019 Instruction Type:Patient Education How to access health informa tion online - Detail Indication:Nonsmoker Start:05-Oct-2019 Instruction Type:Patient Education Patient Instructions Indication:Encounter for screening for malignant neoplasm of prostate (Renamed from Screening for prostate cancer) Start:05-Oct-2019 Instruction Type:Provider Instructions for Treatment How to access health informa tion online Indication:Adult residual type attention deficit hyperactivity disorder (ADHD) Start:03-Jul-2019 Instruction Type:Patient Education How to access health informa tion online - Detail Indication:Adult residual type attention deficit hyperactivity disorder (ADHD) Start:03-Jul-2019 Instruction Type:Patient Education Patient Instructions Indication:Adult residual type attention deficit hyperactivity disorder (ADHD) Start:03-Jul-2019 Instruction Type:Provider Instructions for Treatment How to access health informa tion online Indication:Adult residual type attention deficit hyperactivity disorder (ADHD) Start:09-Apr-2019 Instruction Type:Patient Education How to access health informa tion online - Detail Indication:Adult residual type attention deficit hyperactivity disorder (ADHD) Start:09-Apr-2019 Instruction Type:Patient Education Patient Instructions Indication:Adult residual type attention deficit hyperactivity disorder (ADHD) Start:09-Apr-2019 Instruction Type:Provider Instructions for Treatment How to access health informa tion online Indication:Nonsmoker Start:20-Mar-2019 Instruction Type:Patient Education How to access health informa tion online - Detail Indication:Nonsmoker Start:20-Mar-2019 Instruction Type:Patient Education Patient Instructions Indication:Elevated blood-pressure reading, without diagnosis of hypertension (Renamed from Elevated blood-pressure reading without diagnosis of hypertension) Start:20-Mar-2019 Instruction Type:Provider Instructions for Treatment How to access health informa tion online Indication:Nonsmoker Start:12-Dec-2018 Instruction Type:Patient Education How to access health informa tion online - Detail Indication:Nonsmoker Start:12-Dec-2018 Instruction Type:Patient Education Patient Instructions Indication:BMI 34.0-34.9,adult Start:12-Dec-2018 Instruction Type:Provider Instructions for Treatment How to access health informa tion online Indication:Nonsmoker Start:21-Nov-2018 Instruction Type:Patient Education How to access health informa tion online - Detail Indication:Nonsmoker Start:21-Nov-2018 Instruction Type:Patient Education Patient Instructions Indication:Nonsmoker Start:21-Nov-2018 Instruction Type:Provider Instructions for Treatment How to access health informa tion online Indication:Nonsmoker Start:05-Sep-2018 Instruction Type:Patient Education How to access health informa tion online - Detail Indication:Nonsmoker Start:05-Sep-2018 Instruction Type:Patient Education Patient Instructions Indication:Nonsmoker Start:05-Sep-2018 Instruction Type:Provider Instructions for Treatment How to access health informa tion online Indication:Nonsmoker Start:02-Jun-2018 Instruction Type:Patient Education How to access health informa tion online - Detail Indication:Nonsmoker Start:02-Jun-2018 Instruction Type:Patient Education Patient Instructions Indication:Encounter for screening for malignant neoplasm of prostate (Renamed from Screening for prostate cancer) Start:02-Jun-2018 Instruction Type:Provider Instructions for Treatment How to access health informa tion online Indication:Adult residual type attention deficit hyperactivity disorder (ADHD) Start:30-May-2018 Instruction Type:Patient Education How to access health informa tion online - Detail Indication:Adult residual type attention deficit hyperactivity disorder (ADHD) Start:30-May-2018 Instruction Type:Patient Education Patient Instructions Indication:Adult residual type attention deficit hyperactivity disorder (ADHD) Start:30-May-2018 Instruction Type:Provider Instructions for Treatment How to access health informa tion online Indication:Cracked lip Start:28-Apr-2018 Instruction Type:Patient Education How to access health informa tion online - Detail Indication:Cracked lip Start:28-Apr-2018 Instruction Type:Patient Education Patient Instructions Indication:Cracked lip Start:28-Apr-2018 Instruction Type:Provider Instructions for Treatment How to access health informa tion online Indication:Adult residual type attention deficit hyperactivity disorder (ADHD) Start:21-Feb-2018 Instruction Type:Patient Education How to access health informa tion online - Detail Indication:Adult residual type attention deficit hyperactivity disorder (ADHD) Start:21-Feb-2018 Instruction Type:Patient Education Patient Instructions Indication:Adult residual type attention deficit hyperactivity disorder (ADHD) Start:21-Feb-2018 Instruction Type:Provider Instructions for Treatment How to access health informa tion online Indication:Nonsmoker Start:27-Jan-2018 Instruction Type:Patient Education How to access health informa tion online - Detail Indication:Nonsmoker Start:27-Jan-2018 Instruction Type:Patient Education Patient Instructions Indication:Nonsmoker Start:27-Jan-2018 Instruction Type:Provider Instructions for Treatment How to access health informa tion online Indication:Adult residual type attention deficit hyperactivity disorder (ADHD) Start:25-Oct-2017 Instruction Type:Patient Education How to access health informa tion online - Detail Indication:Adult residual type attention deficit hyperactivity disorder (ADHD) Start:25-Oct-2017 Instruction Type:Patient Education Patient Instructions Indication:Adult residual type attention deficit hyperactivity disorder (ADHD) Start:25-Oct-2017 Instruction Type:Provider Instructions for Treatment How to access health informa tion online Indication:Abnormal glucose tolerance test (Renamed from Abnormal glucose tolerance test (GTT)) Start:13-Sep-2017 Instruction Type:Patient Education How to access health informa tion online - Detail Indication:Abnormal glucose tolerance test (Renamed from Abnormal glucose tolerance test (GTT)) Start:13-Sep-2017 Instruction Type:Patient Education Patient Instructions Indication:BMI 34.0-34.9,adult Start:13-Sep-2017 Instruction Type:Provider Instructions for Treatment How to access health informa tion online Indication:Nonsmoker Start:16-Aug-2017 Instruction Type:Patient Education How to access health informa tion online - Detail Indication:Nonsmoker Start:16-Aug-2017 Instruction Type:Patient Education Patient Instructions Indication:Nonsmoker Start:16-Aug-2017 Instruction Type:Provider Instructions for Treatment How to access health informa tion online Indication:Adult residual type attention deficit hyperactivity disorder (ADHD) Start:26-Jul-2017 Instruction Type:Patient Education How to access health informa tion online - Detail Indication:Adult residual type attention deficit hyperactivity disorder (ADHD) Start:26-Jul-2017 Instruction Type:Patient Education Patient Instructions Indication:Adult residual type attention deficit hyperactivity disorder (ADHD) Start:26-Jul-2017 Instruction Type:Provider Instructions for Treatment How to access health informa tion online Indication:Abnormal glucose tolerance test (Renamed from Abnormal glucose tolerance test (GTT)) Start:10-May-2017 Instruction Type:Patient Education How to access health informa tion online - Detail Indication:Abnormal glucose tolerance test (Renamed from Abnormal glucose tolerance test (GTT)) Start:10-May-2017 Instruction Type:Patient Education Patient Instructions Indication:Abnormal glucose tolerance test (Renamed from Abnormal glucose tolerance test (GTT)) Start:10-May-2017 Instruction Type:Provider Instructions for Treatment Patient Instructions Indication:Skin picking habit Start:18-Jan-2017 Instruction Type:Provider Instructions for Treatment How to access health informa tion online Indication:Hyperlipidemia, unspecified Start:03-Dec-2016 Instruction Type:Patient Education How to access health informa tion online - Detail Indication:Hyperlipidemia, unspecified Start:03-Dec-2016 Instruction Type:Patient Education Patient Instructions Indication:Hyperlipidemia, unspecified Start:03-Dec-2016 Instruction Type:Provider Instructions for Treatment How to access health informa tion online Indication:Adult residual type attention deficit hyperactivity disorder (ADHD) Start:12-Oct-2016 Instruction Type:Patient Education How to access health informa tion online - Detail Indication:Adult residual type attention deficit hyperactivity disorder (ADHD) Start:12-Oct-2016 Instruction Type:Patient Education Patient Instructions Indication:Adult residual type attention deficit hyperactivity disorder (ADHD) Start:12-Oct-2016 Instruction Type:Provider Instructions for Treatment Patient Instructions Indication:Vitamin D deficiency Start:01-Oct-2016 Instruction Type:Provider Instructions for Treatment How to access health informa tion online Indication:Nonsmoker Start:01-Oct-2016 Instruction Type:Patient Education How to access health informa tion online - Detail Indication:Nonsmoker Start:01-Oct-2016 Instruction Type:Patient Education Patient Instructions Indication:Nonsmoker Start:01-Oct-2016 Instruction Type:Provider Instructions for Treatment How to access health informa tion online Indication:Abnormal glucose tolerance test (Renamed from Abnormal glucose tolerance test (GTT)) Start:21-Sep-2016 Instruction Type:Patient Education How to access health informa tion online - Detail Indication:Abnormal glucose tolerance test (Renamed from Abnormal glucose tolerance test (GTT)) Start:21-Sep-2016 Instruction Type:Patient Education Patient Instructions Indication:Abnormal glucose tolerance test (Renamed from Abnormal glucose tolerance test (GTT)) Start:21-Sep-2016 Instruction Type:Provider Instructions for Treatment Patient Instructions Indication:Abnormal glucose tolerance test (Renamed from Abnormal glucose tolerance test (GTT)) Start:06-Feb-2016 Instruction Type:Provider Instructions for Treatment How to access health informa tion online Indication:Prediabetes Start:26-Dec-2015 Instruction Type:Patient Education How to access health informa tion online - Detail Indication:Prediabetes Start:26-Dec-2015 Instruction Type:Patient Education Patient Instructions Indication:Prediabetes Start:26-Dec-2015 Instruction Type:Provider Instructions for Treatment How to access health informa tion online Indication:Anxiety Start:27-Jun-2015 Instruction Type:Patient Education How to access health informa tion online - Detail Indication:Anxiety Start:27-Jun-2015 Instruction Type:Patient Education Patient Instructions Indication:Anxiety Start:27-Jun-2015 Instruction Type:Provider Instructions for Treatment Patient Instructions Indication:Anxiety Start:09-May-2015 Instruction Type:Provider Instructions for Treatment Patient Instructions Indication:Obesity, unspecified Start:21-May-2014 Instruction Type:Provider Instructions for Treatment How to access health informa tion online Indication:Obesity, unspecified Start:21-May-2014 Instruction Type:Patient Education How to access health informa tion online - Detail Indication:Obesity, unspecified Start:21-May-2014 Instruction Type:Patient Education How to access health informa tion online Indication:Laceration of left leg Start:10-May-2014 Instruction Type:Patient Education How to access health informa tion online - Detail Indication:Laceration of left leg Start:10-May-2014 Instruction Type:Patient Education Patient Instructions Indication:Laceration of left leg Start:10-May-2014 Instruction Type:Provider Instructions for Treatment Patient Instructions Indication:Hyperlipidemia, unspecified Start:28-Jan-2014 Instruction Type:Provider Instructions for Treatment Name Dates Details Patient Instructions Indication:BMI 32.0-32.9,adult Start:21-Oct-2020 Instruction Type:Provider Instructions for Treatment How to Access Health Informa tion Online using Patient Portal and [employer] Apps Indication:Nonsmoker Start:21-Oct-2020 Instruction Type:Patient Education How to access health informa tion online Indication:Adult residual type attention deficit hyperactivity disorder (ADHD) Start:29-Apr-2020 Instruction Type:Patient Education How to access health informa tion online - Detail Indication:Adult residual type attention deficit hyperactivity disorder (ADHD) Start:29-Apr-2020 Instruction Type:Patient Education Patient Instructions Indication:Adult residual type attention deficit hyperactivity disorder (ADHD) Start:29-Apr-2020 Instruction Type:Provider Instructions for Treatment How to access health informa tion online Indication:Nonsmoker Start:20-Apr-2020 Instruction Type:Patient Education How to access health informa tion online - Detail Indication:Nonsmoker Start:20-Apr-2020 Instruction Type:Patient Education Patient Instructions Indication:Nonsmoker Start:20-Apr-2020 Instruction Type:Provider Instructions for Treatment How to access health informa tion online Indication:Adult residual type attention deficit hyperactivity disorder (ADHD) Start:01-Jan-2020 Instruction Type:Patient Education How to access health informa tion online - Detail Indication:Adult residual type attention deficit hyperactivity disorder (ADHD) Start:01-Jan-2020 Instruction Type:Patient Education Patient Instructions Indication:Adult residual type attention deficit hyperactivity disorder (ADHD) Start:01-Jan-2020 Instruction Type:Provider Instructions for Treatment How to access health informa tion online Indication:Nonsmoker Start:27-Oct-2019 Instruction Type:Patient Education How to access health informa tion online - Detail Indication:Nonsmoker Start:27-Oct-2019 Instruction Type:Patient Education Patient Instructions Indication:Nonsmoker Start:27-Oct-2019 Instruction Type:Provider Instructions for Treatment How to access health informa tion online Indication:Nonsmoker Start:05-Oct-2019 Instruction Type:Patient Education How to access health informa tion online - Detail Indication:Nonsmoker Start:05-Oct-2019 Instruction Type:Patient Education Patient Instructions Indication:Encounter for screening for malignant neoplasm of prostate (Renamed from Screening for prostate cancer) Start:05-Oct-2019 Instruction Type:Provider Instructions for Treatment How to access health informa tion online Indication:Adult residual type attention deficit hyperactivity disorder (ADHD) Start:03-Jul-2019 Instruction Type:Patient Education How to access health informa tion online - Detail Indication:Adult residual type attention deficit hyperactivity disorder (ADHD) Start:03-Jul-2019 Instruction Type:Patient Education Patient Instructions Indication:Adult residual type attention deficit hyperactivity disorder (ADHD) Start:03-Jul-2019 Instruction Type:Provider Instructions for Treatment How to access health informa tion online Indication:Adult residual type attention deficit hyperactivity disorder (ADHD) Start:09-Apr-2019 Instruction Type:Patient Education How to access health informa tion online - Detail Indication:Adult residual type attention deficit hyperactivity disorder (ADHD) Start:09-Apr-2019 Instruction Type:Patient Education Patient Instructions Indication:Adult residual type attention deficit hyperactivity disorder (ADHD) Start:09-Apr-2019 Instruction Type:Provider Instructions for Treatment How to access health informa tion online Indication:Nonsmoker Start:20-Mar-2019 Instruction Type:Patient Education How to access health informa tion online - Detail Indication:Nonsmoker Start:20-Mar-2019 Instruction Type:Patient Education Patient Instructions Indication:Elevated blood-pressure reading, without diagnosis of hypertension (Renamed from Elevated blood-pressure reading without diagnosis of hypertension) Start:20-Mar-2019 Instruction Type:Provider Instructions for Treatment How to access health informa tion online Indication:Nonsmoker Start:12-Dec-2018 Instruction Type:Patient Education How to access health informa tion online - Detail Indication:Nonsmoker Start:12-Dec-2018 Instruction Type:Patient Education Patient Instructions Indication:BMI 34.0-34.9,adult Start:12-Dec-2018 Instruction Type:Provider Instructions for Treatment How to access health informa tion online Indication:Nonsmoker Start:21-Nov-2018 Instruction Type:Patient Education How to access health informa tion online - Detail Indication:Nonsmoker Start:21-Nov-2018 Instruction Type:Patient Education Patient Instructions Indication:Nonsmoker Start:21-Nov-2018 Instruction Type:Provider Instructions for Treatment How to access health informa tion online Indication:Nonsmoker Start:05-Sep-2018 Instruction Type:Patient Education How to access health informa tion online - Detail Indication:Nonsmoker Start:05-Sep-2018 Instruction Type:Patient Education Patient Instructions Indication:Nonsmoker Start:05-Sep-2018 Instruction Type:Provider Instructions for Treatment How to access health informa tion online Indication:Nonsmoker Start:02-Jun-2018 Instruction Type:Patient Education How to access health informa tion online - Detail Indication:Nonsmoker Start:02-Jun-2018 Instruction Type:Patient Education Patient Instructions Indication:Encounter for screening for malignant neoplasm of prostate (Renamed from Screening for prostate cancer) Start:02-Jun-2018 Instruction Type:Provider Instructions for Treatment How to access health informa tion online Indication:Adult residual type attention deficit hyperactivity disorder (ADHD) Start:30-May-2018 Instruction Type:Patient Education How to access health informa tion online - Detail Indication:Adult residual type attention deficit hyperactivity disorder (ADHD) Start:30-May-2018 Instruction Type:Patient Education Patient Instructions Indication:Adult residual type attention deficit hyperactivity disorder (ADHD) Start:30-May-2018 Instruction Type:Provider Instructions for Treatment How to access health informa tion online Indication:Cracked lip Start:28-Apr-2018 Instruction Type:Patient Education How to access health informa tion online - Detail Indication:Cracked lip Start:28-Apr-2018 Instruction Type:Patient Education Patient Instructions Indication:Cracked lip Start:28-Apr-2018 Instruction Type:Provider Instructions for Treatment How to access health informa tion online Indication:Adult residual type attention deficit hyperactivity disorder (ADHD) Start:21-Feb-2018 Instruction Type:Patient Education How to access health informa tion online - Detail Indication:Adult residual type attention deficit hyperactivity disorder (ADHD) Start:21-Feb-2018 Instruction Type:Patient Education Patient Instructions Indication:Adult residual type attention deficit hyperactivity disorder (ADHD) Start:21-Feb-2018 Instruction Type:Provider Instructions for Treatment How to access health informa tion online Indication:Nonsmoker Start:27-Jan-2018 Instruction Type:Patient Education How to access health informa tion online - Detail Indication:Nonsmoker Start:27-Jan-2018 Instruction Type:Patient Education Patient Instructions Indication:Nonsmoker Start:27-Jan-2018 Instruction Type:Provider Instructions for Treatment How to access health informa tion online Indication:Adult residual type attention deficit hyperactivity disorder (ADHD) Start:25-Oct-2017 Instruction Type:Patient Education How to access health informa tion online - Detail Indication:Adult residual type attention deficit hyperactivity disorder (ADHD) Start:25-Oct-2017 Instruction Type:Patient Education Patient Instructions Indication:Adult residual type attention deficit hyperactivity disorder (ADHD) Start:25-Oct-2017 Instruction Type:Provider Instructions for Treatment How to access health informa tion online Indication:Abnormal glucose tolerance test (Renamed from Abnormal glucose tolerance test (GTT)) Start:13-Sep-2017 Instruction Type:Patient Education How to access health informa tion online - Detail Indication:Abnormal glucose tolerance test (Renamed from Abnormal glucose tolerance test (GTT)) Start:13-Sep-2017 Instruction Type:Patient Education Patient Instructions Indication:BMI 34.0-34.9,adult Start:13-Sep-2017 Instruction Type:Provider Instructions for Treatment How to access health informa tion online Indication:Nonsmoker Start:16-Aug-2017 Instruction Type:Patient Education How to access health informa tion online - Detail Indication:Nonsmoker Start:16-Aug-2017 Instruction Type:Patient Education Patient Instructions Indication:Nonsmoker Start:16-Aug-2017 Instruction Type:Provider Instructions for Treatment How to access health informa tion online Indication:Adult residual type attention deficit hyperactivity disorder (ADHD) Start:26-Jul-2017 Instruction Type:Patient Education How to access health informa tion online - Detail Indication:Adult residual type attention deficit hyperactivity disorder (ADHD) Start:26-Jul-2017 Instruction Type:Patient Education Patient Instructions Indication:Adult residual type attention deficit hyperactivity disorder (ADHD) Start:26-Jul-2017 Instruction Type:Provider Instructions for Treatment How to access health informa tion online Indication:Abnormal glucose tolerance test (Renamed from Abnormal glucose tolerance test (GTT)) Start:10-May-2017 Instruction Type:Patient Education How to access health informa tion online - Detail Indication:Abnormal glucose tolerance test (Renamed from Abnormal glucose tolerance test (GTT)) Start:10-May-2017 Instruction Type:Patient Education Patient Instructions Indication:Abnormal glucose tolerance test (Renamed from Abnormal glucose tolerance test (GTT)) Start:10-May-2017 Instruction Type:Provider Instructions for Treatment Patient Instructions Indication:Skin picking habit Start:18-Jan-2017 Instruction Type:Provider Instructions for Treatment How to access health informa tion online Indication:Hyperlipidemia, unspecified Start:03-Dec-2016 Instruction Type:Patient Education How to access health informa tion online - Detail Indication:Hyperlipidemia, unspecified Start:03-Dec-2016 Instruction Type:Patient Education Patient Instructions Indication:Hyperlipidemia, unspecified Start:03-Dec-2016 Instruction Type:Provider Instructions for Treatment How to access health informa tion online Indication:Adult residual type attention deficit hyperactivity disorder (ADHD) Start:12-Oct-2016 Instruction Type:Patient Education How to access health informa tion online - Detail Indication:Adult residual type attention deficit hyperactivity disorder (ADHD) Start:12-Oct-2016 Instruction Type:Patient Education Patient Instructions Indication:Adult residual type attention deficit hyperactivity disorder (ADHD) Start:12-Oct-2016 Instruction Type:Provider Instructions for Treatment Patient Instructions Indication:Vitamin D deficiency Start:01-Oct-2016 Instruction Type:Provider Instructions for Treatment How to access health informa tion online Indication:Nonsmoker Start:01-Oct-2016 Instruction Type:Patient Education How to access health informa tion online - Detail Indication:Nonsmoker Start:01-Oct-2016 Instruction Type:Patient Education Patient Instructions Indication:Nonsmoker Start:01-Oct-2016 Instruction Type:Provider Instructions for Treatment How to access health informa tion online Indication:Abnormal glucose tolerance test (Renamed from Abnormal glucose tolerance test (GTT)) Start:21-Sep-2016 Instruction Type:Patient Education How to access health informa tion online - Detail Indication:Abnormal glucose tolerance test (Renamed from Abnormal glucose tolerance test (GTT)) Start:21-Sep-2016 Instruction Type:Patient Education Patient Instructions Indication:Abnormal glucose tolerance test (Renamed from Abnormal glucose tolerance test (GTT)) Start:21-Sep-2016 Instruction Type:Provider Instructions for Treatment Patient Instructions Indication:Abnormal glucose tolerance test (Renamed from Abnormal glucose tolerance test (GTT)) Start:06-Feb-2016 Instruction Type:Provider Instructions for Treatment How to access health informa tion online Indication:Prediabetes Start:26-Dec-2015 Instruction Type:Patient Education How to access health informa tion online - Detail Indication:Prediabetes Start:26-Dec-2015 Instruction Type:Patient Education Patient Instructions Indication:Prediabetes Start:26-Dec-2015 Instruction Type:Provider Instructions for Treatment How to access health informa tion online Indication:Anxiety Start:27-Jun-2015 Instruction Type:Patient Education How to access health informa tion online - Detail Indication:Anxiety Start:27-Jun-2015 Instruction Type:Patient Education Patient Instructions Indication:Anxiety Start:27-Jun-2015 Instruction Type:Provider Instructions for Treatment Patient Instructions Indication:Anxiety Start:09-May-2015 Instruction Type:Provider Instructions for Treatment Patient Instructions Indication:Obesity, unspecified Start:21-May-2014 Instruction Type:Provider Instructions for Treatment How to access health informa tion online Indication:Obesity, unspecified Start:21-May-2014 Instruction Type:Patient Education How to access health informa tion online - Detail Indication:Obesity, unspecified Start:21-May-2014 Instruction Type:Patient Education How to access health informa tion online Indication:Laceration of left leg Start:10-May-2014 Instruction Type:Patient Education How to access health informa tion online - Detail Indication:Laceration of left leg Start:10-May-2014 Instruction Type:Patient Education Patient Instructions Indication:Laceration of left leg Start:10-May-2014 Instruction Type:Provider Instructions for Treatment Patient Instructions Indication:Hyperlipidemia, unspecified Start:28-Jan-2014 Instruction Type:Provider Instructions for Treatment Name Dates Details Patient Instructions Indication:BMI 32.0-32.9,adult Start:21-Oct-2020 Instruction Type:Provider Instructions for Treatment How to Access Health Informa tion Online using Patient Portal and [employer]rd [employer] Apps Indication:Nonsmoker Start:21-Oct-2020 Instruction Type:Patient Education How to access health informa tion online Indication:Adult residual type attention deficit hyperactivity disorder (ADHD) Start:29-Apr-2020 Instruction Type:Patient Education How to access health informa tion online - Detail Indication:Adult residual type attention deficit hyperactivity disorder (ADHD) Start:29-Apr-2020 Instruction Type:Patient Education Patient Instructions Indication:Adult residual type attention deficit hyperactivity disorder (ADHD) Start:29-Apr-2020 Instruction Type:Provider Instructions for Treatment How to access health informa tion online Indication:Nonsmoker Start:20-Apr-2020 Instruction Type:Patient Education How to access health informa tion online - Detail Indication:Nonsmoker Start:20-Apr-2020 Instruction Type:Patient Education Patient Instructions Indication:Nonsmoker Start:20-Apr-2020 Instruction Type:Provider Instructions for Treatment How to access health informa tion online Indication:Adult residual type attention deficit hyperactivity disorder (ADHD) Start:01-Jan-2020 Instruction Type:Patient Education How to access health informa tion online - Detail Indication:Adult residual type attention deficit hyperactivity disorder (ADHD) Start:01-Jan-2020 Instruction Type:Patient Education Patient Instructions Indication:Adult residual type attention deficit hyperactivity disorder (ADHD) Start:01-Jan-2020 Instruction Type:Provider Instructions for Treatment How to access health informa tion online Indication:Nonsmoker Start:27-Oct-2019 Instruction Type:Patient Education How to access health informa tion online - Detail Indication:Nonsmoker Start:27-Oct-2019 Instruction Type:Patient Education Patient Instructions Indication:Nonsmoker Start:27-Oct-2019 Instruction Type:Provider Instructions for Treatment How to access health informa tion online Indication:Nonsmoker Start:05-Oct-2019 Instruction Type:Patient Education How to access health informa tion online - Detail Indication:Nonsmoker Start:05-Oct-2019 Instruction Type:Patient Education Patient Instructions Indication:Encounter for screening for malignant neoplasm of prostate (Renamed from Screening for prostate cancer) Start:05-Oct-2019 Instruction Type:Provider Instructions for Treatment How to access health informa tion online Indication:Adult residual type attention deficit hyperactivity disorder (ADHD) Start:03-Jul-2019 Instruction Type:Patient Education How to access health informa tion online - Detail Indication:Adult residual type attention deficit hyperactivity disorder (ADHD) Start:03-Jul-2019 Instruction Type:Patient Education Patient Instructions Indication:Adult residual type attention deficit hyperactivity disorder (ADHD) Start:03-Jul-2019 Instruction Type:Provider Instructions for Treatment How to access health informa tion online Indication:Adult residual type attention deficit hyperactivity disorder (ADHD) Start:09-Apr-2019 Instruction Type:Patient Education How to access health informa tion online - Detail Indication:Adult residual type attention deficit hyperactivity disorder (ADHD) Start:09-Apr-2019 Instruction Type:Patient Education Patient Instructions Indication:Adult residual type attention deficit hyperactivity disorder (ADHD) Start:09-Apr-2019 Instruction Type:Provider Instructions for Treatment How to access health informa tion online Indication:Nonsmoker Start:20-Mar-2019 Instruction Type:Patient Education How to access health informa tion online - Detail Indication:Nonsmoker Start:20-Mar-2019 Instruction Type:Patient Education Patient Instructions Indication:Elevated blood-pressure reading, without diagnosis of hypertension (Renamed from Elevated blood-pressure reading without diagnosis of hypertension) Start:20-Mar-2019 Instruction Type:Provider Instructions for Treatment How to access health informa tion online Indication:Nonsmoker Start:12-Dec-2018 Instruction Type:Patient Education How to access health informa tion online - Detail Indication:Nonsmoker Start:12-Dec-2018 Instruction Type:Patient Education Patient Instructions Indication:BMI 34.0-34.9,adult Start:12-Dec-2018 Instruction Type:Provider Instructions for Treatment How to access health informa tion online Indication:Nonsmoker Start:21-Nov-2018 Instruction Type:Patient Education How to access health informa tion online - Detail Indication:Nonsmoker Start:21-Nov-2018 Instruction Type:Patient Education Patient Instructions Indication:Nonsmoker Start:21-Nov-2018 Instruction Type:Provider Instructions for Treatment How to access health informa tion online Indication:Nonsmoker Start:05-Sep-2018 Instruction Type:Patient Education How to access health informa tion online - Detail Indication:Nonsmoker Start:05-Sep-2018 Instruction Type:Patient Education Patient Instructions Indication:Nonsmoker Start:05-Sep-2018 Instruction Type:Provider Instructions for Treatment How to access health informa tion online Indication:Nonsmoker Start:02-Jun-2018 Instruction Type:Patient Education How to access health informa tion online - Detail Indication:Nonsmoker Start:02-Jun-2018 Instruction Type:Patient Education Patient Instructions Indication:Encounter for screening for malignant neoplasm of prostate (Renamed from Screening for prostate cancer) Start:02-Jun-2018 Instruction Type:Provider Instructions for Treatment How to access health informa tion online Indication:Adult residual type attention deficit hyperactivity disorder (ADHD) Start:30-May-2018 Instruction Type:Patient Education How to access health informa tion online - Detail Indication:Adult residual type attention deficit hyperactivity disorder (ADHD) Start:30-May-2018 Instruction Type:Patient Education Patient Instructions Indication:Adult residual type attention deficit hyperactivity disorder (ADHD) Start:30-May-2018 Instruction Type:Provider Instructions for Treatment How to access health informa tion online Indication:Cracked lip Start:28-Apr-2018 Instruction Type:Patient Education How to access health informa tion online - Detail Indication:Cracked lip Start:28-Apr-2018 Instruction Type:Patient Education Patient Instructions Indication:Cracked lip Start:28-Apr-2018 Instruction Type:Provider Instructions for Treatment How to access health informa tion online Indication:Adult residual type attention deficit hyperactivity disorder (ADHD) Start:21-Feb-2018 Instruction Type:Patient Education How to access health informa tion online - Detail Indication:Adult residual type attention deficit hyperactivity disorder (ADHD) Start:21-Feb-2018 Instruction Type:Patient Education Patient Instructions Indication:Adult residual type attention deficit hyperactivity disorder (ADHD) Start:21-Feb-2018 Instruction Type:Provider Instructions for Treatment How to access health informa tion online Indication:Nonsmoker Start:27-Jan-2018 Instruction Type:Patient Education How to access health informa tion online - Detail Indication:Nonsmoker Start:27-Jan-2018 Instruction Type:Patient Education Patient Instructions Indication:Nonsmoker Start:27-Jan-2018 Instruction Type:Provider Instructions for Treatment How to access health informa tion online Indication:Adult residual type attention deficit hyperactivity disorder (ADHD) Start:25-Oct-2017 Instruction Type:Patient Education How to access health informa tion online - Detail Indication:Adult residual type attention deficit hyperactivity disorder (ADHD) Start:25-Oct-2017 Instruction Type:Patient Education Patient Instructions Indication:Adult residual type attention deficit hyperactivity disorder (ADHD) Start:25-Oct-2017 Instruction Type:Provider Instructions for Treatment How to access health informa tion online Indication:Abnormal glucose tolerance test (Renamed from Abnormal glucose tolerance test (GTT)) Start:13-Sep-2017 Instruction Type:Patient Education How to access health informa tion online - Detail Indication:Abnormal glucose tolerance test (Renamed from Abnormal glucose tolerance test (GTT)) Start:13-Sep-2017 Instruction Type:Patient Education Patient Instructions Indication:BMI 34.0-34.9,adult Start:13-Sep-2017 Instruction Type:Provider Instructions for Treatment How to access health informa tion online Indication:Nonsmoker Start:16-Aug-2017 Instruction Type:Patient Education How to access health informa tion online - Detail Indication:Nonsmoker Start:16-Aug-2017 Instruction Type:Patient Education Patient Instructions Indication:Nonsmoker Start:16-Aug-2017 Instruction Type:Provider Instructions for Treatment How to access health informa tion online Indication:Adult residual type attention deficit hyperactivity disorder (ADHD) Start:26-Jul-2017 Instruction Type:Patient Education How to access health informa tion online - Detail Indication:Adult residual type attention deficit hyperactivity disorder (ADHD) Start:26-Jul-2017 Instruction Type:Patient Education Patient Instructions Indication:Adult residual type attention deficit hyperactivity disorder (ADHD) Start:26-Jul-2017 Instruction Type:Provider Instructions for Treatment How to access health informa tion online Indication:Abnormal glucose tolerance test (Renamed from Abnormal glucose tolerance test (GTT)) Start:10-May-2017 Instruction Type:Patient Education How to access health informa tion online - Detail Indication:Abnormal glucose tolerance test (Renamed from Abnormal glucose tolerance test (GTT)) Start:10-May-2017 Instruction Type:Patient Education Patient Instructions Indication:Abnormal glucose tolerance test (Renamed from Abnormal glucose tolerance test (GTT)) Start:10-May-2017 Instruction Type:Provider Instructions for Treatment Patient Instructions Indication:Skin picking habit Start:18-Jan-2017 Instruction Type:Provider Instructions for Treatment How to access health informa tion online Indication:Hyperlipidemia, unspecified Start:03-Dec-2016 Instruction Type:Patient Education How to access health informa tion online - Detail Indication:Hyperlipidemia, unspecified Start:03-Dec-2016 Instruction Type:Patient Education Patient Instructions Indication:Hyperlipidemia, unspecified Start:03-Dec-2016 Instruction Type:Provider Instructions for Treatment How to access health informa tion online Indication:Adult residual type attention deficit hyperactivity disorder (ADHD) Start:12-Oct-2016 Instruction Type:Patient Education How to access health informa tion online - Detail Indication:Adult residual type attention deficit hyperactivity disorder (ADHD) Start:12-Oct-2016 Instruction Type:Patient Education Patient Instructions Indication:Adult residual type attention deficit hyperactivity disorder (ADHD) Start:12-Oct-2016 Instruction Type:Provider Instructions for Treatment Patient Instructions Indication:Vitamin D deficiency Start:01-Oct-2016 Instruction Type:Provider Instructions for Treatment How to access health informa tion online Indication:Nonsmoker Start:01-Oct-2016 Instruction Type:Patient Education How to access health informa tion online - Detail Indication:Nonsmoker Start:01-Oct-2016 Instruction Type:Patient Education Patient Instructions Indication:Nonsmoker Start:01-Oct-2016 Instruction Type:Provider Instructions for Treatment How to access health informa tion online Indication:Abnormal glucose tolerance test (Renamed from Abnormal glucose tolerance test (GTT)) Start:21-Sep-2016 Instruction Type:Patient Education How to access health informa tion online - Detail Indication:Abnormal glucose tolerance test (Renamed from Abnormal glucose tolerance test (GTT)) Start:21-Sep-2016 Instruction Type:Patient Education Patient Instructions Indication:Abnormal glucose tolerance test (Renamed from Abnormal glucose tolerance test (GTT)) Start:21-Sep-2016 Instruction Type:Provider Instructions for Treatment Patient Instructions Indication:Abnormal glucose tolerance test (Renamed from Abnormal glucose tolerance test (GTT)) Start:06-Feb-2016 Instruction Type:Provider Instructions for Treatment How to access health informa tion online Indication:Prediabetes Start:26-Dec-2015 Instruction Type:Patient Education How to access health informa tion online - Detail Indication:Prediabetes Start:26-Dec-2015 Instruction Type:Patient Education Patient Instructions Indication:Prediabetes Start:26-Dec-2015 Instruction Type:Provider Instructions for Treatment How to access health informa tion online Indication:Anxiety Start:27-Jun-2015 Instruction Type:Patient Education How to access health informa tion online - Detail Indication:Anxiety Start:27-Jun-2015 Instruction Type:Patient Education Patient Instructions Indication:Anxiety Start:27-Jun-2015 Instruction Type:Provider Instructions for Treatment Patient Instructions Indication:Anxiety Start:09-May-2015 Instruction Type:Provider Instructions for Treatment Patient Instructions Indication:Obesity, unspecified Start:21-May-2014 Instruction Type:Provider Instructions for Treatment How to access health informa tion online Indication:Obesity, unspecified Start:21-May-2014 Instruction Type:Patient Education How to access health informa tion online - Detail Indication:Obesity, unspecified Start:21-May-2014 Instruction Type:Patient Education How to access health informa tion online Indication:Laceration of left leg Start:10-May-2014 Instruction Type:Patient Education How to access health informa tion online - Detail Indication:Laceration of left leg Start:10-May-2014 Instruction Type:Patient Education Patient Instructions Indication:Laceration of left leg Start:10-May-2014 Instruction Type:Provider Instructions for Treatment Patient Instructions Indication:Hyperlipidemia, unspecified Start:28-Jan-2014 Instruction Type:Provider Instructions for Treatment Name Dates Details Patient Instructions Indication:Adult residual type attention deficit hyperactivity disorder (ADHD) Start:28-Oct-2020 Instruction Type:Provider Instructions for Treatment How to Access Health Informa tion Online using Patient Portal and [employer] Apps Indication:Adult residual type attention deficit hyperactivity disorder (ADHD) Start:28-Oct-2020 Instruction Type:Patient Education Patient Instructions Indication:BMI 32.0-32.9,adult Start:21-Oct-2020 Instruction Type:Provider Instructions for Treatment How to Access Health Informa tion Online using Patient Portal and [employer] Apps Indication:Nonsmoker Start:21-Oct-2020 Instruction Type:Patient Education How to access health informa tion online Indication:Adult residual type attention deficit hyperactivity disorder (ADHD) Start:29-Apr-2020 Instruction Type:Patient Education How to access health informa tion online - Detail Indication:Adult residual type attention deficit hyperactivity disorder (ADHD) Start:29-Apr-2020 Instruction Type:Patient Education Patient Instructions Indication:Adult residual type attention deficit hyperactivity disorder (ADHD) Start:29-Apr-2020 Instruction Type:Provider Instructions for Treatment How to access health informa tion online Indication:Nonsmoker Start:20-Apr-2020 Instruction Type:Patient Education How to access health informa tion online - Detail Indication:Nonsmoker Start:20-Apr-2020 Instruction Type:Patient Education Patient Instructions Indication:Nonsmoker Start:20-Apr-2020 Instruction Type:Provider Instructions for Treatment How to access health informa tion online Indication:Adult residual type attention deficit hyperactivity disorder (ADHD) Start:01-Jan-2020 Instruction Type:Patient Education How to access health informa tion online - Detail Indication:Adult residual type attention deficit hyperactivity disorder (ADHD) Start:01-Jan-2020 Instruction Type:Patient Education Patient Instructions Indication:Adult residual type attention deficit hyperactivity disorder (ADHD) Start:01-Jan-2020 Instruction Type:Provider Instructions for Treatment How to access health informa tion online Indication:Nonsmoker Start:27-Oct-2019 Instruction Type:Patient Education How to access health informa tion online - Detail Indication:Nonsmoker Start:27-Oct-2019 Instruction Type:Patient Education Patient Instructions Indication:Nonsmoker Start:27-Oct-2019 Instruction Type:Provider Instructions for Treatment How to access health informa tion online Indication:Nonsmoker Start:05-Oct-2019 Instruction Type:Patient Education How to access health informa tion online - Detail Indication:Nonsmoker Start:05-Oct-2019 Instruction Type:Patient Education Patient Instructions Indication:Encounter for screening for malignant neoplasm of prostate (Renamed from Screening for prostate cancer) Start:05-Oct-2019 Instruction Type:Provider Instructions for Treatment How to access health informa tion online Indication:Adult residual type attention deficit hyperactivity disorder (ADHD) Start:03-Jul-2019 Instruction Type:Patient Education How to access health informa tion online - Detail Indication:Adult residual type attention deficit hyperactivity disorder (ADHD) Start:03-Jul-2019 Instruction Type:Patient Education Patient Instructions Indication:Adult residual type attention deficit hyperactivity disorder (ADHD) Start:03-Jul-2019 Instruction Type:Provider Instructions for Treatment How to access health informa tion online Indication:Adult residual type attention deficit hyperactivity disorder (ADHD) Start:09-Apr-2019 Instruction Type:Patient Education How to access health informa tion online - Detail Indication:Adult residual type attention deficit hyperactivity disorder (ADHD) Start:09-Apr-2019 Instruction Type:Patient Education Patient Instructions Indication:Adult residual type attention deficit hyperactivity disorder (ADHD) Start:09-Apr-2019 Instruction Type:Provider Instructions for Treatment How to access health informa tion online Indication:Nonsmoker Start:20-Mar-2019 Instruction Type:Patient Education How to access health informa tion online - Detail Indication:Nonsmoker Start:20-Mar-2019 Instruction Type:Patient Education Patient Instructions Indication:Elevated blood-pressure reading, without diagnosis of hypertension (Renamed from Elevated blood-pressure reading without diagnosis of hypertension) Start:20-Mar-2019 Instruction Type:Provider Instructions for Treatment How to access health informa tion online Indication:Nonsmoker Start:12-Dec-2018 Instruction Type:Patient Education How to access health informa tion online - Detail Indication:Nonsmoker Start:12-Dec-2018 Instruction Type:Patient Education Patient Instructions Indication:BMI 34.0-34.9,adult Start:12-Dec-2018 Instruction Type:Provider Instructions for Treatment How to access health informa tion online Indication:Nonsmoker Start:21-Nov-2018 Instruction Type:Patient Education How to access health informa tion online - Detail Indication:Nonsmoker Start:21-Nov-2018 Instruction Type:Patient Education Patient Instructions Indication:Nonsmoker Start:21-Nov-2018 Instruction Type:Provider Instructions for Treatment How to access health informa tion online Indication:Nonsmoker Start:05-Sep-2018 Instruction Type:Patient Education How to access health informa tion online - Detail Indication:Nonsmoker Start:05-Sep-2018 Instruction Type:Patient Education Patient Instructions Indication:Nonsmoker Start:05-Sep-2018 Instruction Type:Provider Instructions for Treatment How to access health informa tion online Indication:Nonsmoker Start:02-Jun-2018 Instruction Type:Patient Education How to access health informa tion online - Detail Indication:Nonsmoker Start:02-Jun-2018 Instruction Type:Patient Education Patient Instructions Indication:Encounter for screening for malignant neoplasm of prostate (Renamed from Screening for prostate cancer) Start:02-Jun-2018 Instruction Type:Provider Instructions for Treatment How to access health informa tion online Indication:Adult residual type attention deficit hyperactivity disorder (ADHD) Start:30-May-2018 Instruction Type:Patient Education How to access health informa tion online - Detail Indication:Adult residual type attention deficit hyperactivity disorder (ADHD) Start:30-May-2018 Instruction Type:Patient Education Patient Instructions Indication:Adult residual type attention deficit hyperactivity disorder (ADHD) Start:30-May-2018 Instruction Type:Provider Instructions for Treatment How to access health informa tion online Indication:Cracked lip Start:28-Apr-2018 Instruction Type:Patient Education How to access health informa tion online - Detail Indication:Cracked lip Start:28-Apr-2018 Instruction Type:Patient Education Patient Instructions Indication:Cracked lip Start:28-Apr-2018 Instruction Type:Provider Instructions for Treatment How to access health informa tion online Indication:Adult residual type attention deficit hyperactivity disorder (ADHD) Start:21-Feb-2018 Instruction Type:Patient Education How to access health informa tion online - Detail Indication:Adult residual type attention deficit hyperactivity disorder (ADHD) Start:21-Feb-2018 Instruction Type:Patient Education Patient Instructions Indication:Adult residual type attention deficit hyperactivity disorder (ADHD) Start:21-Feb-2018 Instruction Type:Provider Instructions for Treatment How to access health informa tion online Indication:Nonsmoker Start:27-Jan-2018 Instruction Type:Patient Education How to access health informa tion online - Detail Indication:Nonsmoker Start:27-Jan-2018 Instruction Type:Patient Education Patient Instructions Indication:Nonsmoker Start:27-Jan-2018 Instruction Type:Provider Instructions for Treatment How to access health informa tion online Indication:Adult residual type attention deficit hyperactivity disorder (ADHD) Start:25-Oct-2017 Instruction Type:Patient Education How to access health informa tion online - Detail Indication:Adult residual type attention deficit hyperactivity disorder (ADHD) Start:25-Oct-2017 Instruction Type:Patient Education Patient Instructions Indication:Adult residual type attention deficit hyperactivity disorder (ADHD) Start:25-Oct-2017 Instruction Type:Provider Instructions for Treatment How to access health informa tion online Indication:Abnormal glucose tolerance test (Renamed from Abnormal glucose tolerance test (GTT)) Start:13-Sep-2017 Instruction Type:Patient Education How to access health informa tion online - Detail Indication:Abnormal glucose tolerance test (Renamed from Abnormal glucose tolerance test (GTT)) Start:13-Sep-2017 Instruction Type:Patient Education Patient Instructions Indication:BMI 34.0-34.9,adult Start:13-Sep-2017 Instruction Type:Provider Instructions for Treatment How to access health informa tion online Indication:Nonsmoker Start:16-Aug-2017 Instruction Type:Patient Education How to access health informa tion online - Detail Indication:Nonsmoker Start:16-Aug-2017 Instruction Type:Patient Education Patient Instructions Indication:Nonsmoker Start:16-Aug-2017 Instruction Type:Provider Instructions for Treatment How to access health informa tion online Indication:Adult residual type attention deficit hyperactivity disorder (ADHD) Start:26-Jul-2017 Instruction Type:Patient Education How to access health informa tion online - Detail Indication:Adult residual type attention deficit hyperactivity disorder (ADHD) Start:26-Jul-2017 Instruction Type:Patient Education Patient Instructions Indication:Adult residual type attention deficit hyperactivity disorder (ADHD) Start:26-Jul-2017 Instruction Type:Provider Instructions for Treatment How to access health informa tion online Indication:Abnormal glucose tolerance test (Renamed from Abnormal glucose tolerance test (GTT)) Start:10-May-2017 Instruction Type:Patient Education How to access health informa tion online - Detail Indication:Abnormal glucose tolerance test (Renamed from Abnormal glucose tolerance test (GTT)) Start:10-May-2017 Instruction Type:Patient Education Patient Instructions Indication:Abnormal glucose tolerance test (Renamed from Abnormal glucose tolerance test (GTT)) Start:10-May-2017 Instruction Type:Provider Instructions for Treatment Patient Instructions Indication:Skin picking habit Start:18-Jan-2017 Instruction Type:Provider Instructions for Treatment How to access health informa tion online Indication:Hyperlipidemia, unspecified Start:03-Dec-2016 Instruction Type:Patient Education How to access health informa tion online - Detail Indication:Hyperlipidemia, unspecified Start:03-Dec-2016 Instruction Type:Patient Education Patient Instructions Indication:Hyperlipidemia, unspecified Start:03-Dec-2016 Instruction Type:Provider Instructions for Treatment How to access health informa tion online Indication:Adult residual type attention deficit hyperactivity disorder (ADHD) Start:12-Oct-2016 Instruction Type:Patient Education How to access health informa tion online - Detail Indication:Adult residual type attention deficit hyperactivity disorder (ADHD) Start:12-Oct-2016 Instruction Type:Patient Education Patient Instructions Indication:Adult residual type attention deficit hyperactivity disorder (ADHD) Start:12-Oct-2016 Instruction Type:Provider Instructions for Treatment Patient Instructions Indication:Vitamin D deficiency Start:01-Oct-2016 Instruction Type:Provider Instructions for Treatment How to access health informa tion online Indication:Nonsmoker Start:01-Oct-2016 Instruction Type:Patient Education How to access health informa tion online - Detail Indication:Nonsmoker Start:01-Oct-2016 Instruction Type:Patient Education Patient Instructions Indication:Nonsmoker Start:01-Oct-2016 Instruction Type:Provider Instructions for Treatment How to access health informa tion online Indication:Abnormal glucose tolerance test (Renamed from Abnormal glucose tolerance test (GTT)) Start:21-Sep-2016 Instruction Type:Patient Education How to access health informa tion online - Detail Indication:Abnormal glucose tolerance test (Renamed from Abnormal glucose tolerance test (GTT)) Start:21-Sep-2016 Instruction Type:Patient Education Patient Instructions Indication:Abnormal glucose tolerance test (Renamed from Abnormal glucose tolerance test (GTT)) Start:21-Sep-2016 Instruction Type:Provider Instructions for Treatment Patient Instructions Indication:Abnormal glucose tolerance test (Renamed from Abnormal glucose tolerance test (GTT)) Start:06-Feb-2016 Instruction Type:Provider Instructions for Treatment How to access health informa tion online Indication:Prediabetes Start:26-Dec-2015 Instruction Type:Patient Education How to access health informa tion online - Detail Indication:Prediabetes Start:26-Dec-2015 Instruction Type:Patient Education Patient Instructions Indication:Prediabetes Start:26-Dec-2015 Instruction Type:Provider Instructions for Treatment How to access health informa tion online Indication:Anxiety Start:27-Jun-2015 Instruction Type:Patient Education How to access health informa tion online - Detail Indication:Anxiety Start:27-Jun-2015 Instruction Type:Patient Education Patient Instructions Indication:Anxiety Start:27-Jun-2015 Instruction Type:Provider Instructions for Treatment Patient Instructions Indication:Anxiety Start:09-May-2015 Instruction Type:Provider Instructions for Treatment Patient Instructions Indication:Obesity, unspecified Start:21-May-2014 Instruction Type:Provider Instructions for Treatment How to access health informa tion online Indication:Obesity, unspecified Start:21-May-2014 Instruction Type:Patient Education How to access health informa tion online - Detail Indication:Obesity, unspecified Start:21-May-2014 Instruction Type:Patient Education How to access health informa tion online Indication:Laceration of left leg Start:10-May-2014 Instruction Type:Patient Education How to access health informa tion online - Detail Indication:Laceration of left leg Start:10-May-2014 Instruction Type:Patient Education Patient Instructions Indication:Laceration of left leg Start:10-May-2014 Instruction Type:Provider Instructions for Treatment Patient Instructions Indication:Hyperlipidemia, unspecified Start:28-Jan-2014 Instruction Type:Provider Instructions for Treatment Name Dates Details Nonsmoker : How to access he alth information online Indication:Nonsmoker Nonsmoker : How to access he alth information online - Detail Indication:Nonsmoker Nonsmoker : Patient Instruct ions Indication:Nonsmoker Encounter for screening for malignant neoplasm of prostate (Renamed from Screening for prostate cancer) : Patient Instructions Indication:Encounter for screening for malignant neoplasm of prostate (Renamed from Screening for prostate cancer) Adult residual type attentio n deficit hyperactivity disorder (ADHD) : How to access health information online Indication:Adult residual type attention deficit hyperactivity disorder (ADHD) Adult residual type attentio n deficit hyperactivity disorder (ADHD) : How to access health information online - Detail Indication:Adult residual type attention deficit hyperactivity disorder (ADHD) Adult residual type attentio n deficit hyperactivity disorder (ADHD) : Patient Instructions Indication:Adult residual type attention deficit hyperactivity disorder (ADHD) Cracked lip : How to access health information online Indication:Cracked lip Cracked lip : How to access health information online - Detail Indication:Cracked lip Cracked lip : Patient Instru ctions Indication:Cracked lip Abnormal glucose tolerance t est (Renamed from Abnormal glucose tolerance test (GTT)) : How to access health information online Indication:Abnormal glucose tolerance test (Renamed from Abnormal glucose tolerance test (GTT)) Abnormal glucose tolerance t est (Renamed from Abnormal glucose tolerance test (GTT)) : How to access health information online - Detail Indication:Abnormal glucose tolerance test (Renamed from Abnormal glucose tolerance test (GTT)) BMI 34.0-34.9,adult : Patien t Instructions Indication:BMI 34.0-34.9,adult Abnormal glucose tolerance t est (Renamed from Abnormal glucose tolerance test (GTT)) : Patient Instructions Indication:Abnormal glucose tolerance test (Renamed from Abnormal glucose tolerance test (GTT)) Skin picking habit : Patient Instructions Indication:Skin picking habit Hyperlipidemia, unspecified : How to access health information online Indication:Hyperlipidemia, unspecified Hyperlipidemia, unspecified : How to access health information online - Detail Indication:Hyperlipidemia, unspecified Hyperlipidemia, unspecified : Patient Instructions Indication:Hyperlipidemia, unspecified Vitamin D deficiency : Patie nt Instructions Indication:Vitamin D deficiency Prediabetes : How to access health information online Indication:Prediabetes Prediabetes : How to access health information online - Detail Indication:Prediabetes Prediabetes : Patient Instru ctions Indication:Prediabetes Anxiety : How to access heal th information online Indication:Anxiety Anxiety : How to access heal th information online - Detail Indication:Anxiety Anxiety : Patient Instructio ns Indication:Anxiety Obesity, unspecified : Patie nt Instructions Indication:Obesity, unspecified Obesity, unspecified : How t o access health information online Indication:Obesity, unspecified Obesity, unspecified : How t o access health information online - Detail Indication:Obesity, unspecified Laceration of left leg : How to access health information online Indication:Laceration of left leg Laceration of left leg : How to access health information online - Detail Indication:Laceration of left leg Laceration of left leg : Pat ient Instructions Indication:Laceration of left leg Name Dates Details How to access health informa tion online Indication:Nonsmoker Start:20-Mar-2019 Instruction Type:Patient Education How to access health informa tion online - Detail Indication:Nonsmoker Start:20-Mar-2019 Instruction Type:Patient Education Patient Instructions Indication:Elevated blood-pressure reading, without diagnosis of hypertension (Renamed from Elevated blood-pressure reading without diagnosis of hypertension) Start:20-Mar-2019 Instruction Type:Provider Instructions for Treatment How to access health informa tion online Indication:Nonsmoker Start:12-Dec-2018 Instruction Type:Patient Education How to access health informa tion online - Detail Indication:Nonsmoker Start:12-Dec-2018 Instruction Type:Patient Education Patient Instructions Indication:BMI 34.0-34.9,adult Start:12-Dec-2018 Instruction Type:Provider Instructions for Treatment How to access health informa tion online Indication:Nonsmoker Start:21-Nov-2018 Instruction Type:Patient Education How to access health informa tion online - Detail Indication:Nonsmoker Start:21-Nov-2018 Instruction Type:Patient Education Patient Instructions Indication:Nonsmoker Start:21-Nov-2018 Instruction Type:Provider Instructions for Treatment How to access health informa tion online Indication:Nonsmoker Start:05-Sep-2018 Instruction Type:Patient Education How to access health informa tion online - Detail Indication:Nonsmoker Start:05-Sep-2018 Instruction Type:Patient Education Patient Instructions Indication:Nonsmoker Start:05-Sep-2018 Instruction Type:Provider Instructions for Treatment How to access health informa tion online Indication:Nonsmoker Start:02-Jun-2018 Instruction Type:Patient Education How to access health informa tion online - Detail Indication:Nonsmoker Start:02-Jun-2018 Instruction Type:Patient Education Patient Instructions Indication:Encounter for screening for malignant neoplasm of prostate (Renamed from Screening for prostate cancer) Start:02-Jun-2018 Instruction Type:Provider Instructions for Treatment How to access health informa tion online Indication:Adult residual type attention deficit hyperactivity disorder (ADHD) Start:30-May-2018 Instruction Type:Patient Education How to access health informa tion online - Detail Indication:Adult residual type attention deficit hyperactivity disorder (ADHD) Start:30-May-2018 Instruction Type:Patient Education Patient Instructions Indication:Adult residual type attention deficit hyperactivity disorder (ADHD) Start:30-May-2018 Instruction Type:Provider Instructions for Treatment How to access health informa tion online Indication:Cracked lip Start:28-Apr-2018 Instruction Type:Patient Education How to access health informa tion online - Detail Indication:Cracked lip Start:28-Apr-2018 Instruction Type:Patient Education Patient Instructions Indication:Cracked lip Start:28-Apr-2018 Instruction Type:Provider Instructions for Treatment How to access health informa tion online Indication:Adult residual type attention deficit hyperactivity disorder (ADHD) Start:21-Feb-2018 Instruction Type:Patient Education How to access health informa tion online - Detail Indication:Adult residual type attention deficit hyperactivity disorder (ADHD) Start:21-Feb-2018 Instruction Type:Patient Education Patient Instructions Indication:Adult residual type attention deficit hyperactivity disorder (ADHD) Start:21-Feb-2018 Instruction Type:Provider Instructions for Treatment How to access health informa tion online Indication:Nonsmoker Start:27-Jan-2018 Instruction Type:Patient Education How to access health informa tion online - Detail Indication:Nonsmoker Start:27-Jan-2018 Instruction Type:Patient Education Patient Instructions Indication:Nonsmoker Start:27-Jan-2018 Instruction Type:Provider Instructions for Treatment How to access health informa tion online Indication:Adult residual type attention deficit hyperactivity disorder (ADHD) Start:25-Oct-2017 Instruction Type:Patient Education How to access health informa tion online - Detail Indication:Adult residual type attention deficit hyperactivity disorder (ADHD) Start:25-Oct-2017 Instruction Type:Patient Education Patient Instructions Indication:Adult residual type attention deficit hyperactivity disorder (ADHD) Start:25-Oct-2017 Instruction Type:Provider Instructions for Treatment How to access health informa tion online Indication:Abnormal glucose tolerance test (Renamed from Abnormal glucose tolerance test (GTT)) Start:13-Sep-2017 Instruction Type:Patient Education How to access health informa tion online - Detail Indication:Abnormal glucose tolerance test (Renamed from Abnormal glucose tolerance test (GTT)) Start:13-Sep-2017 Instruction Type:Patient Education Patient Instructions Indication:BMI 34.0-34.9,adult Start:13-Sep-2017 Instruction Type:Provider Instructions for Treatment How to access health informa tion online Indication:Nonsmoker Start:16-Aug-2017 Instruction Type:Patient Education How to access health informa tion online - Detail Indication:Nonsmoker Start:16-Aug-2017 Instruction Type:Patient Education Patient Instructions Indication:Nonsmoker Start:16-Aug-2017 Instruction Type:Provider Instructions for Treatment How to access health informa tion online Indication:Adult residual type attention deficit hyperactivity disorder (ADHD) Start:26-Jul-2017 Instruction Type:Patient Education How to access health informa tion online - Detail Indication:Adult residual type attention deficit hyperactivity disorder (ADHD) Start:26-Jul-2017 Instruction Type:Patient Education Patient Instructions Indication:Adult residual type attention deficit hyperactivity disorder (ADHD) Start:26-Jul-2017 Instruction Type:Provider Instructions for Treatment How to access health informa tion online Indication:Abnormal glucose tolerance test (Renamed from Abnormal glucose tolerance test (GTT)) Start:10-May-2017 Instruction Type:Patient Education How to access health informa tion online - Detail Indication:Abnormal glucose tolerance test (Renamed from Abnormal glucose tolerance test (GTT)) Start:10-May-2017 Instruction Type:Patient Education Patient Instructions Indication:Abnormal glucose tolerance test (Renamed from Abnormal glucose tolerance test (GTT)) Start:10-May-2017 Instruction Type:Provider Instructions for Treatment Patient Instructions Indication:Skin picking habit Start:18-Jan-2017 Instruction Type:Provider Instructions for Treatment How to access health informa tion online Indication:Hyperlipidemia, unspecified Start:03-Dec-2016 Instruction Type:Patient Education How to access health informa tion online - Detail Indication:Hyperlipidemia, unspecified Start:03-Dec-2016 Instruction Type:Patient Education Patient Instructions Indication:Hyperlipidemia, unspecified Start:03-Dec-2016 Instruction Type:Provider Instructions for Treatment How to access health informa tion online Indication:Adult residual type attention deficit hyperactivity disorder (ADHD) Start:12-Oct-2016 Instruction Type:Patient Education How to access health informa tion online - Detail Indication:Adult residual type attention deficit hyperactivity disorder (ADHD) Start:12-Oct-2016 Instruction Type:Patient Education Patient Instructions Indication:Adult residual type attention deficit hyperactivity disorder (ADHD) Start:12-Oct-2016 Instruction Type:Provider Instructions for Treatment Patient Instructions Indication:Vitamin D deficiency Start:01-Oct-2016 Instruction Type:Provider Instructions for Treatment How to access health informa tion online Indication:Nonsmoker Start:01-Oct-2016 Instruction Type:Patient Education How to access health informa tion online - Detail Indication:Nonsmoker Start:01-Oct-2016 Instruction Type:Patient Education Patient Instructions Indication:Nonsmoker Start:01-Oct-2016 Instruction Type:Provider Instructions for Treatment How to access health informa tion online Indication:Abnormal glucose tolerance test (Renamed from Abnormal glucose tolerance test (GTT)) Start:21-Sep-2016 Instruction Type:Patient Education How to access health informa tion online - Detail Indication:Abnormal glucose tolerance test (Renamed from Abnormal glucose tolerance test (GTT)) Start:21-Sep-2016 Instruction Type:Patient Education Patient Instructions Indication:Abnormal glucose tolerance test (Renamed from Abnormal glucose tolerance test (GTT)) Start:21-Sep-2016 Instruction Type:Provider Instructions for Treatment Patient Instructions Indication:Abnormal glucose tolerance test (Renamed from Abnormal glucose tolerance test (GTT)) Start:06-Feb-2016 Instruction Type:Provider Instructions for Treatment How to access health informa tion online Indication:Prediabetes Start:26-Dec-2015 Instruction Type:Patient Education How to access health informa tion online - Detail Indication:Prediabetes Start:26-Dec-2015 Instruction Type:Patient Education Patient Instructions Indication:Prediabetes Start:26-Dec-2015 Instruction Type:Provider Instructions for Treatment How to access health informa tion online Indication:Anxiety Start:27-Jun-2015 Instruction Type:Patient Education How to access health informa tion online - Detail Indication:Anxiety Start:27-Jun-2015 Instruction Type:Patient Education Patient Instructions Indication:Anxiety Start:27-Jun-2015 Instruction Type:Provider Instructions for Treatment Patient Instructions Indication:Anxiety Start:09-May-2015 Instruction Type:Provider Instructions for Treatment Patient Instructions Indication:Obesity, unspecified Start:21-May-2014 Instruction Type:Provider Instructions for Treatment How to access health informa tion online Indication:Obesity, unspecified Start:21-May-2014 Instruction Type:Patient Education How to access health informa tion online - Detail Indication:Obesity, unspecified Start:21-May-2014 Instruction Type:Patient Education How to access health informa tion online Indication:Laceration of left leg Start:10-May-2014 Instruction Type:Patient Education How to access health informa tion online - Detail Indication:Laceration of left leg Start:10-May-2014 Instruction Type:Patient Education Patient Instructions Indication:Laceration of left leg Start:10-May-2014 Instruction Type:Provider Instructions for Treatment Patient Instructions Indication:Hyperlipidemia, unspecified Start:28-Jan-2014 Instruction Type:Provider Instructions for Treatment Summary Purpose Advance Directives No Advanced Directives Records FoundNo Advanced Directives Records FoundNo Advanced Directives Records FoundNo Advanced Directives Records Found Additional Source Comments (unrecognized sect ion and content) No Status Records FoundNo Status Records FoundNo Status Records FoundNo Status Records Found INFORMATION SOURCE (unrecogn ized section and content) DATE CREATED AUTHOR 12/19/2018 [facility] DATE CREATED AUTHOR AUTHOR'S ORGANIZ ATION 06/05/2019 [facility] DATE CREATED AUTHOR AUTHOR'S ORGANIZ ATION 09/15/2021 [facility] DATE CREATED AUTHOR AUTHOR'S ORGANIZ ATION 01/19/2023 [facility] FOR RECORDS PERTAINING TO PATIENTS WHO ARE OR HAVE BEEN ENROLLED IN A CHEMICAL DEPENDENCY/SUBSTANCEABUSE PROGRAM, SOME INFORMATION MAY BE OMITTED. This clinical summary was aggregated from multiple sources. Caution should be exercised in using it in the provision of clinical care. This summary normalizes information from multiple sources, and as a consequence, information in this document may materially change the coding, format and clinical context of patient data. In addition, data may be omitted in some cases. CLINICAL DECISIONS SHOULD BE BASED ON THE PRIMARY CLINICAL RECORDS. [employer] [facility]. provides no warranty or guarantee of the accuracy or completeness of information in this document.
--- NOTE | 2024-06-08 08:29 | CA.SCORE ---
Calcium Scoring Date of Study:: 06/08/24 Indications Indications: Hypertension Coronary Calcium Scoring: High-resolution Computed Tomographic imaging of the chest was performed on [06/08/2024], with particular attention paid to the coronary arteries. Images from the examination were analyzed for the presence and extent of coronary artery calcification , using coronary calcium quantification software. The patient tolerated the procedure well and there were no complications. The results of the coronary calcification analysis are provided below. Findings Coronary Artery Left Main (LM): 0 Left Anterior Descending (LAD): 15 Left Circumflex (LCX): 0 Right Coronary Artery (RCA): 3.18 Total Agatston Score: 18.18 Percentile Rankinth to 50th percentile Calcium Scoring Interpretation: Different methods to categorize the overall amount of coronary plaque. Overall amount CAC SIS Visual of coronary plaque P1 Mild -100 <2 1-2 vessels with mild amount of plaque P2 Moderate 101-300 3-4 1-2 vessels with moderate amount, 3 vessels with mild amount of plaque P3 Severe 301-999 5-7 3 vessels with moderate amount, 1 vessel with severe amount of plaque P4 Extensive >1000 >8 2-3 vessels with severe amount of plaque Calcium Score: Mild: 1-2 vessels w/mild amount of plaque Conclusion: Mild atherosclerotic plaquing only noted.
== END | disposition home or self-care (01) ==
PROVIDERS: PCP Internal Medicine; Referring Provider Internal Medicine; Visit Provider Internal Medicine
DX: I11.9 Hypertensive heart disease without heart failure (principal)
CPT/HCPCS: 75571; 76380

== ENCOUNTER → 2024-09-07 | Outpatient (CLI) | payer BC, SELFPAY ==
[2024-09-07 12:29] LABS: D-Dimer Quantitative (DVT/PE) 0.33 FEU/ug/m (0.27-0.49)
[2024-09-07 12:34] LABS: Troponin-I HS 12 pg/mL (3.0-78.0)
== END | disposition home or self-care (01) ==
LOC: LABSPEC 11:52
PROVIDERS: PCP Internal Medicine; Referring Provider Internal Medicine; Visit Provider Internal Medicine
DX: R06.02 Shortness of breath (principal)
CPT/HCPCS: 84484; 85379